=== PATIENT | female | born 1945 | race African-American/Black ===

== ENCOUNTER 2017-01-20 17:51 | Emergency (ER) | payer OTHER ==
[~2017-01-20] VITALS: Ht 175.3 cm; Wt 95.7 kg
[~2017-01-20 17:51] MED LIST: ACET325T9 PO; AMLO10TA4 PO; ARIP15TA3 PO; ASPI-482 PO; BENZ0.5T PO; BENZ2TAB5 PO; CALC-98 PO; CELE200C PO; CHLO25TA PO; CHOL100013 PO; CIPR7.5D LEFT EAR; CLON0.1T12 PO; DICL100G18 TP; DULO20CA PO; ESOM20CA PO; ESOM40CA PO; FERR-26 PO; FLECTOR1 EACH TP; FLUP5TAB PO; FURO20TA3 PO; GLIP5TAB10 PO; HYDR-2758 PO; HYDR-2868 PO; LORA0.5T96 PO; MELO7.5T29 PO; METF-620 PO; METO50TA2 PO; MULT-208 PO; MULT-245 PO; NITR0.4T22 SL; OLOP5DRO EACHEYE; OMEG10006 PO; POTA10TA PO; PRED1TAB3 PO; PRED20TA PO; PROVENTIL HFA6.7 GM IH; SERT50TA PO; SIMV20TA PO; SIMV20TA3 PO; TRAM50TA PO; VALS320T2 PO
[2017-01-20 18:30] LABS: BASO # 0.1 x10^3/uL (0.0-0.2); BASO % 1 % (0-3); EOS % 1 % (0-3); HEMATOCRIT 35.5 % (36.0-47.0); HEMOGLOBIN 11.7 g/dL (12.0-15.5); LYMPH # 1.7 x10^3/uL (1.0-4.8); LYMPH % 16 % (24-48); MEAN CORPUSCULAR HEMOGLOBIN 28 pg (25-35); MEAN CORPUSCULAR HGB CONC 33 g/dL (31-37); MEAN CORPUSCULAR VOLUME 86 fL (79-100); MONO % 6 % (0-9); NEUT % 77 % (31-73); PLATELET COUNT 252 x10^3/uL (140-400); RED BLOOD COUNT 4.12 x10^6/uL (3.50-5.40); RED CELL DISTRIBUTION WIDTH 14.3 % (11.5-14.5); WHITE BLOOD COUNT 10.8 x10^3/uL (4.0-11.0)
[2017-01-20 18:39] LABS: PROTHROMBIN TIME PATIENT 12.9 SEC (11.7-14.0)
[2017-01-20 18:54] LABS: CREATININE 0.9 mg/dL (0.6-1.0); GFR 74.7; POTASSIUM 3.8 mmol/L (3.5-5.1)
[2017-01-20 19:00] LABS: ALBUMIN 3.9 g/dL (3.4-5.0); ALBUMIN/GLOBULIN RATIO 1.1 (1.0-1.7); MAGNESIUM 1.7 mg/dL (1.8-2.4); TOTAL BILIRUBIN 0.3 mg/dL (0.2-1.0); TOTAL PROTEIN 7.6 g/dL (6.4-8.2)
--- NOTE | 2017-01-20 19:09 | PHYS DOC ---
Past Medical History Past Medical History: Arthritis, Asthma, Diabetes-Type II, Fibromyalgia, High Cholesterol, Hypertension, Schizophrenia Additional Past Medical Histor: schizoaffective disorder, polymyalgia rheumatica Past Surgical History: Appendectomy, Hysterectomy, Knee Replacement Additional Past Surgical Histo: rectal surgery for fissures, cataract removed, back surgery Alcohol Use: None Drug Use: None Adult General Chief Complaint Chief Complaint: CHEST PAIN HPI HPI Patient is a 71 year old female who presents with chest pain. The patient reports onset of chest pressure about one hour prior to arrival after walking up the steps to the food [employer]. She states she had nonradiating substernal chest pressure associated with shortness of breath. She denies nausea or diaphoresis. Denies fevers or chills, cough, lower extremity pain or swelling. She has history of CHF and weighs herself daily. States she has lost 4 pounds since yesterday. She reports previous history of similar chest pain, unsure whether she was given any diagnosis at that time. Today her pain improved after taking nitro x 1. She denies any cardiac stents but does report history of CAD as well as DM & HTN. PCP is Dr. Love. Clip Wrapper is Dr. Page. Review of Systems Review of Systems Constitutional: Denies fever or chills Eyes: Denies change in visual acuity HENT: Denies nasal congestion or sore throat Respiratory: Denies cough, reports shortness of breath Cardiovascular: Reports chest pain, denies edema GI: Denies abdominal pain, nausea, vomiting, bloody stools or diarrhea : Denies dysuria or hematuria Musculoskeletal: Denies back pain or joint pain Integument: Denies rash or skin lesions Neurologic: Denies headache, focal weakness or sensory changes Allergies Allergies Allergies Coded Allergies Type Severity Reaction Last Updated Verified divalproex sodium Allergy Intermediate neck and back pain 07/16/16 Yes fluticasone Allergy Intermediate COUGH 07/16/16 Yes latex Allergy Intermediate SURGICAL TAPE 07/16/16 Yes lisinopril Allergy Intermediate cough 07/16/16 Yes piroxicam Allergy Intermediate BLISTERS 07/16/16 Yes gabapentin Adverse Reaction Severe 12/12/16 Yes Physical Exam Physical Exam Constitutional: Obese, no acute distress, non-toxic appearance. HENT: Normocephalic, atraumatic, bilateral external ears normal, oropharynx moist, nose normal. Eyes: PERRLA, EOMI, conjunctiva normal, no discharge. Neck: supple, no stridor. Cardiovascular: RRR, no murmurs, no edema. Lungs & Thorax: Diminished, LCTAB, no wheezing, no respiratory distress. No reproducible tenderness with palpation over the anterior chest wall. Abdomen: soft, nontender, nondistended. Skin: Warm, dry, no erythema, no rash. Back: No tenderness. Extremities: No tenderness, no edema. No calf tenderness or swelling. Neurologic: Alert and oriented X 3, no focal deficits noted. Psychologic: Affect normal, judgement normal, mood normal. Current Patient Data Vital Signs Vital Signs Date Time Temp Pulse Resp B/P (MAP) Pulse Ox O2 Delivery O2 Flow Rate FiO2 01/20/17 21:02 75 20 163/87 (112) 96 Room Air 01/20/17 17:52 97.9 97.9 Lab Values Laboratory Tests Test 01/20/17 18:20 01/20/17 20:06 White Blood Count 10.8 x10^3/uL (4.0-11.0) Red Blood Count 4.12 x10^6/uL (3.50-5.40) Hemoglobin 11.7 g/dL (12.0-15.5) L Hematocrit 35.5 % (36.0-47.0) L Mean Corpuscular Volume 86 fL (79-100) Mean Corpuscular Hemoglobin 28 pg (25-35) Mean Corpuscular Hemoglobin Concent 33 g/dL (31-37) Red Cell Distribution Width 14.3 % (11.5-14.5) Platelet Count 252 x10^3/uL (140-400) Neutrophils (%) (Auto) 77 % (31-73) H Lymphocytes (%) (Auto) 16 % (24-48) L Monocytes (%) (Auto) 6 % (0-9) Eosinophils (%) (Auto) 1 % (0-3) Basophils (%) (Auto) 1 % (0-3) Neutrophils # (Auto) 8.3 x10^3uL (1.8-7.7) H Lymphocytes # (Auto) 1.7 x10^3/uL (1.0-4.8) Monocytes # (Auto) 0.6 x10^3/uL (0.0-1.1) Eosinophils # (Auto) 0.1 x10^3/uL (0.0-0.7) Basophils # (Auto) 0.1 x10^3/uL (0.0-0.2) Prothrombin Time 12.9 SEC (11.7-14.0) Prothrombin Time INR 1.0 (0.8-1.1) PTT 29 SEC (24-38) Sodium Level 140 mmol/L (136-145) Potassium Level 3.8 mmol/L (3.5-5.1) Chloride Level 101 mmol/L (98-107) Carbon Dioxide Level 30 mmol/L (21-32) Anion Gap 9 (6-14) Blood Urea Nitrogen 13 mg/dL (7-20) Creatinine 0.9 mg/dL (0.6-1.0) Estimated GFR (Cockcroft-Gault) 74.7 BUN/Creatinine Ratio 14 (6-20) Glucose Level 147 mg/dL (70-99) H Calcium Level 10.0 mg/dL (8.5-10.1) Magnesium Level 1.7 mg/dL (1.8-2.4) L Total Bilirubin 0.3 mg/dL (0.2-1.0) Aspartate Amino Transferase (AST) 17 U/L (15-37) Alanine Aminotransferase (ALT) 22 U/L (14-59) Alkaline Phosphatase 88 U/L (46-116) Troponin I Quantitative < 0.017 ng/mL (0.000-0.055) < 0.017 ng/mL (0.000-0.055) TE-Fsd-Q-Type Natriuretic Peptide 176 pg/mL (0-124) H Total Protein 7.6 g/dL (6.4-8.2) Albumin 3.9 g/dL (3.4-5.0) Albumin/Globulin Ratio 1.1 (1.0-1.7) Lipase 82 U/L (73-393) Laboratory Tests 01/20/17 18:20 Laboratory Tests 01/20/17 18:20 EKG EKG Interpreted by me: Normal sinus rhythm rate 78, no acute ST or T wave changes, normal intervals, no ectopy. [] Radiology/Procedures Radiology/Procedures CXR: interpreted by me: no cardiomegaly, no infiltrate, no pneumothorax.[] Course & Med Decision Making Course & Med Decision Making Pertinent Labs and Imaging studies reviewed. (See chart for details) The patient presents with chest pain. She had already taken full-strength aspirin at home so it was not administered here. She declined pain medication as her pain had completely resolved. Obtained labs, EKG, chest x-ray. No acute abnormalities were identified. I discussed results with the patient and recommended admission to the hospital. She was very reluctant to stay in preferred to be discharged home. I attempted to contact her PCP Dr. Love to discuss disposition. Unfortunately I did not receive a call back for several hours. Discussed at length with the patient and we decided to repeat EKG and troponin. No significant change identified and she continued to request discharge home, remained asymptomatic. She does have risk factors for ACS with known CAD, but she declines admission to the hospital. I recommended that she continue home medications, follow-up with PCP or her furniture mover in 2-3 days. Return to the emergency department for severe chest pain or shortness of breath , any otherwise worsening condition. Discharged home in stable condition. Dragon Disclaimer Dragon Disclaimer This electronic medical record was generated, in whole or in part, using a voice recognition dictation system. Departure Departure Impression: Primary Impression: Chest pain Disposition: 01 HOME, SELF-CARE Condition: STABLE Referrals: ELISABETH LOVE MD (PCP) Patient Instructions: Chest Pain (Nonspecific), [id number] Additional Instructions: You seen in the emergency department today for chest pain. Labs, EKG, chest x- ray did not show any serious cause of symptoms. We did offer admission to the hospital for further heart tests. You preferred to go home. Please follow-up with primary care physician or radiologist within 2-3 days. Return to the emergency department for severe shortness of breath or chest pain, any otherwise worsening condition. CHIDI MINER MD Jan 20, 2017 19:09
[2017-01-20 21:02] VITALS: BP 163/87
--- NOTE | 2017-01-21 06:49 | EKG ---
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
--- NOTE | 2017-01-21 06:50 | EKG ---
[facility] [address] [place] [address] Test Date: 2017-01-20 Test Time: 20:33:06 Pat Name: CRISTOBAL BLOOD Department: Room: Gender: F Planer Hand: : 1945 Requested By: CHIDI MINER Order Number: [id number] Reading MD: Brittanie Rojas Measurements Intervals [place] Rate: 63 P: 43 UT: 168 QRS: -18 QRSD: 94 T: 43 QT: 412 QTc: 425 Interpretive Statements SINUS RHYTHM LEFT ATRIAL ABNORMALITY LEFTWARD AXIS ABNORMAL ECG Electronically Signed On 01-22-2017 14:12:28 CDT by Brittanie Rojas
--- NOTE | 2017-01-21 08:02 | RAD ---
Portable AP upright view CXR: Clinical indications: Chest pain today. Nontraumatic midsternal chest pain. History of hypertension and asthma and CHF and coronary artery disease. Comparison: December 11, 2016.. Findings: No acute lung infiltrate or pleural effusion or pulmonary edema or lung mass or pneumothorax is seen. The heart size, pulmonary vasculature, mediastinum and both krish are unremarkable. Degenerative osteoarthritis of the glenohumeral joint and AC joint of both shoulders is seen. There is narrowing of the acromial humeral spaces of the right shoulder which is consistent with a chronic rotator cuff tear. Impression: No acute radiographic abnormality is seen.
== END 2017-01-20 21:02 | disposition home or self-care (01) ==
LOC: ER 17:51
DX: R07.89 Other chest pain (principal); R06.02 Shortness of breath; M19.90 Unspecified osteoarthritis, unspecified site; J45.909 Unspecified asthma, uncomplicated; E11.9 Type 2 diabetes mellitus without complications; M79.7 Fibromyalgia; E78.00 Pure hypercholesterolemia, unspecified; I25.10 Atherosclerotic heart disease of native coronary artery without angina pectoris; F20.9 Schizophrenia, unspecified; I11.0 Hypertensive heart disease with heart failure; I50.9 Heart failure, unspecified; M35.3 Polymyalgia rheumatica; Z90.710 Acquired absence of both cervix and uterus; Z96.659 Presence of unspecified artificial knee joint; Z90.49 Acquired absence of other specified parts of digestive tract; Z98.49 Cataract extraction status, unspecified eye; Z88.8 Allergy status to other drugs, medicaments and biological substances; Z91.040 Latex allergy status
CPT/HCPCS: 36415; 71010; 80053; 83690; 83735; 83880; 84484; 85027; 85610; 85730; 93005; 99285-25

== ENCOUNTER → 2017-01-26 | Outpatient (CLI) | payer OTHER ==
[2017-01-20 21:02] VITALS: BP 163/87
[2017-01-26 10:30] LABS: CALCIUM 9.8 mg/dL (8.5-10.1); CREATININE 0.8 mg/dL (0.6-1.0); GFR 85.6; POTASSIUM 3.3 mmol/L (3.5-5.1)
== END | disposition home or self-care (01) ==
LOC: SPEC 10:05
PROVIDERS: ATTEND Internal Medicine
DX: I11.0 Hypertensive heart disease with heart failure (principal); I50.30 Unspecified diastolic (congestive) heart failure; E87.6 Hypokalemia
CPT/HCPCS: 36415; 80048

== ENCOUNTER 2017-02-12 00:10 | Emergency (ER) | payer OTHER ==
[2017-02-12 00:15] VITALS: BP 132/70
--- NOTE | 2017-02-12 01:32 | PHYS DOC ---
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 Patient states she has neuropathy and cannot feel any pain. Review of Systems Review of Systems Constitutional: Denies fever or chills [] Eyes: Denies change in visual acuity, redness, or eye pain [] Musculoskeletal: Left great toe contusion Integument: Denies rash or skin lesions [] Neurologic: Denies headache, focal weakness or sensory changes [] Endocrine: Denies polyuria or polydipsia [] Current Medications Current Medications Current Medications Medications (Trade) Dose Ordered Sig/Rocío Start Time Stop Time Status Last Admin Dose Admin Diphtheria/ Tetanus/Acell Pertussis (Boostrix) 0.5 ml ONCE ONCE 02/12/17 02:00 02/12/17 02:01 Neomycin/ Polymyxin/ Bacitracin (Triple Antibiotic Ointment) 1 pkt 1X ONCE 02/12/17 02:00 02/12/17 02:01 Allergies Allergies Allergies Coded Allergies Type Severity Reaction Last Updated Verified divalproex sodium Allergy Intermediate neck and back pain 07/16/16 Yes fluticasone Allergy Intermediate COUGH 07/16/16 Yes latex Allergy Intermediate SURGICAL TAPE 07/16/16 Yes lisinopril Allergy Intermediate cough 07/16/16 Yes piroxicam Allergy Intermediate BLISTERS 07/16/16 Yes gabapentin Adverse Reaction Severe 12/12/16 Yes Physical Exam Physical Exam Constitutional: Well developed, well nourished, no acute distress, non-toxic appearance. [] HENT: Normocephalic, atraumatic, bilateral external ears normal, oropharynx moist, no oral exudates, nose normal. [] Skin: Warm, dry, no erythema, no rash. [] Back: No tenderness, no CVA tenderness. [] Extremities: Left great toe with a tiny laceration over the lateral aspect of the distal nail bed approx. 0.3cm. the nail is still attached to the nailbed. Full range of motion to the left great toe. +2 left pedal pulse. Cap refill less than 2 seconds to the left great toe. Patient has no sensation to the toe due to neuropathy Neurologic: Alert and oriented X 3, normal motor function, normal sensory function, no focal deficits noted. [] Psychologic: Affect normal, judgement normal, mood normal. [] Current Patient Data Vital Signs Vital Signs Date Time Temp Pulse Resp B/P (MAP) Pulse Ox O2 Delivery O2 Flow Rate FiO2 02/12/17 00:15 98.3 87 16 97 Room Air 98.3 EKG EKG [] Radiology/Procedures Radiology/Procedures [] Course & Med Decision Making Course & Med Decision Making Pertinent Labs and Imaging studies reviewed. (See chart for details) Patient has left great toe contusion. Left great toe x-rays interpreted by Dr. Cevallos three views wre negative for any acute findings. Patient's tetanus was updated. She was provided orthopedic shoe. Discharged with instructions to follow-up with orthopedic doctor next week. Dragon Disclaimer Dragon Disclaimer This electronic medical record was generated, in whole or in part, using a voice recognition dictation system. Departure Departure Impression: Primary Impression: Contusion of left great toe with damage to nail Additional Impression: Fracture of great toe, left, open Disposition: 01 HOME, SELF-CARE Condition: STABLE Referrals: ELISABETH LOVE MD (PCP) LUIS CANTU MD follow up in one week Patient Instructions: Contusion, [id number] Additional Instructions: You were seen for left great toe contusion, You have a fracture to the left great toe. Ice and elevate the extremity. Follow-up with orthopedic doctor provided in the next 3-5 days. Complete your oral antibiotics. Ice and elevate the extremity. Take Tylenol or Motrin for pain follow-up with your doctor in 1- 2 weeks. Apply Neosporin/triple antibiotics to the laceration site. Monitor the area for signs and symptoms of infection including but not limited to increased redness warmth or odor drainage from the area and return to the ED if they occur. Scripts Cephalexin (CEPHALEXIN) 500 Mg Tablet 1 TAB PO QID, #40 TAB Prov: SCOTTIE BRENNAN PLANER SETTER 02/12/17 Problem Qualifiers Primary Impression: Contusion of left great toe with damage to nail Encounter type: initial encounter Qualified Codes: S90.212A - Contusion of left great toe with damage to nail, initial encounter Additional Impression: Fracture of great toe, left, open Encounter type: initial encounter Phalanx: distal Fracture alignment: nondisplaced Qualified Codes: S92.425B - Nondisplaced fracture of distal phalanx of left great toe, initial encounter for open fracture SCOTTIE BRENNAN PLANER SETTER Feb 12, 2017 01:32
[2017-02-12] MEDS ORDERED: CEPH500T PO (01:46)
[2017-02-12] MEDS ORDERED: NEOMY/BACITR/POLYMYXIN OINT PACKET. TP ONE (02:00)
[2017-02-12] MEDS ORDERED: DIPHTH,PERTUSS(ACELL),TET TOX 0.5 ML DISP.SYRIN. VAX IM ONE (02:00)
--- NOTE | 2017-02-12 08:21 | RAD ---
Indication pain after hitting foot. AP oblique and lateral views of the left foot were obtained. There is some diffuse soft tissue swelling. No acute bony finding is apparent
== END 2017-02-12 01:56 | disposition home or self-care (01) ==
LOC: ER 00:10
DX: S92.415B Nondisplaced fracture of proximal phalanx of left great toe, initial encounter for open fracture (principal); M35.3 Polymyalgia rheumatica; E11.21 Type 2 diabetes mellitus with diabetic nephropathy; E78.00 Pure hypercholesterolemia, unspecified; F20.9 Schizophrenia, unspecified; I10 Essential (primary) hypertension; J45.909 Unspecified asthma, uncomplicated; M79.7 Fibromyalgia; I11.0 Hypertensive heart disease with heart failure; I50.9 Heart failure, unspecified; M19.90 Unspecified osteoarthritis, unspecified site; F25.9 Schizoaffective disorder, unspecified; Z90.710 Acquired absence of both cervix and uterus; Z96.659 Presence of unspecified artificial knee joint; Z90.49 Acquired absence of other specified parts of digestive tract; Z88.8 Allergy status to other drugs, medicaments and biological substances; Z91.040 Latex allergy status; X58.XXXA Exposure to other specified factors, initial encounter; Y93.89 Activity, other specified; Y92.89 Other specified places as the place of occurrence of the external cause; Y99.8 Other external cause status
CPT/HCPCS: 73630; 90471; 90715; 99284-25

== ENCOUNTER 2017-05-02 03:22 | Emergency (ER) | payer OTHER ==
[~2017-05-02] VITALS: Ht 175.3 cm; Wt 90.7 kg
[~2017-05-02 03:22] MED LIST changes: +CEPH500T PO
[2017-05-02 03:41] VITALS: BP 137/74
--- NOTE | 2017-05-02 03:43 | PHYS DOC ---
Past Medical History Past Medical History: Arthritis, Asthma, CHF, Diabetes-Type II, Fibromyalgia, High Cholesterol, Hypertension, Schizophrenia Additional Past Medical Histor: schizoaffective disorder, polymyalgia rheumatica Past Surgical History: Appendectomy, Hysterectomy, Knee Replacement Additional Past Surgical Histo: rectal surgery for fissures, cataract removed, back surgery Alcohol Use: None Drug Use: None Adult General Chief Complaint Chief Complaint: HAND PROBLEM HPI HPI Patient is a 71 year old female who presents with left hand pain. She states it started earlier this evening. Denies any trauma fall or injury. She states she took 2 Tylenol about 10 PM tonight. It woke her up with continued pain. There is no skin change. No redness or injury. Review of Systems Review of Systems Constitutional: Denies fever or chills Musculoskeletal: Denies back pain; POS joint pain left hand (arthritis diffusely ) Integument: Denies rash or skin lesions Current Medications Current Medications Current Medications Medications (Trade) Dose Ordered Sig/Rocío Start Time Stop Time Status Last Admin Dose Admin Acetaminophen/ Codeine Phosphate (Tylenol #3) 2 tab 1X ONCE 05/02/17 03:45 05/02/17 03:50 DC 05/02/17 03:49 2 TAB Allergies Allergies Allergies Coded Allergies Type Severity Reaction Last Updated Verified divalproex sodium Allergy Intermediate neck and back pain 07/16/16 Yes fluticasone Allergy Intermediate COUGH 07/16/16 Yes latex Allergy Intermediate SURGICAL TAPE 07/16/16 Yes lisinopril Allergy Intermediate cough 07/16/16 Yes piroxicam Allergy Intermediate BLISTERS 07/16/16 Yes gabapentin Adverse Reaction Severe 12/12/16 Yes Physical Exam Physical Exam Skin: Warm, dry, no erythema, no rash. Extremities: No tenderness, no cyanosis, no clubbing, ROM intact, no edema. Left hand and wrist: slight swelling noted at wrist joint; no focal area of swelling. Non tender to palpation of all metacarpal and carpal bones. Tender with ROM of wrist but NO limitation on ROM. NVI distally; normal capillary refill. NO compartment syndrome. Neurologic: Alert and oriented X 3, normal motor function, normal sensory function, no focal deficits noted. Current Patient Data Vital Signs Vital Signs Date Time Temp Pulse Resp B/P (MAP) Pulse Ox O2 Delivery O2 Flow Rate FiO2 05/02/17 03:41 98.4 74 16 95 Room Air 98.4 Course & Med Decision Making Course & Med Decision Making Tylenol #3 dosed here (has a ride). Patient may have gout but more than likely acute flare of her arthritis. No injury or swelling to indicate need for xray. Home to f/u w PCP. Terrence moyer. I have spoken with the patient and/or caregivers. I have explained the patient' s condition, diagnosis and treatment plan based on the information available to me at this time. I have answered the patient's and/or caregiver's questions and addressed any concerns. The patient and/or caregivers have as good an understanding of the patient's diagnosis, condition and treatment plan as can be expected at this point. The patient's condition is stable and appropriate for discharge from the emergency department. The patient will pursue further outpatient evaluation with the primary care physician or other designated or consulting physician as outlined in the discharge instructions. The patient and/or caregivers are agreeable to this plan of care and follow-up instructions have been explained in detail. The patient and/or caregivers have received these instructions in written format and have expressed an understanding of the discharge instructions. The patient and/or caregivers are aware that any significant change in condition or worsening of symptoms should prompt an immediate return to this or the closest emergency department or a call to 911. Dragon Disclaimer Dragon Disclaimer This electronic medical record was generated, in whole or in part, using a voice recognition dictation system. Departure Departure Impression: Primary Impression: Left hand pain Disposition: HOME, SELF-CARE Condition: STABLE Referrals: ELISABETH LOVE MD (PCP) Patient Instructions: Arthritis, Nonspecific Additional Instructions: IF YOUR PAIN CONTINUES; CALL YOUR DOCTOR TODAY LUCHO RODRIGUEZ MD May 02, 2017 03:43
[2017-05-02] MEDS ORDERED: ACETAMINOPHEN/CODEINE 300/30MG TABLET. PO ONE (03:45)
== END 2017-05-02 03:50 | disposition home or self-care (01) ==
LOC: ER 03:22
DX: M79.642 Pain in left hand (principal); M35.3 Polymyalgia rheumatica; M79.7 Fibromyalgia; I11.0 Hypertensive heart disease with heart failure; J45.909 Unspecified asthma, uncomplicated; I50.9 Heart failure, unspecified; E11.9 Type 2 diabetes mellitus without complications; F20.9 Schizophrenia, unspecified; E78.00 Pure hypercholesterolemia, unspecified; Z88.8 Allergy status to other drugs, medicaments and biological substances; Z91.040 Latex allergy status
CPT/HCPCS: 99282

== ENCOUNTER 2017-08-21 07:58 | Inpatient (IN) | payer MEDICARE, OTHER ==
[2017-08-21 08:05] LABS: POC GLUCOSE 186 mg/dL (70-99)
[2017-08-21 08:09] LABS: ADD MAN DIFF? NO
[2017-08-21 08:17] LABS: BASO # 0.1 x10^3/uL (0.0-0.2); BASO % 1 % (0-3); EOS # 0.2 x10^3/uL (0.0-0.7); EOS % 2 % (0-3); HEMATOCRIT 32.9 % (36.0-47.0); HEMOGLOBIN 10.9 g/dL (12.0-15.5); LYMPH # 2.6 x10^3/uL (1.0-4.8); LYMPH % 25 % (24-48); MEAN CORPUSCULAR HEMOGLOBIN 28 pg (25-35); MEAN CORPUSCULAR HGB CONC 33 g/dL (31-37); MEAN CORPUSCULAR VOLUME 85 fL (79-100); MONO # 0.9 x10^3/uL (0.0-1.1); MONO % 8 % (0-9); NEUT # 6.8 x10^3uL (1.8-7.7); NEUT % 65 % (31-73); PLATELET COUNT 320 x10^3/uL (140-400); RED BLOOD COUNT 3.87 x10^6/uL (3.50-5.40); RED CELL DISTRIBUTION WIDTH 14.1 % (11.5-14.5); WHITE BLOOD COUNT 10.5 x10^3/uL (4.0-11.0)
[2017-08-21 08:27] LABS: INR 0.9 (0.8-1.1)
[2017-08-21 08:35] LABS: ANION GAP 10 (6-14); BLOOD UREA NITROGEN 17 mg/dL (7-20); BUN/CREATININE RATIO 15 (6-20); CALCIUM 9.9 mg/dL (8.5-10.1); CARBON DIOXIDE 25 mmol/L (21-32); CHLORIDE 85 mmol/L (98-107); CREATININE 1.1 mg/dL (0.6-1.0); GFR 59.1; GLUCOSE 172 mg/dL (70-99); POTASSIUM 3.7 mmol/L (3.5-5.1)
[2017-08-21 08:38] LABS: SODIUM 120 mmol/L (136-145)
[2017-08-21 08:40] LABS: ALBUMIN 3.8 g/dL (3.4-5.0); ALBUMIN/GLOBULIN RATIO 0.9 (1.0-1.7); ALK PHOS 90 U/L (46-116); ALT (SGPT) 22 U/L (14-59); AST (SGOT) 18 U/L (15-37); LIPASE 81 U/L (73-393); MAGNESIUM 1.4 mg/dL (1.8-2.4); TOTAL BILIRUBIN 0.3 mg/dL (0.2-1.0); TOTAL PROTEIN 8.1 g/dL (6.4-8.2)
[2017-08-21 08:43] LABS: TROPONINI < 0.017 ng/mL (0.000-0.055)
[2017-08-21 08:46] LABS: THYROID STIM HORMONE (TSH) 1.553 uIU/mL (0.358-3.74)
[2017-08-21 08:48] LABS: NT-PRO BNP 16 pg/mL (0-124)
[2017-08-21 08:48] LABS: CKMB INDEX 0.8 % (0-4); CKMB MASS 4.6 ng/mL (0.0-3.6); CREATINE KINASE 574 U/L (26-192)
[2017-08-21 08:56] LABS: BILIRUBIN,URINE NEGATIVE (NEG); CLARITY,URINE CLEAR; COLOR,URINE YELLOW; GLUCOSE,URINE NEGATIVE (NEG); NITRITE,URINE NEGATIVE (NEG); PROTEIN,URINE NEGATIVE (NEG-TRACE); UROBILINOGEN,URINE 0.2 mg/dL (0.2 mg/dL)
[2017-08-21 09:04] LABS: BARBITURATES NEG (NEG); BENZODIAZEPINES NEG (NEG); CANNABINOIDS NEG (NEG); COCAINE NEG (NEG); METHADONE NEG (NEG); OPIATES NEG (NEG); PHENCYCLIDINE NEG (NEG)
[2017-08-21] MEDS: IV NORMAL SALINE 1000ML BAG 1,000 ML IV ×4 (09:04→13:32)
[2017-08-21 09:05] LABS: AMPHETAMINE/METHAMPHETAMINE NEG (NEG); ETHANOL, URINE NEG (NEG)
[2017-08-21 09:22] LABS: BACTERIA,URINE 0 /HPF (0-FEW); RBC,URINE 0 /HPF (0-2); SQUAMOUS EPITHELIAL CELL,UR FEW /LPF; WBC,URINE 0 /HPF (0-4)
[2017-08-21] MEDS ORDERED: NITROGLYCERIN SUBLINGUAL 0.4 MG BOTTLE OF 25. SL ×4 (10:00→14:45)
[2017-08-21] MEDS ORDERED: ONDANSETRON PF 4 MG/2 ML VIAL. IV ×2 (10:00)
[2017-08-21] MEDS: IPRATRPIUM/ALBUTEROL 0.5/2.5MG 3 ML NEBU. NEB ×6 (11:06→20:29)
[2017-08-21] MEDS ORDERED: NON FORMULARY ITEM (Albuterol Sulfate (Proventil Hfa Inhaler) 2 PUFF) IH ×2 (14:45)
[2017-08-21] MEDS: SERTRALINE 50 MG TABLET. PO ×2 (15:00)
[2017-08-21] MEDS: SPIRONOLACTONE 25 MG TABLET PO ×2 (15:00)
[2017-08-21] MEDS ORDERED: ASPIRIN ENTERIC COATED 81 MG TABLET.DR. PO ×2 (15:00)
[2017-08-21] MEDS ORDERED: amLODIPine BESYLATE 10 MG TABLET PO ×2 (15:00)
[2017-08-21] MEDS: FUROSEMIDE 20 MG TABLET PO ×2 (15:00)
[2017-08-21] MEDS: MELOXICAM 7.5 MG TABLET PO ×2 (15:00)
[2017-08-21] MEDS: LOSARTAN POTASSIUM 50 MG TABLET. PO ×2 (15:00)
[2017-08-21] MEDS ORDERED: OMEGA-3 FATTY ACIDS/FISH OIL 1,000 MG CAPSULE. PO ×2 (15:00)
[2017-08-21] MEDS ORDERED: ALBUTEROL SULFATE 2.5 MG/3 ML NEBU. NEB ×2 (15:00)
[2017-08-21] MEDS: MAGNESIUM OXIDE 400 MG TABLET PO ×4 (15:00→21:08)
[2017-08-21] MEDS: DULoxetine HCL 30 MG CAPSULE.DR PO ×2 (15:00)
[2017-08-21] MEDS ORDERED: ARIPiprazole 2 MG TABLET PO ×2 (15:00)
[2017-08-21] MEDS: BENZTROPINE MESYLATE 1 MG TABLET. PO ×4 (15:15→21:09)
[2017-08-21] MEDS: MULTIVITAMIN with MINERAL TABLET. PO ×2 (15:26)
[2017-08-21] MEDS: cloNIDine HCL 0.1 MG TABLET PO ×4 (15:26→21:11)
[2017-08-21] MEDS: hydrALAZINE 25 MG TABLET PO ×4 (15:26→21:10)
[2017-08-21] MEDS: CHLORTHALIDONE 25 MG TABLET. PO ×2 (15:26)
[2017-08-21] MEDS: FERROUS SULFATE 325 MG TABLET. PO ×2 (15:26)
[2017-08-21 16:49] LABS: POC GLUCOSE 216 mg/dL (70-99)
[2017-08-21] MEDS: CALCIUM CARB/VIT D3 500/200 TABLET. PO ×2 (17:11)
[2017-08-21] MEDS: DICLOFENAC SODIUM 1% TOPICAL GEL 100GM TUBE. TP ×4 (17:45→21:10)
[2017-08-21 21:00] LABS: POC GLUCOSE 102 mg/dL (70-99)
[2017-08-21] MEDS ORDERED: FLUPHENAZINE HCL 2 MG PO ×2 (21:00)
[2017-08-21] MEDS: amLODIPine BESYLATE 10 MG TABLET PO ×2 (21:08)
[2017-08-21] MEDS: ARIPiprazole 2 MG TABLET PO ×2 (21:09)
[2017-08-21] MEDS: SIMVASTATIN 20 MG TABLET PO ×2 (21:09)
[2017-08-21] MEDS: LORazepam 0.5 MG TABLET PO ×2 (21:09)
[2017-08-21] MEDS: ASPIRIN ENTERIC COATED 81 MG TABLET.DR. PO ×2 (21:10)
[2017-08-21] MEDS: OMEGA-3 FATTY ACIDS/FISH OIL 1,000 MG CAPSULE. PO ×2 (21:10)
[2017-08-22] MEDS: REGADENOSON 0.4 MG/5 ML DISP.SYRIN. IV ×6 (07:15→09:54)
[2017-08-22 08:02] LABS: POC GLUCOSE 176 mg/dL (70-99)
[2017-08-22] MEDS: IPRATRPIUM/ALBUTEROL 0.5/2.5MG 3 ML NEBU. NEB ×6 (08:41→20:15)
[2017-08-22] MEDS ORDERED: LABETALOL 20 MG/4 ML DISP.SYRIN. IVP ×2 (08:45)
[2017-08-22] MEDS: MORPHINE SULFATE 4 MG/ML DISP.SYRIN. IV ×2 (08:53)
[2017-08-22 09:55] LABS: CREATINE KINASE 414 U/L (26-192)
[2017-08-22 10:02] LABS: TROPONINI < 0.017 ng/mL (0.000-0.055)
[2017-08-22] MEDS: PANTOPRAZOLE 40 MG TABLET.DR. PO ×2 (10:44)
[2017-08-22] MEDS: glipiZIDE ER 2.5 MG TAB.ER.24 PO ×2 (10:45)
[2017-08-22] MEDS: CALCIUM CARB/VIT D3 500/200 TABLET. PO ×2 (10:46)
[2017-08-22] MEDS: hydrALAZINE 25 MG TABLET PO ×6 (10:47→20:34)
[2017-08-22] MEDS: cloNIDine HCL 0.1 MG TABLET PO ×6 (10:48→20:35)
[2017-08-22] MEDS: BENZTROPINE MESYLATE 1 MG TABLET. PO ×4 (10:49→20:33)
[2017-08-22] MEDS: DULoxetine HCL 30 MG CAPSULE.DR PO ×2 (10:50)
[2017-08-22] MEDS: FERROUS SULFATE 325 MG TABLET. PO ×2 (10:50)
[2017-08-22] MEDS: MAGNESIUM OXIDE 400 MG TABLET PO ×4 (10:51→20:33)
[2017-08-22] MEDS: MULTIVITAMIN with MINERAL TABLET. PO ×2 (10:51)
[2017-08-22] MEDS: FUROSEMIDE 20 MG TABLET PO ×2 (10:51)
[2017-08-22] MEDS: SERTRALINE 50 MG TABLET. PO ×2 (10:52)
[2017-08-22] MEDS: DICLOFENAC SODIUM 1% TOPICAL GEL 100GM TUBE. TP ×8 (10:53→20:38)
[2017-08-22 11:09] LABS: HEMATOCRIT 36.1 % (36.0-47.0); HEMOGLOBIN 11.9 g/dL (12.0-15.5); PLATELET COUNT 353 x10^3/uL (140-400); WHITE BLOOD COUNT 9.4 x10^3/uL (4.0-11.0)
[2017-08-22 11:19] LABS: ALBUMIN 4.2 g/dL (3.4-5.0); ALBUMIN/GLOBULIN RATIO 1.1 (1.0-1.7); ALK PHOS 103 U/L (46-116); ALT (SGPT) 22 U/L (14-59); ANION GAP 7 (6-14); AST (SGOT) 17 U/L (15-37); BLOOD UREA NITROGEN 13 mg/dL (7-20); BUN/CREATININE RATIO 13 (6-20); CALCIUM 10.2 mg/dL (8.5-10.1); CARBON DIOXIDE 30 mmol/L (21-32); CHLORIDE 91 mmol/L (98-107); GFR 65.9; GLUCOSE 172 mg/dL (70-99); SODIUM 128 mmol/L (136-145); TOTAL BILIRUBIN 0.4 mg/dL (0.2-1.0); TOTAL PROTEIN 8.2 g/dL (6.4-8.2)
[2017-08-22 16:49] LABS: POC GLUCOSE 126 mg/dL (70-99)
[2017-08-22] MEDS ORDERED: POTASSIUM CHLORIDE 20 MEQ TABLET.ER. PO ×2 (17:00)
[2017-08-22] MEDS: ARIPiprazole 5 MG TABLET PO ×2 (20:33)
[2017-08-22] MEDS: OMEGA-3 FATTY ACIDS/FISH OIL 1,000 MG CAPSULE. PO ×2 (20:34)
[2017-08-22] MEDS: SIMVASTATIN 20 MG TABLET PO ×2 (20:35)
[2017-08-22] MEDS: amLODIPine BESYLATE 10 MG TABLET PO ×2 (20:35)
[2017-08-22 21:25] LABS: POC GLUCOSE 159 mg/dL (70-99)
[2017-08-22] MEDS: ASPIRIN ENTERIC COATED 81 MG TABLET.DR. PO ×2 (22:30)
[2017-08-23 05:30] LABS: HEMATOCRIT 34.8 % (36.0-47.0); HEMOGLOBIN 11.5 g/dL (12.0-15.5); MEAN CORPUSCULAR HEMOGLOBIN 28 pg (25-35); MEAN CORPUSCULAR HGB CONC 33 g/dL (31-37); MEAN CORPUSCULAR VOLUME 86 fL (79-100); PLATELET COUNT 351 x10^3/uL (140-400); RED BLOOD COUNT 4.05 x10^6/uL (3.50-5.40); RED CELL DISTRIBUTION WIDTH 14.1 % (11.5-14.5); WHITE BLOOD COUNT 10.7 x10^3/uL (4.0-11.0)
[2017-08-23 05:54] LABS: ANION GAP 6 (6-14); BLOOD UREA NITROGEN 14 mg/dL (7-20); CALCIUM 10.3 mg/dL (8.5-10.1); CARBON DIOXIDE 31 mmol/L (21-32); CHLORIDE 91 mmol/L (98-107); GFR 65.9; GLUCOSE 153 mg/dL (70-99); POTASSIUM 3.8 mmol/L (3.5-5.1); SODIUM 128 mmol/L (136-145)
[2017-08-23 07:18] LABS: POC GLUCOSE 171 mg/dL (70-99)
[2017-08-23] MEDS: glipiZIDE ER 2.5 MG TAB.ER.24 PO ×2 (08:37)
[2017-08-23] MEDS: PANTOPRAZOLE 40 MG TABLET.DR. PO ×2 (08:37)
[2017-08-23] MEDS: CALCIUM CARB/VIT D3 500/200 TABLET. PO ×2 (08:38)
[2017-08-23] MEDS: cloNIDine HCL 0.1 MG TABLET PO ×6 (08:39→21:00)
[2017-08-23] MEDS: hydrALAZINE 25 MG TABLET PO ×6 (08:39→21:00)
[2017-08-23] MEDS: BENZTROPINE MESYLATE 1 MG TABLET. PO ×2 (08:40)
[2017-08-23] MEDS: DULoxetine HCL 30 MG CAPSULE.DR PO ×2 (08:40)
[2017-08-23] MEDS: FERROUS SULFATE 325 MG TABLET. PO ×2 (08:41)
[2017-08-23] MEDS: MULTIVITAMIN with MINERAL TABLET. PO ×2 (08:41)
[2017-08-23] MEDS: ACETAMINOPHEN 325 MG TABLET. PO ×4 (08:42→15:14)
[2017-08-23] MEDS: IPRATRPIUM/ALBUTEROL 0.5/2.5MG 3 ML NEBU. NEB ×8 (08:52→20:22)
[2017-08-23] MEDS: MAGNESIUM OXIDE 400 MG TABLET PO ×4 (08:55→21:00)
[2017-08-23] MEDS: DICLOFENAC SODIUM 1% TOPICAL GEL 100GM TUBE. TP ×8 (08:58→21:00)
[2017-08-23 11:07] LABS: INFLUENZA A PATIENT NEGATIVE (NEGATIVE); INFLUENZA B PATIENT NEGATIVE (NEGATIVE)
[2017-08-23 11:08] LABS: OBC FLU VALID
[2017-08-23 11:19] LABS: POC GLUCOSE 149 mg/dL (70-99)
[2017-08-23 16:38] LABS: POC GLUCOSE 171 mg/dL (70-99)
[2017-08-23 20:39] LABS: POC GLUCOSE 148 mg/dL (70-99)
[2017-08-23] MEDS: SIMVASTATIN 20 MG TABLET PO ×2 (21:00)
[2017-08-23] MEDS: OMEGA-3 FATTY ACIDS/FISH OIL 1,000 MG CAPSULE. PO ×2 (21:00)
[2017-08-23] MEDS: amLODIPine BESYLATE 10 MG TABLET PO ×2 (21:00)
[2017-08-23] MEDS: ASPIRIN ENTERIC COATED 81 MG TABLET.DR. PO ×2 (21:00)
[2017-08-23] MEDS: ARIPiprazole 5 MG TABLET PO ×2 (21:00)
[2017-08-23] MEDS: LORazepam 0.5 MG TABLET PO ×2 (22:01)
[2017-08-24 05:13] LABS: HEMATOCRIT 31.5 % (36.0-47.0); HEMOGLOBIN 10.3 g/dL (12.0-15.5); MEAN CORPUSCULAR HEMOGLOBIN 28 pg (25-35); MEAN CORPUSCULAR HGB CONC 33 g/dL (31-37); MEAN CORPUSCULAR VOLUME 85 fL (79-100); PLATELET COUNT 299 x10^3/uL (140-400); RED BLOOD COUNT 3.69 x10^6/uL (3.50-5.40); RED CELL DISTRIBUTION WIDTH 14.2 % (11.5-14.5); WHITE BLOOD COUNT 10.3 x10^3/uL (4.0-11.0)
[2017-08-24 05:25] LABS: ANION GAP 6 (6-14); BLOOD UREA NITROGEN 14 mg/dL (7-20); CALCIUM 9.8 mg/dL (8.5-10.1); CARBON DIOXIDE 30 mmol/L (21-32); CHLORIDE 94 mmol/L (98-107); GFR 65.9; GLUCOSE 122 mg/dL (70-99); POTASSIUM 3.4 mmol/L (3.5-5.1); SODIUM 130 mmol/L (136-145)
[2017-08-24 07:20] LABS: POC GLUCOSE 152 mg/dL (70-99)
[2017-08-24] MEDS: IPRATRPIUM/ALBUTEROL 0.5/2.5MG 3 ML NEBU. NEB ×8 (07:36→20:39)
[2017-08-24 08:50] LABS: SEDIMENTATION RATE 21 (0-25)
[2017-08-24] MEDS: glipiZIDE ER 2.5 MG TAB.ER.24 PO ×2 (08:51)
[2017-08-24] MEDS: PANTOPRAZOLE 40 MG TABLET.DR. PO ×2 (08:52)
[2017-08-24] MEDS: hydrALAZINE 25 MG TABLET PO ×6 (08:52→21:16)
[2017-08-24] MEDS: cloNIDine HCL 0.1 MG TABLET PO ×6 (08:52→21:15)
[2017-08-24] MEDS: DICLOFENAC SODIUM 1% TOPICAL GEL 100GM TUBE. TP ×8 (08:53→21:16)
[2017-08-24 11:04] LABS: POC GLUCOSE 161 mg/dL (70-99)
[2017-08-24] MEDS: DULoxetine HCL 30 MG CAPSULE.DR PO ×2 (12:17)
[2017-08-24] MEDS: MULTIVITAMIN with MINERAL TABLET. PO ×2 (12:17)
[2017-08-24] MEDS: FERROUS SULFATE 325 MG TABLET. PO ×2 (12:17)
[2017-08-24] MEDS: MAGNESIUM OXIDE 400 MG TABLET PO ×4 (12:17→21:14)
[2017-08-24] MEDS: CALCIUM CARB/VIT D3 500/200 TABLET. PO ×2 (12:17)
[2017-08-24] MEDS: OSELTAMIVIR 75 MG CAPSULE PO ×4 (13:39→21:15)
[2017-08-24 16:32] LABS: POC GLUCOSE 145 mg/dL (70-99)
[2017-08-24 20:44] LABS: POC GLUCOSE 134 mg/dL (70-99)
[2017-08-24] MEDS: ASPIRIN ENTERIC COATED 81 MG TABLET.DR. PO ×2 (21:13)
[2017-08-24] MEDS: LORazepam 0.5 MG TABLET PO ×2 (21:14)
[2017-08-24] MEDS: ARIPiprazole 5 MG TABLET PO ×2 (21:14)
[2017-08-24] MEDS: OMEGA-3 FATTY ACIDS/FISH OIL 1,000 MG CAPSULE. PO ×2 (21:15)
[2017-08-24] MEDS: amLODIPine BESYLATE 10 MG TABLET PO ×2 (21:15)
[2017-08-24] MEDS: SIMVASTATIN 20 MG TABLET PO ×2 (21:15)
[2017-08-24] MEDS: ACETAMINOPHEN 325 MG TABLET. PO ×2 (21:15)
[2017-08-25] MEDS: PANTOPRAZOLE 40 MG TABLET.DR. PO ×2 (06:30)
[2017-08-25 06:32] LABS: MEAN CORPUSCULAR HEMOGLOBIN 28 pg (25-35); MEAN CORPUSCULAR HGB CONC 33 g/dL (31-37); MEAN CORPUSCULAR VOLUME 85 fL (79-100); PLATELET COUNT 301 x10^3/uL (140-400); RED BLOOD COUNT 3.52 x10^6/uL (3.50-5.40); RED CELL DISTRIBUTION WIDTH 14.5 % (11.5-14.5); WHITE BLOOD COUNT 8.1 x10^3/uL (4.0-11.0)
[2017-08-25 07:22] LABS: POC GLUCOSE 138 mg/dL (70-99)
[2017-08-25] MEDS: CALCIUM CARB/VIT D3 500/200 TABLET. PO ×2 (08:46)
[2017-08-25] MEDS: glipiZIDE ER 2.5 MG TAB.ER.24 PO ×2 (08:46)
[2017-08-25] MEDS: hydrALAZINE 25 MG TABLET PO ×2 (08:48)
[2017-08-25] MEDS: cloNIDine HCL 0.1 MG TABLET PO ×2 (08:49)
[2017-08-25] MEDS: DULoxetine HCL 30 MG CAPSULE.DR PO ×2 (08:52)
[2017-08-25] MEDS: IPRATRPIUM/ALBUTEROL 0.5/2.5MG 3 ML NEBU. NEB ×2 (09:08)
[2017-08-25] MEDS: OSELTAMIVIR 75 MG CAPSULE PO ×2 (10:10)
[2017-08-25] MEDS: MAGNESIUM OXIDE 400 MG TABLET PO ×2 (10:11)
[2017-08-25] MEDS: MULTIVITAMIN with MINERAL TABLET. PO ×2 (10:12)
[2017-08-25] MEDS: FERROUS SULFATE 325 MG TABLET. PO ×2 (10:12)
[2017-08-25] MEDS: DICLOFENAC SODIUM 1% TOPICAL GEL 100GM TUBE. TP ×2 (10:14)
== END 2017-08-25 12:06 | disposition home health service (06) | DRG 558 ==
LOC: ER 07:58 → 5 NORTH 09:13
DX: M62.82 Rhabdomyolysis (principal); E87.1 Hypo-osmolality and hyponatremia; I11.0 Hypertensive heart disease with heart failure; I50.9 Heart failure, unspecified; E11.9 Type 2 diabetes mellitus without complications; M79.7 Fibromyalgia; F25.9 Schizoaffective disorder, unspecified; R07.89 Other chest pain; I25.10 Atherosclerotic heart disease of native coronary artery without angina pectoris; J06.9 Acute upper respiratory infection, unspecified; E78.5 Hyperlipidemia, unspecified; F32.9 Major depressive disorder, single episode, unspecified; F41.9 Anxiety disorder, unspecified; J45.909 Unspecified asthma, uncomplicated; K21.9 Gastro-esophageal reflux disease without esophagitis; M19.90 Unspecified osteoarthritis, unspecified site; M35.3 Polymyalgia rheumatica; Z96.653 Presence of artificial knee joint, bilateral; Z82.49 Family history of ischemic heart disease and other diseases of the circulatory system; Z86.73 Personal history of transient ischemic attack (TIA), and cerebral infarction without residual deficits; Z90.49 Acquired absence of other specified parts of digestive tract; Z90.710 Acquired absence of both cervix and uterus; Z98.49 Cataract extraction status, unspecified eye; Z88.8 Allergy status to other drugs, medicaments and biological substances; Z91.040 Latex allergy status
CPT/HCPCS: 36415; 71045; 71046; 78452; 80048; 80053; 80307; 81001; 82550; 82553; 82962; 83690; 83735; 83880; 84443; 84484; 85025; 85027; 85610; 85651; 87804; 87804-59; 93005; 93017; 94640; 94760; 96361; 96374; 96375; 96376; 99285; 99285-25; A9500; J2270; J2785; J7030; J7620

== ENCOUNTER 2018-01-18 23:20 | Emergency (ER) | payer MEDICARE, OTHER | END 2018-01-19 00:45 | disposition home or self-care (01) | LOC: ER 23:20 | DX: K13.79 Other lesions of oral mucosa (principal); R22.0 Localized swelling, mass and lump, head; M19.90 Unspecified osteoarthritis, unspecified site; I11.0 Hypertensive heart disease with heart failure; I50.9 Heart failure, unspecified; E11.9 Type 2 diabetes mellitus without complications; E78.00 Pure hypercholesterolemia, unspecified; F20.9 Schizophrenia, unspecified; J45.909 Unspecified asthma, uncomplicated; Z90.710 Acquired absence of both cervix and uterus; Z88.8 Allergy status to other drugs, medicaments and biological substances; Z91.040 Latex allergy status | CPT/HCPCS: 99284 ==

== ENCOUNTER 2018-01-29 22:43 | Emergency (ER) | payer MEDICARE, OTHER ==
[2018-01-29] MEDS: ONDANSETRON ODT 4 MG TAB.RAPDIS. PO (23:32)
[2018-01-29] MEDS: IBUPROFEN 600 MG TABLET. PO (23:32)
[2018-01-29] MEDS: fentaNYL PF VIAL 100 MCG/2 ML VIAL IM (23:35)
== END 2018-01-29 23:40 | disposition home or self-care (01) ==
LOC: ER 23:40
DX: M25.50 Pain in unspecified joint (principal); M06.9 Rheumatoid arthritis, unspecified; I11.0 Hypertensive heart disease with heart failure; I50.9 Heart failure, unspecified; E11.9 Type 2 diabetes mellitus without complications; J45.909 Unspecified asthma, uncomplicated; E78.00 Pure hypercholesterolemia, unspecified; F25.9 Schizoaffective disorder, unspecified; Z90.710 Acquired absence of both cervix and uterus; Z90.49 Acquired absence of other specified parts of digestive tract; Z98.890 Other specified postprocedural states; Z88.8 Allergy status to other drugs, medicaments and biological substances; Z91.040 Latex allergy status
CPT/HCPCS: 96372; 99283-25; 99284-25; J3010; Q0162

== ENCOUNTER → 2018-10-28 | Outpatient (CLI) | payer MEDICARE, OTHER ==
[2018-01-29 23:40] VITALS: BP 153/76
[~2018-10-28] MED LIST changes: +ALBU2.5V8 IH; +ARIP2TAB3 PO; -BENZ0.5T PO; +BENZ0.5T32 PO; -CHLO25TA PO; +CHLO25TA10 PO; +CLIN300C8 PO; +DULO60CA44 PO; -FERR-26 PO; +FERR325T14 PO; +FLUP1TAB PO; +GLIP5TAB22 PO; -HYDR-2758 PO; +HYDR-2761 PO; +MAGN400T3 PO; -METF-620 PO; +METF10007 PO; -METO50TA2 PO; +METO50TA6 PO; +ONDA4TAB10 SL; +OSEL75CA PO; +PIOG15TA42 PO; +POTA20TA82 PO; -PROVENTIL HFA6.7 GM IH; +SPIR25TA5 PO
[2018-10-28 12:22] LABS: CALCIUM 9.1 mg/dL (8.5-10.1); CREATININE 1.1 mg/dL (0.6-1.0); GFR 58.9
[2018-10-28 12:43] LABS: POTASSIUM 2.7 mmol/L (3.5-5.1)
== END | disposition home or self-care (01) ==
LOC: SPEC 11:59
DX: E87.1 Hypo-osmolality and hyponatremia (principal); E87.6 Hypokalemia
CPT/HCPCS: 36415; 80048

== ENCOUNTER 2019-05-13 07:36 | Inpatient (IN) | payer MEDICARE, OTHER ==
[~2019-05-13] VITALS: Ht 177.8 cm; Wt 88.2 kg
[~2019-05-13 07:36] MED LIST changes: -DULO60CA44 PO; +DULO60CA45 PO; -MAGN400T3 PO; +MAGN400T5 PO
[2019-05-13] MEDS ORDERED: fentaNYL PF VIAL 100 MCG/2 ML VIAL IV ONE (07:45)
--- NOTE | 2019-05-13 08:06 | PHYS DOC ---
Past Medical History Past Medical History: Arthritis, Asthma, CHF, Diabetes-Type II, Fibromyalgia, High Cholesterol, Hypertension, Schizophrenia, Other Additional Past Medical Histor: schizoaffective disorder, polymyalgia rheumatica, RA Past Surgical History: Appendectomy, Hysterectomy, Knee Replacement, Other Additional Past Surgical Histo: rectal surgery for fissures, cataract removed, back surgery Alcohol Use: None Drug Use: None Adult General Chief Complaint Chief Complaint: CHEST PAIN HPI HPI Patient is a 73 year old female presenting with back pain. She has had back pain for 2 weeks she does not recall any specific trauma she does follow regularly but she does not think she hurt her back she is coming from a [facility]pc she said that overnight the back pain was in her upper back it was quite severe it was beginning to radiate over to the left chest this morning he was kind of coming around in a bandlike area so she decided to get checked out. hurts more to touch it and twist around she says had a stress test negative a couple years back recent chest pain admit in this system. Review of Systems Review of Systems Constitutional: Denies fever or chills [] Eyes: Denies change in visual acuity, redness, or eye pain [] HENT: Denies nasal congestion or Neurologic: Denies headache, focal weakness or sensory changes [] Endocrine: Denies polyuria or polydipsia [] All other systems were reviewed and found to be within normal limits, except as documented in this note. Current Medications Current Medications Current Medications Medications (Trade) Dose Ordered Sig/Rocío Start Time Stop Time Status Last Admin Dose Admin Fentanyl Citrate (Fentanyl 2ml Vial) 50 mcg 1X ONCE 05/13/19 07:45 05/13/19 07:47 DC 05/13/19 08:43 50 MCG Info (CONTRAST GIVEN -- Rx MONITORING) 1 each PRN DAILY PRN 05/13/19 09:30 05/15/19 09:29 Iohexol (Omnipaque 350 Mg/ml) 90 ml 1X ONCE 05/13/19 09:30 05/13/19 09:31 DC 05/13/19 09:55 90 ML Magnesium Sulfate/ Dextrose 100 ml @ 100 mls/hr 1X ONCE 05/13/19 09:30 05/13/19 10:29 DC Potassium Chloride/Water 100 ml @ 100 mls/hr Q1H 05/13/19 09:00 05/13/19 12:59 10/20/19 09:15 100 MLS/HR Allergies Allergies Allergies Coded Allergies Type Severity Reaction Last Updated Verified divalproex sodium Allergy Intermediate neck and back pain 07/16/16 Yes fluticasone Allergy Intermediate COUGH 07/16/16 Yes latex Allergy Intermediate SURGICAL TAPE 07/16/16 Yes lisinopril Allergy Intermediate cough 07/16/16 Yes piroxicam Allergy Intermediate BLISTERS 07/16/16 Yes gabapentin Adverse Reaction Severe 12/12/16 Yes Physical Exam Physical Exam Constitutional: Well developed, well nourished, no acute distress, non-toxic appearance. [] HENT: Normocephalic, atraumatic, bilateral external ears normal, oropharynx moist, no oral exudates, nose normal. [] Eyes: PERRLA, EOMI, conjunctiva normal, no discharge. [] Neck: Normal range of motion, no tenderness, supple, no stridor. [] Cardiovascular:Heart rate regular rhythm, no murmur [] Lungs & Thorax: Bilateral breath sounds clear to auscultation [] Abdomen: Bowel sounds normal, soft, no tenderness, no masses, no pulsatile masses. [] Skin: Warm, dry, no erythema, no rash. [] Back:back ttp noted midline thoracic area Extremities: No tenderness, no cyanosis, no clubbing, ROM intact,one plus edema noted. Neurologic: Alert and oriented X 3, normal motor function, normal sensory function, no focal deficits noted. [] Psychologic: Affect normal, judgement normal, mood normal. [] Current Patient Data Vital Signs Vital Signs Date Time Temp Pulse Resp B/P (MAP) Pulse Ox O2 Delivery O2 Flow Rate FiO2 05/13/19 08:43 14 95 Room Air 05/13/19 08:30 74 159/79 (105) 05/13/19 07:46 98.5 98.5 Lab Values Laboratory Tests Test 05/13/19 08:06 White Blood Count 8.8 x10^3/uL (4.0-11.0) Red Blood Count 3.77 x10^6/uL (3.50-5.40) Hemoglobin 9.7 g/dL (12.0-15.5) L Hematocrit 29.7 % (36.0-47.0) L Mean Corpuscular Volume 79 fL (79-100) Mean Corpuscular Hemoglobin 26 pg (25-35) Mean Corpuscular Hemoglobin Concent 33 g/dL (31-37) Red Cell Distribution Width 17.5 % (11.5-14.5) H Platelet Count 352 x10^3/uL (140-400) Neutrophils (%) (Auto) 68 % (31-73) Lymphocytes (%) (Auto) 19 % (24-48) L Monocytes (%) (Auto) 10 % (0-9) H Eosinophils (%) (Auto) 2 % (0-3) Basophils (%) (Auto) 1 % (0-3) Neutrophils # (Auto) 6.0 x10^3/uL (1.8-7.7) Lymphocytes # (Auto) 1.6 x10^3/uL (1.0-4.8) Monocytes # (Auto) 0.9 x10^3/uL (0.0-1.1) Eosinophils # (Auto) 0.2 x10^3/uL (0.0-0.7) Basophils # (Auto) 0.1 x10^3/uL (0.0-0.2) Prothrombin Time 12.5 SEC (11.7-14.0) Prothrombin Time INR 1.0 (0.8-1.1) Sodium Level 129 mmol/L (136-145) L Potassium Level 2.5 mmol/L (3.5-5.1) *L Chloride Level 89 mmol/L (98-107) L Carbon Dioxide Level 34 mmol/L (21-32) H Anion Gap 6 (6-14) Blood Urea Nitrogen 10 mg/dL (7-20) Creatinine 0.8 mg/dL (0.6-1.0) Estimated GFR (Cockcroft-Gault) 85.1 BUN/Creatinine Ratio 13 (6-20) Glucose Level 122 mg/dL (70-99) H Calcium Level 9.3 mg/dL (8.5-10.1) Magnesium Level 1.5 mg/dL (1.8-2.4) L Total Bilirubin 0.2 mg/dL (0.2-1.0) Aspartate Amino Transferase (AST) 32 U/L (15-37) Alanine Aminotransferase (ALT) 26 U/L (14-59) Alkaline Phosphatase 103 U/L (46-116) Troponin I Quantitative < 0.017 ng/mL (0.000-0.055) OI-Bsu-I-Type Natriuretic Peptide 191 pg/mL (0-124) H Total Protein 8.0 g/dL (6.4-8.2) Albumin 3.6 g/dL (3.4-5.0) Albumin/Globulin Ratio 0.8 (1.0-1.7) L Laboratory Tests 05/13/19 08:06 Laboratory Tests 05/13/19 08:06 EKG EKG EKG shows normal sinus rhythm rate of 73, poor baseline but overall no STEMI st depression latearll Radiology/Procedures Radiology/Procedures [] Impressions: Impression: 1. Polycystic kidneys. 2. Normal aorta and great vessels. 3. Marked degenerative changes lumbar spine with multilevel central and neuroforaminal stenosis. 4. No acute findings. End impression PQRS Compliance Statement: One or more of the following individualized dose reduction techniques were utilized for this examination: 1. Automated exposure control 2. Adjustment of the mA and/or kV according to patient size 3. Use of iterative reconstruction technique Electronically signed by: Luis Rincon III, MD (05/13/2019 10:15 AM) [facility] DICTATED and SIGNED BY: LUIS RINCON III, MD DATE: 05/13/19 1015 Course & Med Decision Making Course & Med Decision Making Pertinent Labs and Imaging studies reviewed. (See chart for details) []Hyperlipidemia hypertension sheet CHF fibromyalgia presenting with back pain is been going on for 2 weeks ago worse last night is now radiating around to the chest there is reproducible component on examination has had a recent stress test planned for serial troponins treat the pain go from theresigns of PE or dissection clinically by my exam. st dep lateral could be hypok but given chest pain plan to admit for rule out and treatment of hypokalemia d/w riffel cta neg for disection heart scroe h 0 e 2 a 2 r 1 t 0 Dragon Disclaimer Dragon Disclaimer This electronic medical record was generated, in whole or in part, using a voice recognition dictation system. Departure Departure Impression: Primary Impression: Chest pain Disposition: 09 ADMITTED INPATIENT Admitting Physician: HIMS Condition: STABLE Referrals: UNKNOWN PCP NAME (PCP) CRYSTAL OHARA MD May 13, 2019 08:06
[2019-05-13 08:26] LABS: BASO # 0.1 x10^3/uL (0.0-0.2); BASO % 1 % (0-3); EOS # 0.2 x10^3/uL (0.0-0.7); EOS % 2 % (0-3); HEMATOCRIT 29.7 % (36.0-47.0); HEMOGLOBIN 9.7 g/dL (12.0-15.5); LYMPH # 1.6 x10^3/uL (1.0-4.8); LYMPH % 19 % (24-48); MEAN CORPUSCULAR HEMOGLOBIN 26 pg (25-35); MEAN CORPUSCULAR HGB CONC 33 g/dL (31-37); MEAN CORPUSCULAR VOLUME 79 fL (79-100); MONO # 0.9 x10^3/uL (0.0-1.1); MONO % 10 % (0-9); NEUT % 68 % (31-73); PLATELET COUNT 352 x10^3/uL (140-400); RED BLOOD COUNT 3.77 x10^6/uL (3.50-5.40); RED CELL DISTRIBUTION WIDTH 17.5 % (11.5-14.5); WHITE BLOOD COUNT 8.8 x10^3/uL (4.0-11.0)
--- NOTE | 2019-05-13 08:29 | RAD ---
EXAM: AP View of the chest DATE: 05/13/2019 7:45 AM INDICATION: Chest pain COMPARISON: 12/16/2017 FINDINGS: The heart is not enlarged. Mediastinal and hilar contours are normal. No focal parenchymal airspace opacity. No pleural effusion or pneumothorax. A.C. and glenohumeral joint degenerative changes are seen bilaterally. Left fourth-sixth rib fracture with exuberant callus formation is now seen. IMPRESSION: 1. No radiographic evidence for acute cardiopulmonary process. Electronically signed by: Hussein Frias MD (05/13/2019 8:26 AM) [facility]
[2019-05-13 08:31] LABS: PROTHROMBIN TIME PATIENT 12.5 SEC (11.7-14.0)
[2019-05-13 08:35] LABS: ALBUMIN 3.6 g/dL (3.4-5.0); ALBUMIN/GLOBULIN RATIO 0.8 (1.0-1.7); CALCIUM 9.3 mg/dL (8.5-10.1); CREATININE 0.8 mg/dL (0.6-1.0); GFR 85.1; TOTAL BILIRUBIN 0.2 mg/dL (0.2-1.0)
[2019-05-13 08:37] LABS: POTASSIUM 2.5 mmol/L (3.5-5.1)
[2019-05-13] MEDS: POTASSIUM CHLORIDE 10MEQ 100 ML IV SCH ×4 (09:15→18:20)
[2019-05-13] MEDS ORDERED: CONTRAST GIVEN. MC PRN (09:30)
[2019-05-13] MEDS ORDERED: MAGNESIUM SULFATE 1GM 100 ML IV ONE (09:30)
[2019-05-13] MEDS ORDERED: IOHEXOL 350 MG/ML 100 ML VIAL. IV ONE (09:30)
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
--- NOTE | 2019-05-13 10:17 | RAD ---
CTA chest abdomen and pelvis with and without contrast: History: Back pain and chest pain Axial helical images of the chest abdomen and pelvis were obtained before and after the administration of 90 cc IV Omni 350 contrast. Postcontrast timing is appropriate for arterial evaluation and multiplanar reconstruction was performed on a separate imaging workstation including 3-D maximum intensity projected imaging as well as 3-D arterial surface rendering. Oral contrast was not utilized. This study was performed to exclude possible aortic dissection. Comparison: none CTA OF THE CHEST WITH AND WITHOUT IV CONTRAST: The thoracic aorta is normal. The left common carotid artery arises from a common trunk with the brachiocephalic artery normal variant. The pulmonary arteries are well-opacified. There is no mediastinal lymphadenopathy or hematoma. There is no hilar lymphadenopathy. There is multiple old rib fractures on the left. Impression: No acute findings. End Impression CTA OF THE ABDOMEN WITH AND WITHOUT IV CONTRAST: Findings: The aorta and great vessels are normal. There is marked degenerative changes lumbar spine with multilevel moderate central stenosis and multilevel marked neuroforaminal stenosis bilaterally. Liver: Unremarkable Spleen: Unremarkable Pancreas: Unremarkable Adrenal Glands: Unremarkable Kidneys: Numerous complex cysts bilaterally many of which are hemorrhagic. Evaluation of stomach and bowel is limited without oral contrast. There is no mass or lymphadenopathy. There is no free air. There is no free fluid. CTA OF THE PELVIS WITH AND WITHOUT IV CONTRAST: There is no lymphadenopathy or free fluid. The bladder appears normal without extravasation of contrast. There is no pericolonic inflammation. The appendix is not well seen. The iliac arteries are normal. Impression: 1. Polycystic kidneys. 2. Normal aorta and great vessels. 3. Marked degenerative changes lumbar spine with multilevel central and neuroforaminal stenosis. 4. No acute findings. End impression PQRS Compliance Statement: One or more of the following individualized dose reduction techniques were utilized for this examination: 1. Automated exposure control 2. Adjustment of the mA and/or kV according to patient size 3. Use of iterative reconstruction technique Electronically signed by: Geovanny Rincon III, MD (05/13/2019 10:15 AM) [facility]
[2019-05-13 12:15] VITALS: BP 150/88
[2019-05-13] MEDS ORDERED: DICL100G28 TOP (13:58)
[2019-05-13] MEDS ORDERED: CARV12.53 PO (13:58)
[2019-05-13] MEDS ORDERED: ISOS20TA4 PO (13:58)
[2019-05-13] MEDS ORDERED: QUET25TA PO (13:58)
[2019-05-13] MEDS ORDERED: GABA600T7 PO (13:58)
[2019-05-13] MEDS ORDERED: OLOP2.5D6 OP (13:58)
[2019-05-13] MEDS ORDERED: CLON0.2T PO (13:58)
[2019-05-13] MEDS ORDERED: FLUP1TAB PO (13:58)
[2019-05-13] MEDS ORDERED: POTA20TA4 PO (13:58)
[2019-05-13] MEDS ORDERED: LORA-781 PO (13:58)
[2019-05-13] MEDS ORDERED: PRED5TAB PO (13:58)
[2019-05-13] MEDS ORDERED: AMLO10TA8 PO (13:58)
[2019-05-13] MEDS ORDERED: FLUT16SP NAS (13:58)
[2019-05-13] MEDS ORDERED: LOSA100T14 PO (13:58)
[2019-05-13] MEDS ORDERED: FURO40TA4 PO (13:58)
[2019-05-13] MEDS ORDERED: MONT10TA10 PO (13:58)
[2019-05-13] MEDS ORDERED: LEFL10TA13 PO (13:58)
[2019-05-13] MEDS ORDERED: DULO30CA44 PO (13:58)
[2019-05-13] MEDS ORDERED: HYDR25TA10 PO (13:58)
[2019-05-13] MEDS ORDERED: LORA0.5T96 PO (13:58)
[2019-05-13] MEDS ORDERED: FERR220S8 PO (13:58)
[2019-05-13] MEDS ORDERED: ONDANSETRON ODT 4 MG TAB.RAPDIS. PO PRN (14:00)
[2019-05-13] MEDS ORDERED: ALBUTEROL SULFATE 2.5 MG/3 ML NEBU. INH PRN (14:00)
[2019-05-13] MEDS ORDERED: LORazepam 0.5 MG TABLET PO PRN (14:00)
[2019-05-13] MEDS ORDERED: ACETAMINOPHEN 325 MG TABLET. PO PRN (14:00)
[2019-05-13] MEDS ORDERED: NITROGLYCERIN SUBLINGUAL 0.4 MG BOTTLE OF 25. SL PRN (14:00)
[2019-05-13] MEDS ORDERED: DEXTROSE 50% 25 GM / 50ML DISP.SYRIN. IV PRN (14:30)
[2019-05-13] MEDS ORDERED: MAGNESIUM SULFATE 4GM 100 ML IV ONE (14:30)
[2019-05-13 15:00] VITALS: BP 179/91
[2019-05-13] MEDS: GABAPENTIN 300 MG CAPSULE. PO SCH ×2 (16:04→21:21)
[2019-05-13] MEDS: ISOSORBIDE DINITRATE 10 MG TABLET. PO SCH (16:04)
[2019-05-13] MEDS: hydrALAZINE 25 MG TABLET PO SCH ×2 (16:04→21:21)
[2019-05-13] MEDS: CARVEDILOL 12.5 MG TABLET. PO SCH (16:05)
[2019-05-13] MEDS: ENOXAPARIN 40 MG/0.4 ML SYRINGE. SQ SCH (16:05)
[2019-05-13] MEDS: traMADol 50 MG TABLET PO PRN (16:07)
[2019-05-13] MEDS: INSULIN LISPRO 300 UNITS/3 ML VIAL. SQ SCH ×2 (16:30→21:00)
[2019-05-13 19:46] VITALS: BP 138/82
[2019-05-13] MEDS ORDERED: QUEtiapine 25 MG TABLET. PO SCH (21:00)
[2019-05-13] MEDS: KETOTIFEN FUMARATE 0.025% OPHTH SOLUTION BOTTLE. OU SCH (21:00)
[2019-05-13] MEDS ORDERED: MONTELUKAST SODIUM 10 MG TABLET. PO SCH (21:00)
[2019-05-13] MEDS ORDERED: SIMVASTATIN 20 MG TABLET PO SCH (21:00)
[2019-05-13] MEDS ORDERED: INSULIN GLARGINE SYRINGE. SQ SCH (21:00)
[2019-05-13] MEDS ORDERED: OMEGA-3 FATTY ACIDS/FISH OIL 1,000 MG CAPSULE. PO SCH (21:00)
[2019-05-13] MEDS ORDERED: ASPIRIN ENTERIC COATED 81 MG TABLET.DR. PO SCH (21:00)
[2019-05-13] MEDS ORDERED: ARIPiprazole 2 MG TABLET PO SCH (21:00)
[2019-05-13] MEDS: MAGNESIUM OXIDE 400 MG TABLET PO SCH (21:20)
[2019-05-13] MEDS: cloNIDine HCL 0.2 MG TABLET PO SCH (21:21)
[2019-05-13] MEDS: FLUPHENAZINE HCL 2.5 MG TABLET. PO SCH (21:22)
[2019-05-13] MEDS: DICLOFENAC SODIUM 1% TOPICAL GEL 100GM TUBE. TP SCH (21:24)
[2019-05-13 23:06] VITALS: BP 164/83
[2019-05-14 03:58] VITALS: BP 172/88
[2019-05-14 07:24] VITALS: BP 206/88
[2019-05-14] MEDS ORDERED: PANTOPRAZOLE 40 MG TABLET.DR. PO SCH (07:30)
[2019-05-14] MEDS: INSULIN LISPRO 300 UNITS/3 ML VIAL. SQ SCH ×3 (07:30→16:30)
[2019-05-14] MEDS: traMADol 50 MG TABLET PO PRN (07:51)
[2019-05-14] MEDS: CARVEDILOL 12.5 MG TABLET. PO SCH ×2 (07:51→17:44)
[2019-05-14] MEDS ORDERED: predniSONE 5 MG TABLET PO SCH (09:00)
[2019-05-14] MEDS ORDERED: FLUTICASONE 50MCG/NASAL SPRAY 16GM BOTTLE. NS SCH (09:00)
[2019-05-14] MEDS ORDERED: POTASSIUM CHLORIDE 20 MEQ TABLET.ER. PO SCH (09:00)
[2019-05-14] MEDS ORDERED: DULoxetine HCL 30 MG CAPSULE.DR PO SCH (09:00)
[2019-05-14] MEDS ORDERED: LEFLUNOMIDE 10 MG TABLET. PO SCH (09:00)
[2019-05-14] MEDS ORDERED: ARIPiprazole 2 MG TABLET PO SCH (09:00)
[2019-05-14] MEDS ORDERED: amLODIPine BESYLATE 10 MG TABLET PO SCH (09:00)
[2019-05-14] MEDS ORDERED: FERROUS SULFATE 325 MG TABLET. PO SCH (09:00)
[2019-05-14] MEDS ORDERED: LOSARTAN POTASSIUM 50 MG TABLET. PO SCH (09:00)
--- NOTE | 2019-05-14 09:10 | EKG ---
[facility] [address] [place] [address] Test Date: 2019-05-13 Test Time: 07:45:04 Pat Name: CRISTOBAL BLOOD Department: Room: Gender: F Director Of Financial Planning: : 1945 Requested By: CRYSTAL OHARA Order Number: [id number] Reading MD: Measurements Intervals Swisher Rate: 77 P: 47 CO: 186 QRS: 28 QRSD: 98 T: 92 QT: 390 QTc: 448 Interpretive Statements SINUS RHYTHM ST & T ABNORMALITY, CONSIDER HIGH LATERAL ISCHEMIA OR LEFT VENTRICULAR STRAIN NON SPECIFIC ST-T ABNORMALITY (ELEVATION) ABNORMAL ECG No previous ECG available for comparison
[2019-05-14] MEDS: GABAPENTIN 300 MG CAPSULE. PO SCH ×2 (09:26→15:00)
[2019-05-14] MEDS: MAGNESIUM OXIDE 400 MG TABLET PO SCH (09:27)
[2019-05-14] MEDS: ISOSORBIDE DINITRATE 10 MG TABLET. PO SCH ×3 (09:28→17:44)
[2019-05-14] MEDS: hydrALAZINE 25 MG TABLET PO SCH ×2 (09:28→14:00)
[2019-05-14] MEDS: KETOTIFEN FUMARATE 0.025% OPHTH SOLUTION BOTTLE. OU SCH (09:37)
[2019-05-14] MEDS: DICLOFENAC SODIUM 1% TOPICAL GEL 100GM TUBE. TP SCH (09:44)
[2019-05-14 09:48] VITALS: BP 155/78
[2019-05-14] MEDS: FLUPHENAZINE HCL 2.5 MG TABLET. PO SCH (10:11)
[2019-05-14 10:28] VITALS: BP 149/74
[2019-05-14] MEDS ORDERED: POTA20TA4 PO (11:51)
--- NOTE | 2019-05-14 11:53 | SNU/HH DC ---
DISCHARGE WITH HOME HEALTH DISCHARGE INFORMATION: Discharge Date: May 14, 2019 Final Diagnosis: Problems Medical Problems: (1) Chest pain Status: Acute Condition on Discharge: Stable CODE STATUS: Code Status: Full HOME HEALTH: Face to Face: I certify this patient is under my care and that I had a face to face encounter that meets the physician face to face encounter requirements with this patient on 05/14 Medical Complications: CHF (pain, fibromyalgia, weakness, bipolar or schizotypal), Other RN For Eval/Treatment: Yes Physical Therapy For: Evalulation/Treatment Occupational Therapy For: Evaluation/Treatment Pt Meets Homebound Status: Limited distance walking, Poor cognition, P sychological condition POST DISCHARGE ORDERS: Activity Instructions for Disc: No restrictions, Resume previous activity Weight Bearing Status after Di: Full weight bearing DIET AFTER DISCHARGE: ADA CHECKS AFTER DISCHARGE: Checks after discharge: Check blood press - daily, Check blood sugar, ac/hs FOLLOW-UP: Follow up with: primary care 1-2 weeks TREATMENT/EQUIPMENT ORDERS: Adaptive Equipment Issued: None CERTIFICATION STATEMENT: Certification Statement: Certification Statement: Based on the above finding, I certify that this patient is confined to the home and needs intermittent retirement care, physical therapy and/or speech therapy, or continues to need occupational therapy.~ This patient is under my care, and I have initiated the establishment of the plan of care.~ This patient will be followed by myself or a community physician who will periodically review the plan of care. Home Meds Active Scripts Ondansetron (ZOFRAN ODT) 4 Mg Tab.rapdis, 1 TAB SL Q8HRS, #15 TAB Prov:SCOTTIE BRENNAN PRICING STRATEGIST 01/29/18 Clindamycin Hcl (CLINDAMYCIN HCL) 300 Mg Capsule, 1 CAP PO TID, #30 CAP Prov:JOSEE ECKERT PRICING STRATEGIST 01/19/18 Oseltamivir Phosphate (TAMIFLU) 75 Mg Capsule, 75 MG PO BID for 5 Days, #10 CAP 0 Refills Prov:ELISABETH LOVE MD 08/25/17 Reported Medications Fluphenazine Hcl (FLUPHENAZINE HCL) 1 Mg Tablet, 4 MG PO DAILY for Mood for 30 Days, #120 05/13/19 Potassium Chloride (KLOR-CON M20) 20 Meq Tab.er.prt, 20 MEQ PO DAILY for Hypokalemia for 30 Days, #30 05/13/19 Duloxetine Hcl (DULOXETINE HCL) 30 Mg Capsule.dr, 60 MG PO DAILY for Mood for 30 Days, #60 05/13/19 Olopatadine HCl (Olopatadine HCl) 2.5 Ml Drops, 2.5 ML OP DAILY for Ocular for 30 Days, #1 05/13/19 Fluticasone Propionate (FLUTICASONE PROPIONATE NASAL SPRAY) 16 Gm Valliant.susp, 16 G DANNY DAILY for Allergies for 30 Days, #1 05/13/19 Gabapentin (GABAPENTIN) 600 Mg Tablet, 600 MG PO TID for Neuropathy for 30 Days, #90 05/13/19 Hydrochlorothiazide (Hydrochlorothiazide) 25 Mg Tablet, 25 MG PO DAILY for HTN for 30 Days, #30 05/13/19 Loratadine (ALLERGY RELIEF) 10 Mg Tablet, 10 MG PO DAILY for Allergies for 30 D ays, #30 05/13/19 Lorazepam (ATIVAN) 0.5 Mg Tablet, 0.5 MG PO PRN DAILY PRN for ANXIETY / AGITATION for 30 Days, #30 05/13/19 Quetiapine Fumarate (QUETIAPINE FUMARATE) 25 Mg Tablet, 25 MG PO QHS for Mood Stabilization for 30 Days, #30 05/13/19 Montelukast Sodium (Montelukast Sodium) 10 Mg Tablet, 10 MG PO QHS for Asthma for 30 Days, #30 05/13/19 Losartan Potassium (LOSARTAN POTASSIUM) 100 Mg Tablet, 100 MG PO DAILY for HTN for 30 Days, #30 05/13/19 Isosorbide Dinitrate (ISOSORBIDE DINITRATE) 20 Mg Tablet, 20 MG PO BID for CHF for 30 Days, #60 05/13/19 Furosemide (FUROSEMIDE) 40 Mg Tablet, 40 MG PO DAILY for CHF for 30 Days, #30 05/13/19 Carvedilol (Carvedilol) 12.5 Mg Tablet, 12.5 MG PO BID for CHF for 30 Days, #60 05/13/19 Prednisone (PREDNISONE) 5 Mg Tablet, 5 MG PO DAILY for RA for 30 Days, #30 05/13/19 Diclofenac Sodium (Diclofenac Sodium) 100 Gm Gel..gram., 100 G TOP BID for Osteoarthritis/Rheumatoid arth for 30 Days, #60 05/13/19 Ferrous Sulfate (Ferrous Sulfate) 220 Mg/5 Ml Elixir, 5 ML PO DAILY for HELIO for 30 Days, #30 05/13/19 Clonidine Hcl (CLONIDINE HCL) 0.2 Mg Tablet, 0.2 MG PO BID for HTN for 90 Days, #180 05/13/19 Amlodipine Besylate (AMLODIPINE BESYLATE) 10 Mg Tablet, 10 MG PO DAILY for HTN for 90 Days, #90 05/13/19 Leflunomide (LEFLUNOMIDE) 20 Mg Tablet, 20 MG PO DAILY for Rheumatoid arthritis for 30 Days, #30 05/13/19 Tramadol Hcl (TRAMADOL HCL) 50 Mg Tablet, 50 MG PO Q4HRS PRN for PAIN, TAB 12/17/17 Aripiprazole (ABILIFY) 2 Mg Tablet, 2 MG PO DAILY, TAB 12/17/17 Pioglitazone Hcl (ACTOS) 15 Mg Tablet, 1 TAB PO DAILY, #30 TAB 5 Refills 12/17/17 Magnesium Oxide (MAGNESIUM OXIDE) 400 Mg Tablet, 1 TAB PO BID, #60 TAB 5 Refills 05/27/17 Duloxetine Hcl (DULOXETINE HCL) 60 Mg Capsule.dr, 60 MG PO DAILY, CAP 05/27/17 Glipizide (GLIPIZIDE ER) 5 Mg Tab.er.24, 5 MG PO DAILY, TAB.SR 05/27/17 Fluphenazine Hcl (FLUPHENAZINE HCL) 1 Mg Tablet, 2 MG PO BID, TAB 05/27/17 Aripiprazole (ABILIFY) 2 Mg Tablet, 5 MG PO HS, TAB 05/27/17 Ferrous Sulfate (FERROUS SULFATE) 325 Mg Tablet, 1 TAB PO DAILY, #30 TAB 3 Refills 12/12/16 Nitroglycerin (NITROGLYCERIN SubLingual) 0.4 Mg Tab.subl, 0.4 MG SL PRN Q5MIN PRN for CHEST PAIN, BOTTLE 12/12/16 Simvastatin (SIMVASTATIN) 20 Mg Tablet, 1 TAB PO QHS, #30 TAB 5 Refills 12/10/15 Albuterol Sulfate (PROVENTIL HFA INHALER) 6.7 Gm Hfa.aer.ad, 2 PUFF IH PRN Q4HRS PRN for SHORTNESS OF BREATH, #1 INHALER 06/13/15 Diclofenac Sodium (VOLTAREN) 100 Gm Gel..gram., 1 GM TP QID, #100 GM 2 Refills 06/13/15 Esomeprazole Magnesium (NEXIUM CAPSULE) 40 Mg Capsule.dr, 1 CAP PO DAILY, #30 CAP 5 Refills 06/13/15 Calcium Carbonate/Vitamin D3 (CALCIUM + VITAMIN D TABLET) 1 Each Tablet, 1 EACH PO DAILY 06/13/15 Acetaminophen (TYLENOL) 325 Mg Tablet, 2 TAB PO PRN Q4HRS, #30 TAB 06/13/15 [place]-3 Fatty Acids/Vitamin E (PV FISH OIL 1,000 MG SOFTGEL) 1,000 Mg Capsule, 1000 MG PO HS 08/09/14 Lorazepam (ATIVAN) 0.5 Mg Tablet, 0.5 MG PO PRN QHS PRN for ANXIETY / AGITATION, TAB 08/09/14 Clonidine Hcl (CATAPRES) 0.1 Mg Tablet, 0.2 MG PO TID, TAB 08/09/14 Valsartan (DIOVAN) 320 Mg Tablet, 320 MG PO DAILY, TAB 08/09/14 Amlodipine Besylate (NORVASC) 10 Mg Tablet, 10 TAB PO HS, #30 TAB 5 Refills 08/09/14 Hydralazine Hcl (HYDRALAZINE HCL) 25 Mg Tablet, 3 TAB PO TID, #90 TAB 5 Refills 08/09/14 Metformin Hcl (METFORMIN HCL) 1,000 Mg Tablet, 1 TAB PO BID, #60 TAB 5 Refills 08/09/14 Aspirin (ASPIR 81) 81 Mg Tablet., 1 TAB PO HS, #30 TAB 5 Refills 08/09/14 GUILLE DIANE MD May 14, 2019 11:53
[2019-05-14] MEDS ORDERED: POTASSIUM CHLORIDE 20 MEQ TABLET.ER. PO ONE ×2 (12:00→14:00)
[2019-05-14] MEDS ORDERED: MAGNESIUM SULFATE 2GM 50 ML IV ONE (12:00)
[2019-05-14] MEDS: cloNIDine HCL 0.2 MG TABLET PO SCH (12:13)
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
[2019-05-14 13:11] LABS: CALCIUM 9.3 mg/dL (8.5-10.1); CREATININE 0.8 mg/dL (0.6-1.0); GFR 85.1
[2019-05-14 13:22] LABS: POTASSIUM 2.8 mmol/L (3.5-5.1)
--- NOTE | 2019-05-14 14:12 | NUR ---
SS following up with discharge planning. Pt requesting assistance with wheelchair transport to home at discharge. SS contacted [facility] and arranged transportation to home between 1600 and 1630. Pt's RN notified.
[2019-05-14] MEDS: ENOXAPARIN 40 MG/0.4 ML SYRINGE. SQ SCH (14:30)
[2019-05-14 14:47] VITALS: BP 94/58
[2019-05-14 17:44] VITALS: BP 187/101
--- NOTE | 2019-05-14 17:50 | NUR ---
Discharge Note: C[place]STOB[place] BLOOD Y [address] [place] Discharge instructions and discharge home medications reviewed with Patient and a copy given. All questions have been answered and understanding verbalized. The following instructions and handouts were given: discharge instructions, CP info, hypokalemia info. Discontinued lines and drains: Peripheral IV intact. Patient discharged to Home w/services with [facility] via Wheelchair at 1750. BP was elevated at 187/101, BP medications administered before patient discharged, & Dr. Dyer notified.
== END 2019-05-14 17:50 | disposition home health service (06) | DRG 313 ==
LOC: ER 07:36 → ED HOLD 09:30 → 2 NORTH 11:25
PROVIDERS: ADMIT Internal Medicine; ATTEND Internal Medicine
DX: R07.89 Other chest pain (principal); I11.0 Hypertensive heart disease with heart failure; E87.1 Hypo-osmolality and hyponatremia; I50.32 Chronic diastolic (congestive) heart failure; Q61.3 Polycystic kidney, unspecified; D63.8 Anemia in other chronic diseases classified elsewhere; E11.9 Type 2 diabetes mellitus without complications; E78.00 Pure hypercholesterolemia, unspecified; E78.5 Hyperlipidemia, unspecified; E83.42 Hypomagnesemia; E86.1 Hypovolemia; E87.6 Hypokalemia; F25.9 Schizoaffective disorder, unspecified; J45.909 Unspecified asthma, uncomplicated; K21.9 Gastro-esophageal reflux disease without esophagitis; M35.3 Polymyalgia rheumatica; M48.061 Spinal stenosis, lumbar region without neurogenic claudication; M79.7 Fibromyalgia; Z96.659 Presence of unspecified artificial knee joint; Z79.52 Long term (current) use of systemic steroids; Z82.49 Family history of ischemic heart disease and other diseases of the circulatory system; Z86.73 Personal history of transient ischemic attack (TIA), and cerebral infarction without residual deficits; Z90.49 Acquired absence of other specified parts of digestive tract; Z90.710 Acquired absence of both cervix and uterus; F32.9 Major depressive disorder, single episode, unspecified; F41.9 Anxiety disorder, unspecified; M19.90 Unspecified osteoarthritis, unspecified site; Z88.8 Allergy status to other drugs, medicaments and biological substances; Z91.040 Latex allergy status
CPT/HCPCS: 36415; 71045; 71275; 74174; 80048; 80053; 82962; 83735; 83880; 84484; 85025; 85610; 93005; 96374; J1650; J1815; J3010; J3475; J3480; J7512; Q9967; 99285-25; G0378

== ENCOUNTER 2019-07-29 00:25 | Inpatient (IN) | payer MEDICARE, OTHER ==
[~2019-07-29] VITALS: Ht 157.5 cm; Wt 86.2 kg
[~2019-07-29 00:25] MED LIST changes: -ALBU2.5V8 IH; +AMLO10TA8 PO; +CARV12.53 PO; +CLON0.2T PO; +DICL100G28 TOP; +DULO30CA44 PO; +FERR220S8 PO; -FLUP1TAB PO; +FLUP1TAB3 PO; -FLUP5TAB PO; +FLUP5TAB3 PO; +FLUT16SP NAS; +FURO40TA4 PO; +GABA600T7 PO; +HYDR25TA10 PO; +ISOS20TA4 PO; +LEFL10TA13 PO; +LORA-781 PO; +LOSA100T14 PO; +MONT10TA10 PO; +OLOP2.5D6 OP; +POTA20TA4 PO; -POTA20TA82 PO; +PRED5TAB PO; +PROVENTIL HFA6.7 GM IH; +QUET25TA PO; +SIMV20TA18 PO; -SIMV20TA3 PO
[2019-07-29] MEDS ORDERED: HYDROcodone/APAP 10/325 1 TAB TABLET PO ONE (01:30)
[2019-07-29 01:48] LABS: BASO % 1 % (0-3); EOS # 0.2 x10^3/uL (0.0-0.7); EOS % 3 % (0-3); HEMATOCRIT 31.5 % (36.0-47.0); HEMOGLOBIN 10.4 g/dL (12.0-15.5); LYMPH # 1.1 x10^3/uL (1.0-4.8); LYMPH % 17 % (24-48); MEAN CORPUSCULAR HEMOGLOBIN 27 pg (25-35); MEAN CORPUSCULAR HGB CONC 33 g/dL (31-37); MEAN CORPUSCULAR VOLUME 82 fL (79-100); MONO # 0.7 x10^3/uL (0.0-1.1); MONO % 10 % (0-9); NEUT # 4.5 x10^3/uL (1.8-7.7); NEUT % 69 % (31-73); PLATELET COUNT 300 x10^3/uL (140-400); RED BLOOD COUNT 3.83 x10^6/uL (3.50-5.40); WHITE BLOOD COUNT 6.6 x10^3/uL (4.0-11.0)
[2019-07-29] MEDS ORDERED: diphenhydrAMINE 50 MG/ML VIAL ONE (01:51)
[2019-07-29] MEDS ORDERED: MORPHINE SULFATE 4 MG/ML VIAL. IV ONE (02:00)
[2019-07-29 02:04] LABS: ALBUMIN 3.3 g/dL (3.4-5.0); ALBUMIN/GLOBULIN RATIO 0.8 (1.0-1.7); C-REACTIVE PROTEIN 17.1 mg/L (0-3.3); CALCIUM 9.8 mg/dL (8.5-10.1); CREATININE 0.8 mg/dL (0.6-1.0); GFR 85.1; MAGNESIUM 1.7 mg/dL (1.8-2.4); TOTAL BILIRUBIN 0.4 mg/dL (0.2-1.0); TOTAL PROTEIN 7.6 g/dL (6.4-8.2)
[2019-07-29 02:06] LABS: POTASSIUM 2.4 mmol/L (3.5-5.1)
[2019-07-29] MEDS ORDERED: diphenhydrAMINE 50 MG/ML VIAL IVP ONE (02:15)
[2019-07-29] MEDS ORDERED: POTASSIUM CHLORIDE 20 MEQ TABLET.ER. PO ONE (02:30)
[2019-07-29] MEDS ORDERED: POTASSIUM CHLORIDE 20MEQ 100 ML IV ONE (02:30)
--- NOTE | 2019-07-29 02:37 | PHYS DOC ---
Past Medical History Past Medical History: Arthritis, Asthma, CHF, Diabetes-Type II, Fibromyalgia, High Cholesterol, Hypertension, Schizophrenia, Other Additional Past Medical Histor: schizoaffective disorder, polymyalgia rheumatica, RA Past Surgical History: Appendectomy, Hysterectomy, Knee Replacement, Other Additional Past Surgical Histo: rectal surgery for fissures, cataract removed, back surgery Alcohol Use: None Drug Use: None Adult General Chief Complaint Chief Complaint: joints pain. HPI HPI Patient is a 73 year old female who was brought here from home by EMS due to pain in her shoulders area bilaterally. Patient has history of rheumatoid arthritis, patient said it is flaring up again. She has pain in her shoulders more the left side the right side. Patient denies any injury. she also complaints of hip pain or joint pain in her knees. Patient said her legs are swollen as well. The pain is getting worse over the last few day. Patient was sitting on the toilet tonight, could not get up herself due to pain and weakness so she called 911. Patient lives by herself, she feels like she cannot take care of herself anymore. Patient denied any chest pain, no abdominal pain, no fever. All other ROS is negative unless otherwise noted in HPI Review of Systems Review of Systems See above Current Medications Current Medications Current Medications Medications (Trade) Dose Ordered Sig/Rocío Start Time Stop Time Status Last Admin Dose Admin Acetaminophen/ Hydrocodone Bitart (Lortab 10/325) 1 tab 1X ONCE 07/29/19 01:30 07/29/19 01:31 DC 07/29/19 01:21 1 TAB Diphenhydramine HCl (Benadryl) 50 mg STK-MED ONCE 07/29/19 01:51 07/29/19 01:52 DC Morphine Sulfate (Morphine Sulfate) 4 mg PRN Q6HRS PRN 07/29/19 02:45 07/30/19 02:44 Ondansetron HCl (Zofran) 4 mg PRN Q8HRS PRN 07/29/19 02:45 07/30/19 02:44 Potassium Chloride 40 meq/ Dextrose 1,020 ml @ 100 mls/hr 1X ONCE 07/29/19 03:00 07/29/19 13:11 Potassium Chloride/Water 100 ml @ 50 mls/hr 1X ONCE 07/29/19 02:30 07/29/19 04:29 DC 07/29/19 03:49 50 MLS/HR Potassium Chloride (Klor-Con) 40 meq 1X ONCE 07/29/19 02:30 07/29/19 02:31 DC 07/29/19 03:48 40 MEQ Allergies Allergies Allergies Coded Allergies Type Severity Reaction Last Updated Verified divalproex sodium Allergy Intermediate neck and back pain 07/16/16 Yes fluticasone Allergy Intermediate COUGH 07/16/16 Yes latex Allergy Intermediate SURGICAL TAPE 07/16/16 Yes lisinopril Allergy Intermediate cough 07/16/16 Yes piroxicam Allergy Intermediate BLISTERS 07/16/16 Yes gabapentin Adverse Reaction Severe 12/12/16 Yes Physical Exam Physical Exam Constitutional: Well developed, well nourished, no acute distress, non-toxic appearance. [] HENT: Normocephalic, atraumatic, bilateral external ears normal, oropharynx moist, no oral exudates, nose normal. [] Eyes: PERRLA, EOMI, conjunctiva normal, no discharge. [] Neck: Normal range of motion, no tenderness, supple, no stridor. [] Cardiovascular:Heart rate regular rhythm, no murmur [] Lungs & Thorax: Bilateral breath sounds clear to auscultation [] Abdomen: Bowel sounds normal, soft, no tenderness, no masses, no pulsatile masses. [] Skin: Warm, dry, no erythema, no rash. [] Back: No tenderness, no CVA tenderness. [] Extremities: bilateral shoulders appeared swollen with fluid in joint spaces, no contusion, there is full range of motion but very tender. There is pitting edema in lower extremities. Neurologic: Alert and oriented X 3, normal motor function, normal sensory function, no focal deficits noted. [] Psychologic: Affect normal, judgement normal, mood normal. [] Current Patient Data Vital Signs Vital Signs Date Time Temp Pulse Resp B/P (MAP) Pulse Ox O2 Delivery O2 Flow Rate FiO2 07/29/19 01:53 93 Room Air 07/29/19 00:28 98.2 84 16 177/106 (129) 98.2 Lab Values Laboratory Tests Test 07/29/19 01:40 07/29/19 03:14 White Blood Count 6.6 x10^3/uL (4.0-11.0) Red Blood Count 3.83 x10^6/uL (3.50-5.40) Hemoglobin 10.4 g/dL (12.0-15.5) L Hematocrit 31.5 % (36.0-47.0) L Mean Corpuscular Volume 82 fL (79-100) Mean Corpuscular Hemoglobin 27 pg (25-35) Mean Corpuscular Hemoglobin Concent 33 g/dL (31-37) Red Cell Distribution Width 17.0 % (11.5-14.5) H Platelet Count 300 x10^3/uL (140-400) Neutrophils (%) (Auto) 69 % (31-73) Lymphocytes (%) (Auto) 17 % (24-48) L Monocytes (%) (Auto) 10 % (0-9) H Eosinophils (%) (Auto) 3 % (0-3) Basophils (%) (Auto) 1 % (0-3) Neutrophils # (Auto) 4.5 x10^3/uL (1.8-7.7) Lymphocytes # (Auto) 1.1 x10^3/uL (1.0-4.8) Monocytes # (Auto) 0.7 x10^3/uL (0.0-1.1) Eosinophils # (Auto) 0.2 x10^3/uL (0.0-0.7) Basophils # (Auto) 0.0 x10^3/uL (0.0-0.2) Erythrocyte Sedimentation Rate 56 (0-25) H Sodium Level 136 mmol/L (136-145) Potassium Level 2.4 mmol/L (3.5-5.1) *L Chloride Level 95 mmol/L (98-107) L Carbon Dioxide Level 35 mmol/L (21-32) H Anion Gap 6 (6-14) Blood Urea Nitrogen 11 mg/dL (7-20) Creatinine 0.8 mg/dL (0.6-1.0) Estimated GFR (Cockcroft-Gault) 85.1 BUN/Creatinine Ratio 14 (6-20) Glucose Level 199 mg/dL (70-99) H Uric Acid 4.3 mg/dL (2.6-6.0) Calcium Level 9.8 mg/dL (8.5-10.1) Magnesium Level 1.7 mg/dL (1.8-2.4) L Total Bilirubin 0.4 mg/dL (0.2-1.0) Aspartate Amino Transferase (AST) 30 U/L (15-37) Alanine Aminotransferase (ALT) 25 U/L (14-59) Alkaline Phosphatase 102 U/L (46-116) Troponin I Quantitative < 0.017 ng/mL (0.000-0.055) C-Reactive Protein, Quantitative 17.1 mg/L (0-3.3) H JA-Naj-B-Type Natriuretic Peptide 279 pg/mL (0-124) H Total Protein 7.6 g/dL (6.4-8.2) Albumin 3.3 g/dL (3.4-5.0) L Albumin/Globulin Ratio 0.8 (1.0-1.7) L Urine Collection Type Unknown Urine Color Yellow Urine Clarity Clear Urine pH 7.5 Urine Specific [place] 1.010 Urine Protein 100 mg/dL (NEG-TRACE) Urine Glucose (UA) Negative mg/dL (NEG) Urine Ketones (Stick) Negative mg/dL (NEG) Urine Blood Negative (NEG) Urine Nitrite Negative (NEG) Urine Bilirubin Negative (NEG) Urine Urobilinogen Dipstick 0.2 mg/dL (0.2 mg/dL) Urine Leukocyte Esterase Negative (NEG) Urine RBC 0 /HPF (0-2) Urine WBC 0 /HPF (0-4) Urine Squamous Epithelial Cells Occ /LPF Urine Bacteria 0 /HPF (0-FEW) Laboratory Tests 07/29/19 01:40 Laboratory Tests 07/29/19 01:40 EKG EKG [] Radiology/Procedures Radiology/Procedures [] Course & Med Decision Making Course & Med Decision Making Pertinent Labs and Imaging studies reviewed. (See chart for details) Patient was found to have low potassium level. She has pain in all of her joints consistent with RA flare. Will admit her for pain control and to replace her potassium. Dragon Disclaimer Dragon Disclaimer This electronic medical record was generated, in whole or in part, using a voice recognition dictation system. Departure Departure Impression: Primary Impression: Hypokalemia Additional Impression: Rheumatoid arthritis flare Disposition: ADMITTED INPATIENT Admitting Physician: MARISEL (DR. ESPINAL) Condition: STABLE Referrals: UNKNOWN PCP NAME (PCP) Problem Qualifiers CHAD HUI DO Jul 29, 2019 02:37
[2019-07-29] MEDS ORDERED: MORPHINE SULFATE 4 MG/ML VIAL. IV PRN (02:45)
[2019-07-29] MEDS ORDERED: ONDANSETRON PF 4 MG/2 ML VIAL. IV PRN (02:45)
[2019-07-29] MEDS ORDERED: POTASSIUM CHLORIDE 40 MEQ in IV DEXTROSE 5% 1,000 ML IV ONE (03:00)
[2019-07-29 03:29] LABS: BILIRUBIN,URINE NEGATIVE (NEG); CLARITY,URINE CLEAR; COLOR,URINE YELLOW; NITRITE,URINE NEGATIVE (NEG); PH,URINE 7.5; PROTEIN,URINE 100 mg/dL (NEG-TRACE); UROBILINOGEN,URINE 0.2 mg/dL (0.2 mg/dL)
[2019-07-29 03:53] LABS: BACTERIA,URINE 0 /HPF (0-FEW); RBC,URINE 0 /HPF (0-2); SQUAMOUS EPITHELIAL CELL,UR OCC /LPF; WBC,URINE 0 /HPF (0-4)
[2019-07-29 06:24] LABS: CALCIUM 9.7 mg/dL (8.5-10.1); CREATININE 0.7 mg/dL (0.6-1.0); GFR 99.2; POTASSIUM 3.3 mmol/L (3.5-5.1)
[2019-07-29 10:25] VITALS: BP 185/111
[2019-07-29] MEDS ORDERED: POTA20TA4 PO (11:16)
[2019-07-29] MEDS ORDERED: MORPHINE SULFATE 2 MG/ML VIAL. IV PRN (11:30)
[2019-07-29] MEDS: HYDROcodone/APAP 10/325 1 TAB TABLET PO PRN (11:36)
[2019-07-29] MEDS ORDERED: hydroCHLOROthiazide 25 MG TABLET PO SCH (12:00)
--- NOTE | 2019-07-29 12:45 | PDOC1 ---
History and Physical Date of Admission: Date of Admission DATE: 07/29/19 TIME: 12:37 Chief Complaint: Problems: (1) Asthma (2) Contusion (3) Acid reflux (4) Wrist pain (5) Ganglion cyst (6) Degenerative arthritis (7) Chest pain, non-cardiac (8) Myositis (9) Medication refill (10) Unstable angina (11) Impacted cerumen of left ear (12) Otitis externa (13) Fracture of great toe, left, open (14) Contusion of left great toe with damage to nail (15) Acute hyponatremia (16) Headache (17) Arthritic-like pain (18) Chest pain (19) Hypokalemia Chief Complain: Joint pain History of Present Illness: HPI: This is a pleasant 73-year-old female who has rheumatoid arthritis Basically she presented to the ER because her shoulders and hands are hurting bilaterally The pain is intractable rated at 10 out 10 She states she has periodic flares despite being on multiple medications for rheumatoid arthritis The pain slightly worse on the left on the right Moving makes it worse sitting still makes it better She also complains of leg swelling She increased her home meds with that isn't helping Today she was sitting on the toilet and couldn't even get up she called 911 She apparently was by herself Describes the pain as agonizing I discussed the case with ER physician were going to admit her for acute flare of rheumatoid arthritis and she also has hypokalemia Past Medical/Surgical History: PMH/PSH: Past Medical History: Arthritis, Asthma, CHF, Diabetes-Type II, Fibromyalgia, High Cholesterol, Hypertension, Schizophrenia, Other Additional Past Medical Histor: schizoaffective disorder, polymyalgia rheum atica, RA Past Surgical History: Appendectomy, Hysterectomy, Knee Replacement, Other Additional Past Surgical Histo: rectal surgery for fissures, cataract removed, back surgery Allergies: Allergies: Coded Allergies: divalproex sodium (Verified Allergy, Intermediate, neck and back pain, 07/16/16) fluticasone (Verified Allergy, Intermediate, COUGH, 07/16/16) latex (Verified Allergy, Intermediate, SURGICAL TAPE, 07/16/16) lisinopril (Verified Allergy, Intermediate, cough, 07/16/16) piroxicam (Verified Allergy, Intermediate, BLISTERS, 07/16/16) gabapentin (Verified Adverse Reaction, Severe, 12/12/16) Hallucinations, worsening of schizophrenia Family History: Family History: Rheumatoid arthritis and diabetes Social History: Social Hisoty: She does not drink smoke or take drugs She is retired and lives alone Likes to watch TV Current Medications: Current Medications Current Medications Acetaminophen/ Hydrocodone Bitart (Lortab 10/325) 1 tab 1X ONCE PO Last administered on 07/29/19at 01:21; Start 07/29/19 at 01:30; Stop 07/29/19 at 01:31; Status DC Morphine Sulfate (Morphine Sulfate) 4 mg 1X ONCE IV Last administered on 07/29/19at 01:53; Start 07/29/19 at 02:00; Stop 07/29/19 at 02:01; Status DC Diphenhydramine HCl (Benadryl) 25 mg 1X ONCE IVP Last administered on 07/29/19at 01:53; Start 07/29/19 at 02:15; Stop 07/29/19 at 02:16; Status DC Diphenhydramine HCl (Benadryl) 50 mg STK-MED ONCE .ROUTE ; Start 07/29/19 at 01:51; Stop 07/29/19 at 01:52; Status DC Potassium Chloride (Klor-Con) 40 meq 1X ONCE PO Last administered on 07/29/19at 03:48; Start 07/29/19 at 02:30; Stop 07/29/19 at 02:31; Status DC Potassium Chloride/Water 100 ml @ 50 mls/hr 1X ONCE IV Last administered on 07/29/19at 03:49; Start 07/29/19 at 02:30; Stop 07/29/19 at 04:29; Status DC Ondansetron HCl (Zofran) 4 mg PRN Q8HRS PRN IV NAUSEA/VOMITING 1ST CHOICE Last administered on 07/29/19at 06:21; Start 07/29/19 at 02:45; Stop 07/30/19 at 02:44 Morphine Sulfate (Morphine Sulfate) 4 mg PRN Q6HRS PRN IV SEVERE PAIN 7-10 Last administered on 07/29/19at 06:22; Start 07/29/19 at 02:45; Stop 07/29/19 at 11:20; Status DC Potassium Chloride 40 meq/ Dextrose 1,020 ml @ 100 mls/hr 1X ONCE IV Last administered on 07/29/19at 05:56; Start 07/29/19 at 03:00; Stop 07/29/19 at 13:11 Morphine Sulfate (Morphine Sulfate) 2 mg PRN Q2HR PRN IV PAIN; Start 07/29/19 at 11:30 Acetaminophen/ Hydrocodone Bitart (Lortab 10/325) 1 tab PRN Q6HRS PRN PO PAIN Last administered on 07/29/19at 11:36; Start 07/29/19 at 11:30 Amlodipine Besylate (Norvasc) 100 mg HS PO ; Start 07/29/19 at 21:00 Carvedilol (Coreg) 12.5 mg BID PO ; Start 07/29/19 at 21:00 Clonidine HCl (Catapres) 0.2 mg BID PO ; Start 07/29/19 at 11:45 Hydrochlorothiazide (Hydrodiuril) 25 mg DAILY PO ; Start 07/29/19 at 12:00; Stop 07/29/19 at 12:15; Status DC Prednisone (Prednisone) 5 mg DAILY PO ; Start 07/29/19 at 12:00 Simvastatin (Zocor) 20 mg QHS PO ; Start 07/29/19 at 21:00 Duloxetine HCl (Cymbalta) 60 mg DAILY PO ; Start 07/29/19 at 12:00 Pantoprazole Sodium (Protonix) 40 mg DAILYAC PO ; Start 07/30/19 at 07:30 Isosorbide Dinitrate (Isordil) 20 mg BID66 PO ; Start 07/29/19 at 14:00 Losartan Potassium (Cozaar) 100 mg DAILY PO ; Start 07/29/19 at 12:00 Metformin HCl (Glucophage) 1,000 mg BIDWMEALS PO ; Start 07/29/19 at 17:00 Active Scripts Active Zofran Odt (Ondansetron) 4 Mg Tab.rapdis 1 Tab SL Q8HRS Reported Potassium Chloride (Potassium Chloride) 20 Meq Tablet.er 20 Meq PO TID Fluphenazine Hcl 1 Mg Tablet 4 Mg PO DAILY 30 Days Olopatadine HCl 2.5 Ml Drops 2.5 Ml OP DAILY 30 Days Fluticasone Propionate Nasal Minerva (Fluticasone Propionate) 16 Gm Minerva.susp 16 G DANNY DAILY 30 Days Gabapentin 600 Mg Tablet 600 Mg PO TID 30 Days Hydrochlorothiazide 25 Mg Tablet 25 Mg PO DAILY 30 Days Allergy Relief (Loratadine) 10 Mg Tablet 10 Mg PO DAILY 30 Days Ativan (Lorazepam) 0.5 Mg Tablet 0.5 Mg PO PRN DAILY PRN 30 Days Quetiapine Fumarate 25 Mg Tablet 25 Mg PO QHS 30 Days Montelukast Sodium 10 Mg Tablet 10 Mg PO QHS 30 Days Losartan Potassium 100 Mg Tablet 100 Mg PO DAILY 30 Days Isosorbide Dinitrate 20 Mg Tablet 20 Mg PO BID 30 Days Furosemide 40 Mg Tablet 40 Mg PO DAILY 30 Days Carvedilol 12.5 Mg Tablet 12.5 Mg PO BID 30 Days Prednisone 5 Mg Tablet 5 Mg PO DAILY 30 Days Diclofenac Sodium 100 Gm Gel..gram. 100 G TOP BID 30 Days Leflunomide 20 Mg Tablet 20 Mg PO DAILY 30 Days Tramadol Hcl 50 Mg Tablet 50 Mg PO Q4HRS PRN Abilify (Aripiprazole) 2 Mg Tablet 2 Mg PO DAILY Actos (Pioglitazone Hcl) 15 Mg Tablet 1 Tab PO DAILY Magnesium Oxide 400 Mg Tablet 1 Tab PO BID Duloxetine Hcl 60 Mg Capsule.dr 60 Mg PO DAILY Glipizide Er (Glipizide) 5 Mg Tab.er.24 5 Mg PO DAILY Abilify (Aripiprazole) 2 Mg Tablet 5 Mg PO HS Ferrous Sulfate 325 Mg Tablet 1 Tab PO DAILY NITROGLYCERIN SubLingual (Nitroglycerin) 0.4 Mg Tab.subl 0.4 Mg SL PRN Q5MIN PRN Simvastatin 20 Mg Tablet 1 Tab PO QHS Proventil Hfa Inhaler (Albuterol Sulfate) 6.7 Gm Hfa.aer.ad 2 Puff IH PRN Q4HRS PRN Voltaren (Diclofenac Sodium) 100 Gm Gel..gram. 1 Gm TP QID Nexium Capsule (Esomeprazole Magnesium) 40 Mg Capsule.dr 1 Cap PO DAILY Calcium + Vitamin D Tablet (Calcium Carbonate/Vitamin D3) 1 Each Tablet 1 Each PO DAILY Tylenol (Acetaminophen) 325 Mg Tablet 2 Tab PO PRN Q4HRS Pv Fish Oil 1,000 Mg Softgel ([place]-3 Fatty Acids/Vitamin E) 1,000 Mg Capsule 1,000 Mg PO HS Ativan (Lorazepam) 0.5 Mg Tablet 0.5 Mg PO PRN QHS PRN Catapres (Clonidine Hcl) 0.1 Mg Tablet 0.2 Mg PO BID Norvasc (Amlodipine Besylate) 10 Mg Tablet 10 Tab PO HS Hydralazine Hcl 25 Mg Tablet 3 Tab PO TID Metformin Hcl 1,000 Mg Tablet 1 Tab PO BID Aspir 81 (Aspirin) 81 Mg Tablet. 1 Tab PO HS ROS: Review of Systems Review of System REVIEW OF SYSTEMS: GENERAL: Complains of weakness SKIN: No bruising, hair changes or rashes. EYES: No blurred, double or loss of vision. NOSE AND THROAT: No history of nosebleeds, hoarseness or sore throat. HEART: No history of palpitations, chest pain or shortness of breath on exertion. LUNGS: Denies cough, hemoptysis, wheezing or shortness of breath. GASTROINTESTINAL: Denies changes in appetite, nausea, vomiting, diarrhea or constipation. GENITOURINARY: No history of frequency, urgency, hesitancy or nocturia. NEUROLOGIC: Complains of weakness PSYCHIATRIC: Complains of depression ENDOCRINE: No history of heat or cold intolerance, polyuria or polydipsia. EXTREMITIES: Complains of intractable pain in her hands and knees and ankles with associated swelling Physical Exam: Vital Signs: Vital Signs Date Time Temp Pulse Resp B/P (MAP) Pulse Ox O2 Delivery O2 Flow Rate FiO2 07/29/19 11:36 93 07/29/19 10:25 98.6 86 18 185/111 (135) Room Air 98.6 Physcial Exam: GEN: In moderate distress complaining of pain HEENT: Normal cephalic, atraumatic, external auditory canals are patent she does have some alopecia EYES: Extraocular muscles are intact, pupil are equally round and reactive to light and accommodation MUSCULOSKELETAL: Well developed , well nourished, good range of motion ENDOCRINE: Ny thyromegaly was palpated LYMPHATICS: No cervical chain or axillary nodes were noted HEMATOPOIETIC: No bruising NECK: Supple, no JVD, no thyromegaly was noted LUNGS: Clear to auscultation in all lung turner without rhonchi or wheezing HEART: RRR, S!, S2 present. Peripheral pulses intact, no obvious murmurs noted ABDOMEN: Soft, nontender. Positive bowel sounds, no organomegaly, normal bowel sounds EXTREMITIES: Hands are somewhat swollen at the metacarpophalangeal joints knees are little swollen as well NEUROLOGIC: She has a unusual affect but overall alert and oriented PSYCHIATRIC: Seems depressed SKIN: The skin is thin but intact VASCULAR: She has slow capillary refill Labs: Labs: Laboratory Tests Test 07/29/19 01:40 07/29/19 03:14 07/29/19 05:55 07/29/19 11:50 White Blood Count 6.6 x10^3/uL (4.0-11.0) Red Blood Count 3.83 x10^6/uL (3.50-5.40) Hemoglobin 10.4 g/dL (12.0-15.5) Hematocrit 31.5 % (36.0-47.0) Mean Corpuscular Volume 82 fL (79-100) Mean Corpuscular Hemoglobin 27 pg (25-35) Mean Corpuscular Hemoglobin Concent 33 g/dL (31-37) Red Cell Distribution Width 17.0 % (11.5-14.5) Platelet Count 300 x10^3/uL (140-400) Neutrophils (%) (Auto) 69 % (31-73) Lymphocytes (%) (Auto) 17 % (24-48) Monocytes (%) (Auto) 10 % (0-9) Eosinophils (%) (Auto) 3 % (0-3) Basophils (%) (Auto) 1 % (0-3) Neutrophils # (Auto) 4.5 x10^3/uL (1.8-7.7) Lymphocytes # (Auto) 1.1 x10^3/uL (1.0-4.8) Monocytes # (Auto) 0.7 x10^3/uL (0.0-1.1) Eosinophils # (Auto) 0.2 x10^3/uL (0.0-0.7) Basophils # (Auto) 0.0 x10^3/uL (0.0-0.2) Erythrocyte Sedimentation Rate 56 (0-25) Sodium Level 136 mmol/L (136-145) 138 mmol/L (136-145) Potassium Level 2.4 mmol/L (3.5-5.1) 3.3 mmol/L (3.5-5.1) Chloride Level 95 mmol/L (98-107) 95 mmol/L (98-107) Carbon Dioxide Level 35 mmol/L (21-32) 36 mmol/L (21-32) Anion Gap 6 (6-14) 7 (6-14) Blood Urea Nitrogen 11 mg/dL (7-20) 9 mg/dL (7-20) Creatinine 0.8 mg/dL (0.6-1.0) 0.7 mg/dL (0.6-1.0) Estimated GFR (Cockcroft-Gault) 85.1 99.2 BUN/Creatinine Ratio 14 (6-20) Glucose Level 199 mg/dL (70-99) 143 mg/dL (70-99) Uric Acid 4.3 mg/dL (2.6-6.0) Calcium Level 9.8 mg/dL (8.5-10.1) 9.7 mg/dL (8.5-10.1) Magnesium Level 1.7 mg/dL (1.8-2.4) Total Bilirubin 0.4 mg/dL (0.2-1.0) Aspartate Amino Transf (AST/SGOT) 30 U/L (15-37) Alanine Aminotransferase (ALT/SGPT) 25 U/L (14-59) Alkaline Phosphatase 102 U/L (46-116) Troponin I Quantitative < 0.017 ng/mL (0.000-0.055) C-Reactive Protein, Quantitative 17.1 mg/L (0-3.3) PU-Yqa-[id number]-Type Natriuretic Peptide 279 pg/mL (0-124) Total Protein 7.6 g/dL (6.4-8.2) Albumin 3.3 g/dL (3.4-5.0) Albumin/Globulin Ratio 0.8 (1.0-1.7) Urine Collection Type Unknown Urine Color Yellow Urine Clarity Clear Urine pH 7.5 Urine Specific [place]le 1.010 Urine Protein 100 mg/dL (NEG-TRACE) Urine Glucose (UA) Negative mg/dL (NEG) Urine Ketones (Stick) Negative mg/dL (NEG) Urine Blood Negative (NEG) Urine Nitrite Negative (NEG) Urine Bilirubin Negative (NEG) Urine Urobilinogen Dipstick 0.2 mg/dL (0.2 mg/dL) Urine Leukocyte Esterase Negative (NEG) Urine RBC 0 /HPF (0-2) Urine WBC 0 /HPF (0-4) Urine Squamous Epithelial Cells Occ /LPF Urine Bacteria 0 /HPF (0-FEW) Glucose (Fingerstick) 214 mg/dL (70-99) Laboratory Tests Test 07/29/19 01:40 07/29/19 03:14 07/29/19 05:55 07/29/19 11:50 White Blood Count 6.6 x10^3/uL (4.0-11.0) Red Blood Count 3.83 x10^6/uL (3.50-5.40) Hemoglobin 10.4 g/dL (12.0-15.5) Hematocrit 31.5 % (36.0-47.0) Mean Corpuscular Volume 82 fL (79-100) Mean Corpuscular Hemoglobin 27 pg (25-35) Mean Corpuscular Hemoglobin Concent 33 g/dL (31-37) Red Cell Distribution Width 17.0 % (11.5-14.5) Platelet Count 300 x10^3/uL (140-400) Neutrophils (%) (Auto) 69 % (31-73) Lymphocytes (%) (Auto) 17 % (24-48) Monocytes (%) (Auto) 10 % (0-9) Eosinophils (%) (Auto) 3 % (0-3) Basophils (%) (Auto) 1 % (0-3) Neutrophils # (Auto) 4.5 x10^3/uL (1.8-7.7) Lymphocytes # (Auto) 1.1 x10^3/uL (1.0-4.8) Monocytes # (Auto) 0.7 x10^3/uL (0.0-1.1) Eosinophils # (Auto) 0.2 x10^3/uL (0.0-0.7) Basophils # (Auto) 0.0 x10^3/uL (0.0-0.2) Erythrocyte Sedimentation Rate 56 (0-25) Sodium Level 136 mmol/L (136-145) 138 mmol/L (136-145) Potassium Level 2.4 mmol/L (3.5-5.1) 3.3 mmol/L (3.5-5.1) Chloride Level 95 mmol/L (98-107) 95 mmol/L (98-107) Carbon Dioxide Level 35 mmol/L (21-32) 36 mmol/L (21-32) Anion Gap 6 (6-14) 7 (6-14) Blood Urea Nitrogen 11 mg/dL (7-20) 9 mg/dL (7-20) Creatinine 0.8 mg/dL (0.6-1.0) 0.7 mg/dL (0.6-1.0) Estimated GFR (Cockcroft-Gault) 85.1 99.2 BUN/Creatinine Ratio 14 (6-20) Glucose Level 199 mg/dL (70-99) 143 mg/dL (70-99) Uric Acid 4.3 mg/dL (2.6-6.0) Calcium Level 9.8 mg/dL (8.5-10.1) 9.7 mg/dL (8.5-10.1) Magnesium Level 1.7 mg/dL (1.8-2.4) Total Bilirubin 0.4 mg/dL (0.2-1.0) Aspartate Amino Transf (AST/SGOT) 30 U/L (15-37) Alanine Aminotransferase (ALT/SGPT) 25 U/L (14-59) Alkaline Phosphatase 102 U/L (46-116) Troponin I Quantitative < 0.017 ng/mL (0.000-0.055) C-Reactive Protein, Quantitative 17.1 mg/L (0-3.3) MF-Txf-B-Type Natriuretic Peptide 279 pg/mL (0-124) Total Protein 7.6 g/dL (6.4-8.2) Albumin 3.3 g/dL (3.4-5.0) Albumin/Globulin Ratio 0.8 (1.0-1.7) Urine Collection Type Unknown Urine Color Yellow Urine Clarity Clear Urine pH 7.5 Urine Specific [place] 1.010 Urine Protein 100 mg/dL (NEG-TRACE) Urine Glucose (UA) Negative mg/dL (NEG) Urine Ketones (Stick) Negative mg/dL (NEG) Urine Blood Negative (NEG) Urine Nitrite Negative (NEG) Urine Bilirubin Negative (NEG) Urine Urobilinogen Dipstick 0.2 mg/dL (0.2 mg/dL) Urine Leukocyte Esterase Negative (NEG) Urine RBC 0 /HPF (0-2) Urine WBC 0 /HPF (0-4) Urine Squamous Epithelial Cells Occ /LPF Urine Bacteria 0 /HPF (0-FEW) Glucose (Fingerstick) 214 mg/dL (70-99) Images: Images Imaging studies are pending the patient is still in the emergency room Assessment/Plan Assessment/Plan Acute flare of rheumatoid arthritis with and still finding of hypokalemia and intractable pain in a middle-aged female who has the above-noted comorbidities Plan I suspect IV steroids would help get her rheumatoid arthritis under control so we have started some prednisone and continued her home immunosuppressants as well We'll consult rheumatology as well Replace her potassium When necessary narcotics I resumed her home meds( reviewed them with her nurse. she is on 40 meds, we h eld a few of them) DVT prophylaxis Full code PT OT Frequent labs Check inflammatory markers such as C-reactive protein and consider a sedimentation rate if rheumatology agrees When necessary KEESHA Miranda III DO Jul 29, 2019 12:45
[2019-07-29] MEDS: cloNIDine HCL 0.2 MG TABLET PO SCH ×2 (13:34→22:04)
[2019-07-29] MEDS: predniSONE 5 MG TABLET PO SCH (13:34)
[2019-07-29] MEDS: LOSARTAN POTASSIUM 50 MG TABLET. PO SCH (13:34)
[2019-07-29] MEDS: ISOSORBIDE DINITRATE 10 MG TABLET. PO SCH ×2 (13:35→17:14)
[2019-07-29] MEDS: DULoxetine HCL 30 MG CAPSULE.DR PO SCH (13:35)
--- NOTE | 2019-07-29 14:51 | NUR ---
Dr. Arango's nurse notified this RN that physician not able to do routine consult as he is out of country until 08/07/2019. Dr. Galeana notified and order for consult cancelled.
[2019-07-29 15:00] VITALS: BP 132/73
[2019-07-29] MEDS: metFORMIN 500 MG TABLET PO SCH (17:00)
--- NOTE | 2019-07-29 17:15 | NUR ---
Isosorbide and metformin held this evening. Unable to verify patient's medications with primary care physician until tomorrow, blood glucose stable and blood pressure stable at this time.
[2019-07-29 19:00] VITALS: BP 145/77
[2019-07-29] MEDS ORDERED: amLODIPine BESYLATE 10 MG TABLET PO SCH (21:00)
[2019-07-29] MEDS: SIMVASTATIN 20 MG TABLET PO SCH (22:04)
[2019-07-29] MEDS: CARVEDILOL 12.5 MG TABLET. PO SCH (22:05)
[2019-07-29 23:00] VITALS: BP 180/94
[2019-07-30] MEDS: amLODIPine BESYLATE 10 MG TABLET PO SCH ×2 (00:12→21:06)
[2019-07-30 03:00] VITALS: BP 171/75
[2019-07-30] MEDS: HYDROcodone/APAP 10/325 1 TAB TABLET PO PRN (03:01)
[2019-07-30] MEDS: ISOSORBIDE DINITRATE 10 MG TABLET. PO SCH ×2 (06:08→08:59)
--- NOTE | 2019-07-30 06:50 | EKG ---
[facility] [address] [place] [address] Test Date: 2019-07-29 Test Time: 00:38:06 Pat Name: CRISTOBAL BLOOD Department: Room: 422 Gender: F Health Underwriter: : 1945 Requested By: AMINATA ESPINAL Order Number: [id number] Reading MD: Measurements Intervals [place] Rate: 85 P: -150 MT: 158 QRS: -24 QRSD: 88 T: 55 QT: 376 QTc: 448 Interpretive Statements SUPRAVENTRICULAR RHYTHM LEFTWARD AXIS LVH WITH REPOLARIZATION ABNORMALITY ABNORMAL ECG RI6.01 No previous ECG available for comparison
[2019-07-30 07:00] VITALS: BP 139/84
[2019-07-30] MEDS ORDERED: PANTOPRAZOLE 40 MG TABLET.DR. PO SCH (07:30)
[2019-07-30] MEDS: CARVEDILOL 12.5 MG TABLET. PO SCH ×2 (08:59→16:58)
[2019-07-30] MEDS: metFORMIN 500 MG TABLET PO SCH ×2 (08:59→16:58)
[2019-07-30] MEDS: LOSARTAN POTASSIUM 50 MG TABLET. PO SCH (08:59)
[2019-07-30] MEDS: traMADol 50 MG TABLET PO PRN (09:00)
[2019-07-30] MEDS: predniSONE 5 MG TABLET PO SCH (09:00)
[2019-07-30] MEDS: DULoxetine HCL 30 MG CAPSULE.DR PO SCH (09:00)
[2019-07-30] MEDS: cloNIDine HCL 0.2 MG TABLET PO SCH ×2 (09:00→21:07)
[2019-07-30] MEDS ORDERED: IV DEXTROSE 5% 250 ML BAG. IV PRN (09:30)
[2019-07-30] MEDS ORDERED: DEXTROSE 50% 25 GM / 50ML DISP.SYRIN. IV PRN (09:30)
[2019-07-30] MEDS ORDERED: POTASSIUM BICARB 20 MEQ EFFERVESCENT TABLET. PO ONE (09:30)
[2019-07-30] MEDS ORDERED: methylPREDNISolone SOD SUCC PF 40 MG/ML VIAL. IV ONE (09:30)
[2019-07-30] MEDS ORDERED: AMLO10TA8 PO (09:34)
[2019-07-30] MEDS ORDERED: ESOM40CA47 PO (09:34)
[2019-07-30] MEDS ORDERED: LEFL10TA13 PO (09:34)
[2019-07-30] MEDS ORDERED: DULO30CA44 PO (09:34)
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
[2019-07-30] MEDS ORDERED: MAGNESIUM SULFATE 2GM 50 ML IV ONE (09:45)
[2019-07-30] MEDS: DICLOFENAC SODIUM 1% TOPICAL GEL 100GM TUBE. TP SCH ×4 (10:00→21:00)
[2019-07-30] MEDS: LEFLUNOMIDE 10 MG TABLET. PO SCH (10:20)
[2019-07-30] MEDS: POTASSIUM CHLORIDE 20 MEQ TABLET.ER. PO SCH ×3 (10:22→16:57)
[2019-07-30 11:09] VITALS: BP 109/62
[2019-07-30] MEDS: PANTOPRAZOLE 40 MG TABLET.DR. PO SCH (11:59)
[2019-07-30] MEDS: INSULIN LISPRO 300 UNITS/3 ML VIAL. SQ SCH ×3 (12:03→21:00)
[2019-07-30 14:55] VITALS: BP 115/57
[2019-07-30 19:00] VITALS: BP 166/88
[2019-07-30] MEDS: SIMVASTATIN 20 MG TABLET PO SCH (21:05)
[2019-07-30 23:00] VITALS: BP 178/82
[2019-07-31] VITALS (7 sets, daily range): BP systolic 151–180; BP diastolic 75–104
[2019-07-31] MEDS: traMADol 50 MG TABLET PO PRN ×3 (05:16→20:20)
[2019-07-31] MEDS: ISOSORBIDE DINITRATE 10 MG TABLET. PO SCH ×2 (05:51→17:30)
[2019-07-31 06:41] LABS: CALCIUM 9.4 mg/dL (8.5-10.1); CREATININE 0.7 mg/dL (0.6-1.0); GFR 99.2; MAGNESIUM 1.9 mg/dL (1.8-2.4); POTASSIUM 3.4 mmol/L (3.5-5.1)
[2019-07-31] MEDS: INSULIN LISPRO 300 UNITS/3 ML VIAL. SQ SCH ×4 (07:30→21:00)
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
[2019-07-31] MEDS: metFORMIN 500 MG TABLET PO SCH ×2 (09:04→17:30)
[2019-07-31] MEDS: PANTOPRAZOLE 40 MG TABLET.DR. PO SCH (09:04)
[2019-07-31] MEDS: LEFLUNOMIDE 10 MG TABLET. PO SCH (09:04)
[2019-07-31] MEDS: DULoxetine HCL 30 MG CAPSULE.DR PO SCH (09:05)
[2019-07-31] MEDS: POTASSIUM CHLORIDE 20 MEQ TABLET.ER. PO SCH ×3 (09:05→17:30)
[2019-07-31] MEDS: cloNIDine HCL 0.2 MG TABLET PO SCH ×2 (09:05→21:16)
[2019-07-31] MEDS: CARVEDILOL 12.5 MG TABLET. PO SCH ×2 (09:05→17:30)
[2019-07-31] MEDS: LOSARTAN POTASSIUM 50 MG TABLET. PO SCH (09:05)
[2019-07-31] MEDS: methylPREDNISolone SOD SUCC PF 40 MG/ML VIAL. IV SCH ×3 (09:06→22:00)
[2019-07-31] MEDS: DICLOFENAC SODIUM 1% TOPICAL GEL 100GM TUBE. TP SCH ×4 (09:06→21:15)
[2019-07-31] MEDS ORDERED: POTASSIUM CHLORIDE 20 MEQ TABLET.ER. PO ONE (13:00)
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
--- NOTE | 2019-07-31 16:11 | NUR ---
Text page sent to Dr. Nice re: BP 151/104.
[2019-07-31] MEDS ORDERED: LABETALOL 20 MG/4 ML DISP.SYRIN. IVP PRN (16:30)
--- NOTE | 2019-07-31 16:33 | NUR ---
Dr. Nice returned call, notified of inc BP, telephone orders received.
[2019-07-31] MEDS: amLODIPine BESYLATE 10 MG TABLET PO SCH (21:15)
[2019-07-31] MEDS: SIMVASTATIN 20 MG TABLET PO SCH (21:15)
[2019-08-01 03:45] VITALS: BP 152/78
[2019-08-01] MEDS: methylPREDNISolone SOD SUCC PF 40 MG/ML VIAL. IV SCH (06:00)
[2019-08-01] MEDS: traMADol 50 MG TABLET PO PRN ×3 (06:13→21:47)
[2019-08-01] MEDS: ISOSORBIDE DINITRATE 10 MG TABLET. PO SCH ×2 (06:14→17:20)
[2019-08-01 07:00] VITALS: BP 171/106
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
[2019-08-01] MEDS: DULoxetine HCL 30 MG CAPSULE.DR PO SCH (08:27)
[2019-08-01] MEDS: metFORMIN 500 MG TABLET PO SCH ×2 (08:27→17:20)
[2019-08-01] MEDS: POTASSIUM CHLORIDE 20 MEQ TABLET.ER. PO SCH ×3 (08:27→17:19)
[2019-08-01] MEDS: LOSARTAN POTASSIUM 50 MG TABLET. PO SCH (08:28)
[2019-08-01] MEDS: PANTOPRAZOLE 40 MG TABLET.DR. PO SCH (08:28)
[2019-08-01] MEDS: LEFLUNOMIDE 10 MG TABLET. PO SCH (08:28)
[2019-08-01] MEDS: HYDROcodone/APAP 10/325 1 TAB TABLET PO PRN (08:29)
[2019-08-01] MEDS: cloNIDine HCL 0.2 MG TABLET PO SCH ×2 (08:29→21:48)
[2019-08-01] MEDS: predniSONE 20 MG TABLET PO SCH (08:29)
[2019-08-01] MEDS: CARVEDILOL 12.5 MG TABLET. PO SCH ×2 (08:29→17:19)
[2019-08-01] MEDS: DICLOFENAC SODIUM 1% TOPICAL GEL 100GM TUBE. TP SCH ×4 (08:30→21:49)
[2019-08-01] MEDS: INSULIN LISPRO 300 UNITS/3 ML VIAL. SQ SCH ×4 (08:38→21:00)
[2019-08-01 11:00] VITALS: BP 156/92
[2019-08-01] MEDS ORDERED: BUSP5TAB PO (13:26)
[2019-08-01] MEDS ORDERED: PRED5TAB PO (13:26)
[2019-08-01] MEDS ORDERED: TRAM50TA PO (13:28)
--- NOTE | 2019-08-01 13:29 | SNU/HH DC ---
DISCHARGE ORDERS DISCHARGE INFORMATION: DISCHARGE DATE: Aug 01, 2019 FINAL DIAGNOSIS Problems Medical Problems: (1) Hypokalemia Status: Acute (2) Rheumatoid arthritis flare Status: Acute CONDITION ON DISCHARGE: Stable CODE STATUS: Code Status: Full [facility]: SNF STAY <30 DAYS: Yes POST DISCHARGE ORDERS: ACTIVITY ORDERS: Activity as tolerated WEIGHT BEARING STATUS: As tolerated DIET AFTER DISCHARGE: ADA CHECKS AFTER DISCHARGE: CHECKS AFTER DISCHARGE: Check blood press - daily, Check blood sugar, ac/hs, C heck your Temp as needed, Weigh Yourself Daily TREATMENT/EQUIPMENT ORDERS: ADAPTIVE EQUIPMENT NEEDED: None Physical Therapy For: Evalulation/Treatment Occupational Therapy For: Evaluation/Treatment DISCHARGE MEDICATIONS: Home Meds Active Scripts Tramadol Hcl (TRAMADOL HCL) 50 Mg Tablet, 50 MG PO PRN Q4-6HRS PRN for PAIN for 6 Days, #24 TAB Prov:KATHERIN THOMPSON MD 08/01/19 Buspirone Hcl (BUSPIRONE HCL) 5 Mg Tablet, 1 TAB PO PRN TID PRN for ANXIETY for 30 Days, #60 TAB 2 Refills Prov:KATHERIN THOMPSON MD 08/01/19 Prednisone (PREDNISONE) 5 Mg Tablet, 5 MG PO DAILY for RA for 30 Days, #62 TAB Prov:KATHERIN THOMPSON MD 08/01/19 Ondansetron (ZOFRAN ODT) 4 Mg Tab.rapdis, 1 TAB SL Q8HRS, #15 TAB Prov:SCOTTIE BRENNAN APRN 01/29/18 Reported Medications Esomeprazole Magnesium (Esomeprazole Magnesium) 40 Mg Capsule.dr, 40 MG PO DAILY for GERD for 90 Days, #90 07/30/19 Duloxetine Hcl (DULOXETINE HCL) 30 Mg Capsule.dr, 30 MG PO DAILY for Fibromyalgia for 90 Days, #90 07/30/19 Leflunomide (LEFLUNOMIDE) 20 Mg Tablet, 20 MG PO DAILY for RA for 30 Days, #30 07/30/19 Potassium Chloride (POTASSIUM CHLORIDE ) 20 Meq Tablet.er, 20 MEQ PO TID for SUPPLEMENT, TAB.SR 07/29/19 Fluphenazine Hcl (FLUPHENAZINE HCL) 1 Mg Tablet, 4 MG PO DAILY for Mood for 30 Days, #120 05/13/19 Olopatadine HCl (Olopatadine HCl) 2.5 Ml Drops, 2.5 ML OP DAILY for Ocular for 30 Days, #1 05/13/19 Fluticasone Propionate (FLUTICASONE PROPIONATE NASAL SPRAY) 16 Gm [place].susp, 16 G DANNY DAILY for Allergies for 30 Days, #1 05/13/19 Loratadine (ALLERGY RELIEF) 10 Mg Tablet, 10 MG PO DAILY for Allergies for 30 Days, #30 05/13/19 Quetiapine Fumarate (QUETIAPINE FUMARATE) 25 Mg Tablet, 25 MG PO QHS for Mood Stabilization for 30 Days, #30 05/13/19 Montelukast Sodium (Montelukast Sodium) 10 Mg Tablet, 10 MG PO QHS for Asthma for 30 Days, #30 05/13/19 Losartan Potassium (LOSARTAN POTASSIUM) 100 Mg Tablet, 100 MG PO DAILY for HTN for 30 Days, #30 05/13/19 Isosorbide Dinitrate (ISOSORBIDE DINITRATE) 20 Mg Tablet, 20 MG PO BID for CHF for 30 Days, #60 05/13/19 Carvedilol (Carvedilol) 12.5 Mg Tablet, 12.5 MG PO BID for CHF for 30 Days, #60 05/13/19 Magnesium Oxide (MAGNESIUM OXIDE) 400 Mg Tablet, 1 TAB PO BID, #60 TAB 5 Refills 05/27/17 Duloxetine Hcl (DULOXETINE HCL) 60 Mg Capsule.dr, 60 MG PO DAILY, CAP 05/27/17 Simvastatin (SIMVASTATIN) 20 Mg Tablet, 1 TAB PO QHS, #30 TAB 5 Refills 12/10/15 Albuterol Sulfate (PROVENTIL HFA INHALER) 6.7 Gm Hfa.aer.ad, 2 PUFF IH PRN Q4HRS PRN for SHORTNESS OF BREATH, #1 INHALER 06/13/15 Diclofenac Sodium (VOLTAREN) 100 Gm Gel..gram., 1 GM TP QID, #100 GM 2 Refills 06/13/15 Calcium Carbonate/Vitamin D3 (CALCIUM + VITAMIN D TABLET) 1 Each Tablet, 1 EACH PO DAILY 06/13/15 Acetaminophen (TYLENOL) 325 Mg Tablet, 2 TAB PO PRN Q4HRS, #30 TAB 06/13/15 [place]-3 Fatty Acids/Vitamin E (PV FISH OIL 1,000 MG SOFTGEL) 1,000 Mg Capsule, 1000 MG PO HS 08/09/14 Clonidine Hcl (CATAPRES) 0.1 Mg Tablet, 0.2 MG PO BID for HTN, TAB 08/09/14 Amlodipine Besylate (NORVASC) 10 Mg Tablet, 10 TAB PO HS, #30 TAB 5 Refills 08/09/14 Metformin Hcl (METFORMIN HCL) 1,000 Mg Tablet, 1 TAB PO BID, #60 TAB 5 Refills 08/09/14 Aspirin (ASPIR 81) 81 Mg Tablet.dr, 1 TAB PO HS, #30 TAB 5 Refills 08/09/14 Discontinued Reported Medications Amlodipine Besylate (AMLODIPINE BESYLATE) 10 Mg Tablet, 10 MG PO DAILY for HTN for 90 Days, #90 07/30/19 Gabapentin (GABAPENTIN) 600 Mg Tablet, 600 MG PO TID for Neuropathy for 30 Days, #90 05/13/19 Hydrochlorothiazide (Hydrochlorothiazide) 25 Mg Tablet, 25 MG PO DAILY for HTN for 30 Days, #30 05/13/19 Lorazepam (ATIVAN) 0.5 Mg Tablet, 0.5 MG PO PRN DAILY PRN for ANXIETY / AGITATION for 30 Days, #30 05/13/19 Furosemide (FUROSEMIDE) 40 Mg Tablet, 40 MG PO DAILY for CHF for 30 Days, #30 05/13/19 Diclofenac Sodium (Diclofenac Sodium) 100 Gm Gel..gram., 100 G TOP BID for Osteoarthritis/Rheumatoid arth for 30 Days, #60 05/13/19 Leflunomide (LEFLUNOMIDE) 20 Mg Tablet, 20 MG PO DAILY for Rheumatoid arthritis for 30 Days, #30 05/13/19 Aripiprazole (ABILIFY) 2 Mg Tablet, 2 MG PO DAILY, TAB 12/17/17 Pioglitazone Hcl (ACTOS) 15 Mg Tablet, 1 TAB PO DAILY, #30 TAB 5 Refills 12/17/17 Glipizide (GLIPIZIDE ER) 5 Mg Tab.er.24, 5 MG PO DAILY, TAB.SR 05/27/17 Aripiprazole (ABILIFY) 2 Mg Tablet, 5 MG PO HS, TAB 05/27/17 Ferrous Sulfate (FERROUS SULFATE) 325 Mg Tablet, 1 TAB PO DAILY, #30 TAB 3 Refills 12/12/16 Nitroglycerin (NITROGLYCERIN SubLingual) 0.4 Mg Tab.subl, 0.4 MG SL PRN Q5MIN PRN for CHEST PAIN, BOTTLE 12/12/16 Esomeprazole Magnesium (NEXIUM CAPSULE) 40 Mg Capsule.dr, 1 CAP PO DAILY, #30 CAP 5 Refills 06/13/15 Lorazepam (ATIVAN) 0.5 Mg Tablet, 0.5 MG PO PRN QHS PRN for ANXIETY / AGITATION, TAB 08/09/14 Hydralazine Hcl (HYDRALAZINE HCL) 25 Mg Tablet, 3 TAB PO TID, #90 TAB 5 Refills 08/09/14 KATHERIN THOMPSON MD Aug 01, 2019 13:29
[2019-08-01 15:00] VITALS: BP 159/105
--- NOTE | 2019-08-01 16:00 | NUR ---
Dr. Nice notified of pt c/o itching and a sore mouth. Stated he would place orders.
--- NOTE | 2019-08-01 16:24 | NUR ---
SW following. Pt accepted at [facility] pending insurance auth. RN notified.
--- NOTE | 2019-08-01 17:46 | NUR ---
Dr. Nice paged again re: pt c/o itching and a sore mouth.
[2019-08-01 19:00] VITALS: BP 185/80
[2019-08-01] MEDS: diphenhydrAMINE HCL 25 MG CAPSULE PO PRN (21:46)
[2019-08-01] MEDS: NYSTATIN 100,000 UNITS/ML 5 ML ORAL.SUSP. SWSW SCH (21:46)
[2019-08-01] MEDS: SIMVASTATIN 20 MG TABLET PO SCH (21:47)
[2019-08-01] MEDS: amLODIPine BESYLATE 10 MG TABLET PO SCH (21:48)
[2019-08-01 23:00] VITALS: BP 157/94
[2019-08-02 03:00] VITALS: BP 160/70
[2019-08-02] MEDS: PANTOPRAZOLE 40 MG TABLET.DR. PO SCH (05:59)
[2019-08-02] MEDS: diphenhydrAMINE HCL 25 MG CAPSULE PO PRN (05:59)
[2019-08-02] MEDS: ISOSORBIDE DINITRATE 10 MG TABLET. PO SCH (06:00)
[2019-08-02] MEDS: traMADol 50 MG TABLET PO PRN (06:02)
[2019-08-02 07:00] VITALS: BP 165/104
[2019-08-02] MEDS: INSULIN LISPRO 300 UNITS/3 ML VIAL. SQ SCH ×2 (07:30→11:30)
[2019-08-02] MEDS: NYSTATIN 100,000 UNITS/ML 5 ML ORAL.SUSP. SWSW SCH (08:12)
[2019-08-02] MEDS: LOSARTAN POTASSIUM 50 MG TABLET. PO SCH (08:13)
[2019-08-02] MEDS: metFORMIN 500 MG TABLET PO SCH (08:13)
[2019-08-02] MEDS: DULoxetine HCL 30 MG CAPSULE.DR PO SCH (08:13)
[2019-08-02] MEDS: LEFLUNOMIDE 10 MG TABLET. PO SCH (08:13)
[2019-08-02] MEDS: POTASSIUM CHLORIDE 20 MEQ TABLET.ER. PO SCH ×2 (08:14→12:01)
[2019-08-02] MEDS: CARVEDILOL 12.5 MG TABLET. PO SCH (08:14)
[2019-08-02] MEDS: predniSONE 20 MG TABLET PO SCH (08:14)
[2019-08-02] MEDS: cloNIDine HCL 0.2 MG TABLET PO SCH (08:14)
[2019-08-02] MEDS: DICLOFENAC SODIUM 1% TOPICAL GEL 100GM TUBE. TP SCH ×2 (08:17→12:02)
[2019-08-02 11:00] VITALS: BP 157/93
[2019-08-02] MEDS: HYDROcodone/APAP 10/325 1 TAB TABLET PO PRN (12:25)
--- NOTE | 2019-08-02 13:59 | NUR ---
[facility] following. Discussed with RN, insurance gave auth for pt to go to [facility]. [facility] faxed discharge paperwork and scripts. Awaiting transportation time. MIGUEL notified. Addendum: 08/02/19 at 1547 by MINE NINO Pt discharged at 1500 to [facility]. MIGUEL notified.
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
--- NOTE | 2019-08-02 15:49 | NUR ---
Discharge Note: CRISTOBAL BLOOD Y [address] [place] [address] Discharge instructions and discharge home medications reviewed with Other facility and a copy given. All questions have been answered and understanding verbalized. The following instructions and handouts were given: Diet, activity, medication list and follow up instructions provided to HCR. Report called to patient's nurse, Jennifer. Discontinued lines and drains: Peripheral IV intact, contacted this patient's nurse, Jennifer who stated she would remove. Patient discharged to Longterm Facility with Self via Wheelchair.
[2019-08-03] MEDS ORDERED: predniSONE 10 MG TABLET PO SCH (09:00)
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
[2019-08-05] MEDS ORDERED: predniSONE 20 MG TABLET PO SCH (09:00)
[2019-08-07] MEDS ORDERED: predniSONE 10 MG TABLET PO SCH (09:00)
[2019-08-09] MEDS ORDERED: predniSONE 5 MG TABLET PO SCH (09:00)
== END 2019-08-02 15:30 | DRG 546 ==
LOC: ER 00:25 → ED HOLD 03:20 → 4 NORTH 09:20
PROVIDERS: ADMIT Family Medicine; ATTEND Family Medicine
DX: M06.9 Rheumatoid arthritis, unspecified (principal); E87.1 Hypo-osmolality and hyponatremia; I50.32 Chronic diastolic (congestive) heart failure; M19.90 Unspecified osteoarthritis, unspecified site; J45.909 Unspecified asthma, uncomplicated; I11.0 Hypertensive heart disease with heart failure; E11.9 Type 2 diabetes mellitus without complications; M79.7 Fibromyalgia; E78.00 Pure hypercholesterolemia, unspecified; F25.9 Schizoaffective disorder, unspecified; M35.3 Polymyalgia rheumatica; Z96.659 Presence of unspecified artificial knee joint; Z60.2 Problems related to living alone; E87.6 Hypokalemia; E83.42 Hypomagnesemia; F41.9 Anxiety disorder, unspecified; D63.8 Anemia in other chronic diseases classified elsewhere; Z79.52 Long term (current) use of systemic steroids; Z91.040 Latex allergy status; Z90.710 Acquired absence of both cervix and uterus; Z90.49 Acquired absence of other specified parts of digestive tract; Z98.49 Cataract extraction status, unspecified eye; Z88.8 Allergy status to other drugs, medicaments and biological substances; Z83.3 Family history of diabetes mellitus; Z82.61 Family history of arthritis
CPT/HCPCS: 36415; 80048; 80053; 81001; 82962; 83735; 83880; 84484; 84550; 85025; 85651; 86140; 93005; 96365; 96366; 96375; 96376; J1200; J1815; J2270; J2405; J2920; J3475; J3480; J7512; Q0163; 97116; 97530; 97535; 99285-25; G0378

== ENCOUNTER 2019-10-06 22:57 | Inpatient (IN) | payer MEDICARE, OTHER ==
[~2019-10-06] VITALS: Ht 177.8 cm; Wt 73.4 kg
[~2019-10-06 22:57] MED LIST changes: +BUSP5TAB PO; +ESOM40CA47 PO; -MONT10TA10 PO; +MONT10TA11 PO
--- NOTE | 2019-10-06 23:16 | PHYS DOC ---
Past Medical History Past Medical History: Arthritis, Asthma, CHF, Diabetes-Type II, Fibromyalgia, High Cholesterol, Hypertension, Schizophrenia, Other Additional Past Medical Histor: schizoaffective disorder, polymyalgia rheumatica, RA Past Surgical History: Appendectomy, Hysterectomy, Knee Replacement, Other Additional Past Surgical Histo: rectal surgery for fissures, cataract removed, back surgery Smoking Status: Never Smoker Alcohol Use: None Drug Use: None Adult General HPI HPI 74-year-old female with underlying history of hypertension, hyperlipidemia, anxiety, schizophrenia, diabetes, congestive heart failure presents emergency Department with complaints of a fall via EMS from a standing position. Patient states she was getting out of bed subsequently slipped and fell states she hit her head unknown loss of consciousness. She complains of right hip pain. Patient states this is her second fall the last 24 hours, she states she does not feel safe at her [facility] [place] [facility]. She lives alone. She states she has a walker to use. She denies any chest pain, shortness breath, nausea, vomiting. Patient has a history as described above as well as history of CVA. His have some right sided lower extremity weakness. Nothing makes her symptoms worse, nothing major symptoms better. Review of Systems Review of Systems Constitutional: Denies fever or chills [] Respiratory: Denies cough or shortness of breath [] Cardiovascular: No additional information not addressed in HPI [] GI: Denies abdominal pain, nausea, vomiting, bloody stools or diarrhea [] : Denies dysuria or hematuria [] Musculoskeletal: right hip pain Integument: Denies rash or skin lesions [] Neurologic: Denies headache, focal weakness or sensory changes [] All other systems were reviewed and found to be within normal limits, except as documented in this note. Current Medications Current Medications Current Medications Medications (Trade) Dose Ordered Sig/Rocío Start Time Stop Time Status Last Admin Dose Admin Acetaminophen (Tylenol) 650 mg PRN Q4HRS PRN 10/07/19 00:30 10/08/19 00:29 Ondansetron HCl (Zofran) 4 mg PRN Q8HRS PRN 10/07/19 00:30 10/08/19 00:29 Allergies Allergies Allergies Coded Allergies Type Severity Reaction Last Updated Verified divalproex sodium Allergy Intermediate neck and back pain 07/16/16 Yes fluticasone Allergy Intermediate COUGH 07/16/16 Yes latex Allergy Intermediate SURGICAL TAPE 07/16/16 Yes lisinopril Allergy Intermediate cough 07/16/16 Yes piroxicam Allergy Intermediate BLISTERS 07/16/16 Yes gabapentin Adverse Reaction Severe 12/12/16 Yes Physical Exam Physical Exam Constitutional: Well developed, well nourished, no acute distress, non-toxic appearance. [] HENT: Normocephalic, atraumatic, bilateral external ears normal, oropharynx moist, no oral exudates, nose normal. [] Eyes: PERRLA, EOMI, conjunctiva normal, no discharge. [] Neck: Normal range of motion, no tenderness, supple, no stridor. [] Cardiovascular:Heart rate regular rhythm, no murmur [] Lungs & Thorax: Bilateral breath sounds clear to auscultation [] Abdomen: Bowel sounds normal, soft, no tenderness, no masses, no pulsatile masses. [] Skin: Warm, dry, no erythema, no rash. [] Back: No tenderness, no CVA tenderness. [] Extremities: TTP right hip, no edema. [] Neurologic: Alert and oriented X 3, no focal deficits noted. [] Psychologic: Affect normal, judgement normal, mood normal. [] Current Patient Data Vital Signs Vital Signs Date Time Temp Pulse Resp B/P (MAP) Pulse Ox O2 Delivery O2 Flow Rate FiO2 10/06/19 22:59 98.5 85 18 149/72 (97) 98 Room Air 98.5 Lab Values Laboratory Tests Test 10/06/19 23:23 10/07/19 00:01 White Blood Count 8.1 x10^3/uL (4.0-11.0) Red Blood Count 3.55 x10^6/uL (3.50-5.40) Hemoglobin 9.8 g/dL (12.0-15.5) L Hematocrit 29.6 % (36.0-47.0) L Mean Corpuscular Volume 84 fL (79-100) Mean Corpuscular Hemoglobin 28 pg (25-35) Mean Corpuscular Hemoglobin Concent 33 g/dL (31-37) Red Cell Distribution Width 17.6 % (11.5-14.5) H Platelet Count 256 x10^3/uL (140-400) Neutrophils (%) (Auto) 73 % (31-73) Lymphocytes (%) (Auto) 12 % (24-48) L Monocytes (%) (Auto) 11 % (0-9) H Eosinophils (%) (Auto) 3 % (0-3) Basophils (%) (Auto) 1 % (0-3) Neutrophils # (Auto) 5.9 x10^3/uL (1.8-7.7) Lymphocytes # (Auto) 1.0 x10^3/uL (1.0-4.8) Monocytes # (Auto) 0.9 x10^3/uL (0.0-1.1) Eosinophils # (Auto) 0.2 x10^3/uL (0.0-0.7) Basophils # (Auto) 0.1 x10^3/uL (0.0-0.2) Sodium Level 133 mmol/L (136-145) L Potassium Level 3.5 mmol/L (3.5-5.1) Chloride Level 98 mmol/L (98-107) Carbon Dioxide Level 30 mmol/L (21-32) Anion Gap 5 (6-14) L Blood Urea Nitrogen 23 mg/dL (7-20) H Creatinine 0.9 mg/dL (0.6-1.0) Estimated GFR (Cockcroft-Gault) 74.1 BUN/Creatinine Ratio 26 (6-20) H Glucose Level 160 mg/dL (70-99) H Calcium Level 9.1 mg/dL (8.5-10.1) Total Bilirubin 0.4 mg/dL (0.2-1.0) Aspartate Amino Transferase (AST) 25 U/L (15-37) Alanine Aminotransferase (ALT) 23 U/L (14-59) Alkaline Phosphatase 84 U/L (46-116) Total Protein 6.7 g/dL (6.4-8.2) Albumin 3.0 g/dL (3.4-5.0) L Albumin/Globulin Ratio 0.8 (1.0-1.7) L Urine Collection Type U cath Urine Color Yellow Urine Clarity Clear Urine pH 6.5 (<5.0-8.0) Urine Specific [place] 1.020 (1.000-1.030) Urine Protein >=300 mg/dL (NEG-TRACE) Urine Glucose (UA) 100 mg/dL (NEG) Urine Ketones (Stick) Negative mg/dL (NEG) Urine Blood Negative (NEG) Urine Nitrite Negative (NEG) Urine Bilirubin Negative (NEG) Urine Urobilinogen Dipstick 0.2 mg/dL (0.2 mg/dL) Urine Leukocyte Esterase Negative (NEG) Urine RBC 1-2 /HPF (0-2) Urine WBC 1-4 /HPF (0-4) Urine Squamous Epithelial Cells Few /LPF Urine Bacteria Few /HPF (0-FEW) Urine Hyaline Casts Occasional /HPF Urine Mucus Slight /LPF Laboratory Tests 10/06/19 23:23 Laboratory Tests 10/06/19 23:23 EKG EKG [] Radiology/Procedures Radiology/Procedures [][facility] [address] [place] [address] IMAGING REPORT Signed PATIENT: CRISTOBAL BLOOD: [id number] : 1945 LOCATION: ER AGE: 74 SEX: F EXAM STATUS: REG ER ORD. PHYSICIAN: GREY CALVO MD REASON: fall, right hip pain PROCEDURE: HIP RIGHT 2 VIEW Right hip 2 views portable at 2341: Reason for examination: Fell with right hip pain. No fracture or dislocation is seen. The bone density is normal. No abnormal periosteal reaction is seen. Joint spaces are maintained. Mild degenerative changes present. IMPRESSION: No acute bony abnormality at the right hip. Mild degenerative change. Electronically signed by: Adolph Zuluaga MD (10/07/2019 12:05 AM) [id number] DICTATED and SIGNED BY: ADOLPH ZULUAGA MD DATE: 10/07/19 0005 Course & Med Decision Making Course & Med Decision Making Pertinent Labs and Imaging studies reviewed. (See chart for details) []74-year-old female with underlying history of hypertension, hyperlipidemia, anxiety, schizophrenia, diabetes, congestive heart failure presents emergency Department with complaints of a fall via EMS from a standing position. Patient states she was getting out of bed subsequently slipped and fell states she hit her head unknown loss of consciousness. She complains of right hip pain. Patient states this is her second fall the last 24 hours, she states she does not feel safe at her [facility] ER department. She lives alone. She states she has a walker to use. She denies any chest pain, shortness breath, nausea, vomiting. Patient has a history as described above as well as history of CVA. His have some right sided lower extremity weakness. Nothing makes her symptoms worse, nothing major symptoms better. Labs/Imaging reviewed CT negative for acute process UAD negative Given patient living alone, falls x 2 over the last 24 hours, will admit with PT/OT for observation Patient aware of plans for admit, she states she does not feel save where she is at currently. Admit to hospitalist Moisés Disclaimer Moisés Disclaimer This electronic medical record was generated, in whole or in part, using a voice recognition dictation system. Departure Departure Impression: Primary Impression: Multiple falls Additional Impressions: Hip pain HTN (hypertension) Schizophrenia Disposition: ADMITTED INPATIENT Admitting Physician: MARISEL Condition: STABLE Referrals: UNKNOWN PCP NAME (PCP) Problem Qualifiers Additional Impressions: Hip pain Laterality: right Qualified Codes: M25.551 - Pain in right hip HTN (hypertension) Hypertension type: essential hypertension Qualified Codes: I10 - Essential (primary) hypertension Schizophrenia Schizophrenia type: unspecified Qualified Codes: F20.9 - Schizophrenia, unspecified GREY CLAVO MD Oct 06, 2019 23:16
[2019-10-06 23:33] LABS: BASO # 0.1 x10^3/uL (0.0-0.2); BASO % 1 % (0-3); EOS # 0.2 x10^3/uL (0.0-0.7); EOS % 3 % (0-3); HEMATOCRIT 29.6 % (36.0-47.0); HEMOGLOBIN 9.8 g/dL (12.0-15.5); LYMPH % 12 % (24-48); MEAN CORPUSCULAR HEMOGLOBIN 28 pg (25-35); MEAN CORPUSCULAR HGB CONC 33 g/dL (31-37); MEAN CORPUSCULAR VOLUME 84 fL (79-100); MONO # 0.9 x10^3/uL (0.0-1.1); MONO % 11 % (0-9); NEUT # 5.9 x10^3/uL (1.8-7.7); NEUT % 73 % (31-73); PLATELET COUNT 256 x10^3/uL (140-400); RED BLOOD COUNT 3.55 x10^6/uL (3.50-5.40); RED CELL DISTRIBUTION WIDTH 17.6 % (11.5-14.5); WHITE BLOOD COUNT 8.1 x10^3/uL (4.0-11.0)
[2019-10-06 23:39] LABS: CALCIUM 9.1 mg/dL (8.5-10.1); CREATININE 0.9 mg/dL (0.6-1.0); GFR 74.1; POTASSIUM 3.5 mmol/L (3.5-5.1)
[2019-10-06 23:46] LABS: ALBUMIN/GLOBULIN RATIO 0.8 (1.0-1.7); TOTAL BILIRUBIN 0.4 mg/dL (0.2-1.0); TOTAL PROTEIN 6.7 g/dL (6.4-8.2)
[2019-10-07] VITALS (7 sets, daily range): BP systolic 147–189; BP diastolic 84–102
--- NOTE | 2019-10-07 00:08 | RAD ---
Right hip 2 views portable at 2341: Reason for examination: Fell with right hip pain. No fracture or dislocation is seen. The bone density is normal. No abnormal periosteal reaction is seen. Joint spaces are maintained. Mild degenerative changes present. IMPRESSION: No acute bony abnormality at the right hip. Mild degenerative change. Electronically signed by: Letitia Dean MD (10/07/2019 12:05 AM) [id number]
[2019-10-07 00:27] LABS: BILIRUBIN,URINE NEGATIVE (NEG); CLARITY,URINE CLEAR; COLOR,URINE YELLOW; NITRITE,URINE NEGATIVE (NEG); PH,URINE 6.5 (<5.0-8.0); PROTEIN,URINE >=300 mg/dL (NEG-TRACE); UROBILINOGEN,URINE 0.2 mg/dL (0.2 mg/dL)
[2019-10-07] MEDS ORDERED: ONDANSETRON PF 4 MG/2 ML VIAL. IV PRN (00:30)
[2019-10-07 00:47] LABS: BACTERIA,URINE FEW /HPF (0-FEW); HYALINE CASTS, URINE OCCASIONAL /HPF; SQUAMOUS EPITHELIAL CELL,UR FEW /LPF
[2019-10-07] MEDS: ACETAMINOPHEN 325 MG TABLET. PO PRN ×3 (02:42→17:17)
[2019-10-07] MEDS ORDERED: PRED20TA PO (07:27)
[2019-10-07] MEDS: CARVEDILOL 12.5 MG TABLET. PO SCH ×2 (09:27→17:18)
[2019-10-07] MEDS: amLODIPine BESYLATE 10 MG TABLET PO SCH (09:27)
[2019-10-07] MEDS ORDERED: DEXTROSE 50% 25 GM / 50ML DISP.SYRIN. IV PRN (10:00)
[2019-10-07] MEDS ORDERED: busPIRone 5 MG TABLET. PO PRN (10:00)
--- NOTE | 2019-10-07 10:08 | PDOC1 ---
History and Physical Date of Admission Date of Admission 10/07/2019 Source Source: Chart review, Patient History of Present Illness History of Present Illness Patient is a 74-year-old female with past medical history of congestive heart failure diabetes schizoaffective disorder polymyalgia rheumatica and RA who presented to the emergency department after suffering a mechanical fall at home. The patient denies lightheadedness no palpitations no shortness of breath no chest discomfort was reported. She was Going to the bathroom when apparently she slipped and fell, she had minor trauma to the head which was evaluated in the emergency department with normal imaging studies. The patient did not lose consciousness as per the patient she has fallen in excess of 3 times in the last 24 hours. She lives in an apartment at [facility] by herself and as a consequence of a previous stroke the patient needs to use a walker to ambulate. Seems like she has not been steady due to right-sided lower extremity weakness. She denies recent infections, no sick contacts reported no fever or chills have been reported no cough or sputum production story does not seem to point to a vasovagal event mainly a simple slip and fall. We were asked to admit the patient for possible placement Past Medical History Cardiovascular: CHF, HTN, Hyperlipidemia Pulmonary: Asthma CENTRAL NERVOUS SYSTEM: CVA GI: GERD Heme/Onc: No pertinent hx Hepatobiliary: No pertinent hx Psych: Anxiety, Depression, Schizophrenia Rheumatologic: Fibromyalgia, Other Infectious disease: No pertinent hx Renal/: No pertinent hx Endocrine: Diabetes Past Surgical History Past Surgical History: Appendectomy, Total knee replacement, Hysterectomy, Other Family History Family History: Cancer, Coronary Artery Disease, Hypertension Social History ALCOHOL: none Drugs: None Current Problem List Problem List Problems Medical Problems: (1) Hip pain Status: Acute Current Medications Current Medications Current Medications Medications (Trade) Dose Ordered Sig/Rocío Start Time Stop Time Status Last Admin Dose Admin Acetaminophen (Tylenol) 650 mg PRN Q4HRS PRN 10/07/19 00:30 10/08/19 00:29 10/07/19 07:17 650 MG Amlodipine Besylate (Norvasc) 10 mg DAILY 10/07/19 10:00 10/07/19 09:27 10 MG Carvedilol (Coreg) 12.5 mg BIDWMEALS 10/07/19 10:00 10/07/19 09:27 12.5 MG Ondansetron HCl (Zofran) 4 mg PRN Q8HRS PRN 10/07/19 00:30 10/08/19 00:29 Quetiapine Fumarate (SEROquel) 25 mg HS 10/07/19 21:00 Allergies Allergies Allergies Coded Allergies Type Severity Reaction Last Updated Verified divalproex sodium Allergy Intermediate neck and back pain 07/16/16 Yes fluticasone Allergy Intermediate COUGH 07/16/16 Yes latex Allergy Intermediate SURGICAL TAPE 07/16/16 Yes lisinopril Allergy Intermediate cough 07/16/16 Yes piroxicam Allergy Intermediate BLISTERS 07/16/16 Yes gabapentin Adverse Reaction Severe 12/12/16 Yes ROS Review of System CONSTITUTIONAL: No fever or chills EYES: No recent changes SKIN: No rash or itching CARDIOVASCULAR: No chest pain, syncope, palpitations, or edema RESPIRATORY: No SOB or cough GASTROINTESTINAL: No nausea, vomiting or abdominal pain NEUROLOGICAL: No headaches or weakness ENDOCRINE: No cold or heat intolerance GENITOURINARY: No urgency or frequency of urination MUSCULOSKELETAL: positive for joint swelling bilaterally LYMPHATICS: No enlarged lymph nodes PSYCHIATRIC: No anxiety or depression Physical Exam Physical Exam GEN.: No apparent distress. Alert and oriented. HEENT: Head is normocephalic, atraumatic NECK: Supple. LUNGS: Clear to auscultation. HEART: RRR, S1, S2 present. Peripheral pulses intact ABDOMEN: Soft, nontender. Positive bowel sounds. EXTREMITIES: Without any cyanosis. NEUROLOGIC: Normal speech, normal tone PSYCHIATRIC: Normal affect, normal mood. SKIN: No ulcerations Vitals Vitals Vital Signs Date Time Temp Pulse Resp B/P (MAP) Pulse Ox O2 Delivery O2 Flow Rate FiO2 10/07/19 09:27 84 189/101 10/07/19 07:00 97.6 20 95 Room Air 97.6 Labs Labs Laboratory Tests Test 10/06/19 23:23 10/07/19 00:01 10/07/19 08:11 White Blood Count 8.1 x10^3/uL (4.0-11.0) Red Blood Count 3.55 x10^6/uL (3.50-5.40) Hemoglobin 9.8 g/dL (12.0-15.5) Hematocrit 29.6 % (36.0-47.0) Mean Corpuscular Volume 84 fL (79-100) Mean Corpuscular Hemoglobin 28 pg (25-35) Mean Corpuscular Hemoglobin Concent 33 g/dL (31-37) Red Cell Distribution Width 17.6 % (11.5-14.5) Platelet Count 256 x10^3/uL (140-400) Neutrophils (%) (Auto) 73 % (31-73) Lymphocytes (%) (Auto) 12 % (24-48) Monocytes (%) (Auto) 11 % (0-9) Eosinophils (%) (Auto) 3 % (0-3) Basophils (%) (Auto) 1 % (0-3) Neutrophils # (Auto) 5.9 x10^3/uL (1.8-7.7) Lymphocytes # (Auto) 1.0 x10^3/uL (1.0-4.8) Monocytes # (Auto) 0.9 x10^3/uL (0.0-1.1) Eosinophils # (Auto) 0.2 x10^3/uL (0.0-0.7) Basophils # (Auto) 0.1 x10^3/uL (0.0-0.2) Sodium Level 133 mmol/L (136-145) Potassium Level 3.5 mmol/L (3.5-5.1) Chloride Level 98 mmol/L (98-107) Carbon Dioxide Level 30 mmol/L (21-32) Anion Gap 5 (6-14) Blood Urea Nitrogen 23 mg/dL (7-20) Creatinine 0.9 mg/dL (0.6-1.0) Estimated GFR (Cockcroft-Gault) 74.1 BUN/Creatinine Ratio 26 (6-20) Glucose Level 160 mg/dL (70-99) Calcium Level 9.1 mg/dL (8.5-10.1) Total Bilirubin 0.4 mg/dL (0.2-1.0) Aspartate Amino Transf (AST/SGOT) 25 U/L (15-37) Alanine Aminotransferase (ALT/SGPT) 23 U/L (14-59) Alkaline Phosphatase 84 U/L (46-116) Total Protein 6.7 g/dL (6.4-8.2) Albumin 3.0 g/dL (3.4-5.0) Albumin/Globulin Ratio 0.8 (1.0-1.7) Urine Collection Type U cath Urine Color Yellow Urine Clarity Clear Urine pH 6.5 (<5.0-8.0) Urine Specific [place] 1.020 (1.000-1.030) Urine Protein >=300 mg/dL (NEG-TRACE) Urine Glucose (UA) 100 mg/dL (NEG) Urine Ketones (Stick) Negative mg/dL (NEG) Urine Blood Negative (NEG) Urine Nitrite Negative (NEG) Urine Bilirubin Negative (NEG) Urine Urobilinogen Dipstick 0.2 mg/dL (0.2 mg/dL) Urine Leukocyte Esterase Negative (NEG) Urine RBC 1-2 /HPF (0-2) Urine WBC 1-4 /HPF (0-4) Urine Squamous Epithelial Cells Few /LPF Urine Bacteria Few /HPF (0-FEW) Urine Hyaline Casts Occasional /HPF Urine Mucus Slight /LPF Glucose (Fingerstick) 154 mg/dL (70-99) Laboratory Tests Test 10/06/19 23:23 10/07/19 00:01 10/07/19 08:11 White Blood Count 8.1 x10^3/uL (4.0-11.0) Red Blood Count 3.55 x10^6/uL (3.50-5.40) Hemoglobin 9.8 g/dL (12.0-15.5) Hematocrit 29.6 % (36.0-47.0) Mean Corpuscular Volume 84 fL (79-100) Mean Corpuscular Hemoglobin 28 pg (25-35) Mean Corpuscular Hemoglobin Concent 33 g/dL (31-37) Red Cell Distribution Width 17.6 % (11.5-14.5) Platelet Count 256 x10^3/uL (140-400) Neutrophils (%) (Auto) 73 % (31-73) Lymphocytes (%) (Auto) 12 % (24-48) Monocytes (%) (Auto) 11 % (0-9) Eosinophils (%) (Auto) 3 % (0-3) Basophils (%) (Auto) 1 % (0-3) Neutrophils # (Auto) 5.9 x10^3/uL (1.8-7.7) Lymphocytes # (Auto) 1.0 x10^3/uL (1.0-4.8) Monocytes # (Auto) 0.9 x10^3/uL (0.0-1.1) Eosinophils # (Auto) 0.2 x10^3/uL (0.0-0.7) Basophils # (Auto) 0.1 x10^3/uL (0.0-0.2) Sodium Level 133 mmol/L (136-145) Potassium Level 3.5 mmol/L (3.5-5.1) Chloride Level 98 mmol/L (98-107) Carbon Dioxide Level 30 mmol/L (21-32) Anion Gap 5 (6-14) Blood Urea Nitrogen 23 mg/dL (7-20) Creatinine 0.9 mg/dL (0.6-1.0) Estimated GFR (Cockcroft-Gault) 74.1 BUN/Creatinine Ratio 26 (6-20) Glucose Level 160 mg/dL (70-99) Calcium Level 9.1 mg/dL (8.5-10.1) Total Bilirubin 0.4 mg/dL (0.2-1.0) Aspartate Amino Transf (AST/SGOT) 25 U/L (15-37) Alanine Aminotransferase (ALT/SGPT) 23 U/L (14-59) Alkaline Phosphatase 84 U/L (46-116) Total Protein 6.7 g/dL (6.4-8.2) Albumin 3.0 g/dL (3.4-5.0) Albumin/Globulin Ratio 0.8 (1.0-1.7) Urine Collection Type U cath Urine Color Yellow Urine Clarity Clear Urine pH 6.5 (<5.0-8.0) Urine Specific [place] 1.020 (1.000-1.030) Urine Protein >=300 mg/dL (NEG-TRACE) Urine Glucose (UA) 100 mg/dL (NEG) Urine Ketones (Stick) Negative mg/dL (NEG) Urine Blood Negative (NEG) Urine Nitrite Negative (NEG) Urine Bilirubin Negative (NEG) Urine Urobilinogen Dipstick 0.2 mg/dL (0.2 mg/dL) Urine Leukocyte Esterase Negative (NEG) Urine RBC 1-2 /HPF (0-2) Urine WBC 1-4 /HPF (0-4) Urine Squamous Epithelial Cells Few /LPF Urine Bacteria Few /HPF (0-FEW) Urine Hyaline Casts Occasional /HPF Urine Mucus Slight /LPF Glucose (Fingerstick) 154 mg/dL (70-99) VTE Prophylaxis Ordered VTE Prophylaxis Devices: No VTE Pharmacological Prophylaxi: Yes Assessment/Plan Assessment/Plan Multiple falls Hip pain essential hypertension Schizophrenia Rheumathoid arthritis History of CHF currently seems compensated Diabetes mellitus type 2 insulin requiring Dyslipidemia Plan: resume home meds PT eval CM for discharge planning. may need placement. DVT prophylaxis: Heparin JESUS HUBBARD MD Oct 07, 2019 10:08
[2019-10-07] MEDS ORDERED: ALBUTEROL SULFATE 2.5 MG/3 ML NEBU. NEB PRN (10:30)
[2019-10-07] MEDS: KETOROLAC 30 MG/ML VIAL. IVP PRN ×2 (11:57→21:04)
[2019-10-07] MEDS: predniSONE 10 MG TABLET PO SCH (11:58)
[2019-10-07] MEDS: POTASSIUM CHLORIDE 20 MEQ TABLET.ER. PO SCH ×2 (11:58→17:18)
[2019-10-07] MEDS: PANTOPRAZOLE 40 MG TABLET.DR. PO SCH (11:58)
[2019-10-07] MEDS: CALCIUM CARB/VIT D3 500/200 TABLET. PO SCH (11:58)
[2019-10-07] MEDS: LOSARTAN POTASSIUM 50 MG TABLET. PO SCH (11:58)
[2019-10-07] MEDS: DULoxetine HCL 30 MG CAPSULE.DR PO SCH (11:59)
[2019-10-07] MEDS: CETIRIZINE HCL 10 MG TABLET. PO SCH (11:59)
[2019-10-07] MEDS: cloNIDine HCL 0.1 MG TABLET PO SCH ×2 (11:59→20:59)
[2019-10-07] MEDS: MAGNESIUM OXIDE 400 MG TABLET PO SCH ×2 (11:59→20:58)
[2019-10-07] MEDS: FLUPHENAZINE HCL 2.5 MG TABLET. PO SCH (12:00)
[2019-10-07] MEDS: INSULIN LISPRO 300 UNITS/3 ML VIAL. SQ SCH ×2 (12:00→17:00)
[2019-10-07] MEDS: LEFLUNOMIDE 10 MG TABLET. PO SCH (12:00)
[2019-10-07] MEDS: FLUTICASONE 50MCG/NASAL SPRAY 16GM BOTTLE. NS SCH (12:01)
[2019-10-07] MEDS: DICLOFENAC SODIUM 1% TOPICAL GEL 100GM TUBE. TP SCH ×3 (12:01→20:57)
[2019-10-07] MEDS: ISOSORBIDE DINITRATE 10 MG TABLET. PO SCH (17:21)
[2019-10-07] MEDS: QUEtiapine 25 MG TABLET. PO SCH (20:58)
[2019-10-07] MEDS: ASPIRIN ENTERIC COATED 81 MG TABLET.DR. PO SCH (20:58)
[2019-10-07] MEDS: SIMVASTATIN 20 MG TABLET PO SCH (20:58)
[2019-10-07] MEDS: MONTELUKAST SODIUM 10 MG TABLET. PO SCH (20:58)
[2019-10-07] MEDS: OMEGA-3 FATTY ACIDS/FISH OIL 1,000 MG CAPSULE. PO SCH (20:58)
[2019-10-07] MEDS ORDERED: CARVEDILOL 12.5 MG TABLET. PO SCH (21:00)
[2019-10-07] MEDS ORDERED: QUEtiapine 25 MG TABLET. PO SCH (21:00)
[2019-10-07] MEDS ORDERED: amLODIPine BESYLATE 10 MG TABLET PO SCH (21:00)
[2019-10-07] MEDS: KETOTIFEN FUMARATE 0.025% OPHTH SOLUTION BOTTLE. OU SCH (21:01)
[2019-10-08 03:00] VITALS: BP 143/79
[2019-10-08] MEDS: KETOROLAC 30 MG/ML VIAL. IVP PRN ×2 (06:00→17:13)
[2019-10-08 07:00] VITALS: BP 149/80
[2019-10-08] MEDS: INSULIN LISPRO 300 UNITS/3 ML VIAL. SQ SCH ×3 (08:00→17:24)
[2019-10-08 08:24] LABS: BASO % 0 % (0-3); EOS # 0.2 x10^3/uL (0.0-0.7); EOS % 3 % (0-3); HEMATOCRIT 26.4 % (36.0-47.0); LYMPH # 1.2 x10^3/uL (1.0-4.8); LYMPH % 16 % (24-48); MEAN CORPUSCULAR HEMOGLOBIN 28 pg (25-35); MEAN CORPUSCULAR HGB CONC 34 g/dL (31-37); MEAN CORPUSCULAR VOLUME 84 fL (79-100); MONO # 0.8 x10^3/uL (0.0-1.1); MONO % 11 % (0-9); NEUT # 5.2 x10^3/uL (1.8-7.7); NEUT % 70 % (31-73); PLATELET COUNT 214 x10^3/uL (140-400); RED BLOOD COUNT 3.16 x10^6/uL (3.50-5.40); RED CELL DISTRIBUTION WIDTH 16.9 % (11.5-14.5); WHITE BLOOD COUNT 7.4 x10^3/uL (4.0-11.0)
[2019-10-08 08:53] LABS: ALBUMIN 2.7 g/dL (3.4-5.0); ALBUMIN/GLOBULIN RATIO 0.8 (1.0-1.7); CALCIUM 9.1 mg/dL (8.5-10.1); CREATININE 0.8 mg/dL (0.6-1.0); GFR 84.8; POTASSIUM 3.8 mmol/L (3.5-5.1); TOTAL BILIRUBIN 0.6 mg/dL (0.2-1.0); TOTAL PROTEIN 5.9 g/dL (6.4-8.2)
[2019-10-08] MEDS ORDERED: NON FORMULARY ITEM (Duloxetine Hcl 60 MG) PO SCH (09:00)
[2019-10-08] MEDS: FLUPHENAZINE HCL 2.5 MG TABLET. PO SCH (09:00)
[2019-10-08] MEDS: CETIRIZINE HCL 10 MG TABLET. PO SCH (09:18)
[2019-10-08] MEDS: PANTOPRAZOLE 40 MG TABLET.DR. PO SCH (09:18)
[2019-10-08] MEDS: DULoxetine HCL 30 MG CAPSULE.DR PO SCH (09:18)
[2019-10-08] MEDS: CALCIUM CARB/VIT D3 500/200 TABLET. PO SCH (09:18)
[2019-10-08] MEDS: MAGNESIUM OXIDE 400 MG TABLET PO SCH ×2 (09:18→21:40)
[2019-10-08] MEDS: CARVEDILOL 12.5 MG TABLET. PO SCH ×2 (09:19→17:14)
[2019-10-08] MEDS: amLODIPine BESYLATE 10 MG TABLET PO SCH (09:19)
[2019-10-08] MEDS: POTASSIUM CHLORIDE 20 MEQ TABLET.ER. PO SCH ×3 (09:20→17:16)
[2019-10-08] MEDS: FLUTICASONE 50MCG/NASAL SPRAY 16GM BOTTLE. NS SCH (09:21)
[2019-10-08] MEDS: KETOTIFEN FUMARATE 0.025% OPHTH SOLUTION BOTTLE. OU SCH ×2 (09:21→21:44)
[2019-10-08] MEDS: ISOSORBIDE DINITRATE 10 MG TABLET. PO SCH ×2 (09:26→15:44)
[2019-10-08] MEDS: cloNIDine HCL 0.1 MG TABLET PO SCH ×2 (09:26→21:40)
[2019-10-08] MEDS: LOSARTAN POTASSIUM 50 MG TABLET. PO SCH (09:27)
[2019-10-08] MEDS: predniSONE 10 MG TABLET PO SCH (09:28)
[2019-10-08] MEDS: DICLOFENAC SODIUM 1% TOPICAL GEL 100GM TUBE. TP SCH ×4 (09:30→21:41)
[2019-10-08 11:00] VITALS: BP 136/75
[2019-10-08] MEDS: LEFLUNOMIDE 10 MG TABLET. PO SCH (11:10)
--- NOTE | 2019-10-08 12:01 | PDOC ---
PROGRESS NOTES Chief Complaint Chief Complaint A/P: Multiple falls - unable to live safely at home Left wrist swelling - will obtain XR Unable to ambulate - requires full assist per PT, to SNF Shoulder and hand pain - with negative stress in the past 2 years. Acute RA flare, will check CRP and ESR and change to IV steroids Acute back pain - could be 2/2 OA, RA, or recent trauma and falls. Imaging negative for acute fracture, but old left sided rib fractures noted. Will cont tramadol, lidoderm patch Anemia - likely of chronic disease with RA, PMR Osterarthritis - on voltaren topically Asthma - on singulair and albuterol prn Chronic diastolic CHF - does not seem in acute exacerbation Diabetes-Type II - will place on sliding scale Fibromyalgia - on cymbalta and tramadol High Cholesterol - cont statin Hypertension - cont meds Schizophrenia - on fluphenazine and quetiapine, will continue RA - on arava, will continue PMR - on prednisone chronically History of Present Illness History of Present Illness Ms Ji is a 73yo F w/ PMHx osterarthritis, Asthma, CHF, Diabetes-Type II, Fibromyalgia, High Cholesterol, Hypertension, Schizophrenia, RA, PMR who is presenting a fall at home. She noted right leg weakness and left wrist pain. She has fallen in excess of 3 times in the last 24 hours. She lives in an apartment at [facility] by herself and as a consequence of a previous stroke the patient needs to use a walker to ambulate. She notes bilateral intractable shoulder and hand pain. EKG shows normal sinus rhythm rate of 73, poor baseline but overall no STEMI st depressions in lateral leads. Hb 9. Still needs significant assistance ambulating. She has swelling in her left wrist. Pain all over. Not tolerating PO steroids for her RA flare currently. No CP or SOB. PT recommends SNF and she and her sister, Lawanda are amenable to this plan for further rehab. Vitals Vitals Vital Signs Date Time Temp Pulse Resp B/P (MAP) Pulse Ox O2 Delivery O2 Flow Rate FiO2 10/08/19 11:00 98.3 77 16 136/75 (95) 97 Room Air 98.3 Physical Exam General: Alert, Cooperative Heart: Regular rate, Normal S1, Normal S2 Lungs: Clear Extremities: Other (Tender in bilateral shoulders, elbows, wrists, hands, knees) Skin: No rashes, No breakdown Labs LABS Laboratory Tests Test 10/07/19 16:47 10/07/19 21:10 10/08/19 07:55 10/08/19 08:10 Glucose (Fingerstick) 150 mg/dL (70-99) 164 mg/dL (70-99) 145 mg/dL (70-99) White Blood Count 7.4 x10^3/uL (4.0-11.0) Red Blood Count 3.16 x10^6/uL (3.50-5.40) Hemoglobin 9.0 g/dL (12.0-15.5) Hematocrit 26.4 % (36.0-47.0) Mean Corpuscular Volume 84 fL (79-100) Mean Corpuscular Hemoglobin 28 pg (25-35) Mean Corpuscular Hemoglobin Concent 34 g/dL (31-37) Red Cell Distribution Width 16.9 % (11.5-14.5) Platelet Count 214 x10^3/uL (140-400) Neutrophils (%) (Auto) 70 % (31-73) Lymphocytes (%) (Auto) 16 % (24-48) Monocytes (%) (Auto) 11 % (0-9) Eosinophils (%) (Auto) 3 % (0-3) Basophils (%) (Auto) 0 % (0-3) Neutrophils # (Auto) 5.2 x10^3/uL (1.8-7.7) Lymphocytes # (Auto) 1.2 x10^3/uL (1.0-4.8) Monocytes # (Auto) 0.8 x10^3/uL (0.0-1.1) Eosinophils # (Auto) 0.2 x10^3/uL (0.0-0.7) Basophils # (Auto) 0.0 x10^3/uL (0.0-0.2) Sodium Level 133 mmol/L (136-145) Potassium Level 3.8 mmol/L (3.5-5.1) Chloride Level 98 mmol/L (98-107) Carbon Dioxide Level 28 mmol/L (21-32) Anion Gap 7 (6-14) Blood Urea Nitrogen 13 mg/dL (7-20) Creatinine 0.8 mg/dL (0.6-1.0) Estimated GFR (Cockcroft-Gault) 84.8 BUN/Creatinine Ratio 16 (6-20) Glucose Level 142 mg/dL (70-99) Calcium Level 9.1 mg/dL (8.5-10.1) Total Bilirubin 0.6 mg/dL (0.2-1.0) Aspartate Amino Transf (AST/SGOT) 16 U/L (15-37) Alanine Aminotransferase (ALT/SGPT) 18 U/L (14-59) Alkaline Phosphatase 77 U/L (46-116) Total Protein 5.9 g/dL (6.4-8.2) Albumin 2.7 g/dL (3.4-5.0) Albumin/Globulin Ratio 0.8 (1.0-1.7) Test 10/08/19 11:49 Glucose (Fingerstick) 151 mg/dL (70-99) Assessment and Plan Assessmemt and Plan Problems Medical Problems: (1) Hip pain Status: Acute Comment Review of Relevant I have reviewed the following items escobar (where applicable) has been applied. Labs Laboratory Tests Test 10/06/19 23:23 10/07/19 00:01 10/07/19 08:11 10/07/19 11:47 White Blood Count 8.1 x10^3/uL (4.0-11.0) Red Blood Count 3.55 x10^6/uL (3.50-5.40) Hemoglobin 9.8 g/dL (12.0-15.5) Hematocrit 29.6 % (36.0-47.0) Mean Corpuscular Volume 84 fL (79-100) Mean Corpuscular Hemoglobin 28 pg (25-35) Mean Corpuscular Hemoglobin Concent 33 g/dL (31-37) Red Cell Distribution Width 17.6 % (11.5-14.5) Platelet Count 256 x10^3/uL (140-400) Neutrophils (%) (Auto) 73 % (31-73) Lymphocytes (%) (Auto) 12 % (24-48) Monocytes (%) (Auto) 11 % (0-9) Eosinophils (%) (Auto) 3 % (0-3) Basophils (%) (Auto) 1 % (0-3) Neutrophils # (Auto) 5.9 x10^3/uL (1.8-7.7) Lymphocytes # (Auto) 1.0 x10^3/uL (1.0-4.8) Monocytes # (Auto) 0.9 x10^3/uL (0.0-1.1) Eosinophils # (Auto) 0.2 x10^3/uL (0.0-0.7) Basophils # (Auto) 0.1 x10^3/uL (0.0-0.2) Sodium Level 133 mmol/L (136-145) Potassium Level 3.5 mmol/L (3.5-5.1) Chloride Level 98 mmol/L (98-107) Carbon Dioxide Level 30 mmol/L (21-32) Anion Gap 5 (6-14) Blood Urea Nitrogen 23 mg/dL (7-20) Creatinine 0.9 mg/dL (0.6-1.0) Estimated GFR (Cockcroft-Gault) 74.1 BUN/Creatinine Ratio 26 (6-20) Glucose Level 160 mg/dL (70-99) Calcium Level 9.1 mg/dL (8.5-10.1) Total Bilirubin 0.4 mg/dL (0.2-1.0) Aspartate Amino Transf (AST/SGOT) 25 U/L (15-37) Alanine Aminotransferase (ALT/SGPT) 23 U/L (14-59) Alkaline Phosphatase 84 U/L (46-116) Total Protein 6.7 g/dL (6.4-8.2) Albumin 3.0 g/dL (3.4-5.0) Albumin/Globulin Ratio 0.8 (1.0-1.7) Urine Collection Type U cath Urine Color Yellow Urine Clarity Clear Urine pH 6.5 (<5.0-8.0) Urine Specific [place] 1.020 (1.000-1.030) Urine Protein >=300 mg/dL (NEG-TRACE) Urine Glucose (UA) 100 mg/dL (NEG) Urine Ketones (Stick) Negative mg/dL (NEG) Urine Blood Negative (NEG) Urine Nitrite Negative (NEG) Urine Bilirubin Negative (NEG) Urine Urobilinogen Dipstick 0.2 mg/dL (0.2 mg/dL) Urine Leukocyte Esterase Negative (NEG) Urine RBC 1-2 /HPF (0-2) Urine WBC 1-4 /HPF (0-4) Urine Squamous Epithelial Cells Few /LPF Urine Bacteria Few /HPF (0-FEW) Urine Hyaline Casts Occasional /HPF Urine Mucus Slight /LPF Glucose (Fingerstick) 154 mg/dL (70-99) 137 mg/dL (70-99) Test 10/07/19 16:47 10/07/19 21:10 10/08/19 07:55 10/08/19 08:10 Glucose (Fingerstick) 150 mg/dL (70-99) 164 mg/dL (70-99) 145 mg/dL (70-99) White Blood Count 7.4 x10^3/uL (4.0-11.0) Red Blood Count 3.16 x10^6/uL (3.50-5.40) Hemoglobin 9.0 g/dL (12.0-15.5) Hematocrit 26.4 % (36.0-47.0) Mean Corpuscular Volume 84 fL (79-100) Mean Corpuscular Hemoglobin 28 pg (25-35) Mean Corpuscular Hemoglobin Concent 34 g/dL (31-37) Red Cell Distribution Width 16.9 % (11.5-14.5) Platelet Count 214 x10^3/uL (140-400) Neutrophils (%) (Auto) 70 % (31-73) Lymphocytes (%) (Auto) 16 % (24-48) Monocytes (%) (Auto) 11 % (0-9) Eosinophils (%) (Auto) 3 % (0-3) Basophils (%) (Auto) 0 % (0-3) Neutrophils # (Auto) 5.2 x10^3/uL (1.8-7.7) Lymphocytes # (Auto) 1.2 x10^3/uL (1.0-4.8) Monocytes # (Auto) 0.8 x10^3/uL (0.0-1.1) Eosinophils # (Auto) 0.2 x10^3/uL (0.0-0.7) Basophils # (Auto) 0.0 x10^3/uL (0.0-0.2) Sodium Level 133 mmol/L (136-145) Potassium Level 3.8 mmol/L (3.5-5.1) Chloride Level 98 mmol/L (98-107) Carbon Dioxide Level 28 mmol/L (21-32) Anion Gap 7 (6-14) Blood Urea Nitrogen 13 mg/dL (7-20) Creatinine 0.8 mg/dL (0.6-1.0) Estimated GFR (Cockcroft-Gault) 84.8 BUN/Creatinine Ratio 16 (6-20) Glucose Level 142 mg/dL (70-99) Calcium Level 9.1 mg/dL (8.5-10.1) Total Bilirubin 0.6 mg/dL (0.2-1.0) Aspartate Amino Transf (AST/SGOT) 16 U/L (15-37) Alanine Aminotransferase (ALT/SGPT) 18 U/L (14-59) Alkaline Phosphatase 77 U/L (46-116) Total Protein 5.9 g/dL (6.4-8.2) Albumin 2.7 g/dL (3.4-5.0) Albumin/Globulin Ratio 0.8 (1.0-1.7) Test 10/08/19 11:49 Glucose (Fingerstick) 151 mg/dL (70-99) Laboratory Tests Test 10/07/19 16:47 10/07/19 21:10 10/08/19 07:55 10/08/19 08:10 Glucose (Fingerstick) 150 mg/dL (70-99) 164 mg/dL (70-99) 145 mg/dL (70-99) White Blood Count 7.4 x10^3/uL (4.0-11.0) Red Blood Count 3.16 x10^6/uL (3.50-5.40) Hemoglobin 9.0 g/dL (12.0-15.5) Hematocrit 26.4 % (36.0-47.0) Mean Corpuscular Volume 84 fL (79-100) Mean Corpuscular Hemoglobin 28 pg (25-35) Mean Corpuscular Hemoglobin Concent 34 g/dL (31-37) Red Cell Distribution Width 16.9 % (11.5-14.5) Platelet Count 214 x10^3/uL (140-400) Neutrophils (%) (Auto) 70 % (31-73) Lymphocytes (%) (Auto) 16 % (24-48) Monocytes (%) (Auto) 11 % (0-9) Eosinophils (%) (Auto) 3 % (0-3) Basophils (%) (Auto) 0 % (0-3) Neutrophils # (Auto) 5.2 x10^3/uL (1.8-7.7) Lymphocytes # (Auto) 1.2 x10^3/uL (1.0-4.8) Monocytes # (Auto) 0.8 x10^3/uL (0.0-1.1) Eosinophils # (Auto) 0.2 x10^3/uL (0.0-0.7) Basophils # (Auto) 0.0 x10^3/uL (0.0-0.2) Sodium Level 133 mmol/L (136-145) Potassium Level 3.8 mmol/L (3.5-5.1) Chloride Level 98 mmol/L (98-107) Carbon Dioxide Level 28 mmol/L (21-32) Anion Gap 7 (6-14) Blood Urea Nitrogen 13 mg/dL (7-20) Creatinine 0.8 mg/dL (0.6-1.0) Estimated GFR (Cockcroft-Gault) 84.8 BUN/Creatinine Ratio 16 (6-20) Glucose Level 142 mg/dL (70-99) Calcium Level 9.1 mg/dL (8.5-10.1) Total Bilirubin 0.6 mg/dL (0.2-1.0) Aspartate Amino Transf (AST/SGOT) 16 U/L (15-37) Alanine Aminotransferase (ALT/SGPT) 18 U/L (14-59) Alkaline Phosphatase 77 U/L (46-116) Total Protein 5.9 g/dL (6.4-8.2) Albumin 2.7 g/dL (3.4-5.0) Albumin/Globulin Ratio 0.8 (1.0-1.7) Test 10/08/19 11:49 Glucose (Fingerstick) 151 mg/dL (70-99) Medications Current Medications Ondansetron HCl (Zofran) 4 mg PRN Q8HRS PRN IV NAUSEA/VOMITING 1ST CHOICE; Start 10/07/19 at 00:30; Stop 10/08/19 at 00:29; Status DC Acetaminophen (Tylenol) 650 mg PRN Q4HRS PRN PO FEVER Last administered on 10/07/19at 17:17; Start 10/07/19 at 00:30; Stop 10/08/19 at 00:29; Status DC Carvedilol (Coreg) 12.5 mg BIDWMEALS PO Last administered on 10/08/19 09:19; Start 10/07/19 at 10:00 Amlodipine Besylate (Norvasc) 10 mg DAILY PO Last administered on 10/08/19 09:19; Start 10/07/19 at 10:00 Quetiapine Fumarate (SEROquel) 25 mg HS PO Last administered on 10/07/19 20:58; Start 10/07/19 at 21:00 Amlodipine Besylate (Norvasc) 100 mg HS PO ; Start 10/07/19 at 21:00; Status UNV Aspirin (Ecotrin) 81 mg HS PO Last administered on 10/07/19 20:58; Start 10/07/19 at 21:00 Buspirone HCl (Buspar) 5 mg PRN TID PRN PO ANXIETY; Start 10/07/19 at 10:00 Carvedilol (Coreg) 12.5 mg BID PO ; Start 10/07/19 at 21:00; Stop 10/07/19 at 10:02; Status DC Clonidine HCl (Catapres) 0.2 mg BID PO Last administered on 10/08/19 09:26; Start 10/07/19 at 11:00 Diclofenac Sodium (Voltaren) 1 dalia QID TP Last administered on 10/08/19 09:30; Start 10/07/19 at 13:00 Duloxetine HCl (Cymbalta) 30 mg DAILY PO Last administered on 10/08/19 09:18; Start 10/07/19 at 11:00 Fluticasone Propionate (Flonase) 2 spray DAILY NS Last administered on 10/08/19 09:21; Start 10/07/19 at 11:00 Leflunomide (Arava) 20 mg DAILY PO Last administered on 10/08/19 11:10; Start 10/07/19 at 11:00 Montelukast Sodium (Singulair) 10 mg QHS PO Last administered on 10/07/19 20:58; Start 10/07/19 at 21:00 Fish Oil (Fish Oil) 1,000 mg HS PO Last administered on 10/07/19 20:58; Start 10/07/19 at 21:00 Potassium Chloride (Klor-Con) 20 meq TIDWMEALS PO Last administered on 10/08/19 09:20; Start 10/07/19 at 12:00 Prednisone (Prednisone) 10 mg DAILY PO Last administered on 10/08/19 09:28; Start 10/07/19 at 11:00 Quetiapine Fumarate (SEROquel) 25 mg QHS PO ; Start 10/07/19 at 21:00; Stop 10/07/19 at 10:17; Status DC Simvastatin (Zocor) 20 mg QHS PO Last administered on 10/07/19 20:58; Start 10/07/19 at 21:00 Albuterol Sulfate (Ventolin Neb Soln) 2.5 mg PRN Q4HRS PRN NEB SHORTNESS OF BREATH; Start 10/07/19 at 10:30 Calcium/Vitamin D (Oscal D 500mg/ 200uts) 1 tab DAILY PO Last administered on 10/08/19 09:18; Start 10/07/19 at 11:00 Non-Formulary Medication (Duloxetine Hcl ) 60 mg DAILY PO ; Start 10/08/19 at 09:00; Status UNV Pantoprazole Sodium (Protonix) 40 mg DAILYAC PO Last administered on 10/08/19 09:18; Start 10/07/19 at 11:00 Fluphenazine HCl (Prolixin) 3.75 mg DAILY PO Last administered on 10/07/19 12:00; Start 10/07/19 at 11:00 Isosorbide Dinitrate (Isordil) 20 mg [id number] PO Last administered on 10/08/19 09:26; Start 10/07/19 at 16:00 Cetirizine HCl (ZyrTEC) 10 mg DAILY PO Last administered on 10/08/19 09:18; Start 10/07/19 at 11:00 Losartan Potassium (Cozaar) 100 mg DAILY PO Last administered on 10/08/19 09:27; Start 10/07/19 at 11:00 Magnesium Oxide (Magnesium Oxide) 400 mg BID PO Last administered on 10/08/19 09:18; Start 10/07/19 at 11:00 Ketotifen Fumarate (Zaditor) 1 drop BID OU Last administered on 10/08/19 09:21; Start 10/07/19 at 21:00 Insulin Human Lispro (HumaLOG) 0-5 UNITS TIDWMEALS SQ ; Start 10/07/19 at 12:00 Dextrose (Dextrose 50%-Water Syringe) 12.5 gm PRN Q15MIN PRN IV SEE COMMENTS; Start 10/07/19 at 10:00 Ketorolac Tromethamine (Toradol 30mg Vial) 30 mg PRN Q8HRS PRN IVP PAIN Last administered on 10/08/19at 06:00; Start 10/07/19 at 11:45; Stop 10/12/19 at 11:44 Active Scripts Active Buspirone Hcl 5 Mg Tablet 1 Tab PO PRN TID PRN 30 Days Zofran Odt (Ondansetron) 4 Mg Tab.rapdis 1 Tab SL Q8HRS Reported Prednisone 20 Mg Tablet 10 Mg PO DAILY Esomeprazole Magnesium 40 Mg Capsule.dr 40 Mg PO DAILY 90 Days Duloxetine Hcl 30 Mg Capsule.dr 30 Mg PO DAILY 90 Days Leflunomide 20 Mg Tablet 20 Mg PO DAILY 30 Days Potassium Chloride (Potassium Chloride) 20 Meq Tablet.er 20 Meq PO TID Fluphenazine Hcl 1 Mg Tablet 4 Mg PO DAILY 30 Days Olopatadine HCl 2.5 Ml Drops 2.5 Ml OP DAILY 30 Days Fluticasone Propionate Nasal Zachary (Fluticasone Propionate) 16 Gm Zachary.susp 16 G DANNY DAILY 30 Days Allergy Relief (Loratadine) 10 Mg Tablet 10 Mg PO DAILY 30 Days Quetiapine Fumarate 25 Mg Tablet 25 Mg PO QHS 30 Days Montelukast Sodium 10 Mg Tablet 10 Mg PO QHS 30 Days Losartan Potassium 100 Mg Tablet 100 Mg PO DAILY 30 Days Isosorbide Dinitrate 20 Mg Tablet 20 Mg PO BID 30 Days Carvedilol 12.5 Mg Tablet 12.5 Mg PO BID 30 Days Magnesium Oxide 400 Mg Tablet 1 Tab PO BID Duloxetine Hcl 60 Mg Capsule.dr 60 Mg PO DAILY Simvastatin 20 Mg Tablet 1 Tab PO QHS Proventil Hfa Inhaler (Albuterol Sulfate) 6.7 Gm Hfa.aer.ad 2 Puff IH PRN Q4HRS PRN Voltaren (Diclofenac Sodium) 100 Gm Gel..gram. 1 Gm TP QID Calcium + Vitamin D Tablet (Calcium Carbonate/Vitamin D3) 1 Each Tablet 1 Each PO DAILY Tylenol (Acetaminophen) 325 Mg Tablet 2 Tab PO PRN Q4HRS Pv Fish Oil 1,000 Mg Softgel ([place]-3 Fatty Acids/Vitamin E) 1,000 Mg Capsule 1,000 Mg PO HS Catapres (Clonidine Hcl) 0.1 Mg Tablet 0.2 Mg PO BID Norvasc (Amlodipine Besylate) 10 Mg Tablet 10 Tab PO HS Metformin Hcl 1,000 Mg Tablet 1 Tab PO BID Aspir 81 (Aspirin) 81 Mg Tablet.dr 1 Tab PO HS Vitals/I & O Vital Sign - Last 24 Hours 10/07/19 10/07/19 10/07/19 10/07/19 11:58 11:59 15:00 17:18 Temp 97.9 97.9 Pulse 84 84 Resp 18 B/P (MAP) 177/99 177/99 181/102 (128) 181/106 Pulse Ox 97 O2 Delivery Room Air 10/07/19 10/07/19 10/07/19 10/07/19 17:21 19:00 20:20 20:59 Temp 98.5 98.5 Pulse 84 86 84 Resp 18 B/P (MAP) 181/106 152/99 (116) 181/106 Pulse Ox 95 O2 Delivery Room Air Room Air 10/07/19 10/07/19 10/08/19 10/08/19 22:09 23:00 03:00 07:00 Temp 98.9 98.7 98.1 98.9 98.7 98.1 Pulse 80 85 74 Resp 16 18 18 B/P (MAP) 147/84 (105) 143/79 (100) 149/80 (103) Pulse Ox 92 97 95 O2 Delivery Room Air Room Air Room Air Room Air 10/08/19 10/08/19 10/08/19 10/08/19 09:19 09:19 09:26 09:26 Pulse 74 74 74 74 B/P (MAP) 149/80 149/80 149/80 149/80 10/08/19 10/08/19 09:27 11:00 Temp 98.3 98.3 Pulse 74 77 Resp 16 B/P (MAP) 149/80 136/75 (95) Pulse Ox 97 O2 Delivery Room Air Intake and Output 10/07/19 10/07/19 10/08/19 15:00 23:00 07:00 Intake Total 120 ml 120 ml Balance 120 ml 120 ml KATHERIN THOMPSON MD Oct 08, 2019 12:01
[2019-10-08 15:00] VITALS: BP 121/70
[2019-10-08] MEDS: methylPREDNISolone SOD SUCC PF 40 MG/ML VIAL. IV SCH ×2 (15:42→21:41)
--- NOTE | 2019-10-08 16:42 | RAD ---
2 views left wrist dated 10/08/2019. No comparison available. Clinical indication: Swelling. History of rheumatoid arthritis. FINDINGS: PA and lateral views obtained. Multifocal erosive changes throughout the carpal bones and metacarpal bases with blunting of the ulnar styloid. There is joint space loss with diffuse soft tissue swelling. There are secondary degenerative changes of the first carpometacarpal joint and scaphotrapezial joint. No apparent fracture. Mild widening of the scapholunate distance. IMPRESSION: 1. Multi focal erosive changes with joint space loss consistent with history of rheumatoid arthritis. 2. Diffuse soft tissue swelling. Underlying joint effusion not excluded. 3. Secondary degenerative changes. Electronically signed by: Darrion Rudd MD (10/08/2019 4:39 PM) [id number]
--- NOTE | 2019-10-08 16:46 | CONS ---
DATE OF CONSULTATION: 10/08/2019 ATTENDING PHYSICIAN: Fer Carrera MD REASON FOR CONSULTATION: The patient was seen at the request of Dr. Carrera for rehab evaluation. HISTORY OF PRESENT ILLNESS: This is a 74-year-old right-handed female with history of congestive heart failure, diabetes mellitus, schizoaffective disorder, polymyalgia rheumatica, rheumatoid arthritis, admitted through the Emergency Room after sustaining a mechanical fall at home. The patient denies any lightheadedness, no palpitations or shortness of breath or chest discomfort. She was going to the bathroom, apparently slipped and fell, had minor trauma to her head. The patient was evaluated in the Emergency Room, had x-rays of her left hip, which failed to reveal any acute abnormalities. She had a CT scan of the brain done, still waiting for the report. The patient apparently had fallen 3 times in the last 24 hours prior to the admission, that is, on 10/07/2019. The patient had previous cerebrovascular accident in 2012 and had weakness of right foot dorsiflexor muscles. She had been using a roller walker. She is supposed to use right ankle foot brace, but does not like to use it. The patient also with known hypertension, hyperlipidemia, asthmatic bronchitis, gastroesophageal reflux disease, anxiety, depression, status post appendectomy, total knee arthroplasty, hysterectomy, family history of carcinoma, coronary artery disease, hypertension. ALLERGIES: THE PATIENT IS KNOWN ALLERGIC TO DIVALPROEX SODIUM, FLUTICASONE, GABAPENTIN, LATEX, LISINOPRIL AND PIROXICAM. SOCIAL HISTORY: The patient lives in a high-rise apartment. Had no stairs for her to manage and she had administrative personal assistant at home at least 5 days a week. The patient admits generalized aches. The patient denies any trouble with her bowel or bladder control or swallowing. PHYSICAL EXAMINATION: Today revealed an elderly female. She is alert, oriented to time, place, person and circumstance and follows commands appropriately, moves all 4 extremities voluntarily where she had generalized muscle weakness and joint stiffness, especially both shoulders, wrists and hands, and her knees. The patient had overall 4/5 grade muscle strength with relatively increased weakness in shoulder girdle muscles, hand intrinsic muscles and right foot dorsi flexor. She had muscle atrophy involving hand intrinsic muscles, more so up thenar eminence muscles and also right anterior tibial compartment muscles. The patient had equal perception of touch and pinprick sensation bilaterally. Negative Tinel's sign over median nerve at the wrist and over ulnar nerve at the wrist and elbow and negative Phalen's sign at both wrists. The patient had absent knee and ankle jerks. She is independent with bed mobility and transfers and once up she can walk using a roller walker without any loss of balance and without any foot drop. She had limitation of range of motion at both shoulder joints with mild shoulder joint effusion and also some effusion of left thumb carpometacarpal joint and left wrist. Her skin is intact at this time. ASSESSMENT: An elderly female with rheumatoid arthritis with deformities of both hands, bilateral rotator cuff lesions with associated adhesive capsulitis of both shoulders, degenerative joint disease of both knees, status post total knee arthroplasty, old cerebrovascular accident with residual right foot drop. The patient with known hypertension, congestive heart failure, hyperlipidemia, asthmatic bronchitis, gastroesophageal reflux disease, fibromyalgia, schizophrenia, anxiety, depression. RECOMMENDATIONS: Agree with the plan for physical therapy and occupational therapy. I think she is safe to return home when medically stable. I do not see any need for her to go to a half-way. Dr. Carrera and Dr. Nice appreciate asking me to participate in the care of this interesting patient. I will be glad to see her for followup with you on as needed basis. JENNY ORTIZ MD DR: KIMBERLI/lloyd JOB#: [id number] / [id number]
[2019-10-08 19:00] VITALS: BP 154/99
[2019-10-08] MEDS: OMEGA-3 FATTY ACIDS/FISH OIL 1,000 MG CAPSULE. PO SCH (21:39)
[2019-10-08] MEDS: ASPIRIN ENTERIC COATED 81 MG TABLET.DR. PO SCH (21:40)
[2019-10-08] MEDS: MONTELUKAST SODIUM 10 MG TABLET. PO SCH (21:40)
[2019-10-08] MEDS: QUEtiapine 25 MG TABLET. PO SCH (21:40)
[2019-10-08] MEDS: SIMVASTATIN 20 MG TABLET PO SCH (21:41)
[2019-10-08 23:00] VITALS: BP 147/89
[2019-10-09 03:00] VITALS: BP 147/90
[2019-10-09] MEDS: methylPREDNISolone SOD SUCC PF 40 MG/ML VIAL. IV SCH (06:58)
[2019-10-09 07:00] VITALS: BP 188/105
[2019-10-09] MEDS: CALCIUM CARB/VIT D3 500/200 TABLET. PO SCH (07:58)
[2019-10-09] MEDS: CETIRIZINE HCL 10 MG TABLET. PO SCH (08:00)
[2019-10-09] MEDS: DULoxetine HCL 30 MG CAPSULE.DR PO SCH (08:02)
[2019-10-09] MEDS: MAGNESIUM OXIDE 400 MG TABLET PO SCH (08:02)
[2019-10-09] MEDS: LEFLUNOMIDE 10 MG TABLET. PO SCH (08:03)
[2019-10-09] MEDS: LOSARTAN POTASSIUM 50 MG TABLET. PO SCH (08:03)
[2019-10-09] MEDS: POTASSIUM CHLORIDE 20 MEQ TABLET.ER. PO SCH ×2 (08:04→12:10)
[2019-10-09] MEDS: PANTOPRAZOLE 40 MG TABLET.DR. PO SCH (08:04)
[2019-10-09] MEDS: amLODIPine BESYLATE 10 MG TABLET PO SCH (08:05)
[2019-10-09] MEDS: FLUTICASONE 50MCG/NASAL SPRAY 16GM BOTTLE. NS SCH (08:06)
[2019-10-09] MEDS: CARVEDILOL 12.5 MG TABLET. PO SCH (08:06)
[2019-10-09] MEDS: KETOTIFEN FUMARATE 0.025% OPHTH SOLUTION BOTTLE. OU SCH (08:07)
[2019-10-09] MEDS: cloNIDine HCL 0.1 MG TABLET PO SCH (08:08)
[2019-10-09] MEDS: DICLOFENAC SODIUM 1% TOPICAL GEL 100GM TUBE. TP SCH ×2 (08:09→12:10)
[2019-10-09] MEDS: ISOSORBIDE DINITRATE 10 MG TABLET. PO SCH (08:16)
[2019-10-09] MEDS: INSULIN LISPRO 300 UNITS/3 ML VIAL. SQ SCH ×2 (08:37→12:25)
--- NOTE | 2019-10-09 08:38 | PDOC ---
PROGRESS NOTES Chief Complaint Chief Complaint A/P: Multiple falls - unable to live safely at home Left wrist swelling - will obtain XR Unable to ambulate - requires full assist per PT, to SNF Shoulder and hand pain - with negative stress in the past 2 years. Acute RA flare, will check CRP and ESR and change to IV steroids Acute back pain - could be 2/2 OA, RA, or recent trauma and falls. Imaging negative for acute fracture, but old left sided rib fractures noted. Will cont tramadol, lidoderm patch Anemia - likely of chronic disease with RA, PMR Osterarthritis - on voltaren topically Asthma - on singulair and albuterol prn Chronic diastolic CHF - does not seem in acute exacerbation Diabetes-Type II - will place on sliding scale Fibromyalgia - on cymbalta and tramadol High Cholesterol - cont statin Hypertension - cont meds Schizophrenia - on fluphenazine and quetiapine, will continue RA - on arava, will continue PMR - on prednisone chronically History of Present Illness History of Present Illness Ms Ji is a 73yo F w/ PMHx osterarthritis, Asthma, CHF, Diabetes-Type II, Fibromyalgia, High Cholesterol, Hypertension, Schizophrenia, RA, PMR who is presenting a fall at home. She noted right leg weakness and left wrist pain. She has fallen in excess of 3 times in the last 24 hours. She lives in an apartment at [facility] by herself and as a consequence of a previous stroke the patient needs to use a walker to ambulate. She notes bilateral intractable shoulder and hand pain. EKG shows normal sinus rhythm rate of 73, poor baseline but overall no STEMI st depressions in lateral leads. Hb 9. 3/16: Still needs significant assistance ambulating. She has swelling in her left wrist. Pain all over. Not tolerating PO steroids for her RA flare currently. No CP or SOB. PT recommends home health and she and her sister, Lawanda are amenable to this plan for further rehab. Wrist x-ray negative for fracture, consistent with RA flare. Instructed on prednisone taper. Seen by PMR, she feels better today after steroid burst. No CP or SOB Vitals Vitals Vital Signs Date Time Temp Pulse Resp B/P (MAP) Pulse Ox O2 Delivery O2 Flow Rate FiO2 10/09/19 08:16 83 188/105 10/09/19 07:00 97.8 18 95 Room Air 97.8 Physical Exam General: Alert, Cooperative Heart: Regular rate, Normal S1, Normal S2 Lungs: Clear Extremities: Other (Tender in bilateral shoulders, elbows, wrists, hands, knees) Skin: No rashes, No breakdown Labs LABS Laboratory Tests Test 10/08/19 11:49 10/08/19 16:32 10/08/19 20:11 10/09/19 07:48 Glucose (Fingerstick) 151 mg/dL (70-99) 154 mg/dL (70-99) 248 mg/dL (70-99) 171 mg/dL (70-99) Assessment and Plan Assessmemt and Plan Problems Medical Problems: (1) Hip pain Status: Acute Comment Review of Relevant I have reviewed the following items escobar (where applicable) has been applied. Labs Laboratory Tests Test 10/07/19 11:47 10/07/19 16:47 10/07/19 21:10 10/08/19 07:55 Glucose (Fingerstick) 137 mg/dL (70-99) 150 mg/dL (70-99) 164 mg/dL (70-99) White Blood Count 7.4 x10^3/uL (4.0-11.0) Red Blood Count 3.16 x10^6/uL (3.50-5.40) Hemoglobin 9.0 g/dL (12.0-15.5) Hematocrit 26.4 % (36.0-47.0) Mean Corpuscular Volume 84 fL (79-100) Mean Corpuscular Hemoglobin 28 pg (25-35) Mean Corpuscular Hemoglobin Concent 34 g/dL (31-37) Red Cell Distribution Width 16.9 % (11.5-14.5) Platelet Count 214 x10^3/uL (140-400) Neutrophils (%) (Auto) 70 % (31-73) Lymphocytes (%) (Auto) 16 % (24-48) Monocytes (%) (Auto) 11 % (0-9) Eosinophils (%) (Auto) 3 % (0-3) Basophils (%) (Auto) 0 % (0-3) Neutrophils # (Auto) 5.2 x10^3/uL (1.8-7.7) Lymphocytes # (Auto) 1.2 x10^3/uL (1.0-4.8) Monocytes # (Auto) 0.8 x10^3/uL (0.0-1.1) Eosinophils # (Auto) 0.2 x10^3/uL (0.0-0.7) Basophils # (Auto) 0.0 x10^3/uL (0.0-0.2) Erythrocyte Sedimentation Rate 58 (0-25) Sodium Level 133 mmol/L (136-145) Potassium Level 3.8 mmol/L (3.5-5.1) Chloride Level 98 mmol/L (98-107) Carbon Dioxide Level 28 mmol/L (21-32) Anion Gap 7 (6-14) Blood Urea Nitrogen 13 mg/dL (7-20) Creatinine 0.8 mg/dL (0.6-1.0) Estimated GFR (Cockcroft-Gault) 84.8 BUN/Creatinine Ratio 16 (6-20) Glucose Level 142 mg/dL (70-99) Calcium Level 9.1 mg/dL (8.5-10.1) Total Bilirubin 0.6 mg/dL (0.2-1.0) Aspartate Amino Transf (AST/SGOT) 16 U/L (15-37) Alanine Aminotransferase (ALT/SGPT) 18 U/L (14-59) Alkaline Phosphatase 77 U/L (46-116) C-Reactive Protein, Quantitative 103.4 mg/L (0-3.3) Total Protein 5.9 g/dL (6.4-8.2) Albumin 2.7 g/dL (3.4-5.0) Albumin/Globulin Ratio 0.8 (1.0-1.7) Test 10/08/19 08:10 10/08/19 11:49 10/08/19 16:32 10/08/19 20:11 Glucose (Fingerstick) 145 mg/dL (70-99) 151 mg/dL (70-99) 154 mg/dL (70-99) 248 mg/dL (70-99) Test 10/09/19 07:48 Glucose (Fingerstick) 171 mg/dL (70-99) Laboratory Tests Test 10/08/19 11:49 10/08/19 16:32 10/08/19 20:11 10/09/19 07:48 Glucose (Fingerstick) 151 mg/dL (70-99) 154 mg/dL (70-99) 248 mg/dL (70-99) 171 mg/dL (70-99) Medications Current Medications Ondansetron HCl (Zofran) 4 mg PRN Q8HRS PRN IV NAUSEA/VOMITING 1ST CHOICE; Start 10/07/19 at 00:30; Stop 10/08/19 at 00:29; Status DC Acetaminophen (Tylenol) 650 mg PRN Q4HRS PRN PO FEVER Last administered on 10/07/19at 17:17; Start 10/07/19 at 00:30; Stop 10/08/19 at 00:29; Status DC Carvedilol (Coreg) 12.5 mg BIDWMEALS PO Last administered on 10/09/19at 08:06; Start 10/07/19 at 10:00 Amlodipine Besylate (Norvasc) 10 mg DAILY PO Last administered on 10/09/19at 08:05; Start 10/07/19 at 10:00 Quetiapine Fumarate (SEROquel) 25 mg HS PO Last administered on 10/08/19at 21:40; Start 10/07/19 at 21:00 Amlodipine Besylate (Norvasc) 100 mg HS PO ; Start 10/07/19 at 21:00; Status UNV Aspirin (Ecotrin) 81 mg HS PO Last administered on 10/08/19at 21:40; Start at 21:00 Buspirone HCl (Buspar) 5 mg PRN TID PRN PO ANXIETY; Start 10/07/19 at 10:00 Carvedilol (Coreg) 12.5 mg BID PO ; Start 10/07/19 at 21:00; Stop 10/07/19 at 10:02; Status DC Clonidine HCl (Catapres) 0.2 mg BID PO Last administered on 10/09/19at 08:08; Start 10/07/19 at 11:00 Diclofenac Sodium (Voltaren) 1 dalia QID TP Last administered on 10/09/19at 08:09; Start 10/07/19 at 13:00 Duloxetine HCl (Cymbalta) 30 mg DAILY PO Last administered on 10/09/19at 08:02; Start 10/07/19 at 11:00 Fluticasone Propionate (Flonase) 2 spray DAILY NS Last administered on 10/09/19 08:06; Start 10/07/19 at 11:00 Leflunomide (Arava) 20 mg DAILY PO Last administered on 10/09/19 08:03; Start 10/07/19 at 11:00 Montelukast Sodium (Singulair) 10 mg QHS PO Last administered on 10/08/19 21:40; Start 10/07/19 at 21:00 Fish Oil (Fish Oil) 1,000 mg HS PO Last administered on 10/08/19 21:39; Start 10/07/19 at 21:00 Potassium Chloride (Klor-Con) 20 meq TIDWMEALS PO Last administered on 10/09/19 08:04; Start 10/07/19 at 12:00 Prednisone (Prednisone) 10 mg DAILY PO Last administered on 10/08/19 09:28; Start 10/07/19 at 11:00; Stop 10/08/19 at 11:56; Status DC Quetiapine Fumarate (SEROquel) 25 mg QHS PO ; Start 10/07/19 at 21:00; Stop 10/07/19 at 10:17; Status DC Simvastatin (Zocor) 20 mg QHS PO Last administered on 10/08/19 21:41; Start 10/07/19 at 21:00 Albuterol Sulfate (Ventolin Neb Soln) 2.5 mg PRN Q4HRS PRN NEB SHORTNESS OF BREATH; Start 10/07/19 at 10:30 Calcium/Vitamin D (Oscal D 500mg/ 200uts) 1 tab DAILY PO Last administered on 10/09/19at 07:58; Start 10/07/19 at 11:00 Non-Formulary Medication (Duloxetine Hcl ) 60 mg DAILY PO ; Start 10/08/19 at 09:00; Status UNV Pantoprazole Sodium (Protonix) 40 mg DAILYAC PO Last administered on 10/09/19 08:04; Start 10/07/19 at 11:00 Fluphenazine HCl (Prolixin) 3.75 mg DAILY PO Last administered on 10/08/19at 09:00; Start 10/07/19 at 11:00; Stop 10/08/19 at 14:56; Status DC Isosorbide Dinitrate (Isordil) 20 mg [id number] PO Last administered on 10/09/19at 08:16; Start 10/07/19 at 16:00 Cetirizine HCl (ZyrTEC) 10 mg DAILY PO Last administered on 10/09/19at 08:00; Start 10/07/19 at 11:00 Losartan Potassium (Cozaar) 100 mg DAILY PO Last administered on 10/09/19at 08:03; Start 10/07/19 at 11:00 Magnesium Oxide (Magnesium Oxide) 400 mg BID PO Last administered on 10/09/19at 08:02; Start 10/07/19 at 11:00 Ketotifen Fumarate (Zaditor) 1 drop BID OU Last administered on 10/09/19at 08:07; Start 10/07/19 at 21:00 Insulin Human Lispro (HumaLOG) 0-5 UNITS TIDWMEALS SQ Last administered on 10/08/19at 17:24; Start 10/07/19 at 12:00 Dextrose (Dextrose 50%-Water Syringe) 12.5 gm PRN Q15MIN PRN IV SEE COMMENTS; Start 10/07/19 at 10:00 Ketorolac Tromethamine (Toradol 30mg Vial) 30 mg PRN Q8HRS PRN IVP PAIN Last administered on 10/08/19at 17:13; Start 10/07/19 at 11:45; Stop 10/12/19 at 11:44 Prednisone (Prednisone) 10 mg DAILY PO ; Start 10/09/19 at 11:00 Methylprednisolone Sodium Succinate (SOLU-Medrol 40MG VIAL) 40 mg Q8HRS IV Last administered on 10/09/19at 06:58; Start 10/08/19 at 14:00; Stop 10/09/19 at 06:01; Status DC Fluphenazine HCl (Prolixin) 3.75 mg DAILY PO ; Start 10/09/19 at 09:00 Active Scripts Active Buspirone Hcl 5 Mg Tablet 1 Tab PO PRN TID PRN 30 Days Zofran Odt (Ondansetron) 4 Mg Tab.rapdis 1 Tab SL Q8HRS Reported Prednisone 20 Mg Tablet 10 Mg PO DAILY Esomeprazole Magnesium 40 Mg Capsule.dr 40 Mg PO DAILY 90 Days Duloxetine Hcl 30 Mg Capsule.dr 30 Mg PO DAILY 90 Days Leflunomide 20 Mg Tablet 20 Mg PO DAILY 30 Days Potassium Chloride (Potassium Chloride) 20 Meq Tablet.er 20 Meq PO TID Fluphenazine Hcl 1 Mg Tablet 4 Mg PO DAILY 30 Days Olopatadine HCl 2.5 Ml Drops 2.5 Ml OP DAILY 30 Days Fluticasone Propionate Nasal [place] (Fluticasone Propionate) 16 Gm [place].susp 16 G DANNY DAILY 30 Days Allergy Relief (Loratadine) 10 Mg Tablet 10 Mg PO DAILY 30 Days Quetiapine Fumarate 25 Mg Tablet 25 Mg PO QHS 30 Days Montelukast Sodium 10 Mg Tablet 10 Mg PO QHS 30 Days Losartan Potassium 100 Mg Tablet 100 Mg PO DAILY 30 Days Isosorbide Dinitrate 20 Mg Tablet 20 Mg PO BID 30 Days Carvedilol 12.5 Mg Tablet 12.5 Mg PO BID 30 Days Magnesium Oxide 400 Mg Tablet 1 Tab PO BID Duloxetine Hcl 60 Mg Capsule.dr 60 Mg PO DAILY Simvastatin 20 Mg Tablet 1 Tab PO QHS Proventil Hfa Inhaler (Albuterol Sulfate) 6.7 Gm Hfa.aer.ad 2 Puff IH PRN Q4HRS PRN Voltaren (Diclofenac Sodium) 100 Gm Gel..gram. 1 Gm TP QID Calcium + Vitamin D Tablet (Calcium Carbonate/Vitamin D3) 1 Each Tablet 1 Each PO DAILY Tylenol (Acetaminophen) 325 Mg Tablet 2 Tab PO PRN Q4HRS Pv Fish Oil 1,000 Mg Softgel ([place]-3 Fatty Acids/Vitamin E) 1,000 Mg Capsule 1,000 Mg PO HS Catapres (Clonidine Hcl) 0.1 Mg Tablet 0.2 Mg PO BID Norvasc (Amlodipine Besylate) 10 Mg Tablet 10 Tab PO HS Metformin Hcl 1,000 Mg Tablet 1 Tab PO BID Aspir 81 (Aspirin) 81 Mg Tablet. 1 Tab PO HS Vitals/I & O Vital Sign - Last 24 Hours 10/08/19 10/08/19 10/08/19 10/08/19 09:19 09:19 09:26 09:26 Pulse 74 74 74 74 B/P (MAP) 149/80 149/80 149/80 149/80 10/08/19 10/08/19 10/08/19 10/08/19 09:27 11:00 15:00 15:44 Temp 98.3 98.3 98.3 98.3 Pulse 74 77 83 83 Resp 16 18 B/P (MAP) 149/80 136/75 (95) 121/70 (87) 121/70 Pulse Ox 97 93 O2 Delivery Room Air Room Air 10/08/19 10/08/19 10/08/19 10/08/19 17:14 19:00 20:00 21:40 Temp 98.3 98.3 Pulse 80 80 80 Resp 18 B/P (MAP) 149/90 154/99 (117) 154/99 Pulse Ox 94 O2 Delivery Room Air Room Air 10/08/19 10/09/19 10/09/19 10/09/19 23:00 03:00 07:00 08:03 Temp 98.0 98.6 97.8 98.0 98.6 97.8 Pulse 79 77 83 83 Resp 18 18 18 B/P (MAP) 147/89 (108) 147/90 (109) 188/105 (132) 188/105 Pulse Ox 95 93 95 O2 Delivery Room Air Room Air Room Air 10/09/19 10/09/19 10/09/19 10/09/19 08:05 08:06 08:08 08:16 Pulse 83 83 83 83 B/P (MAP) 188/105 188/105 188/105 188/105 Intake and Output 10/08/19 10/08/19 10/09/19 15:00 23:00 07:00 Intake Total 240 ml 120 ml 2500 ml Balance 240 ml 120 ml 2500 ml KATHERIN THOMPSON MD Oct 09, 2019 08:38
[2019-10-09] MEDS ORDERED: FLUPHENAZINE HCL 2.5 MG TABLET. PO SCH (09:00)
--- NOTE | 2019-10-09 09:44 | PDOC ---
PROGRESS NOTES Subjective Subjective She admits continued stiffness and pain in her hands and shoulders. Objective Objective Vital Signs Date Time Temp Pulse Resp B/P (MAP) Pulse Ox O2 Delivery O2 Flow Rate FiO2 10/09/19 08:16 83 188/105 10/09/19 07:00 97.8 18 95 Room Air 97.8 Intake and Output 10/09/19 07:00 Intake Total 2860 ml Balance 2860 ml Intake Oral 2860 ml # Voids 8 # Bowel Movements 1 Physical Exam Physical Exam She is alert,sitting in bedside chair and she continues with stiffness and pain on ROM of her shoulders and wrists from rheumatoid arthritis sequalae. She continues to get up and walk with roller walker but requires help with self care. Assessment Assessment Problems Medical Problems: (1) Hip pain Status: Acute Plan Plan of Care As she had personal financial counselor on a regular basis,home with home health follow up when medically stable,unless she wishes to go to an assisted living facility. Comment Review of Relevant I have reviewed the following items escobar (where applicable) has been applied. Labs Laboratory Tests Test 10/07/19 11:47 10/07/19 16:47 10/07/19 21:10 10/08/19 07:55 Glucose (Fingerstick) 137 mg/dL (70-99) 150 mg/dL (70-99) 164 mg/dL (70-99) White Blood Count 7.4 x10^3/uL (4.0-11.0) Red Blood Count 3.16 x10^6/uL (3.50-5.40) Hemoglobin 9.0 g/dL (12.0-15.5) Hematocrit 26.4 % (36.0-47.0) Mean Corpuscular Volume 84 fL (79-100) Mean Corpuscular Hemoglobin 28 pg (25-35) Mean Corpuscular Hemoglobin Concent 34 g/dL (31-37) Red Cell Distribution Width 16.9 % (11.5-14.5) Platelet Count 214 x10^3/uL (140-400) Neutrophils (%) (Auto) 70 % (31-73) Lymphocytes (%) (Auto) 16 % (24-48) Monocytes (%) (Auto) 11 % (0-9) Eosinophils (%) (Auto) 3 % (0-3) Basophils (%) (Auto) 0 % (0-3) Neutrophils # (Auto) 5.2 x10^3/uL (1.8-7.7) Lymphocytes # (Auto) 1.2 x10^3/uL (1.0-4.8) Monocytes # (Auto) 0.8 x10^3/uL (0.0-1.1) Eosinophils # (Auto) 0.2 x10^3/uL (0.0-0.7) Basophils # (Auto) 0.0 x10^3/uL (0.0-0.2) Erythrocyte Sedimentation Rate 58 (0-25) Sodium Level 133 mmol/L (136-145) Potassium Level 3.8 mmol/L (3.5-5.1) Chloride Level 98 mmol/L (98-107) Carbon Dioxide Level 28 mmol/L (21-32) Anion Gap 7 (6-14) Blood Urea Nitrogen 13 mg/dL (7-20) Creatinine 0.8 mg/dL (0.6-1.0) Estimated GFR (Cockcroft-Gault) 84.8 BUN/Creatinine Ratio 16 (6-20) Glucose Level 142 mg/dL (70-99) Calcium Level 9.1 mg/dL (8.5-10.1) Total Bilirubin 0.6 mg/dL (0.2-1.0) Aspartate Amino Transf (AST/SGOT) 16 U/L (15-37) Alanine Aminotransferase (ALT/SGPT) 18 U/L (14-59) Alkaline Phosphatase 77 U/L (46-116) C-Reactive Protein, Quantitative 103.4 mg/L (0-3.3) Total Protein 5.9 g/dL (6.4-8.2) Albumin 2.7 g/dL (3.4-5.0) Albumin/Globulin Ratio 0.8 (1.0-1.7) Test 10/08/19 08:10 10/08/19 11:49 10/08/19 16:32 10/08/19 20:11 Glucose (Fingerstick) 145 mg/dL (70-99) 151 mg/dL (70-99) 154 mg/dL (70-99) 248 mg/dL (70-99) Test 10/09/19 07:48 Glucose (Fingerstick) 171 mg/dL (70-99) Laboratory Tests Test 10/08/19 11:49 10/08/19 16:32 10/08/19 20:11 10/09/19 07:48 Glucose (Fingerstick) 151 mg/dL (70-99) 154 mg/dL (70-99) 248 mg/dL (70-99) 171 mg/dL (70-99) Medications Current Medications Ondansetron HCl (Zofran) 4 mg PRN Q8HRS PRN IV NAUSEA/VOMITING 1ST CHOICE; Start 10/07/19 at 00:30; Stop 10/08/19 at 00:29; Status DC Acetaminophen (Tylenol) 650 mg PRN Q4HRS PRN PO FEVER Last administered on 09/22 17:17; Start 10/07/19 at 00:30; Stop 10/08/19 at 00:29; Status DC Carvedilol (Coreg) 12.5 mg BIDWMEALS PO Last administered on 10/09/19at 08:06; Start 10/07/19 at 10:00 Amlodipine Besylate (Norvasc) 10 mg DAILY PO Last administered on 10/09/19at 08 :05; Start 10/07/19 at 10:00 Quetiapine Fumarate (SEROquel) 25 mg HS PO Last administered on 10/08/19at 21:40; Start 10/07/19 at 21:00 Amlodipine Besylate (Norvasc) 100 mg HS PO ; Start 10/07/19 at 21:00; Status UNV Aspirin (Ecotrin) 81 mg HS PO Last administered on 10/08/19at 21:40; Start 10/07/19 at 21:00 Buspirone HCl (Buspar) 5 mg PRN TID PRN PO ANXIETY; Start 10/07/19 at 10:00 Carvedilol (Coreg) 12.5 mg BID PO ; Start 10/07/19 at 21:00; Stop 10/07/19 at 10:02; Status DC Clonidine HCl (Catapres) 0.2 mg BID PO Last administered on 10/09/19at 08:08; Start 10/07/19 at 11:00 Diclofenac Sodium (Voltaren) 1 dalia QID TP Last administered on 10/09/19at 08:09; Start 10/07/19 at 13:00 Duloxetine HCl (Cymbalta) 30 mg DAILY PO Last administered on 10/09/19 08:02; Start 10/07/19 at 11:00 Fluticasone Propionate (Flonase) 2 spray DAILY NS Last administered on 10/09/19 08:06; Start 10/07/19 at 11:00 Leflunomide (Arava) 20 mg DAILY PO Last administered on 10/09/19 08:03; Start 10/07/19 at 11:00 Montelukast Sodium (Singulair) 10 mg QHS PO Last administered on 10/08/19 21:40; Start 10/07/19 at 21:00 Fish Oil (Fish Oil) 1,000 mg HS PO Last administered on 10/08/19 21:39; Start 10/07/19 at 21:00 Potassium Chloride (Klor-Con) 20 meq TIDWMEALS PO Last administered on 10/09/19 08:04; Start 10/07/19 at 12:00 Prednisone (Prednisone) 10 mg DAILY PO Last administered on 10/08/19 09:28; Start 10/07/19 at 11:00; Stop 10/08/19 at 11:56; Status DC Quetiapine Fumarate (SEROquel) 25 mg QHS PO ; Start 10/07/19 at 21:00; Stop 10/07/19 at 10:17; Status DC Simvastatin (Zocor) 20 mg QHS PO Last administered on 10/08/19at 21:41; Start 10/07/19 at 21:00 Albuterol Sulfate (Ventolin Neb Soln) 2.5 mg PRN Q4HRS PRN NEB SHORTNESS OF BREATH; Start 10/07/19 at 10:30 Calcium/Vitamin D (Oscal D 500mg/ 200uts) 1 tab DAILY PO Last administered on 10/09/19at 07:58; Start 10/07/19 at 11:00 Non-Formulary Medication (Duloxetine Hcl ) 60 mg DAILY PO ; Start 10/08/19 at 09:00; Status UNV Pantoprazole Sodium (Protonix) 40 mg DAILYAC PO Last administered on 10/09/19at 08:04; Start 10/07/19 at 11:00 Fluphenazine HCl (Prolixin) 3.75 mg DAILY PO Last administered on 10/08/19at 09:00; Start 10/07/19 at 11:00; Stop 10/08/19 at 14:56; Status DC Isosorbide Dinitrate (Isordil) 20 mg BID94 PO Last administered on 10/09/19at 08:16; Start 10/07/19 at 16:00 Cetirizine HCl (ZyrTEC) 10 mg DAILY PO Last administered on 10/09/19at 08:00; Start 10/07/19 at 11:00 Losartan Potassium (Cozaar) 100 mg DAILY PO Last administered on 10/09/19at 08:03; Start 10/07/19 at 11:00 Magnesium Oxide (Magnesium Oxide) 400 mg BID PO Last administered on 10/09/19at 08:02; Start 10/07/19 at 11:00 Ketotifen Fumarate (Zaditor) 1 drop BID OU Last administered on 10/09/19at 08:07; Start 10/07/19 at 21:00 Insulin Human Lispro (HumaLOG) 0-5 UNITS TIDWMEALS SQ Last administered on 10/09/19at 08:37; Start 10/07/19 at 12:00 Dextrose (Dextrose 50%-Water Syringe) 12.5 gm PRN Q15MIN PRN IV SEE COMMENTS; Start 10/07/19 at 10:00 Ketorolac Tromethamine (Toradol 30mg Vial) 30 mg PRN Q8HRS PRN IVP PAIN Last administered on 10/08/19at 17:13; Start 10/07/19 at 11:45; Stop 10/12/19 at 11:44 Prednisone (Prednisone) 10 mg DAILY PO ; Start 10/09/19 at 11:00 Methylprednisolone Sodium Succinate (SOLU-Medrol 40MG VIAL) 40 mg Q8HRS IV Last administered on 10/09/19at 06:58; Start 10/08/19 at 14:00; Stop 10/09/19 at 06:01; Status DC Fluphenazine HCl (Prolixin) 3.75 mg DAILY PO Last administered on 10/09/19at 08:39; Start 10/09/19 at 09:00 Active Scripts Active Buspirone Hcl 5 Mg Tablet 1 Tab PO PRN TID PRN 30 Days Zofran Odt (Ondansetron) 4 Mg Tab.rapdis 1 Tab SL Q8HRS Reported Prednisone 20 Mg Tablet 10 Mg PO DAILY Esomeprazole Magnesium 40 Mg Capsule.dr 40 Mg PO DAILY 90 Days Duloxetine Hcl 30 Mg Capsule.dr 30 Mg PO DAILY 90 Days Leflunomide 20 Mg Tablet 20 Mg PO DAILY 30 Days Potassium Chloride (Potassium Chloride) 20 Meq Tablet.er 20 Meq PO TID Fluphenazine Hcl 1 Mg Tablet 4 Mg PO DAILY 30 Days Olopatadine HCl 2.5 Ml Drops 2.5 Ml OP DAILY 30 Days Fluticasone Propionate Nasal [employer] (Fluticasone Propionate) [address] [employer].susp 16 G DANNY DAILY 30 Days Allergy Relief (Loratadine) 10 Mg Tablet 10 Mg PO DAILY 30 Days Quetiapine Fumarate 25 Mg Tablet 25 Mg PO QHS 30 Days Montelukast Sodium 10 Mg Tablet 10 Mg PO QHS 30 Days Losartan Potassium 100 Mg Tablet 100 Mg PO DAILY 30 Days Isosorbide Dinitrate 20 Mg Tablet 20 Mg PO BID 30 Days Carvedilol 12.5 Mg Tablet 12.5 Mg PO BID 30 Days Magnesium Oxide 400 Mg Tablet 1 Tab PO BID Duloxetine Hcl 60 Mg Capsule.dr 60 Mg PO DAILY Simvastatin 20 Mg Tablet 1 Tab PO QHS Proventil Hfa Inhaler (Albuterol Sulfate) 6.7 Gm Hfa.aer.ad 2 Puff IH PRN Q4HRS PRN Voltaren (Diclofenac Sodium) 100 Gm Gel..gram. 1 Gm TP QID Calcium + Vitamin D Tablet (Calcium Carbonate/Vitamin D3) 1 Each Tablet 1 Each PO DAILY Tylenol (Acetaminophen) 325 Mg Tablet 2 Tab PO PRN Q4HRS Pv Fish Oil 1,000 Mg Softgel ([place]-3 Fatty Acids/Vitamin E) 1,000 Mg Capsule 1,000 Mg PO HS Catapres (Clonidine Hcl) 0.1 Mg Tablet 0.2 Mg PO BID Norvasc (Amlodipine Besylate) 10 Mg Tablet 10 Tab PO HS Metformin Hcl 1,000 Mg Tablet 1 Tab PO BID Aspir 81 (Aspirin) 81 Mg Tablet. 1 Tab PO HS Vitals/I & O Vital Sign - Last 24 Hours 10/08/19 10/08/19 10/08/19 10/08/19 11:00 15:00 15:44 17:14 Temp 98.3 98.3 98.3 98.3 Pulse 77 83 83 80 Resp 16 18 B/P (MAP) 136/75 (95) 121/70 (87) 121/70 149/90 Pulse Ox 97 93 O2 Delivery Room Air Room Air 10/08/19 10/08/19 10/08/19 10/08/19 19:00 20:00 21:40 23:00 Temp 98.3 98.0 98.3 98.0 Pulse 80 80 79 Resp 18 18 B/P (MAP) 154/99 (117) 154/99 147/89 (108) Pulse Ox 94 95 O2 Delivery Room Air Room Air Room Air 10/09/19 10/09/19 10/09/19 10/09/19 03:00 07:00 08:03 08:05 Temp 98.6 97.8 98.6 97.8 Pulse 77 83 83 83 Resp 18 18 B/P (MAP) 147/90 (109) 188/105 (132) 188/105 188/105 Pulse Ox 93 95 O2 Delivery Room Air Room Air 10/09/19 10/09/19 10/09/19 08:06 08:08 08:16 Pulse 83 83 83 B/P (MAP) 188/105 188/105 188/105 Intake and Output 10/08/19 10/08/19 10/09/19 15:00 23:00 07:00 Intake Total 240 ml 120 ml 2500 ml Balance 240 ml 120 ml 2500 ml JENNY ORTIZ MD Oct 09, 2019 09:44
[2019-10-09 11:00] VITALS: BP 168/89
[2019-10-09] MEDS ORDERED: predniSONE 10 MG TABLET PO SCH (11:00)
--- NOTE | 2019-10-09 11:29 | NUR ---
SW following. Discussed with RN. exercise plannerLoli faxed home health referral to [facility]. TRUNG will continue to follow.
--- NOTE | 2019-10-09 13:30 | RAD ---
History: Fall hit head Comparison: December 16, 2017 Axial images were obtained without contrast. There is moderate diffuse atrophy. There is no mass effect, extraaxial fluid collections or hydrocephalus. There is no gross bleed. Moderate diffuse periventricular and subcortical white matter hypoattenuation is seen. There is no focal loss of avelar-white matter distinction to suggest acute ischemia, i.e. stroke. Impression: No acute findings. PQRS Compliance Statement: One or more of the following individualized dose reduction techniques were utilized for this examination: 1. Automated exposure control 2. Adjustment of the mA and/or kV according to patient size 3. Use of iterative reconstruction technique MTDD
--- NOTE | 2019-10-09 13:51 | SNU/HH DC ---
DISCHARGE WITH HOME HEALTH DISCHARGE INFORMATION: Discharge Date: Oct 09, 2019 Final Diagnosis: Problems Medical Problems: (1) Hip pain Status: Acute Condition on Discharge: Stable CODE STATUS: Code Status: Full HOME HEALTH: Face to Face: I certify this patient is under my care and that I, or a nurse practitioner or physician's infertility medical assistant working with me, had a face to face encounter that meets the physician face to face encounter requirements with this patient on 10/09/2019. Medical Complications: Falls, Other (Rheumatoid arthritis) RN For Eval/Treatment: Yes Physical Therapy For: Evalulation/Treatment Occupational Therapy For: Evaluation/Treatment Pt Meets Homebound Status: Extreme weakness w/ amb., Frequent falls w/ injury, Limited distance walking, Psychological condition POST DISCHARGE ORDERS: Activity Instructions for Disc: Activity as tolerated Weight Bearing Status after Di: As tolerated DIET AFTER DISCHARGE: ADA CHECKS AFTER DISCHARGE: Checks after discharge: Check blood press - daily, Check blood sugar, ac/hs, Check your Temp as needed, Weigh Yourself Daily TREATMENT/EQUIPMENT ORDERS: Adaptive Equipment Issued: None CERTIFICATION STATEMENT: Certification Statement: Certification Statement: Based on the above finding, I certify that this patient is confined to the home and needs intermittent [facility] care, physical therapy and/or speech therapy, or continues to need occupational therapy.~ This patient is under my care, and I have initiated the establishment of the plan of care.~ This patient will be followed by myself or a community physician who will periodically review the plan of care. Home Meds Active Scripts Buspirone Hcl (BUSPIRONE HCL) 5 Mg Tablet, 1 TAB PO PRN TID PRN for ANXIETY for 30 Days, #60 TAB 2 Refills Prov:KATHERIN THOMPSON MD 08/01/19 Ondansetron (ZOFRAN ODT) 4 Mg Tab.rapdis, 1 TAB SL Q8HRS, #15 TAB Prov:SCOTTIE BRENNAN APRN 01/29/18 Reported Medications Prednisone (PREDNISONE) 20 Mg Tablet, 10 MG PO DAILY for RA, #5 TAB 10/07/19 Esomeprazole Magnesium (Esomeprazole Magnesium) 40 Mg Capsule., 40 MG PO DAILY for GERD for 90 Days, #90 07/30/19 Duloxetine Hcl (DULOXETINE HCL) 30 Mg Capsule., 30 MG PO DAILY for Fibromyalgia for 90 Days, #90 07/30/19 Leflunomide (LEFLUNOMIDE) 20 Mg Tablet, 20 MG PO DAILY for RA for 30 Days, #30 07/30/19 Potassium Chloride (POTASSIUM CHLORIDE ) 20 Meq Tablet.er, 20 MEQ PO TID for SUPPLEMENT, TAB.SR 07/29/19 Fluphenazine Hcl (FLUPHENAZINE HCL) 1 Mg Tablet, 4 MG PO DAILY for Mood for 30 Days, #120 05/13/19 Olopatadine HCl (Olopatadine HCl) 2.5 Ml Drops, 2.5 ML OP DAILY for Ocular for 30 Days, #1 05/13/19 Fluticasone Propionate (FLUTICASONE PROPIONATE NASAL SPRAY) 16 Gm [place].susp, 16 G DANNY DAILY for Allergies for 30 Days, #1 05/13/19 Loratadine (ALLERGY RELIEF) 10 Mg Tablet, 10 MG PO DAILY for Allergies for 30 Days, #30 05/13/19 Quetiapine Fumarate (QUETIAPINE FUMARATE) 25 Mg Tablet, 25 MG PO QHS for Mood Stabilization for 30 Days, #30 05/13/19 Montelukast Sodium (Montelukast Sodium) 10 Mg Tablet, 10 MG PO QHS for Asthma for 30 Days, #30 05/13/19 Losartan Potassium (LOSARTAN POTASSIUM) 100 Mg Tablet, 100 MG PO DAILY for HTN for 30 Days, #30 05/13/19 Isosorbide Dinitrate (ISOSORBIDE DINITRATE) 20 Mg Tablet, 20 MG PO BID for CHF for 30 Days, #60 05/13/19 Carvedilol (Carvedilol) 12.5 Mg Tablet, 12.5 MG PO BID for CHF for 30 Days, #60 05/13/19 Magnesium Oxide (MAGNESIUM OXIDE) 400 Mg Tablet, 1 TAB PO BID, #60 TAB 5 Refills 05/27/17 Duloxetine Hcl (DULOXETINE HCL) 60 Mg Capsule.dr, 60 MG PO DAILY, CAP 05/27/17 Simvastatin (SIMVASTATIN) 20 Mg Tablet, 1 TAB PO QHS, #30 TAB 5 Refills 12/10/15 Albuterol Sulfate (PROVENTIL HFA INHALER) 6.7 Gm Hfa.aer.ad, 2 PUFF IH PRN Q4HRS PRN for SHORTNESS OF BREATH, #1 INHALER 06/13/15 Diclofenac Sodium (VOLTAREN) 100 Gm Gel..gram., 1 GM TP QID, #100 GM 2 Refills 06/13/15 Calcium Carbonate/Vitamin D3 (CALCIUM + VITAMIN D TABLET) 1 Each Tablet, 1 EACH PO DAILY 06/13/15 Acetaminophen (TYLENOL) 325 Mg Tablet, 2 TAB PO PRN Q4HRS, #30 TAB 06/13/15 [place]-3 Fatty Acids/Vitamin E (PV FISH OIL 1,000 MG SOFTGEL) 1,000 Mg Capsule, 1000 MG PO HS 08/09/14 Clonidine Hcl (CATAPRES) 0.1 Mg Tablet, 0.2 MG PO BID for HTN, TAB 08/09/14 Amlodipine Besylate (NORVASC) 10 Mg Tablet, 10 TAB PO HS, #30 TAB 5 Refills 08/09/14 Metformin Hcl (METFORMIN HCL) 1,000 Mg Tablet, 1 TAB PO BID, #60 TAB 5 Refills 08/09/14 Aspirin (ASPIR 81) 81 Mg Tablet., 1 TAB PO HS, #30 TAB 5 Refills 08/09/14 KATHERIN THOMPSON MD Oct 09, 2019 13:51
--- NOTE | 2019-10-09 13:58 | PDOC3 ---
Discharge Summary Visit Information Date of Admission: Oct 07, 2019 Date of Discharge: Oct 09, 2019 Admitting Diagnosis: Multiple falls Final Diagnosis Problems Medical Problems: (1) Hip pain Status: Acute Brief Hospital Course Allergies Allergies Coded Allergies Type Severity Reaction Last Updated Verified divalproex sodium Allergy Intermediate neck and back pain 07/16/16 Yes fluticasone Allergy Intermediate COUGH 07/16/16 Yes latex Allergy Intermediate SURGICAL TAPE 07/16/16 Yes lisinopril Allergy Intermediate cough 07/16/16 Yes piroxicam Allergy Intermediate BLISTERS 07/16/16 Yes gabapentin Adverse Reaction Severe 12/12/16 Yes Vital Signs Vital Signs Date Time Temp Pulse Resp B/P (MAP) Pulse Ox O2 Delivery O2 Flow Rate FiO2 10/09/19 11:00 97.8 80 18 168/89 (115) 96 Room Air 97.8 Lab Results Laboratory Tests Test 10/07/19 16:47 10/07/19 21:10 10/08/19 07:55 10/08/19 08:10 Glucose (Fingerstick) 150 mg/dL (70-99) 164 mg/dL (70-99) 145 mg/dL (70-99) White Blood Count 7.4 x10^3/uL (4.0-11.0) Red Blood Count 3.16 x10^6/uL (3.50-5.40) Hemoglobin 9.0 g/dL (12.0-15.5) Hematocrit 26.4 % (36.0-47.0) Mean Corpuscular Volume 84 fL (79-100) Mean Corpuscular Hemoglobin 28 pg (25-35) Mean Corpuscular Hemoglobin Concent 34 g/dL (31-37) Red Cell Distribution Width 16.9 % (11.5-14.5) Platelet Count 214 x10^3/uL (140-400) Neutrophils (%) (Auto) 70 % (31-73) Lymphocytes (%) (Auto) 16 % (24-48) Monocytes (%) (Auto) 11 % (0-9) Eosinophils (%) (Auto) 3 % (0-3) Basophils (%) (Auto) 0 % (0-3) Neutrophils # (Auto) 5.2 x10^3/uL (1.8-7.7) Lymphocytes # (Auto) 1.2 x10^3/uL (1.0-4.8) Monocytes # (Auto) 0.8 x10^3/uL (0.0-1.1) Eosinophils # (Auto) 0.2 x10^3/uL (0.0-0.7) Basophils # (Auto) 0.0 x10^3/uL (0.0-0.2) Erythrocyte Sedimentation Rate 58 (0-25) Sodium Level 133 mmol/L (136-145) Potassium Level 3.8 mmol/L (3.5-5.1) Chloride Level 98 mmol/L (98-107) Carbon Dioxide Level 28 mmol/L (21-32) Anion Gap 7 (6-14) Blood Urea Nitrogen 13 mg/dL (7-20) Creatinine 0.8 mg/dL (0.6-1.0) Estimated GFR (Cockcroft-Gault) 84.8 BUN/Creatinine Ratio 16 (6-20) Glucose Level 142 mg/dL (70-99) Calcium Level 9.1 mg/dL (8.5-10.1) Total Bilirubin 0.6 mg/dL (0.2-1.0) Aspartate Amino Transf (AST/SGOT) 16 U/L (15-37) Alanine Aminotransferase (ALT/SGPT) 18 U/L (14-59) Alkaline Phosphatase 77 U/L (46-116) C-Reactive Protein, Quantitative 103.4 mg/L (0-3.3) Total Protein 5.9 g/dL (6.4-8.2) Albumin 2.7 g/dL (3.4-5.0) Albumin/Globulin Ratio 0.8 (1.0-1.7) Test 10/08/19 11:49 10/08/19 16:32 10/08/19 20:11 10/09/19 07:48 Glucose (Fingerstick) 151 mg/dL (70-99) 154 mg/dL (70-99) 248 mg/dL (70-99) 171 mg/dL (70-99) Test 10/09/19 11:09 Glucose (Fingerstick) 219 mg/dL (70-99) Laboratory Tests Test 10/08/19 16:32 10/08/19 20:11 10/09/19 07:48 10/09/19 11:09 Glucose (Fingerstick) 154 mg/dL (70-99) 248 mg/dL (70-99) 171 mg/dL (70-99) 219 mg/dL (70-99) Brief Hospital Course Ms Ji is a 73yo F w/ PMHx osterarthritis, Asthma, CHF, Diabetes-Type II, Fibromyalgia, High Cholesterol, Hypertension, Schizophrenia, RA, PMR who is presenting a fall at home. She noted right leg weakness and left wrist pain. She has fallen in excess of 3 times in the last 24 hours. She lives in an apartment at [facility] by herself and as a consequence of a previous stroke the pat ient needs to use a walker to ambulate. She notes bilateral intractable shoulder and hand pain. EKG shows normal sinus rhythm rate of 73, poor baseline but overall no STEMI st depressions in lateral leads. Hb 9. 3/16: Still needs significant assistance ambulating. She has swelling in her left wrist. Pain all over. Not tolerating PO steroids for her RA flare currently. No CP or SOB. PT recommends home health and she and her sister, Lawanda are amenable to this plan for further rehab. Wrist x-ray negative for fracture, consistent with RA flare. Instructed on prednisone taper. Seen by PMR, she feels better today after steroid burst. No CP or SOB Problem list: Multiple falls - Needs home health Left wrist swelling - RA x-ray Difficulty ambulating - to home health Shoulder and hand pain - with negative stress in the past 2 years. Acute RA flare, elevated CRP and ESR and improved with burst of IV steroids and now on taper Acute back pain - could be 2/2 OA, RA, or recent trauma and falls. Imaging negative for acute fracture, but old left sided rib fractures noted. Will cont tramadol, lidoderm patch Anemia - likely of chronic disease with RA, PMR Osterarthritis - on voltaren topically Asthma - on singulair and albuterol prn Chronic diastolic CHF - does not seem in acute exacerbation Diabetes-Type II - will place on sliding scale Fibromyalgia - on cymbalta and tramadol High Cholesterol - cont statin Hypertension - cont meds Schizophrenia - on fluphenazine and quetiapine, will continue RA - on arava, will continue PMR - on prednisone chronically Greater than 30 minutes spent on d/c home with home health Discharge Information Condition at Discharge: Improved Follow Up: Weeks (1) Disposition/Orders: D/C to Home w/ HH Scheduled Acetaminophen (Tylenol) 325 Mg Tablet, 2 TAB PO PRN Q4HRS, #30 (Reported) Entered as Reported by: HENNA INFANTE on 06/13/15 0458 Last Action: HELD on 10/07/19 0956 by JESUS HUBBARD MD Amlodipine Besylate (Norvasc) 10 Mg Tablet, 10 TAB PO HS, #30 Ref 5 (Reported) Entered as Reported by: Jessica Coleman on 08/09/14 0201 Last Action: Continued on 10/07/19956 by JESUS HUBBARD MD Aspirin (Aspir 81) 81 Mg Tablet.dr, 1 TAB PO HS, #30 Ref 5 (Reported) Entered as Reported by: Jessica Coleman on 08/09/14 0157 Last Action: Continued on 10/07/19956 by JESUS HUBBARD MD Calcium Carbonate/Vitamin D3 (Calcium + Vitamin D Tablet) 1 Each Tablet, 1 EACH PO DAILY, (Reported) Entered as Reported by: HENNA INFANTE on 06/13/15 0504 Last Action: Converted on 10/07/19956 by JESUS HUBBARD MD Carvedilol (Carvedilol) 12.5 Mg Tablet, 12.5 MG PO BID for CHF for 30 Days, #60 (Reported) Entered as Reported by: KATHERIN THOMPSON MD on 05/13/19 1358 Last Action: Continued on 10/07/19956 by JESUS HUBBARD MD Clonidine Hcl (Catapres) 0.1 Mg Tablet, 0.2 MG PO BID for HTN, (Reported) Entered as Reported by: Jessica Coleman on 08/09/14 0203 Last Action: Continued on 10/07/19956 by JESUS HUBBARD MD Diclofenac Sodium (Voltaren) 100 Gm Gel..gram., 1 GM TP QID, #100 Ref 2 (Reported) Entered as Reported by: HENNA INFANTE on 06/13/15 0514 Last Action: Continued on 10/07/19956 by JESUS HUBBARD MD Duloxetine Hcl (Duloxetine Hcl) 60 Mg Capsule.dr, 60 MG PO DAILY, (Reported) Entered as Reported by: TATI WASHINGTON on 11/10/08 1658 Last Action: Converted on 10/07/19956 by JESUS HUBBARD MD Duloxetine Hcl (Duloxetine Hcl) 30 Mg Capsule.dr, 30 MG PO DAILY for Fibromyalgia for 90 Days, #90 (Reported) Entered as Reported by: KATHERIN THOMPSON MD on 07/30/19933 Last Action: Continued on 10/07/19956 by JESUS HUBBARD MD Esomeprazole Magnesium (Esomeprazole Magnesium) 40 Mg Capsule.dr, 40 MG PO DAILY for GERD for 90 Days, #90 (Reported) Entered as Reported by: KATHERIN THOMPSON MD on 07/30/19933 Last Action: Converted on 10/07/19956 by JESUS HUBBARD MD Fluphenazine Hcl (Fluphenazine Hcl) 1 Mg Tablet, 4 MG PO DAILY for Mood for 30 Days, #120 (Reported) Entered as Reported by: KATHERIN THOMPSON MD on 05/13/191357 Last Action: Converted on 10/07/19956 by JESUS HUBBARD MD Fluticasone Propionate (Fluticasone Propionate Nasal [place]) 16 Gm [place].susp, 16 G DANNY DAILY for Allergies for 30 Days, #1 (Reported) Entered as Reported by: KATHERIN THOMPSON MD on 05/13/191357 Last Action: Continued on 10/07/19956 by JESUS HUBBARD MD Isosorbide Dinitrate (Isosorbide Dinitrate) 20 Mg Tablet, 20 MG PO BID for CHF for 30 Days, #60 (Reported) Entered as Reported by: KATHERIN THOMPSON MD on 05/13/191357 Last Action: Converted on 10/07/19956 by JESUS HUBBARD MD Leflunomide (Leflunomide) 20 Mg Tablet, 20 MG PO DAILY for RA for 30 Days, #30 (Reported) Entered as Reported by: KATHERIN THOMPSON MD on 07/30/19933 Last Action: Continued on 10/07/19956 by JESUS HUBBARD MD Loratadine (Allergy Relief) 10 Mg Tablet, 10 MG PO DAILY for Allergies for 30 Days, #30 (Reported) Entered as Reported by: KATHERIN THOMPSON MD on 05/13/191357 Last Action: Converted on 10/07/19956 by JESUS HUBBARD MD Losartan Potassium (Losartan Potassium) 100 Mg Tablet, 100 MG PO DAILY for HTN for 30 Days, #30 (Reported) Entered as Reported by: KATHERIN THOMPSON MD on 05/13/191357 Last Action: Converted on 10/07/19956 by JESUS HUBBARD MD Magnesium Oxide (Magnesium Oxide) 400 Mg Tablet, 1 TAB PO BID, #60 Ref 5 (Reported) Entered as Reported by: TATI WASHINGTON on 05/27/17 1659 Last Action: Converted on 10/07/19956 by JESUS HUBBARD MD Metformin Hcl (Metformin Hcl) 1,000 Mg Tablet, 1 TAB PO BID, #60 Ref 5 (Reported) Entered as Reported by: Jessica Coleman on 08/09/14 0158 Last Action: HELD on 10/07/19955 by JESUS HUBBARD MD Montelukast Sodium (Montelukast Sodium) 10 Mg Tablet, 10 MG PO QHS for Asthma for 30 Days, #30 (Reported) Entered as Reported by: KATHERIN THOMPSON MD on 05/13/191357 Last Action: Continued on 10/07/19956 by JESUS HUBBARD MD Olopatadine HCl (Olopatadine HCl) 2.5 Ml Drops, 2.5 ML OP DAILY for Ocular for 30 Days, #1 (Reported) Entered as Reported by: KATHERIN THOMPSON MD on 05/13/191357 Last Action: Converted on 10/07/19956 by JESUS HUBBARD MD Sarah-3 Fatty Acids/Vitamin E (Pv Fish Oil 1,000 Mg Softgel) 1,000 Mg Capsule, 1,000 MG PO HS, (Reported) Entered as Reported by: Jessica Coleman on 08/09/14 0207 Last Action: Continued on 10/07/19956 by JESUS HUBBARD MD Ondansetron (Zofran Odt) 4 Mg Tab.rapdis, 1 TAB SL Q8HRS, #15 Prescribed by: Aleshia Abraham APRN on 01/29/18 4198 Last Action: Reviewed on 10/07/19 0725 by FE MILES Potassium Chloride (Potassium Chloride ) 20 Meq Tablet.er, 20 MEQ PO TID for SUPPLEMENT, (Reported) Entered as Reported by: OMAR SMITH on 07/29/19 1116 Last Action: Continued on 10/07/19956 by JESUS HUBBARD MD Prednisone (Prednisone) 20 Mg Tablet, 10 MG PO DAILY for RA, #5 (Reported) Entered as Reported by: FE RYDER on 10/07/19 0727 Last Action: Continued on 10/07/19956 by JESUS HUBBARD MD Quetiapine Fumarate (Quetiapine Fumarate) 25 Mg Tablet, 25 MG PO QHS for Mood Stabilization for 30 Days, #30 (Reported) Entered as Reported by: KATHERIN THOMPSON MD on 05/13/19 1358 Last Action: Continued on 10/07/19956 by JESUS HUBBARD MD Simvastatin (Simvastatin) 20 Mg Tablet, 1 TAB PO QHS, #30 Ref 5 (Reported) Entered as Reported by: HENNA ORR on 12/10/152017 Last Action: Continued on 10/07/19956 by JESUS HUBBARD MD Scheduled PRN Albuterol Sulfate (Proventil Hfa Inhaler) 6.7 Gm Hfa.aer.ad, 2 PUFF IH PRN Q4HRS PRN for SHORTNESS OF BREATH, #1 (Reported) Entered as Reported by: HENNA INFANTE on 06/13/15 0525 Last Action: Converted on 10/07/19956 by JESUS HUBBARD MD Buspirone Hcl (Buspirone Hcl) 5 Mg Tablet, 1 TAB PO PRN TID PRN for ANXIETY for 30 Days, #60 Ref 2 Prescribed by: KATHERIN THOMPSON MD on 08/01/19 1326 Last Action: Continued on 10/07/19956 by MD JAY OAKES CHRISTOPHER S MD Oct 09, 2019 13:58
[2019-10-09 15:00] VITALS: BP 152/91
== END 2019-10-09 15:45 | disposition home health service (06) | DRG 546 ==
LOC: ER 22:57 → OBSVTOIN 10-07 00:10 → 5 SOUTH 10-07 00:10
PROVIDERS: ADMIT Internal Medicine; ATTEND Internal Medicine
DX: M06.9 Rheumatoid arthritis, unspecified (principal); I50.32 Chronic diastolic (congestive) heart failure; M17.0 Bilateral primary osteoarthritis of knee; W01.0XXA Fall on same level from slipping, tripping and stumbling without subsequent striking against object, initial encounter; D63.8 Anemia in other chronic diseases classified elsewhere; E11.9 Type 2 diabetes mellitus without complications; E78.00 Pure hypercholesterolemia, unspecified; E78.5 Hyperlipidemia, unspecified; F25.9 Schizoaffective disorder, unspecified; F32.9 Major depressive disorder, single episode, unspecified; M75.01 Adhesive capsulitis of right shoulder; F41.9 Anxiety disorder, unspecified; I11.0 Hypertensive heart disease with heart failure; M75.02 Adhesive capsulitis of left shoulder; I69.398 Other sequelae of cerebral infarction; J45.909 Unspecified asthma, uncomplicated; K21.9 Gastro-esophageal reflux disease without esophagitis; M35.3 Polymyalgia rheumatica; M79.7 Fibromyalgia; R29.6 Repeated falls; Z79.4 Long term (current) use of insulin; Z79.52 Long term (current) use of systemic steroids; Z82.49 Family history of ischemic heart disease and other diseases of the circulatory system; Z90.49 Acquired absence of other specified parts of digestive tract; Z90.710 Acquired absence of both cervix and uterus; Z96.659 Presence of unspecified artificial knee joint; H26.9 Unspecified cataract; M21.371 Foot drop, right foot; Y93.89 Activity, other specified; Y92.89 Other specified places as the place of occurrence of the external cause; Y99.8 Other external cause status
CPT/HCPCS: 36415; 70450; 73100; 73502; 80053; 81001; 82962; 85025; 85651; 86140; J1815; J1885; J2920; J7512; 97535; G0378

== ENCOUNTER 2019-10-11 06:02 | Emergency (ER) | payer MEDICARE, OTHER ==
[~2019-10-11] VITALS: Ht 177.8 cm; Wt 86.4 kg
--- NOTE | 2019-10-11 06:48 | PHYS DOC ---
Past Medical History Past Medical History: Arthritis, Asthma, CHF, Diabetes-Type II, Fibromyalgia, High Cholesterol, Hypertension, Schizophrenia, Other Additional Past Medical Histor: schizoaffective disorder, polymyalgia rheumatica, RA Past Surgical History: Appendectomy, Hysterectomy, Knee Replacement, Other Additional Past Surgical Histo: rectal surgery for fissures, cataract removed, back surgery Smoking Status: Never Smoker Alcohol Use: None Drug Use: None Adult General Chief Complaint Chief Complaint: CHEST PAIN HPI HPI Patient is a 74 year old f with cc of biba chest pain was on the toilet trying to have a bowel movement had chest pain really she said it was more like she just felt like "everything stopped working" she said she just felt like she was going to she just her arms and legs hurt her back hurt everything was just hurting really bad including her chest. unsure how long it lasted did not radiate has resolved now medics gave aspirin currently total body pain c/w known RA she tells me. hx limited by patient underlying schizophrenia. just d/c yesterday after admit for frequent falls denies fall now last stress test 2018, negative. Review of Systems Review of Systems Constitutional: Denies fever or chills [] Eyes: Denies change in visual acuity, redness, or eye pain [] HENT: Denies nasal congestion or sore throat [] Integument: Denies rash or skin lesions [] Neurologic: Denies headache, focal weakness or sensory changes [] Endocrine: Denies polyuria or polydipsia [] All other systems were reviewed and found to be within normal limits, except as documented in this note. Current Medications Current Medications Current Medications Medications (Trade) Dose Ordered Sig/Rocío Start Time Stop Time Status Last Admin Dose Admin Tramadol HCl (Ultram) 50 mg 1X ONCE 10/11/19 07:00 10/11/19 07:01 DC 10/11/19 07:06 50 MG Allergies Allergies Allergies Coded Allergies Type Severity Reaction Last Updated Verified divalproex sodium Allergy Intermediate neck and back pain 07/16/16 Yes fluticasone Allergy Intermediate COUGH 07/16/16 Yes latex Allergy Intermediate SURGICAL TAPE 07/16/16 Yes lisinopril Allergy Intermediate cough 07/16/16 Yes piroxicam Allergy Intermediate BLISTERS 07/16/16 Yes gabapentin Adverse Reaction Severe 12/12/16 Yes Physical Exam Physical Exam Constitutional: Well developed, well nourished, no acute distress, non-toxic appearance. [] HENT: Normocephalic, atraumatic, bilateral external ears normal, oropharynx moist, no oral exudates, nose normal. [] Eyes: PERRLA, EOMI, conjunctiva normal, no discharge. [] Neck: Normal range of motion, no tenderness, supple, no stridor. [] Cardiovascular:Heart rate regular rhythm, no murmur [] Lungs & Thorax: Bilateral breath sounds clear to auscultation [] Abdomen: Bowel sounds normal, soft, no tenderness, no masses, no pulsatile masses. [] Skin: Warm, dry, no erythema, no rash. [] Extremities: diffuse ttp noted. Neurologic: Alert and oriented X 3, normal motor function, normal sensory function, no focal deficits noted. [] Psychologic: odd affect Current Patient Data Vital Signs Vital Signs Date Time Temp Pulse Resp B/P (MAP) Pulse Ox O2 Delivery O2 Flow Rate FiO2 10/11/19 07:06 18 10/11/19 06:30 82 110/65 (80) 95 10/11/19 06:05 98.5 Room Air 98.5 Lab Values Laboratory Tests Test 10/11/19 06:25 10/11/19 08:29 White Blood Count 7.7 x10^3/uL (4.0-11.0) Red Blood Count 3.64 x10^6/uL (3.50-5.40) Hemoglobin 9.9 g/dL (12.0-15.5) L Hematocrit 30.9 % (36.0-47.0) L Mean Corpuscular Volume 85 fL (79-100) Mean Corpuscular Hemoglobin 27 pg (25-35) Mean Corpuscular Hemoglobin Concent 32 g/dL (31-37) Red Cell Distribution Width 17.1 % (11.5-14.5) H Platelet Count 286 x10^3/uL (140-400) Neutrophils (%) (Auto) 76 % (31-73) H Lymphocytes (%) (Auto) 13 % (24-48) L Monocytes (%) (Auto) 8 % (0-9) Eosinophils (%) (Auto) 3 % (0-3) Basophils (%) (Auto) 1 % (0-3) Neutrophils # (Auto) 5.9 x10^3/uL (1.8-7.7) Lymphocytes # (Auto) 1.0 x10^3/uL (1.0-4.8) Monocytes # (Auto) 0.6 x10^3/uL (0.0-1.1) Eosinophils # (Auto) 0.2 x10^3/uL (0.0-0.7) Basophils # (Auto) 0.1 x10^3/uL (0.0-0.2) Sodium Level 137 mmol/L (136-145) Potassium Level 3.4 mmol/L (3.5-5.1) L Chloride Level 99 mmol/L (98-107) Carbon Dioxide Level 28 mmol/L (21-32) Anion Gap 10 (6-14) Blood Urea Nitrogen 17 mg/dL (7-20) Creatinine 0.9 mg/dL (0.6-1.0) Estimated GFR (Cockcroft-Gault) 74.1 BUN/Creatinine Ratio 19 (6-20) Glucose Level 174 mg/dL (70-99) H Calcium Level 9.5 mg/dL (8.5-10.1) Total Bilirubin 0.3 mg/dL (0.2-1.0) Aspartate Amino Transferase (AST) 11 U/L (15-37) L Alanine Aminotransferase (ALT) 16 U/L (14-59) Alkaline Phosphatase 76 U/L (46-116) Troponin I Quantitative < 0.017 ng/mL (0.000-0.055) < 0.017 ng/mL (0.000-0.055) Total Protein 6.4 g/dL (6.4-8.2) Albumin 2.6 g/dL (3.4-5.0) L Albumin/Globulin Ratio 0.7 (1.0-1.7) L Laboratory Tests 10/11/19 06:25 Laboratory Tests 10/11/19 06:25 EKG EKG []nsr rate 84 no ischemic changes no stemi. Radiology/Procedures Radiology/Procedures [] Impressions: FINDINGS: A frontal view of the chest is obtained. There is no infiltrate, pleural effusion or pneumothorax. The heart is normal in size. There are multiple healed rib fractures. IMPRESSION: No acute pulmonary finding. Electronically signed by: Adelia Meadows MD (10/11/2019 7:55 AM) [id number] DICTATED and SIGNED BY: ADELIA MEADOWS MD DATE: 10/11/19 0755 Course & Med Decision Making Course & Med Decision Making Pertinent Labs and Imaging studies reviewed. (See chart for details) []pt with frequent and recurrent presentations for variou issues, chest pain, total body pain, frequent falls. currently with transient chest pain and actually total body pain in the setting of rheumatoid arthritis frequent visits and chronic pain while trying to have a bowel movement. negative stress test 2017. In the emergency room the patient was completely asymptomatic she was walking around the emergency room asking to go home. We did check 2 troponins they were both negative she had a EKG with no signs of ischemic changes she has had a recent stress test in the last couple of years she is very eager to go home the story is really not strongly consistent with unstable angina and in light of her negative troponins I think it is reasonable especially in light of a recent stress test in the last couple of years return precautions discussed for any recurrent chest pain at all and she voiced understanding. Dragon Disclaimer Dragon Disclaimer This electronic medical record was generated, in whole or in part, using a voice recognition dictation system. Departure Departure Impression: Primary Impression: Chest pain Disposition: HOME, SELF-CARE Condition: STABLE Referrals: UNKNOWN PCP NAME (PCP) CRYSTAL OHARA MD Oct 11, 2019 06:48
[2019-10-11] MEDS ORDERED: traMADol 50 MG TABLET PO ONE (07:00)
[2019-10-11 07:13] LABS: BASO # 0.1 x10^3/uL (0.0-0.2); BASO % 1 % (0-3); EOS # 0.2 x10^3/uL (0.0-0.7); EOS % 3 % (0-3); HEMATOCRIT 30.9 % (36.0-47.0); HEMOGLOBIN 9.9 g/dL (12.0-15.5); LYMPH % 13 % (24-48); MEAN CORPUSCULAR HEMOGLOBIN 27 pg (25-35); MEAN CORPUSCULAR HGB CONC 32 g/dL (31-37); MEAN CORPUSCULAR VOLUME 85 fL (79-100); MONO # 0.6 x10^3/uL (0.0-1.1); MONO % 8 % (0-9); NEUT # 5.9 x10^3/uL (1.8-7.7); NEUT % 76 % (31-73); PLATELET COUNT 286 x10^3/uL (140-400); RED BLOOD COUNT 3.64 x10^6/uL (3.50-5.40); RED CELL DISTRIBUTION WIDTH 17.1 % (11.5-14.5); WHITE BLOOD COUNT 7.7 x10^3/uL (4.0-11.0)
[2019-10-11 07:18] LABS: CALCIUM 9.5 mg/dL (8.5-10.1); CREATININE 0.9 mg/dL (0.6-1.0); GFR 74.1; POTASSIUM 3.4 mmol/L (3.5-5.1)
[2019-10-11 07:24] LABS: ALBUMIN 2.6 g/dL (3.4-5.0); ALBUMIN/GLOBULIN RATIO 0.7 (1.0-1.7); TOTAL BILIRUBIN 0.3 mg/dL (0.2-1.0); TOTAL PROTEIN 6.4 g/dL (6.4-8.2)
[2019-10-11 07:30] VITALS: BP 123/72
--- NOTE | 2019-10-11 07:58 | RAD ---
EXAM: Chest, single view. HISTORY: Chest pain. COMPARISON: 05/13/2019 FINDINGS: A frontal view of the chest is obtained. There is no infiltrate, pleural effusion or pneumothorax. The heart is normal in size. There are multiple healed rib fractures. IMPRESSION: No acute pulmonary finding. Electronically signed by: Adelia Meadows MD (10/11/2019 7:55 AM) [id number]
--- NOTE | 2019-10-11 08:30 | EKG ---
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
== END 2019-10-11 09:17 | disposition home or self-care (01) ==
LOC: ER 06:02
DX: R07.89 Other chest pain (principal); M19.90 Unspecified osteoarthritis, unspecified site; J45.909 Unspecified asthma, uncomplicated; I11.0 Hypertensive heart disease with heart failure; M79.7 Fibromyalgia; E11.9 Type 2 diabetes mellitus without complications; F20.9 Schizophrenia, unspecified; E78.00 Pure hypercholesterolemia, unspecified; Z90.49 Acquired absence of other specified parts of digestive tract; Z90.710 Acquired absence of both cervix and uterus; Z98.890 Other specified postprocedural states; Z91.040 Latex allergy status; Z88.6 Allergy status to analgesic agent; Z88.8 Allergy status to other drugs, medicaments and biological substances; Z88.1 Allergy status to other antibiotic agents
CPT/HCPCS: 36415; 71045; 80053; 84484; 85025; 93005; 99285

== ENCOUNTER 2019-10-13 08:25 | Emergency (ER) | payer MEDICARE, OTHER ==
[~2019-10-13] VITALS: Ht 177.8 cm; Wt 81.2 kg
--- NOTE | 2019-10-13 08:58 | PHYS DOC ---
Past Medical History Past Medical History: Arthritis, Asthma, CHF, Diabetes-Type II, Fibromyalgia, High Cholesterol, Hypertension, Schizophrenia, Other Additional Past Medical Histor: schizoaffective disorder, polymyalgia rheumatica, RA Past Surgical History: Appendectomy, Hysterectomy, Knee Replacement, Other Additional Past Surgical Histo: rectal surgery for fissures, cataract removed, back surgery Smoking Status: Never Smoker Alcohol Use: None Drug Use: None Adult General Chief Complaint Chief Complaint: MULTIPLE COMPLAINTS HPI HPI Patient is a 74 year old -[place] female with history of schizophrenia and reportedly lives at home by herself. She is brought in by EMS due to a complaint of concern for coronavirus. Patient states that she thought she felt warm this morning. She denies cough or shortness of breath or recent travel or exposures. When the patient arrived in the emergency department she was rather disheveled and very talkative. Review of Systems Review of Systems All other systems were reviewed and found to be within normal limits, except as documented in this note. Allergies Allergies Allergies Coded Allergies Type Severity Reaction Last Updated Verified divalproex sodium Allergy Intermediate neck and back pain 07/16/16 Yes fluticasone Allergy Intermediate COUGH 07/16/16 Yes latex Allergy Intermediate SURGICAL TAPE 07/16/16 Yes lisinopril Allergy Intermediate cough 07/16/16 Yes piroxicam Allergy Intermediate BLISTERS 07/16/16 Yes gabapentin Adverse Reaction Severe 12/12/16 Yes Physical Exam Physical Exam Constitutional: Well developed, disheveled, no acute distress, non-toxic appearance. [] HENT: Normocephalic, atraumatic, bilateral external ears normal, oropharynx moist, no oral exudates, nose normal. [] Eyes: PERRLA, EOMI, conjunctiva normal, no discharge. [] Neck: Normal range of motion, no tenderness, supple, no stridor. [] Cardiovascular:Heart rate regular rhythm, no murmur [] Lungs & Thorax: Bilateral breath sounds clear to auscultation [] Abdomen: Bowel sounds normal, soft, no tenderness, no masses, no pulsatile masses. [] Skin: Warm, dry, no erythema, no rash. [] Back: No tenderness, no CVA tenderness. [] Extremities: No tenderness, no cyanosis, no clubbing, ROM intact, no edema. [] Neurologic: Alert and oriented X 3, normal motor function, normal sensory function, no focal deficits noted. [] Psychologic: No SI/HI EKG EKG [] Radiology/Procedures Radiology/Procedures [] Course & Med Decision Making Course & Med Decision Making Pertinent Labs and Imaging studies reviewed. (See chart for details) 0857: This patient is seen for concern for possible coronavirus. She is afebrile in the ER and has no symptoms consistent with coronavirus. Her blood pressure is elevated but she has not taken her home medications so I will order these for her. Patient at this time is stable for discharge as I see no emergent medical condition. Dragon Disclaimer Dragon Disclaimer This electronic medical record was generated, in whole or in part, using a voice recognition dictation system. Departure Departure Impression: Primary Impression: Encounter for medical screening examination Additional Impression: Hypertension Disposition: 01 HOME, SELF-CARE Condition: STABLE Referrals: UNKNOWN PCP NAME (PCP) Additional Instructions: Please follow-up with your doctor for blood pressure check Problem Qualifiers TONY BURNS DO Oct 13, 2019 08:58
[2019-10-13] MEDS ORDERED: CARVEDILOL 12.5 MG TABLET. PO ONE (09:15)
[2019-10-13] MEDS ORDERED: amLODIPine BESYLATE 5 MG TABLET PO ONE (09:15)
[2019-10-13] MEDS ORDERED: cloNIDine HCL 0.1 MG TABLET PO ONE (09:15)
[2019-10-13] MEDS ORDERED: CARVEDILOL 12.5 MG TABLET. PO SCH (09:15)
[2019-10-13 09:20] VITALS: BP 206/109
== END 2019-10-13 10:02 | disposition home or self-care (01) ==
LOC: ER 08:25
DX: I11.0 Hypertensive heart disease with heart failure (principal); I50.9 Heart failure, unspecified; E11.8 Type 2 diabetes mellitus with unspecified complications; E78.00 Pure hypercholesterolemia, unspecified; J45.909 Unspecified asthma, uncomplicated; F20.9 Schizophrenia, unspecified; Z91.040 Latex allergy status; Z88.8 Allergy status to other drugs, medicaments and biological substances
CPT/HCPCS: 99284

== ENCOUNTER 2020-02-22 07:57 | Emergency (ER) | payer MEDICARE, OTHER ==
[~2020-02-22] VITALS: Ht 162.6 cm; Wt 72.0 kg
[~2020-02-22 07:57] MED LIST changes: +0.92DISP2 IV; +BISA5TAB4 PO; +CEFTRIAXONE SODIUM IVP; -DICL100G18 TP; +DICL100G54 TP; +LACT1CAP19 PO; +SENN-22 PO; +VANC1.5V3 IV
[2020-02-22] MEDS ORDERED: ACETAMINOPHEN 500 MG TABLET PO ONE (08:30)
--- NOTE | 2020-02-22 09:22 | RAD ---
EXAM: PORTABLE CHEST 1V, PELVIS INDICATION: Reason: fall, CHEST PAIN / Spl. Instructions: / History: . TECHNIQUE: Single view COMPARISON: 10/30/2019 FINDINGS: The heart size is upper normal. The great vessels appear unremarkable. There is no hilar or mediastinal mass. The lungs show no focal infiltrates.. There is no pleural effusion or pneumothorax. There is evidence of degenerative change in the left greater than right glenohumeral joints as well as old healed fractures in the posterior superior left ribs. No acute fractures are identified. IMPRESSION: No acute traumatic findings in the chest. Pelvis AP single view INDICATION: Fall. Right hip pain. COMPARISON: None. FINDINGS: The iliac crests are not fully included in the [id number]. Visualized pelvic ring is intact. No fracture or dislocation of the hips are seen. A catheter projecting over the perineum is present. IMPRESSION: No evidence of a pelvic fracture with the iliac crests not fully imaged. Electronically signed by: Tyrese Mitchell MD (02/22/2020 9:20 AM) [id number]
--- NOTE | 2020-02-22 09:22 | RAD ---
EXAM: PORTABLE CHEST 1V, PELVIS INDICATION: Reason: fall, CHEST PAIN / Spl. Instructions: / History: . TECHNIQUE: Single view COMPARISON: 10/30/2019 FINDINGS: The heart size is upper normal. The great vessels appear unremarkable. There is no hilar or mediastinal mass. The lungs show no focal infiltrates.. There is no pleural effusion or pneumothorax. There is evidence of degenerative change in the left greater than right glenohumeral joints as well as old healed fractures in the posterior superior left ribs. No acute fractures are identified. IMPRESSION: No acute traumatic findings in the chest. Pelvis AP single view INDICATION: Fall. Right hip pain. COMPARISON: None. FINDINGS: The iliac crests are not fully included in the [id number]. Visualized pelvic ring is intact. No fracture or dislocation of the hips are seen. A catheter projecting over the perineum is present. IMPRESSION: No evidence of a pelvic fracture with the iliac crests not fully imaged. Electronically signed by: Tyrese Mitchell MD (02/22/2020 9:20 AM) [id number]
--- NOTE | 2020-02-22 09:28 | RAD ---
CT HEAD AND CERVICAL SPINE WO Date: 02/22/2020 8:25 AM Clinical Indication: fall, hit posterior head Comparison: CT 11/21/2019. MRI C-spine 11/21/2019 Technique: 5 mm axial tomographic images were obtained of the head without contrast. These were viewed on brain and bone windows. Noncontrast CT of the cervical spine was performed. Sagittal and coronal reformats were performed and evaluated. One or more of the following dose reduction techniques were utilized: Automated exposure control (AEC), Adjustment of mA and/or kV according to patient size, Use of iterative reconstruction technique such as ASiR, CT scan done according to ALARA and image gently/image wisely HEAD FINDINGS: Mild generalized cerebral and cerebellar volume loss. Moderate nonspecific periventricular hypoattenuation, most commonly seen with chronic small vessel ischemic disease. No intra- or extra-axial mass or fluid collection. No acute hemorrhage. The ventricles are normal in size, shape, and morphology. The avelar-white matter junction is normal. The basilar cisterns are patent. The visualized paranasal sinuses are normal. The visualized portions of the orbits and globes are normal. The mastoid air cells are clear. No aggressive osseous lesion or fracture. CERVICAL SPINE FINDINGS: Reversal of the cervical lordosis. Trace anterolisthesis at C3-4 and C4-5. No acute fracture. Severe multilevel degenerative disc space height loss. Multilevel mild and moderate spinal canal stenosis secondary to disc protrusions and marginal osteophytes. Multilevel moderate to severe neuroforaminal narrowing secondary to uncovertebral arthrosis. Multilevel moderate to severe facet arthrosis. Thyroid nodules measuring less than 1.5 cm, not requiring further evaluation based on size criteria. No cervical lymphadenopathy. Bilateral carotid atherosclerosis. The visualized aerodigestive tract is normal. The visualized portions of the lungs are clear. IMPRESSION: 1. No acute intracranial process. 2. No acute cervical spine fracture. 3. Severe degenerative cervical spondylosis. Electronically signed by: Lopez Green MD (02/22/2020 9:25 AM) [id number]
--- NOTE | 2020-02-22 09:45 | PHYS DOC ---
Past Medical History Past Medical History: Arthritis, Asthma, CHF, Depression, Diabetes-Type II, Fibromyalgia, GERD, High Cholesterol, Hypertension, Schizophrenia, Other Additional Past Medical Histor: schizoaffective disorder, polymyalgia rheumatica, RA, DEMENTIA Past Surgical History: Appendectomy, Hysterectomy, Knee Replacement, Other Additional Past Surgical Histo: rectal surgery for fissures, cataract removed, back surgery Smoking Status: Unknown if ever smoked Alcohol Use: None Drug Use: None General Adult EDM: Chief Complaint: MECHANICAL FALL HPI: HPI: Patient is a 74 year old female who presents from the longterm for a fall. This was mechanical in nature and suffered and she was reaching away from her walker to grab a glass of water when she became unbalanced and fell hitting her right hip and subsequent right posterior head. She denies any loss of consciousness. She denies any known lacerations or other injuries. She admits being on aspirin 81 mg daily, no other blood thinner use. Only pain at present is to posterior head and right hip. EMS was called by longterm facility given extent of injury for medical evaluation Review of Systems: Review of Systems: Fourteen body systems of review of systems have been reviewed. See HPI for pertinent positives and negative responses, other oliva all other systems are negative, non-pertinent or non-contributory Denies loss of consciousness, headache, laceration, prodromal symptoms prior to fall, known COVID-19 exposure, changes in bladder or bowel incontinence Heart Score: HEART Score for Chest Pain: HEART Score for Chest Pain Response (Comments) Value History Slighlty/Non-Suspicious 0 ECG Normal 0 Total 0 Risk Factors: Risk Factors: DM, Current or recent (<one month) smoker, HTN, HLP, family history of CAD, obesity. Risk Scores: Score 0 - 3: 2.5% MACE over next 6 weeks - Discharge Home Score 4 - 6: 20.3% MACE over next 6 weeks - Admit for Clinical Observation Score 7 - 10: 72.7% MACE over next 6 weeks - Early Invasive Strategies Current Medications: Current Medications Medications (Trade) Dose Ordered Sig/Rocío Start Time Stop Time Status Last Admin Dose Admin Acetaminophen (Tylenol) 1,000 mg 1X ONCE 02/22/20 08:30 02/22/20 08:31 DC 02/22/20 08:46 1,000 MG Allergies: Allergies: Allergies Coded Allergies Type Severity Reaction Last Updated Verified Sulfa (Sulfonamide Antibiotics) Allergy Intermediate 02/22/20 Yes divalproex sodium Allergy Intermediate neck and back pain 02/22/20 Yes fluticasone Allergy Intermediate COUGH 02/22/20 Yes latex Allergy Intermediate SURGICAL TAPE 02/22/20 Yes lisinopril Allergy Intermediate cough 02/22/20 Yes piroxicam Allergy Intermediate BLISTERS 02/22/20 Yes gabapentin Adverse Reaction Severe 02/22/20 Yes Physical Exam: PE: Constitutional: Pt is oriented to person, place, and time. Pt appears well- developed and well-nourished. Reports being exclusively bedbound with minimal ambulation via walker HENT: Head: Normocephalic and atraumatic. Mouth/Throat: Oropharynx is clear and moist. No hematomas or lacerations or abrasions to face or scalp OP clear, no blood, no malocclusion, dentition intact Nares clear, no nasal septal hematoma TMs clear, no hemotympanum Midface stable, no palpable abnormalities, near complete resolution of left cheek ecchymosis from prior fall suffered less than 30 days ago Eyes: Conjunctivae and EOM are normal. Pupils are equal, round, and reactive to light. Neck: C-spine midline nontender, no step-offs Cardiovascular: Normal rate, regular rhythm and normal heart sounds. Pulmonary/Chest: Effort normal and breath sounds normal. No respiratory distress. He has no wheezes. CTA bilaterally Abdominal: Soft. Bowel sounds are normal. Pt exhibits no distension. There is no tenderness. Musculoskeletal: No bony tenderness to extremities, no deformities, full ROM extremities, decreased ROM of right hip secondary to pain Chest wall stable Pelvis stable No vertebral TTP and spine without stepoffs Palpable abnormality of right posterior leg, enlarged, firm mass without fluctuance. Mild ecchymosis. No warmth, no purulence, consistent with potential torn right hamstring. Unknown if this is a chronic problem per patient Neurological: Pt is alert and oriented to person, place, and time. Moving all extremities willfully, able to wiggle all fingers and toes Alert and oriented x 3 Sensation grossly intact Skin: Skin is warm and dry. No abrasions, no lacerations Psychiatric: Behavior is appropriate for situation Nursing note and vitals reviewed. Current Patient Data: Labs: Current Medications Medications (Trade) Dose Ordered Sig/Rocío Route PRN Reason Start Time Stop Time Status Last Admin Dose Admin Acetaminophen (Tylenol) 1,000 mg 1X ONCE PO 02/22/20 08:30 02/22/20 08:31 DC 02/22/20 08:46 Vital Signs: Vital Signs Date Time Temp Pulse Resp B/P (MAP) Pulse Ox O2 Delivery O2 Flow Rate FiO2 02/22/20 11:31 74 02/22/20 11:00 75 02/22/20 10:31 75 02/22/20 10:01 73 02/22/20 09:32 75 02/22/20 08:29 73 98 02/22/20 08:00 97.6 68 18 176/92 (120) 97 Room Air 97.6 EKG: EKG: EKG ordered and interpreted by myself at 0941 hrs. as normal sinus rhythm 72 bpm, unremarkable intervals besides QTC 451, mild left axis deviation, no ischemic changes, no STEMI Radiology/Procedures: Radiology/Procedures: EXAM: PORTABLE CHEST 1V, PELVIS INDICATION: Reason: fall, CHEST PAIN / Spl. Instructions: / History: . TECHNIQUE: Single view COMPARISON: 10/30/2019 FINDINGS: The heart size is upper normal. The great vessels appear unremarkable. There is no hilar or mediastinal mass. The lungs show no focal infiltrates.. There is no pleural effusion or pneumothorax. There is evidence of degenerative change in the left greater than right glenohumeral joints as well as old healed fractures in the posterior superior left ribs. No acute fractures are identified. IMPRESSION: No acute traumatic findings in the chest. Pelvis AP single view INDICATION: Fall. Right hip pain. COMPARISON: None. FINDINGS: The iliac crests are not fully included in the [id number]. Visualized pelvic ring is intact. No fracture or dislocation of the hips are seen. A catheter projecting over the perineum is present. IMPRESSION: No evidence of a pelvic fracture with the iliac crests not fully imaged. Electronically signed by: Tyrese Mitchell MD (02/22/2020 9:20 AM) [id number] PROCEDURE: CT HEAD AND CERVICAL SPINE WO CT HEAD AND CERVICAL SPINE WO Date: 02/22/2020 8:25 AM Clinical Indication: fall, hit posterior head Comparison: CT 11/21/2019. MRI C-spine 11/21/2019 Technique: 5 mm axial tomographic images were obtained of the head without contrast. These were viewed on brain and bone windows. Noncontrast CT of the cervical spine was performed. Sagittal and coronal reformats were performed and evaluated. One or more of the following dose reduction techniques were utilized: Automated exposure control (AEC), Adjustment of mA and/or kV according to patient size, Use of iterative reconstruction technique such as ASiR, CT scan done according to ALARA and image gently/image wisely HEAD FINDINGS: Mild generalized cerebral and cerebellar volume loss. Moderate nonspecific periventricular hypoattenuation, most commonly seen with chronic small vessel ischemic disease. No intra- or extra-axial mass or fluid collection. No acute hemorrhage. The ventricles are normal in size, shape, and morphology. The avelar-white matter junction is normal. The basilar cisterns are patent. The visualized paranasal sinuses are normal. The visualized portions of the orbits and globes are normal. The mastoid air cells are clear. No aggressive osseous lesion or fracture. CERVICAL SPINE FINDINGS: Reversal of the cervical lordosis. Trace anterolisthesis at C3-4 and C4-5. No acute fracture. Severe multilevel degenerative disc space height loss. Multilevel mild and moderate spinal canal stenosis secondary to disc protrusions and marginal osteophytes. Multilevel moderate to severe neuroforaminal narrowing secondary to uncovertebral arthrosis. Multilevel moderate to severe facet arthrosis. Thyroid nodules measuring less than 1.5 cm, not requiring further evaluation based on size criteria. No cervical lymphadenopathy. Bilateral carotid atherosclerosis. The visualized aerodigestive tract is normal. The visualized portions of the lungs are clear. IMPRESSION: 1. No acute intracranial process. 2. No acute cervical spine fracture. 3. Severe degenerative cervical spondylosis. Electronically signed by: Lopez Green MD (02/22/2020 9:25 AM) [id number] Course & Med Decision Making: Course & Med Decision Making Patient seen and examined by myself on immediate ED arrival Hemodynamically stable, mechanism of presenting injury concerning an elderly female taking 81 mg aspirin daily Comprehensive physical exam grossly non-concerning besides palpable right posterior leg abnormality, unsure if this is acute or chronic per patient Pertinent labs and imaging ordered and grossly non-concerning Discussed potential need for imaging and further work-up of right lower extremity; however, patient with full capacity denied this She reports having physician at longterm she can discuss this with Ultimately, patient medically clear from my standpoint after suffering mechanical fall. Strict return precautions discussed at length with good understanding by patient. All questions and concerns addressed prior to departure Patient discharged in stable condition back to longterm via EMS with instructions for close PCP follow-up regarding care after fall and to evaluate right posterior leg in outpatient setting Moisés Disclaimer: Moisés Disclaimer: This electronic medical record was generated, in whole or in part, using a voice recognition dictation system. Departure Departure Impression: Primary Impression: Multiple falls Additional Impression: Anxiety Disposition: 01 HOME, SELF-CARE Condition: STABLE Referrals: UNKNOWN PCP NAME (PCP) As discussed prior to ER departure, please follow-up with your longterm physician Patient Instructions: Fall Prevention and Home Safety, [id number] Additional Instructions: As discussed prior to your ER departure today, please follow-up with your longterm physician for continuity of care Please discuss multiple falls with the other longterm physician You did not want your right lower extremity imaged any further during this ER visit, so, I recommend you discuss this with your longterm physician to determine if further imaging is indicated in outpatient setting Justicifation of Admission Dx: Justifications for Admission: Justification of Admission Dx: N/A RENETTA NAJERA DO Feb 22, 2020 09:45
[2020-02-22 11:31] VITALS: BP 203/97
--- NOTE | 2020-02-25 13:53 | EKG ---
[facility] [address] [place] [address] Test Date: 2020-02-22 Test Time: 09:34:36 Pat Name: CRISTOBAL BLOOD Department: Room: Gender: F Inspector Cold Working: : 1945 Requested By: RENETTA NAJERA Order Number: [id number] Reading MD: Measurements Intervals [place] Rate: 72 P: 72 CO: 150 QRS: 7 QRSD: 88 T: 56 QT: 410 QTc: 451 Interpretive Statements SINUS RHYTHM LEFT ATRIAL ABNORMALITY ABNORMAL ECG RI6.01 No previous ECG available for comparison
== END 2020-02-22 11:48 | disposition home or self-care (01) ==
LOC: ER 07:57
DX: S00.83XA Contusion of other part of head, initial encounter (principal); S80.11XA Contusion of right lower leg, initial encounter; F41.9 Anxiety disorder, unspecified; M25.551 Pain in right hip; M47.812 Spondylosis without myelopathy or radiculopathy, cervical region; J45.909 Unspecified asthma, uncomplicated; K21.9 Gastro-esophageal reflux disease without esophagitis; E78.00 Pure hypercholesterolemia, unspecified; I11.0 Hypertensive heart disease with heart failure; I50.9 Heart failure, unspecified; E11.9 Type 2 diabetes mellitus without complications; F25.9 Schizoaffective disorder, unspecified; F03.90 Unspecified dementia, unspecified severity, without behavioral disturbance, psychotic disturbance, mood disturbance, and anxiety; Z88.2 Allergy status to sulfonamides; Z91.040 Latex allergy status; Z88.8 Allergy status to other drugs, medicaments and biological substances; W18.09XA Striking against other object with subsequent fall, initial encounter; Y93.89 Activity, other specified; Y92.89 Other specified places as the place of occurrence of the external cause; Y99.8 Other external cause status
CPT/HCPCS: 70450; 71045; 72125; 72170; 93005; 99285-25

== ENCOUNTER 2020-02-24 02:21 | Inpatient (IN) | payer MEDICARE, OTHER ==
[~2020-02-24] VITALS: Ht 177.8 cm; Wt 81.6 kg
[2020-02-24 02:49] LABS: BILIRUBIN,URINE NEGATIVE (NEG); CLARITY,URINE CLEAR; COLOR,URINE YELLOW; NITRITE,URINE NEGATIVE (NEG); PH,URINE 7.5 (<5.0-8.0); PROTEIN,URINE 100 mg/dL (NEG-TRACE); UROBILINOGEN,URINE 0.2 mg/dL (0.2 mg/dL)
[2020-02-24 02:56] LABS: SQUAMOUS EPITHELIAL CELL,UR FEW /LPF
[2020-02-24 02:57] LABS: AMORPHOUS SEDIMENT,UR PRESENT /HPF; BACTERIA,URINE 0 /HPF (0-FEW); RBC,URINE RARE /HPF (0-2); WBC,URINE RARE /HPF (0-4)
[2020-02-24] MEDS ORDERED: LABETALOL 20 MG/4 ML DISP.SYRIN. IVP ONE (03:30)
[2020-02-24 03:33] LABS: BASO % 1 % (0-3); EOS # 0.2 x10^3/uL (0.0-0.7); EOS % 2 % (0-3); HEMATOCRIT 23.5 % (36.0-47.0); HEMOGLOBIN 7.9 g/dL (12.0-15.5); LYMPH # 1.1 x10^3/uL (1.0-4.8); LYMPH % 13 % (24-48); MEAN CORPUSCULAR HEMOGLOBIN 28 pg (25-35); MEAN CORPUSCULAR HGB CONC 34 g/dL (31-37); MEAN CORPUSCULAR VOLUME 83 fL (79-100); MONO % 13 % (0-9); NEUT # 5.7 x10^3/uL (1.8-7.7); NEUT % 71 % (31-73); PLATELET COUNT 316 x10^3/uL (140-400); RED BLOOD COUNT 2.85 x10^6/uL (3.50-5.40); RED CELL DISTRIBUTION WIDTH 19.2 % (11.5-14.5)
[2020-02-24 03:42] LABS: CALCIUM 8.8 mg/dL (8.5-10.1); CREATININE 0.9 mg/dL (0.6-1.0); GFR 74.1; POTASSIUM 3.7 mmol/L (3.5-5.1)
[2020-02-24 03:46] LABS: PROTHROMBIN TIME PATIENT 13.3 SEC (11.7-14.0)
[2020-02-24 03:48] LABS: ALBUMIN 2.7 g/dL (3.4-5.0); ALBUMIN/GLOBULIN RATIO 0.7 (1.0-1.7); MAGNESIUM 1.7 mg/dL (1.8-2.4); TOTAL BILIRUBIN 0.4 mg/dL (0.2-1.0); TOTAL PROTEIN 6.8 g/dL (6.4-8.2)
[2020-02-24] MEDS ORDERED: fentaNYL PF VIAL 100 MCG/2 ML VIAL IV ONE (04:00)
--- NOTE | 2020-02-24 04:26 | RAD ---
INDICATION: Reason: forehead contusion, pain / Spl. Instructions: / History: COMPARISON: February 22, 2020 TECHNIQUE: Axial CT images obtained through the head and cervical spine. One or more of the following individualized dose reduction techniques were utilized for this examination: 1. Automated exposure control; 2. Adjustment of the mA and/or kV according to patient size; 3. Use of iterative reconstruction technique. FINDINGS: Head: Frontal scalp cephalohematoma. Diffuse prominence of ventricles and sulci which can be seen with age-related volume loss. Multifocal regions of low density of the white matter. Nonspecific in nature but can be seen with chronic small vessel ischemic disease. No definite acute intracranial hemorrhage. Cervical spine: Degenerative changes throughout the cervical spine with disc protrusions and osteophyte formation at the vertebral body endplates as well as facet and uncovertebral hypertrophy with multilevel central canal and neural foraminal stenosis. Grade 1 anterolisthesis of C3 on 4 and C4 on 5. Destructive changes at C7 and T1 centered at the endplate. No definite acute fracture line is not seen. Calcifications of the left lobe of the thyroid with bilateral heterogeneity of thyroid. IMPRESSION: * No acute intracranial hemorrhage. There is a scalp cephalohematoma. * Scattered foci of low-density in the white matter. Nonspecific but can be seen with chronic small vessel ischemic disease. * Redemonstration of degenerative changes throughout the cervical spine with multilevel central canal and neural foraminal stenosis. * Repeat demonstration of destructive changes at C7 and T1 which could be secondary to sequela of discitis osteomyelitis. * An definite acute fracture of the cervical spine is not seen. * Suspected thyroid nodules Electronically signed by: Fred Valera MD (02/24/2020 4:23 AM) [id number]
--- NOTE | 2020-02-24 05:01 | PHYS DOC ---
Past Medical History Past Medical History: Arthritis, Asthma, CHF, Dementia, Depression, Diabetes- Type II, Fibromyalgia, GERD, High Cholesterol, Hypertension, Schizophrenia, Other Additional Past Medical Histor: schizoaffective disorder, polymyalgia rheumatica, RA Past Medical History Limited secondary to dementia Past Surgical History: Appendectomy, Hysterectomy, Knee Replacement, Other Additional Past Surgical Histo: rectal surgery for fissures, cataract removed, back surgery Past Surgical History Limited secondary to dementia Smoking Status: Unknown if ever smoked Alcohol Use: None Drug Use: None Social History Limited secondary to dementia General Adult EDM: Chief Complaint: MECHANICAL FALL HPI: HPI: 74 year old female presents via EMS with history of fall from wheelchair at [facility] just prior to arrival. Hx of dementia. Patient noted to have large hematoma to forehead. Denies chest pain. Denies fever/chills. Denies cough. Denies dysuria. History of present illness limited secondary to dementia. Review of Systems: Review of Systems: Review of systems limited secondary to dementia Current Medications: Current Medications Medications (Trade) Dose Ordered Sig/Rocío Start Time Stop Time Status Last Admin Dose Admin Fentanyl Citrate (Fentanyl 2ml Vial) 25 mcg 1X ONCE 02/24/20 04:00 02/24/20 04:01 DC 02/24/20 03:49 25 MCG Hydralazine HCl (Apresoline Inj) 10 mg 1X ONCE 02/24/20 05:00 02/24/20 05:01 UNV Labetalol HCl (Normodyne Iv Push) 10 mg 1X ONCE 02/24/20 03:30 02/24/20 03:31 DC 02/24/20 03:54 10 MG Allergies: Allergies: Allergies Coded Allergies Type Severity Reaction Last Updated Verified Sulfa (Sulfonamide Antibiotics) Allergy Intermediate 02/22/20 Yes divalproex sodium Allergy Intermediate neck and back pain 02/22/20 Yes fluticasone Allergy Intermediate COUGH 02/22/20 Yes latex Allergy Intermediate SURGICAL TAPE 02/22/20 Yes lisinopril Allergy Intermediate cough 02/22/20 Yes piroxicam Allergy Intermediate BLISTERS 02/22/20 Yes gabapentin Adverse Reaction Severe 02/22/20 Yes Physical Exam: PE: Constitutional: Well developed, well nourished, no acute distress, non-toxic appearance HENT: Normocephalic, forehead contusion/hematoma noted Eyes: PERRL, EOMI, conjunctiva normal, no discharge, no nystagmus noted Neck: C-collar in place, supple Lungs & Thorax: No respiratory distress, equal chest rise and fall Abdomen: Soft, no tenderness, pelvis stable and nontender Skin: Warm, dry, no erythema, forehead hematoma noted as above Back: No midline tenderness, no CVA tenderness Extremities: No tenderness, ROM intact, no deformity Neurologic: Alert and oriented to name and place, confused to time, normal motor function, normal sensory function, no focal deficits noted Psychologic: Affect normal, judgment abnormal Current Patient Data: Labs: Laboratory Tests Test 02/24/20 02:45 02/24/20 03:25 Urine Collection Type Unknown Urine Color Yellow Urine Clarity Clear Urine pH 7.5 (<5.0-8.0) Urine Specific [place] 1.010 (1.000-1.030) Urine Protein 100 mg/dL (NEG-TRACE) Urine Glucose (UA) Negative mg/dL (NEG) Urine Ketones (Stick) Negative mg/dL (NEG) Urine Blood Negative (NEG) Urine Nitrite Negative (NEG) Urine Bilirubin Negative (NEG) Urine Urobilinogen Dipstick 0.2 mg/dL (0.2 mg/dL) Urine Leukocyte Esterase Negative (NEG) Urine RBC Rare /HPF (0-2) Urine WBC Rare /HPF (0-4) Urine Squamous Epithelial Cells Few /LPF Urine Amorphous Sediment Present /HPF Urine Bacteria 0 /HPF (0-FEW) White Blood Count 8.0 x10^3/uL (4.0-11.0) Red Blood Count 2.85 x10^6/uL (3.50-5.40) L Hemoglobin 7.9 g/dL (12.0-15.5) L Hematocrit 23.5 % (36.0-47.0) L Mean Corpuscular Volume 83 fL (79-100) Mean Corpuscular Hemoglobin 28 pg (25-35) Mean Corpuscular Hemoglobin Concent 34 g/dL (31-37) Red Cell Distribution Width 19.2 % (11.5-14.5) H Platelet Count 316 x10^3/uL (140-400) Neutrophils (%) (Auto) 71 % (31-73) Lymphocytes (%) (Auto) 13 % (24-48) L Monocytes (%) (Auto) 13 % (0-9) H Eosinophils (%) (Auto) 2 % (0-3) Basophils (%) (Auto) 1 % (0-3) Neutrophils # (Auto) 5.7 x10^3/uL (1.8-7.7) Lymphocytes # (Auto) 1.1 x10^3/uL (1.0-4.8) Monocytes # (Auto) 1.0 x10^3/uL (0.0-1.1) Eosinophils # (Auto) 0.2 x10^3/uL (0.0-0.7) Basophils # (Auto) 0.0 x10^3/uL (0.0-0.2) Prothrombin Time 13.3 SEC (11.7-14.0) Prothrombin Time INR 1.1 (0.8-1.1) Activated Partial Thromboplast Time 30 SEC (24-38) Sodium Level 130 mmol/L (136-145) L Potassium Level 3.7 mmol/L (3.5-5.1) Chloride Level 96 mmol/L (98-107) L Carbon Dioxide Level 30 mmol/L (21-32) Anion Gap 4 (6-14) L Blood Urea Nitrogen 14 mg/dL (7-20) Creatinine 0.9 mg/dL (0.6-1.0) Estimated GFR (Cockcroft-Gault) 74.1 BUN/Creatinine Ratio 16 (6-20) Glucose Level 163 mg/dL (70-99) H Calcium Level 8.8 mg/dL (8.5-10.1) Magnesium Level 1.7 mg/dL (1.8-2.4) L Total Bilirubin 0.4 mg/dL (0.2-1.0) Aspartate Amino Transferase (AST) 19 U/L (15-37) Alanine Aminotransferase (ALT) 24 U/L (14-59) Alkaline Phosphatase 118 U/L (46-116) H Creatine Kinase 312 U/L (26-192) H Creatine Kinase MB (Mass) 2.5 ng/mL (0.0-3.6) Creatine Kinase MB Relative Index 0.8 % (0-4) Troponin I Quantitative < 0.017 ng/mL (0.000-0.055) Total Protein 6.8 g/dL (6.4-8.2) Albumin 2.7 g/dL (3.4-5.0) L Albumin/Globulin Ratio 0.7 (1.0-1.7) L Laboratory Tests 02/24/20 03:25 Laboratory Tests 02/24/20 03:25 Vital Signs: Vital Signs Date Time Temp Pulse Resp B/P (MAP) Pulse Ox O2 Delivery O2 Flow Rate FiO2 02/24/20 03:54 80 203/108 02/24/20 03:49 19 Room Air EKG: EKG: @0546 NSR at 84bpm, NO ST elevation, QRS 88ms, QT/QTc 374/445ms Radiology/Procedures: Radiology/Procedures: PROCEDURE: CT HEAD AND CERVICAL SPINE WO INDICATION: Reason: forehead contusion, pain / Spl. Instructions: / History: COMPARISON: February 22, 2020 TECHNIQUE: Axial CT images obtained through the head and cervical spine. One or more of the following individualized dose reduction techniques were utilized for this examination: 1. Automated exposure control; 2. Adjustment of the mA and/or kV according to patient size; 3. Use of iterative reconstruction technique. FINDINGS: Head: Frontal scalp cephalohematoma. Diffuse prominence of ventricles and sulci which can be seen with age-related volume loss. Multifocal regions of low density of the white matter. Nonspecific in nature but can be seen with chronic small vessel ischemic disease. No definite acute intracranial hemorrhage. Cervical spine: Degenerative changes throughout the cervical spine with disc protrusions and osteophyte formation at the vertebral body endplates as well as facet and uncovertebral hypertrophy with multilevel central canal and neural foraminal stenosis. Grade 1 anterolisthesis of C3 on 4 and C4 on 5. Destructive changes at C7 and T1 centered at the endplate. No definite acute fracture line is not seen. Calcifications of the left lobe of the thyroid with bilateral heterogeneity of thyroid. IMPRESSION: * No acute intracranial hemorrhage. There is a scalp cephalohematoma. * Scattered foci of low-density in the white matter. Nonspecific but can be seen with chronic small vessel ischemic disease. * Redemonstration of degenerative changes throughout the cervical spine with multilevel central canal and neural foraminal stenosis. * Repeat demonstration of destructive changes at C7 and T1 which could be secondary to sequela of discitis osteomyelitis. * An definite acute fracture of the cervical spine is not seen. * Suspected thyroid nodules Electronically signed by: Fred Valera MD (02/24/2020 4:23 AM) [id number] Course & Med Decision Making: Course & Med Decision Making Pertinent Labs and Imaging studies reviewed. (See chart for details) Elderly patient with past medical history of dementia presents from long term via EMS with report of fall out of wheelchair. Patient noted to have forehead hematoma. No history of use of anticoagulant. Patient appears neurologically at her baseline. C-collar placed by EMS prior to arrival. CT head/cervical spine without acute fracture or internal hemorrhage. Notation of forehead hematoma noted. C-collar cleared. Labs obtained and posted to chart. Significant anemia noted in comparison to prior. EKG stable. Blood pressure noted to be 200s over 100s consistently. Labetalol provided without improvement. Hydralazine therefore provided. Patient requiring admission for further evaluation and treatment. Discussed with Dr. Dyer (hospitalist) who is in agreement with admission. Discussed findings and plan with patient, who acknowledges understanding and agreement. Dragon Disclaimer: Dragon Disclaimer: This electronic medical record was generated, in whole or in part, using a voice recognition dictation system. Departure Departure Impression: Primary Impression: Hypertensive urgency Additional Impressions: Frequent falls Anemia Qualified Codes: D64.9 - Anemia, unspecified Forehead contusion Qualified Codes: S00.83XA - Contusion of other part of head, initial encounter Dementia Qualified Codes: F03.90 - Unspecified dementia without behavioral disturbance Disposition: ADMITTED INPATIENT Admitting Physician: MARISEL (Gomez) Condition: STABLE Referrals: AMOR HELLER DO (PCP) Justicifation of Admission Dx: Justifications for Admission: Justification of Admission Dx: Yes Comments: Frequent falls, Anemia, Hypertensive urgency Critical Care Time Critical care time was 30 minutes which includes time at bedside, spent in discussion of patient's care with specialists and/or family members, with interpretation of laboratory and/or radiological studies and is exclusive of procedures. ASHLEY VICKERS DO Feb 24, 2020 05:01
[2020-02-24] MEDS ORDERED: ONDANSETRON PF 4 MG/2 ML VIAL. IV PRN (05:15)
[2020-02-24] MEDS ORDERED: fentaNYL PF VIAL 100 MCG/2 ML VIAL IV PRN (05:15)
[2020-02-24] MEDS ORDERED: hydrALAZINE 20 MG/ML VIAL. IVP ONE (05:30)
[2020-02-24] MEDS ORDERED: DEXTROSE 50% 25 GM / 50ML DISP.SYRIN. IV PRN (06:00)
[2020-02-24] MEDS ORDERED: cloNIDine HCL 0.1 MG TABLET PO ONE (07:00)
[2020-02-24] MEDS: hydrALAZINE 20 MG/ML VIAL. IVP PRN ×2 (07:07→22:53)
--- NOTE | 2020-02-24 07:18 | RAD ---
INDICATION: Reason: weakness / Spl. Instructions: / History: COMPARISON: February 22, 2020 FINDINGS: Single view of chest obtained. Severe degenerative changes the bilateral shoulders with surrounding soft tissue swelling on the right. Cardiac silhouette is upper limits of normal. Mild interstitial opacities bilaterally. Old left rib fractures. IMPRESSION: * Mild interstitial opacities bilaterally. Could be from mild edema or interstitial infiltrate. * Severe degenerative changes of the bilateral shoulders. There is soft tissue swelling surrounding the right shoulder joint with only partial visualization of the left shoulder. Electronically signed by: Fred Valera MD (02/24/2020 7:15 AM) [id number]
[2020-02-24 07:59] VITALS: BP 160/91
[2020-02-24] MEDS ORDERED: ATOR10TA60 PO (08:24)
[2020-02-24] MEDS ORDERED: SPIR25TA5 PO (08:30)
[2020-02-24] MEDS ORDERED: METO100T7 PO (08:30)
[2020-02-24] MEDS ORDERED: TRAM100T2 PO (08:30)
[2020-02-24] MEDS ORDERED: HALO2TAB PO (08:30)
[2020-02-24] MEDS ORDERED: TRAZ-123 PO (08:30)
[2020-02-24] MEDS ORDERED: LOSA-73 PO (08:30)
[2020-02-24] MEDS ORDERED: POTA10TA12 PO (08:30)
[2020-02-24] MEDS: INSULIN LISPRO 300 UNITS/3 ML VIAL. SQ SCH ×3 (08:50→17:00)
[2020-02-24] MEDS ORDERED: ACETAMINOPHEN 325 MG TABLET. PO PRN (11:30)
[2020-02-24] MEDS ORDERED: traZODone 100 MG TABLET. PO PRN (11:30)
[2020-02-24 11:59] VITALS: BP 160/81
[2020-02-24] MEDS: CETIRIZINE HCL 10 MG TABLET. PO SCH (13:00)
[2020-02-24] MEDS: POTASSIUM CHLORIDE 10 MEQ TABLET.ER. PO SCH (13:00)
[2020-02-24] MEDS: LOSARTAN POTASSIUM 50 MG TABLET. PO SCH ×2 (13:01→20:50)
[2020-02-24] MEDS: LEFLUNOMIDE 10 MG TABLET. PO SCH (13:01)
[2020-02-24] MEDS: METOPROLOL TART IMMED RELEASE 50 MG TABLET. PO SCH ×2 (13:01→20:50)
[2020-02-24] MEDS: SPIRONOLACTONE 25 MG TABLET PO SCH (13:01)
[2020-02-24] MEDS: HALOPERIDOL 2 MG TABLET. PO SCH ×2 (13:02→20:50)
--- NOTE | 2020-02-24 13:18 | SSS ---
ADMIT DATE: 02/24/2020 CHIEF COMPLAINT: Falls. HISTORY OF PRESENT ILLNESS: The patient is a pleasant 74-year-old female well known to my service. She suffers from schizophrenia and I believe she lives in a intermediate. Basically, she has been falling a lot. They have been able to kind of deal with her falls lately, but now she has a hematoma on her head, so we decided to go ahead and admit her. The patient is going to undergo some physical therapy and occupational therapy. It should be noted that she also has hypertensive urgency with pressures as high as 203/108. PAST MEDICAL HISTORY: Schizophrenia, arthritis, anemia, CHF, dementia, fibromyalgia, GERD, hyperlipidemia, hypertension, polymyalgia rheumatica, appendectomy, hysterectomy, knee replacement, rectal surgery for fissures, cataract surgery, and back surgery. ALLERGIES: SULFA, VALPROIC ACID, FLUTICASONE, GABAPENTIN, LATEX, LISINOPRIL, PIROXICAM. FAMILY HISTORY: Diabetes. SOCIAL HISTORY: She lives at a facility, I believe. She does not drink, smoke or take drugs. MEDICATIONS: Reviewed, please refer to the MRAD. REVIEW OF SYSTEMS: Unable to obtain. The patient is a little too poor of a historian, but she does admit to falling. PHYSICAL EXAMINATION: VITALS: Within normal limits and are stable. GENERAL: She is quite anxious, agitated. HEENT: She has a large hematoma on the forehead. Eyes: Extraocular muscles are intact, pupils are equally round and reactive to light and accommodation. MUSCULOSKELETAL: Well developed, well nourished, good range of motion. ENDOCRINE: No thyromegaly was palpated. LYMPHATICS: No cervical chain or axillary nodes were noted. HEMATOPOIETIC: No bruising. NECK: Supple, no JVD, no thyromegaly was noted. LUNGS: Clear to auscultation in all lung turner without rhonchi or wheezing. HEART: RRR, S1, S2 present. Peripheral pulses intact, no obvious murmurs were noted. ABDOMEN: Soft, nontender. Positive bowel sounds no organomegaly, normal bowel sounds. EXTREMITIES: Without any cyanosis, clubbing, or edema. Pedal pulses intact, Homans sign is negative. NEUROLOGIC: She is a little hyperactive, talking a lot, seems to know where she is, but intermittently confused, requesting more food. PSYCHIATRIC: She is anxious. SKIN: No ulcerations or rashes, good skin turgor, no jaundice. VASCULAR: Good capillary refill, neurovascular bundle appears to be intact. IMAGING: Chest x-ray shows mild interstitial opacities bilaterally, could be from infiltrate or edema. Severe degenerative changes of the shoulders. LABORATORY DATA: White count 8, hemoglobin 7.9, platelets 316. Electrolytes are pending. Troponin is 0. INR is 1.1. Urinalysis negative. ASSESSMENT AND PLAN: Falls with hematoma, hypertensive urgency, abnormal chest x-ray. The patient has been admitted. We are going to consult Pulmonary regarding the abnormal chest x-ray. I am ordering physical therapy and occupational therapy. Again her blood pressure is down, I have resumed her home meds. DVT prophylaxis. Full code. Fall precautions. Regarding her anemia, we will trend her hemoglobin. If she drops below 7, we will consider transfusing. Long-term prognosis is guarded. KEESHA CARDENAS DO DR: MELLO/lloyd JOB#: [id number] / [id number]
--- NOTE | 2020-02-24 13:55 | CONS ---
DATE OF CONSULTATION: 02/24/2020 I was asked to see this 74-year-old lady for abnormal chest x-ray. HISTORY OF PRESENT ILLNESS: The patient was brought to the Emergency Room via EMS secondary to the fall prior to arrival. She was noted to have a hematoma in her forehead. On arrival, her blood pressure was 200/98 and later 203/108. She denies shortness of breath. She has occasional cough without sputum production, which is chronic. She is mostly wheelchair bound, but has a walker, which she walks with it not very often. She denies any history of lung disease. She does not smoke. She tried to get out of a recliner that is where she fell. She did not feel dizzy before her fall, it was just accident. She does not know if she snores, but she has excessive daytime sleepiness. PAST MEDICAL HISTORY: Arthritis, CHF, dementia, depression, diabetes mellitus, fibromyalgia, hypertension, schizophrenia, appendectomy, hysterectomy, knee replacement. ALLERGIES: SULFA, DIVALPROEX, FLUTICASONE, GABAPENTIN, LASIX, LISINOPRIL, PIROXICAM. MEDICATIONS: Currently, she is on Lipitor, aspirin, Haldol, Lopressor, Zyrtec, Aldactone, KCl, Cozaar, leflunomide, tramadol. SOCIAL HISTORY: She does not smoke. She is a long-term resident. FAMILY HISTORY: Hypertension. REVIEW OF SYSTEMS: As mentioned as above, other systems otherwise negative. PHYSICAL EXAMINATION: GENERAL: This is an obese lady. VITAL SIGNS: Her O2 saturation on room air is 95%, respiratory rate 18, heart rate 98, blood pressure 160/81, temperature 98.2. HEENT: Normocephalic, atraumatic. Pupils equal, round, reactive to light. There is shallow oropharynx. Nose is clear. There is poor dentition. NECK: Short and thick. There is no lymphadenopathy or thyromegaly. CARDIOVASCULAR: Regular rate and rhythm. Distant heart sounds. CHEST: Inspection is normal. LUNGS: Clear to auscultation. ABDOMEN: Soft. Bowel sounds are good. There is no mass. EXTREMITIES: There is no edema. LYMPHATICS: There is no lymphadenopathy. NEUROLOGIC: Alert. LABORATORY DATA: I reviewed the following lab data: Chest x-ray showed increased interstitial marking. CT of head did not show intracerebral hemorrhage and scalp hematoma noted. Scattered foci of low density white matter nonspecific, degenerative changes throughout the cervical spine. IMPRESSION: 1. Abnormal chest x-ray, suspect it is secondary to congestive heart failure due to her hypertensive urgency when she was in the Emergency Room, doubt she has interstitial lung disease. 2. Cough which is chronic, could be secondary to postnasal drip. 3. Obesity, probable obstructive sleep apnea-hypopnea syndrome. 4. Diabetes mellitus. 5. Dementia. 6. Hypertension. 7. Arthritis. PLAN AND RECOMMENDATIONS: 1. Titrate FiO2 to keep O2 saturation 92%. 2. I will check BNP. 3. I will repeat her chest x-ray in the morning. 4. She would require better blood pressure control. 5. I suspect she has obstructive sleep apnea-hypopnea syndrome and poorly controlled hypertension could be secondary to undiagnosed, untreated obstructive sleep apnea-hypopnea syndrome. I do recommend a sleep study as an outpatient. 6. Continue antihypertensive medication. 7. The findings and recommendations were discussed with the patient and RN. Thank you very much for allowing me to participate in care of this very nice lady. ROBSON MARIN M.D. : SHAYAN/lloyd JOB#: [id number] / [id number]
[2020-02-24] MEDS: traMADol 50 MG TABLET PO PRN (15:56)
[2020-02-24 15:59] VITALS: BP 133/68
[2020-02-24 19:00] VITALS: BP 166/96
[2020-02-24] MEDS ORDERED: ASPIRIN ENTERIC COATED 81 MG TABLET.DR. PO SCH (21:00)
[2020-02-24] MEDS ORDERED: ATORVASTATIN CALCIUM 10 MG TABLET. PO SCH (21:00)
[2020-02-24 23:04] VITALS: BP 183/99
[2020-02-25 03:07] VITALS: BP 176/92
[2020-02-25 07:00] VITALS: BP 178/86
[2020-02-25] MEDS: INSULIN LISPRO 300 UNITS/3 ML VIAL. SQ SCH ×2 (08:00→12:00)
[2020-02-25] MEDS: CETIRIZINE HCL 10 MG TABLET. PO SCH (08:54)
[2020-02-25] MEDS: LEFLUNOMIDE 10 MG TABLET. PO SCH (08:54)
[2020-02-25] MEDS: HALOPERIDOL 2 MG TABLET. PO SCH (08:54)
[2020-02-25] MEDS: SPIRONOLACTONE 25 MG TABLET PO SCH (08:54)
[2020-02-25] MEDS: LOSARTAN POTASSIUM 50 MG TABLET. PO SCH (08:55)
[2020-02-25] MEDS: METOPROLOL TART IMMED RELEASE 50 MG TABLET. PO SCH (08:55)
[2020-02-25] MEDS: POTASSIUM CHLORIDE 10 MEQ TABLET.ER. PO SCH (08:55)
--- NOTE | 2020-02-25 10:03 | PDOC ---
[facility] PROGRESS NOTE Chief Complaint Chief Complaint Cephalohematoma Multiple falls Hypertensive urgency Schizoaffective disorder Anemia CHF HLD Arthritis Dementia History of Present Illness History of Present Illness 02/25/2020 Patient seen and examined Laying in bed in NAD Cephalohematoma appears improved from yesterday Patient complains of mild left ankle pain from fall Left lower extremity is NL on visual inspection without bruising, ROM WNL, sensation intact, good capillary refill, nontender to palpation Chart reviewed Imaging reviewed Discussed with RN Vitals/I&O Vitals/I&O: Vital Signs Date Time Temp Pulse Resp B/P (MAP) Pulse Ox O2 Delivery O2 Flow Rate FiO2 02/25/20 08:55 77 178/86 02/25/20 07:00 98.5 17 94 Room Air 98.5 I & O 02/24/20 02/24/20 02/25/20 15:00 23:00 07:00 Intake Total 360 ml 360 ml 1000 ml Balance 360 ml 360 ml 1000 ml Physical Exam General: Alert, Oriented X3, Cooperative, No acute distress Heart: Normal S1, Normal S2 Lungs: Clear Abdomen: Soft, No tenderness Extremities: No clubbing, No cyanosis, Other (Left ankle pain. Left lower extremity is NL on visual inspection without bruising, ROM WNL, sensation intact, good capillary refill, nontender to palpation.) Skin: No rashes, No significant lesion Labs Labs: Laboratory Tests Test 02/24/20 11:25 02/24/20 12:06 02/24/20 16:54 02/24/20 20:12 Troponin I Quantitative 0.017 ng/mL (0.000-0.055) [id number]-[id number]-Type Natriuretic Peptide 8691 pg/mL (0-124) Glucose (Fingerstick) 99 mg/dL (70-99) 102 mg/dL (70-99) 111 mg/dL (70-99) Test 02/25/20 08:03 Glucose (Fingerstick) 122 mg/dL (70-99) Review of Systems Review of Systems: Pertinent as per HPI, otherwise 10 point review of systems is negative Assessment and Plan Assessmemt and Plan Problems Medical Problems: (1) Anemia Status: Acute (2) Dementia Status: Acute (3) Forehead contusion Status: Acute (4) Frequent falls Status: Acute (5) Hypertensive urgency Status: Acute ASSESSMENT Cephalohematoma Multiple falls Hypertensive urgency Schizoaffective disorder Anemia CHF HLD Arthritis Dementia PLAN Continue current detention meds DVT ppx DNR Probable discharge, return to shelter Comment Review of Relevant I have reviewed the following items escobar (where applicable) has been applied. Medications: Current Medications Medications (Trade) Dose Ordered Sig/Rocío Route PRN Reason Start Time Stop Time Status Last Admin Dose Admin Acetaminophen (Tylenol) 650 mg PRN Q4HRS PRN PO MILD PAIN / TEMP > 100.3'F 02/24/20 11:30 02/24/20 22:39 Aspirin (Ecotrin) 81 mg HS PO 02/24/20 21:00 02/24/20 20:49 Atorvastatin Calcium (Lipitor) 10 mg QHS PO 02/24/20 21:00 02/24/20 20:50 Haloperidol (Haldol) 4 mg TID PO 02/24/20 14:00 02/25/20 08:54 Leflunomide (Arava) 20 mg DAILY PO 02/24/20 12:00 02/25/20 08:54 Losartan Potassium (Cozaar) 50 mg BID PO 02/24/20 12:00 02/25/20 08:55 Potassium Chloride (Klor-Con) 10 meq DAILY PO 02/24/20 12:00 02/25/20 08:55 Spironolactone (Aldactone) 25 mg DAILY PO 02/24/20 12:00 02/25/20 08:54 Trazodone HCl (Desyrel) 100 mg PRN Q12HR PRN PO Agitation 02/24/20 11:30 02/24/20 20:49 Cetirizine HCl (ZyrTEC) 10 mg DAILY PO 02/24/20 12:00 02/25/20 08:54 Metoprolol Tartrate (Lopressor) 100 mg BID PO 02/24/20 12:00 02/25/20 08:55 Tramadol HCl (Ultram) 100 mg PRN Q8HRS PRN PO MODERATE - SEVERE PAIN 02/24/20 11:45 02/24/20 15:56 Justicifation of Admission Dx: Justifications for Admission: Justification of Admission Dx: Yes KEESHA CARDENAS III DO Feb 25, 2020 10:03
--- NOTE | 2020-02-25 10:11 | SNU/HH DC ---
DISCHARGE ORDERS DISCHARGE INFORMATION: FINAL DIAGNOSIS Problems Medical Problems: (1) Anemia Status: Acute (2) Dementia Status: Acute (3) Forehead contusion Status: Acute (4) Frequent falls Status: Acute (5) Hypertensive urgency Status: Acute CONDITION ON DISCHARGE: Stable CODE STATUS: Code Status: DNR/DNI CARE HOME: SNF STAY <30 DAYS: No HOSPICE: HOSPICE: No HOSPICE EVAL & TREAT: No LTAC: ADMIT TO LTAC: No POST DISCHARGE ORDERS: ACTIVITY ORDERS: Activity as tolerated WEIGHT BEARING STATUS: No restrictions DIET AFTER DISCHARGE: ADA CHECKS AFTER DISCHARGE: CHECKS AFTER DISCHARGE: Check blood press - daily, Check blood sugar, ac/hs, Weigh Yourself Daily TREATMENT/EQUIPMENT ORDERS: ADAPTIVE EQUIPMENT NEEDED: None, Commode, Front wheeled walker DISCHARGE MEDICATIONS: Home Meds Reported Medications Tramadol Hcl (TRAMADOL HCL) 100 Mg Tbmp.24hr, 100 MG PO PRN Q8HRS PRN for PAIN, TAB 0 Refills 02/23/20 Trazodone Hcl (TRAZODONE HCL) 100 Mg Tablet, 1 TAB PO PRN Q12HR PRN for ANXIETY / AGITATION, #30 TAB 1 Refill 02/23/20 Spironolactone (SPIRONOLACTONE) 25 Mg Tablet, 1 TAB PO DAILY for HTN, CHF, #90 TAB 1 Refill 20 Potassium Chloride (KLOR-CON 10) 10 Meq Tablet.er, 1 TAB PO DAILY for SUPPLEMENT for 30 Days, #30 TAB 0 Refills 20 Metoprolol Tartrate (METOPROLOL TARTRATE) 100 Mg Tablet, 1 TAB PO BID for HTN, #60 TAB 5 Refills 20 Losartan Potassium (LOSARTAN POTASSIUM) 50 Mg Tablet, 50 MG PO BID for HYPERTENSION, TAB 8/2/20 Haloperidol (HALOPERIDOL) 2 Mg Tablet, 2 TAB PO TID for SCHIZOAFFECTIVE DISORDER, #60 TAB 8/2/20 Atorvastatin Calcium (ATORVASTATIN CALCIUM) 10 Mg Tablet, 1 TAB PO DAILY for HLD , #30 TAB 5 Refills 20 Leflunomide (LEFLUNOMIDE) 20 Mg Tablet, 20 MG PO DAILY for RA for 30 Days, #30 07/30/19 Loratadine (ALLERGY RELIEF) 10 Mg Tablet, 10 MG PO DAILY for Allergies for 30 Days, #30 05/13/19 Acetaminophen (TYLENOL) 325 Mg Tablet, 2 TAB PO PRN Q4HRS, #30 TAB 06/13/15 Aspirin (ASPIR 81) 81 Mg Tablet.dr, 1 TAB PO HS, #30 TAB 5 Refills 08/09/14 Discontinued Reported Medications Esomeprazole Magnesium (Esomeprazole Magnesium) 40 Mg Capsule.dr, 40 MG PO DAILY for GERD for 90 Days, #90 07/30/19 Potassium Chloride (POTASSIUM CHLORIDE ) 20 Meq Tablet.er, 20 MEQ PO TID for SUPPLEMENT, TAB.SR 07/29/19 Olopatadine HCl (Olopatadine HCl) 2.5 Ml Drops, 2.5 ML OP DAILY for Ocular for 30 Days, #1 05/13/19 Quetiapine Fumarate (QUETIAPINE FUMARATE) 25 Mg Tablet, 25 MG PO QHS for Mood Stabilization for 30 Days, #30 05/13/19 Montelukast Sodium (Montelukast Sodium) 10 Mg Tablet, 10 MG PO QHS for Asthma for 30 Days, #30 05/13/19 Losartan Potassium (LOSARTAN POTASSIUM) 100 Mg Tablet, 100 MG PO DAILY for HTN for 30 Days, #30 05/13/19 Isosorbide Dinitrate (ISOSORBIDE DINITRATE) 20 Mg Tablet, 20 MG PO BID for CHF for 30 Days, #60 05/13/19 Carvedilol (Carvedilol) 12.5 Mg Tablet, 12.5 MG PO BID for CHF for 30 Days, #60 05/13/19 Magnesium Oxide (MAGNESIUM OXIDE) 400 Mg Tablet, 1 TAB PO BID, #60 TAB 5 Refills 05/27/17 Duloxetine Hcl (DULOXETINE HCL) 60 Mg Capsule.dr, 60 MG PO DAILY, CAP 05/27/17 Simvastatin (SIMVASTATIN) 20 Mg Tablet, 1 TAB PO QHS, #30 TAB 5 Refills 12/10/15 Albuterol Sulfate (PROVENTIL HFA INHALER) 6.7 Gm Hfa.aer.ad, 2 PUFF IH PRN Q4HRS PRN for SHORTNESS OF BREATH, #1 INHALER 06/13/15 Diclofenac Sodium (VOLTAREN) 100 Gm Gel..gram., 1 GM TP QID, #100 GM 2 Refills 06/13/15 Calcium Carbonate/Vitamin D3 (CALCIUM + VITAMIN D TABLET) 1 Each Tablet, 1 EACH PO DAILY 06/13/15 [place]-3 Fatty Acids/Vitamin E (PV FISH OIL 1,000 MG SOFTGEL) 1,000 Mg Capsule, 1000 MG PO HS 08/09/14 Clonidine Hcl (CATAPRES) 0.1 Mg Tablet, 0.2 MG PO BID for HTN, TAB 08/09/14 Amlodipine Besylate (NORVASC) 10 Mg Tablet, 10 TAB PO HS, #30 TAB 5 Refills 08/09/14 Metformin Hcl (METFORMIN HCL) 1,000 Mg Tablet, 1 TAB PO BID, #60 TAB 5 Refills 08/09/14 KEESHA CARDENAS III DO Feb 25, 2020 10:11
--- NOTE | 2020-02-25 10:33 | PDOC ---
PULMONARY PROGRESS NOTES Subjective c/o cough for 2 days no soa Vitals Vital Signs Date Time Temp Pulse Resp B/P (MAP) Pulse Ox O2 Delivery O2 Flow Rate FiO2 02/25/20 08:55 77 178/86 02/25/20 07:00 98.5 17 94 Room Air 98.5 General: Alert, No acute distress Lungs: Clear Cardiovascular: S1 Abdomen: Soft Neuro Exam: Alert Extremities: No Edema Skin: Warm Labs Laboratory Tests Test 02/24/20 02:45 02/24/20 03:25 02/24/20 07:43 02/24/20 08:10 Urine Collection Type Unknown Urine Color Yellow Urine Clarity Clear Urine pH 7.5 (<5.0-8.0) Urine Specific [place] 1.010 (1.000-1.030) Urine Protein 100 mg/dL (NEG-TRACE) Urine Glucose (UA) Negative mg/dL (NEG) Urine Ketones (Stick) Negative mg/dL (NEG) Urine Blood Negative (NEG) Urine Nitrite Negative (NEG) Urine Bilirubin Negative (NEG) Urine Urobilinogen Dipstick 0.2 mg/dL (0.2 mg/dL) Urine Leukocyte Esterase Negative (NEG) Urine RBC Rare /HPF (0-2) Urine WBC Rare /HPF (0-4) Urine Squamous Epithelial Cells Few /LPF Urine Amorphous Sediment Present /HPF Urine Bacteria 0 /HPF (0-FEW) White Blood Count 8.0 x10^3/uL (4.0-11.0) Red Blood Count 2.85 x10^6/uL (3.50-5.40) Hemoglobin 7.9 g/dL (12.0-15.5) Hematocrit 23.5 % (36.0-47.0) Mean Corpuscular Volume 83 fL (79-100) Mean Corpuscular Hemoglobin 28 pg (25-35) Mean Corpuscular Hemoglobin Concent 34 g/dL (31-37) Red Cell Distribution Width 19.2 % (11.5-14.5) Platelet Count 316 x10^3/uL (140-400) Neutrophils (%) (Auto) 71 % (31-73) Lymphocytes (%) (Auto) 13 % (24-48) Monocytes (%) (Auto) 13 % (0-9) Eosinophils (%) (Auto) 2 % (0-3) Basophils (%) (Auto) 1 % (0-3) Neutrophils # (Auto) 5.7 x10^3/uL (1.8-7.7) Lymphocytes # (Auto) 1.1 x10^3/uL (1.0-4.8) Monocytes # (Auto) 1.0 x10^3/uL (0.0-1.1) Eosinophils # (Auto) 0.2 x10^3/uL (0.0-0.7) Basophils # (Auto) 0.0 x10^3/uL (0.0-0.2) Prothrombin Time 13.3 SEC (11.7-14.0) Prothromb Time International Ratio 1.1 (0.8-1.1) Activated Partial Thromboplast Time 30 SEC (24-38) Sodium Level 130 mmol/L (136-145) Potassium Level 3.7 mmol/L (3.5-5.1) Chloride Level 96 mmol/L (98-107) Carbon Dioxide Level 30 mmol/L (21-32) Anion Gap 4 (6-14) Blood Urea Nitrogen 14 mg/dL (7-20) Creatinine 0.9 mg/dL (0.6-1.0) Estimated GFR (Cockcroft-Gault) 74.1 BUN/Creatinine Ratio 16 (6-20) Glucose Level 163 mg/dL (70-99) Calcium Level 8.8 mg/dL (8.5-10.1) Magnesium Level 1.7 mg/dL (1.8-2.4) Total Bilirubin 0.4 mg/dL (0.2-1.0) Aspartate Amino Transf (AST/SGOT) 19 U/L (15-37) Alanine Aminotransferase (ALT/SGPT) 24 U/L (14-59) Alkaline Phosphatase 118 U/L (46-116) Creatine Kinase 312 U/L (26-192) Creatine Kinase MB (Mass) 2.5 ng/mL (0.0-3.6) Creatine Kinase MB Relative Index 0.8 % (0-4) Troponin I Quantitative < 0.017 ng/mL (0.000-0.055) 0.018 ng/mL (0.000-0.055) Total Protein 6.8 g/dL (6.4-8.2) Albumin 2.7 g/dL (3.4-5.0) Albumin/Globulin Ratio 0.7 (1.0-1.7) Glucose (Fingerstick) 156 mg/dL (70-99) Test 02/24/20 11:25 02/24/20 12:06 02/24/20 16:54 02/24/20 20:12 Troponin I Quantitative 0.017 ng/mL (0.000-0.055) QW-Bvl-E-Type Natriuretic Peptide 8691 pg/mL (0-124) Glucose (Fingerstick) 99 mg/dL (70-99) 102 mg/dL (70-99) 111 mg/dL (70-99) Test 02/25/20 08:03 Glucose (Fingerstick) 122 mg/dL (70-99) Laboratory Tests Test 02/24/20 11:25 02/24/20 12:06 02/24/20 16:54 02/24/20 20:12 Troponin I Quantitative 0.017 ng/mL (0.000-0.055) CN-Qpe-G-Type Natriuretic Peptide 8691 pg/mL (0-124) Glucose (Fingerstick) 99 mg/dL (70-99) 102 mg/dL (70-99) 111 mg/dL (70-99) Test 02/25/20 08:03 Glucose (Fingerstick) 122 mg/dL (70-99) Medications Active Scripts Medications Dose Route/Sig Max Daily Dose Days Date Category Tramadol Hcl 100 Mg Tbmp.24hr 100 Mg PO PRN Q8HRS PRN 02/24/20 Reported Trazodone Hcl 100 Mg Tablet 1 Tab PO PRN Q12HR PRN 02/24/20 Reported Spironolactone 25 Mg Tablet 1 Tab PO DAILY 02/24/20 Reported Klor-Con 10 (Potassium Chloride) 10 Meq Tablet.er 1 Tab PO DAILY 30 02/24/20 Reported Metoprolol Tartrate 100 Mg Tablet 1 Tab PO BID 02/24/20 Reported Losartan Potassium 50 Mg Tablet 50 Mg PO BID 02/24/20 Reported Haloperidol 2 Mg Tablet 2 Tab PO TID 02/24/20 Reported Atorvastatin Calcium 10 Mg Tablet 1 Tab PO DAILY 02/24/20 Reported Leflunomide 20 Mg Tablet 20 Mg PO DAILY 30 07/30/19 Reported Allergy Relief (Loratadine) 10 Mg Tablet 10 Mg PO DAILY 30 05/13/19 Reported Tylenol (Acetaminophen) 325 Mg Tablet 2 Tab PO PRN Q4HRS 06/13/15 Reported Aspir 81 (Aspirin) 81 Mg Tablet.dr 1 Tab PO HS 08/09/14 Reported Impression . 1. Abnormal chest x-ray, suspect it is secondary to congestive heart failure due to her hypertensive urgency when she was in the Emergency Room, doubt she has interstitial lung disease. 2. Cough which is chronic, could be secondary to postnasal drip.Increase in past 2 days 3. Obesity, probable obstructive sleep apnea-hypopnea syndrome. 4. Diabetes mellitus. 5. Dementia. 6. Hypertension. 7. Arthritis. Plan . 1. Titrate FiO2 to keep O2 saturation 92%. 2. BNP.high 3. repeat chest x-ray 02/23 ? mild interstitial infilt. will get ct chest 4. She would require better blood pressure control. 5. I suspect she has obstructive sleep apnea-hypopnea syndrome and poorly controlled hypertension could be secondary to undiagnosed, untreated obstructive sleep apnea-hypopnea syndrome. I do recommend a sleep study as an outpatient. 6. Continue antihypertensive medication. 7. The findings and recommendations were discussed with the patient and RN. EMERITA BOO MD Feb 25, 2020 10:33
[2020-02-25 11:00] VITALS: BP 187/104
[2020-02-25] MEDS: traMADol 50 MG TABLET PO PRN (11:21)
--- NOTE | 2020-02-25 13:38 | NUR ---
Discharge Note: PT DISCHARGED TO [facility]. PT LEFT FACILITY VIA EMS TRANSPORT AT 1520. PT STABLE AND ALERT UPON DISCHARGE. PT PIV REMOVED FROM R AC WITHOUT COMPLICATIONS, BANDAGE APPLIED. TELE MONITOR REMOVED. PT GIVEN WASH UP AT CHAIR AND FRESH GOWN AND PANTS PRIOR TO DISCHARGE. ATTEMPTED TO CALL REPORT TO [facility], LEFT MESSAGE WITH MARNIE FOR THE NURSE TO CALL ME BACK UPON RETURNING FROM HER LUNCH TO TAKE REPORT. PT LEFT WITH ALL PERSONAL BELONGINGS. CRISTOBAL BLOOD Y5 [place] Discharge instructions and discharge home medications reviewed with Patient and a copy given. All questions have been answered and understanding verbalized.
--- NOTE | 2020-02-25 14:00 | NUR ---
SW following. Spoke with RN and reviewed chart. Pt to discharge back to [facility] today. SW phoned and faxed discharge orders to [facility], , (fax). Packet of clinicals ready to send with patient. pt on room air and oral medications. [facility] to transport at 1315. RN to call report. No further SW needs at this time.
--- NOTE | 2020-02-25 15:19 | RAD ---
CT chest without contrast dated 02/25/2020. Comparison made to 12/11/2016, 02/22/2020 and 11/21/2019. CLINICAL INDICATION: Shortness of breath. Possible CHF. TECHNIQUE: Contiguous axial imaging the chest performed without the administration of intravenous contrast. One or more of the following individualized dose reduction techniques were utilized for this examination: 1. Automated exposure control 2. Adjustment of the mA and/or kV according to patient size 3. Use of iterative reconstruction technique. findings: The heart size is mildly enlarged. No pericardial effusion. Scattered coronary calcifications. Borderline enlarged precarinal and right paratracheal lymph nodes. No apparent hilar or axillary lymphadenopathy. Thyroid gland unremarkable. There are small bilateral pleural effusions. There is some mild patchy groundglass opacity along the bronchovascular bundles of both lungs, upper lobe predominant. There are also some prominent linear markings at both lung bases. Mild diffuse bronchial wall thickening. No pneumothorax. Limited images of upper abdomen show multiple hyperdense and hypodense nodules scattered throughout both kidneys. There is a mild to moderate superior endplate compression deformity of L1 with lytic replacement of the L1 vertebral body that has progressed over serial exams, particularly relative to the 2017 exam. IMPRESSION: 1. Mild patchy groundglass opacity along the bronchovascular bundles of both lungs, nonspecific. This could be related to low-grade edema or early bronchopneumonia. Correlate clinically. 2. Small bilateral pleural effusions. 3. Borderline enlarged precarinal and right paratracheal lymph nodes, nonspecific. 4. Radiolucent replacement of the T1 vertebral body, similar to slightly increased from recent exams, indeterminate. This could be related to chronic discitis/osteomyelitis. Metastatic disease or myeloma not excluded. 5. Wedge compression fracture at L1, unchanged from 11/21/2019. Electronically signed by: Darrion Rudd MD (02/25/2020 3:16 PM) [facility]
--- NOTE | 2020-02-26 07:05 | EKG ---
[facility] [address] [place] [address] Test Date: 2020-02-24 Test Time: 05:46:34 Pat Name: CRISTOBAL BLOOD Department: Room: Gender: F Sack Sorter: : 1945 Requested By: ASHLEY VICKERS Order Number: [id number] Reading MD: Measurements Intervals [place] Rate: 84 P: 75 IL: 154 QRS: 18 QRSD: 88 T: 76 QT: 374 QTc: 445 Interpretive Statements SINUS RHYTHM NO SPECIFIC ECG ABNORMALITIES RI6.02 No previous ECG available for comparison
== END 2020-02-25 13:20 | DRG 305 ==
LOC: ER 02:21 → 5 NORTH 06:45
PROVIDERS: ADMIT Internal Medicine; ATTEND Internal Medicine
DX: I16.0 Hypertensive urgency (principal); D64.9 Anemia, unspecified; E11.9 Type 2 diabetes mellitus without complications; R91.8 Other nonspecific abnormal finding of lung field; S00.83XA Contusion of other part of head, initial encounter; S00.03XA Contusion of scalp, initial encounter; M79.7 Fibromyalgia; R29.6 Repeated falls; M19.90 Unspecified osteoarthritis, unspecified site; I50.9 Heart failure, unspecified; J45.909 Unspecified asthma, uncomplicated; W05.0XXA Fall from non-moving wheelchair, initial encounter; G47.33 Obstructive sleep apnea (adult) (pediatric); E66.9 Obesity, unspecified; Z96.659 Presence of unspecified artificial knee joint; F25.9 Schizoaffective disorder, unspecified; E78.5 Hyperlipidemia, unspecified; E78.00 Pure hypercholesterolemia, unspecified; F32.9 Major depressive disorder, single episode, unspecified; K21.9 Gastro-esophageal reflux disease without esophagitis; M06.9 Rheumatoid arthritis, unspecified; F03.90 Unspecified dementia, unspecified severity, without behavioral disturbance, psychotic disturbance, mood disturbance, and anxiety; I11.0 Hypertensive heart disease with heart failure; Z83.3 Family history of diabetes mellitus; Z82.49 Family history of ischemic heart disease and other diseases of the circulatory system; Y93.89 Activity, other specified; Y92.128 Other place in nursing home as the place of occurrence of the external cause; Y99.8 Other external cause status; Z90.49 Acquired absence of other specified parts of digestive tract; Z90.710 Acquired absence of both cervix and uterus; Z88.2 Allergy status to sulfonamides; Z88.8 Allergy status to other drugs, medicaments and biological substances; Z91.040 Latex allergy status; Z68.25 Body mass index [BMI] 25.0-25.9, adult
CPT/HCPCS: 36415; 70450; 71045; 71250; 72125; 80053; 81001; 82553; 82962; 83735; 83880; 84484; 85025; 85610; 85730; 93005; 96374; 96375; 99291; J0360; J1815; J2405; J3010; J3490; 97530-GP; G0378

== ENCOUNTER 2020-02-26 01:24 | Inpatient (IN) | payer MEDICARE, OTHER ==
[~2020-02-26] VITALS: Ht 167.6 cm; Wt 71.2 kg
[~2020-02-26 01:24] MED LIST changes: +ATOR10TA60 PO; +HALO2TAB PO; +LOSA-73 PO; +METO100T7 PO; +POTA10TA12 PO; +TRAM100T2 PO; +TRAZ-123 PO
--- NOTE | 2020-02-26 01:36 | PHYS DOC ---
Past Medical History Past Medical History: Arthritis, Asthma, CHF, Dementia, Depression, Diabetes- Type II, Fibromyalgia, GERD, High Cholesterol, Hypertension, Schizophrenia, Other Additional Past Medical Histor: schizoaffective disorder, polymyalgia rheumatica, RA Past Surgical History: Appendectomy, Hysterectomy, Knee Replacement, Other Additional Past Surgical Histo: rectal surgery for fissures, cataract removed, back surgery Smoking Status: Never Smoker Alcohol Use: None Drug Use: None General Adult EDM: Chief Complaint: SHORTNESS OF BREATH HPI: HPI: Patient is a 74 year old female who presents from longterm with shortness of breath. Patient does have a history of dementia as well as a psychiatric history and is noncooperative with her history and physical. History physical and review of systems all limited to altered mental status. Patient was just admitted and discharged on 02/24 for frequent falls and accelerated hypertension. Patient found to have shortness of breath at the longterm with dropping oxy gen levels. Patient arrived via EMS sats are in the mid 90s on 6 L nasal cannula. Patient refuses to answer questions. Review of Systems: Review of Systems: Review of systems is unobtainable due to altered mental status. Patient does complain of shortness of breath and having to urinate. Heart Score: Risk Factors: Risk Factors: DM, Current or recent (<one month) smoker, HTN, HLP, family history of CAD, obesity. Risk Scores: Score 0 - 3: 2.5% MACE over next 6 weeks - Discharge Home Score 4 - 6: 20.3% MACE over next 6 weeks - Admit for Clinical Observation Score 7 - 10: 72.7% MACE over next 6 weeks - Early Invasive Strategies Current Medications: Current Medications Medications (Trade) Dose Ordered Sig/Rocío Start Time Stop Time Status Last Admin Dose Admin Haloperidol Lactate (Haldol Inj) 5 mg 1X ONCE 02/26/20 01:30 02/26/20 01:31 UNV Lorazepam (Ativan Inj) 2 mg 1X ONCE 02/26/20 01:30 02/26/20 01:31 UNV Allergies: Allergies: Allergies Coded Allergies Type Severity Reaction Last Updated Verified Sulfa (Sulfonamide Antibiotics) Allergy Intermediate 02/22/20 Yes divalproex sodium Allergy Intermediate neck and back pain 02/22/20 Yes fluticasone Allergy Intermediate COUGH 02/22/20 Yes latex Allergy Intermediate SURGICAL TAPE 02/22/20 Yes lisinopril Allergy Intermediate cough 02/22/20 Yes piroxicam Allergy Intermediate BLISTERS 02/22/20 Yes gabapentin Adverse Reaction Severe 02/22/20 Yes Physical Exam: PE: Constitutional: Agitated and combative with mild respiratory distress HENT: Old facial bruising Eyes: Mild periorbital orbital ecchymosis Neck: Normal range of motion, no tenderness, supple, no stridor. [] Cardiovascular:Heart rate regular rhythm, Lungs & Thorax: Diminished breath sounds, mild respiratory distress Abdomen: No distention, no tenderness Skin: Warm, dry, no erythema, no rash. [] Back: No tenderness, no CVA tenderness. [] Extremities: No tenderness, no cyanosis, no clubbing, ROM intact, no edema. [] Neurologic: Alert and oriented X 0, moves all extremities Psychologic: Agitated Current Patient Data: Labs: Laboratory Tests Test 02/26/20 01:43 02/26/20 02:00 White Blood Count 11.3 x10^3/uL Red Blood Count 3.29 x10^6/uL Hemoglobin 9.0 g/dL Hematocrit 27.2 % Mean Corpuscular Volume 83 fL Mean Corpuscular Hemoglobin 28 pg Mean Corpuscular Hemoglobin Concent 33 g/dL Red Cell Distribution Width 19.5 % Platelet Count 351 x10^3/uL Neutrophils (%) (Auto) 74 % Lymphocytes (%) (Auto) 15 % Monocytes (%) (Auto) 9 % Eosinophils (%) (Auto) 2 % Basophils (%) (Auto) 1 % Neutrophils # (Auto) 8.3 x10^3/uL Lymphocytes # (Auto) 1.7 x10^3/uL Monocytes # (Auto) 1.0 x10^3/uL Eosinophils # (Auto) 0.2 x10^3/uL Basophils # (Auto) 0.1 x10^3/uL Prothrombin Time 13.4 SEC Prothromb Time International Ratio 1.1 Activated Partial Thromboplast Time 32 SEC Sodium Level 128 mmol/L Potassium Level 3.6 mmol/L Chloride Level 93 mmol/L Carbon Dioxide Level 28 mmol/L Anion Gap 7 Blood Urea Nitrogen 15 mg/dL Creatinine 0.8 mg/dL Estimated GFR (Cockcroft-Gault) 84.8 BUN/Creatinine Ratio 19 Glucose Level 191 mg/dL Lactic Acid Level 1.2 mmol/L Calcium Level 8.6 mg/dL Total Bilirubin 0.4 mg/dL Aspartate Amino Transf (AST/SGOT) 18 U/L Alanine Aminotransferase (ALT/SGPT) 18 U/L Alkaline Phosphatase 141 U/L Troponin I Quantitative < 0.017 ng/mL SO-Dbc-Z-Type Natriuretic Peptide 8589 pg/mL Total Protein 7.4 g/dL Albumin 2.8 g/dL Albumin/Globulin Ratio 0.6 Urine Collection Type U cath Urine Color Yellow Urine Clarity Clear Urine pH 7.0 Urine Specific [place] 1.010 Urine Protein 100 mg/dL Urine Glucose (UA) Negative mg/dL Urine Ketones (Stick) Negative mg/dL Urine Blood Trace Urine Nitrite Negative Urine Bilirubin Negative Urine Urobilinogen Dipstick 0.2 mg/dL Urine Leukocyte Esterase Negative Urine RBC Occ /HPF Urine WBC 1-4 /HPF Urine Squamous Epithelial Cells Few /LPF Urine Transitional Epithelial Cells Occ /LPF Urine Amorphous Sediment Present /HPF Urine Bacteria 0 /HPF Urine Mucus Slight /LPF Current Medications Medications (Trade) Dose Ordered Sig/Rocío Route PRN Reason Start Time Stop Time Status Last Admin Dose Admin Lorazepam (Ativan Inj) 2 mg 1X ONCE IM 02/26/20 02:00 02/26/20 02:01 DC 02/26/20 01:46 Haloperidol Lactate (Haldol Inj) 5 mg 1X ONCE IM 02/26/20 02:00 02/26/20 02:01 DC 02/26/20 01:46 Furosemide (Lasix) 40 mg 1X ONCE IVP 02/26/20 03:00 02/26/20 03:01 Cefepime HCl (Maxipime) 1 gm 1X ONCE IVP 02/26/20 03:00 02/26/20 03:01 Levofloxacin/ Dextrose 150 ml @ 100 mls/hr 1X ONCE IV 02/26/20 03:00 02/26/20 04:29 Nitroglycerin/ Dextrose 250 ml @ 0 mls/hr 1X ONCE IV 02/26/20 03:00 02/26/20 02:38 DC Aspirin (Aspirin Chewable) 324 mg 1X ONCE PO 02/26/20 03:00 02/26/20 03:01 Nitroglycerin (Nitro-Bid Oint) 1 inch 1X ONCE TP 02/26/20 02:45 02/26/20 02:46 UNV Vital Signs: Vital Signs Date Time Temp Pulse Resp B/P (MAP) Pulse Ox O2 Delivery O2 Flow Rate FiO2 02/26/20 01:27 99.6 94 24 237/137 (170) 88 Nasal Cannula 3.0 99.6 EKG: EKG: [] EKG interpreted by me normal sinus rhythm with a rate of 85 normal axis normal intervals and normal ST segments Radiology/Procedures: Radiology/Procedures: [][facility] [address] [place] [address] IMAGING REPORT Signed PATIENT: CRISTOBAL BLOOD YACCOUNT: [id number] : 1945 LOCATION: ER AGE: 74 SEX: F EXAM STATUS: REG ER ORD. PHYSICIAN: JOHANA WHEAT MD REASON: cp PROCEDURE: PORTABLE CHEST 1V INDICATION: Reason: cp / Spl. Instructions: / History: COMPARISON: February 25, 2020 FINDINGS: Single view of chest obtained. Enlarged cardiomediastinal silhouette. Interstitial and groundglass opacities throughout the bilateral lungs right greater than left which appears moderate in severity. Severe degenerative changes of the shoulders. IMPRESSION: * Interstitial and groundglass opacities bilaterally which can be seen with pulmonary edema although multifocal infiltrate can have a similar appearance. This appears increased from prior. Electronically signed by: Giovanna Macias MD (02/26/2020 2:23 AM) [id number] DICTATED and SIGNED BY: GIOVANNA MACIAS MD DATE: 02/26/20 0223 Course & Med Decision Making: Course & Med Decision Making Pertinent Labs and Imaging studies reviewed. (See chart for details) [] 74-year-old female presents with respiratory distress. Patient's chest x-ray significantly worse than the one from earlier in the week. Patient either has CHF with asymmetric edema or multifocal pneumonia and concerns for COVID-19. Patient also has been hospitalized and is in a longterm therefore she is at high risk for hospital-acquired pneumonia. Patient will be given broad-spectrum antibiotics. On reassessment after medicating for her anxiety the patient is satting 100% on 5 L nasal cannula and resting comfortably. Respiratory rate is much improved. Her blood pressure was initially 230s over 130S but improved to 170S systolic after treating her anxiety. I initially ordered a nitroglycerin drip but switch that over to Nitropaste. Patient will be given Lasix. Critical care time was [35] minutes exclusive of procedures. Critical care time was [35] minutes which includes time at bedside, spent in discussion of patient's care with specialist and/or family members, with interpretation of laboratory and/or radiological studies and is exclusive of procedures. Critical condition: Respiratory failure, CHF, accelerated hypertension Critical interventions: Oxygen therapy, broad-spectrum antibiotics, Lasix, nitroglycerin, admission to the stepdown unit Patient will be admitted to Dr. De La Garza. Moisés Disclaimer: Moisés Disclaimer: This electronic medical record was generated, in whole or in part, using a voice recognition dictation system. Departure Departure Impression: Primary Impression: Respiratory failure Additional Impressions: CHF (congestive heart failure) Multifocal pneumonia Disposition: ADMITTED INPATIENT Admitting Physician: MARISEL (TEDDY) Condition: GUARDED Referrals: AMOR HELLER DO (PCP) Justicifation of Admission Dx: Justifications for Admission: Justification of Admission Dx: Yes JOHANA WHEAT MD Feb 26, 2020 01:36
[2020-02-26 01:55] LABS: BASO # 0.1 x10^3/uL (0.0-0.2); BASO % 1 % (0-3); EOS # 0.2 x10^3/uL (0.0-0.7); EOS % 2 % (0-3); HEMATOCRIT 27.2 % (36.0-47.0); LYMPH # 1.7 x10^3/uL (1.0-4.8); LYMPH % 15 % (24-48); MEAN CORPUSCULAR HEMOGLOBIN 28 pg (25-35); MEAN CORPUSCULAR HGB CONC 33 g/dL (31-37); MEAN CORPUSCULAR VOLUME 83 fL (79-100); MONO % 9 % (0-9); NEUT # 8.3 x10^3/uL (1.8-7.7); NEUT % 74 % (31-73); PLATELET COUNT 351 x10^3/uL (140-400); RED BLOOD COUNT 3.29 x10^6/uL (3.50-5.40); RED CELL DISTRIBUTION WIDTH 19.5 % (11.5-14.5); WHITE BLOOD COUNT 11.3 x10^3/uL (4.0-11.0)
[2020-02-26] MEDS ORDERED: HALOPERIDOL LACTATE 5 MG/ML VIAL. IM ONE (02:00)
[2020-02-26 02:04] LABS: CALCIUM 8.6 mg/dL (8.5-10.1); CREATININE 0.8 mg/dL (0.6-1.0); GFR 84.8; POTASSIUM 3.6 mmol/L (3.5-5.1)
[2020-02-26 02:05] LABS: PROTHROMBIN TIME PATIENT 13.4 SEC (11.7-14.0)
[2020-02-26 02:09] LABS: BILIRUBIN,URINE NEGATIVE (NEG); CLARITY,URINE CLEAR; COLOR,URINE YELLOW; NITRITE,URINE NEGATIVE (NEG); PROTEIN,URINE 100 mg/dL (NEG-TRACE); UROBILINOGEN,URINE 0.2 mg/dL (0.2 mg/dL)
[2020-02-26 02:11] LABS: ALBUMIN 2.8 g/dL (3.4-5.0); ALBUMIN/GLOBULIN RATIO 0.6 (1.0-1.7); TOTAL BILIRUBIN 0.4 mg/dL (0.2-1.0); TOTAL PROTEIN 7.4 g/dL (6.4-8.2)
[2020-02-26 02:13] LABS: AMORPHOUS SEDIMENT,UR PRESENT /HPF; BACTERIA,URINE 0 /HPF (0-FEW); RBC,URINE OCC /HPF (0-2); SQUAMOUS EPITHELIAL CELL,UR FEW /LPF
--- NOTE | 2020-02-26 02:26 | RAD ---
INDICATION: Reason: cp / Spl. Instructions: / History: COMPARISON: February 25, 2020 FINDINGS: Single view of chest obtained. Enlarged cardiomediastinal silhouette. Interstitial and groundglass opacities throughout the bilateral lungs right greater than left which appears moderate in severity. Severe degenerative changes of the shoulders. IMPRESSION: * Interstitial and groundglass opacities bilaterally which can be seen with pulmonary edema although multifocal infiltrate can have a similar appearance. This appears increased from prior. Electronically signed by: Fred Valera MD (02/26/2020 2:23 AM) [id number]
[2020-02-26] MEDS ORDERED: ONDANSETRON PF 4 MG/2 ML VIAL. IV PRN (02:45)
[2020-02-26] MEDS ORDERED: CEFEPIME HCL IV Push 1 GM VIAL. IVP ONE (03:00)
[2020-02-26] MEDS ORDERED: NITROGLYCERIN PREMIX 250 ML IV ONE (03:00)
[2020-02-26] MEDS ORDERED: FUROSEMIDE 40 MG/4 ML VIAL. IVP ONE (03:00)
[2020-02-26] MEDS ORDERED: ASPIRIN CHEWABLE 81 MG TABLET. PO ONE (03:00)
[2020-02-26] MEDS ORDERED: NITROGLYCERIN OINT 1 GM PACKET. TP ONE (03:00)
[2020-02-26 04:40] VITALS: BP 160/82
[2020-02-26 07:15] VITALS: BP 161/78
--- NOTE | 2020-02-26 08:07 | EKG ---
[facility] [address] [place] [address] Test Date: 2020-02-26 Test Time: 01:50:57 Pat Name: CRISTOBAL BLOOD Department: Room: Gender: F Patient Financial Services Specialist: : 1945 Requested By: JOHANA WEHAT Order Number: [id number] Reading MD: Measurements Intervals [place] Rate: 85 P: 64 NH: 152 QRS: 20 QRSD: 90 T: 49 QT: 378 QTc: 450 Interpretive Statements SINUS RHYTHM NORMAL ECG RI6.01 No previous ECG available for comparison
--- NOTE | 2020-02-26 10:12 | NUR ---
SW following. Spoke with RN and reviewed chart. Pt discharged to [facility] yesterday, 02/26/2020 and readmitted with SOB. Pt now on 5l 02. Pt COVID pending. Coordinated care with Qi from [facility]. SW to follow.
[2020-02-26 11:20] VITALS: BP 162/79
[2020-02-26] MEDS ORDERED: ACETAMINOPHEN 325 MG TABLET. PO PRN (14:45)
[2020-02-26 15:15] VITALS: BP 188/93
[2020-02-26] MEDS: HALOPERIDOL 2 MG TABLET. PO SCH ×2 (15:17→21:47)
[2020-02-26] MEDS: traMADol 50 MG TABLET PO PRN (15:18)
[2020-02-26 19:00] VITALS: BP 199/112
[2020-02-26 19:23] LABS: BILIRUBIN,URINE NEGATIVE (NEG); CLARITY,URINE CLEAR; COLOR,URINE YELLOW; NITRITE,URINE NEGATIVE (NEG); PH,URINE 6.5 (<5.0-8.0); PROTEIN,URINE 100 mg/dL (NEG-TRACE); UROBILINOGEN,URINE 0.2 mg/dL (0.2 mg/dL)
[2020-02-26 19:29] LABS: BACTERIA,URINE FEW /HPF (0-FEW); RBC,URINE OCC /HPF (0-2)
[2020-02-26 19:30] LABS: AMORPHOUS SEDIMENT,UR PRESENT /HPF; SQUAMOUS EPITHELIAL CELL,UR OCC /LPF
[2020-02-26] MEDS: LABETALOL 20 MG/4 ML DISP.SYRIN. IVP PRN (21:43)
[2020-02-26] MEDS: METOPROLOL TART IMMED RELEASE 50 MG TABLET. PO SCH (21:46)
[2020-02-26] MEDS: traZODone 100 MG TABLET. PO PRN (21:46)
[2020-02-26] MEDS: hydrOXYzine 25 MG TABLET PO PRN (21:47)
[2020-02-26] MEDS: LOSARTAN POTASSIUM 50 MG TABLET. PO SCH (21:47)
[2020-02-26] MEDS: ASPIRIN ENTERIC COATED 81 MG TABLET.DR. PO SCH (21:47)
[2020-02-26 23:40] VITALS: BP 211/109
[2020-02-27] MEDS: LABETALOL 20 MG/4 ML DISP.SYRIN. IVP PRN (00:20)
[2020-02-27 03:04] VITALS: BP 178/86
[2020-02-27 07:00] VITALS: BP 181/97
[2020-02-27] MEDS: METOPROLOL TART IMMED RELEASE 50 MG TABLET. PO SCH ×2 (09:13→20:27)
[2020-02-27] MEDS: LOSARTAN POTASSIUM 50 MG TABLET. PO SCH ×2 (09:13→20:28)
[2020-02-27] MEDS: POTASSIUM CHLORIDE 10 MEQ TABLET.ER. PO SCH (09:14)
[2020-02-27] MEDS: SPIRONOLACTONE 25 MG TABLET PO SCH (09:14)
[2020-02-27] MEDS: CETIRIZINE HCL 10 MG TABLET. PO SCH (09:14)
[2020-02-27] MEDS: HALOPERIDOL 2 MG TABLET. PO SCH ×3 (09:14→20:28)
[2020-02-27 11:00] VITALS: BP 177/86
[2020-02-27] MEDS: ATORVASTATIN CALCIUM 10 MG TABLET. PO SCH (11:23)
[2020-02-27] MEDS: traMADol 50 MG TABLET PO PRN ×2 (11:33→20:27)
[2020-02-27] MEDS: LEFLUNOMIDE 10 MG TABLET. PO SCH (11:43)
--- NOTE | 2020-02-27 11:54 | PDOC1 ---
History and Physical Date of Admission Date of Admission DATE: 02/27/20 TIME: 11:28 Identification/Chief Complaint Chief Complaint Shortness of breath Source Source: Patient History of Present Illness History of Present Illness Ms Ji is a 73yo F w/ PMHx osterarthritis, Asthma, CHF, Diabetes-Type II, Fibromyalgia, High Cholesterol, Hypertension, Schizophrenia, RA, PMR who is presenting after a fall at SNF and worsening SOB. Patient does have a history of dementia as well as a psychiatric history and is noncooperative with her history and physical. History physical and review of systems all limited to altered mental status. Patient was just admitted and discharged on 02/24 for frequent falls and accelerated hypertension. Patient found to have shortness of breath at the half-way with dropping oxygen levels. Patient arrived via EMS sats are in the mid 90s on 6 L nasal cannula Labs significant for NA 128, K3.6, BUN 18, CR 0.8 glucose 191, BNP 8589, albumin 2.8 CXR with bilateral interstitial opacities. Admitted for further treatment of hypoxia. Past Medical History Cardiovascular: CAD, CHF, HTN, Hyperlipidemia Pulmonary: Asthma CENTRAL NERVOUS SYSTEM: CVA GI: Diverticulosis Heme/Onc: No pertinent hx Hepatobiliary: No pertinent hx Psych: Schizophrenia Musculoskeletal: low back pain, Osteoarthritis Rheumatologic: Fibromyalgia, Rheumatoid arthritis, Other Infectious disease: No pertinent hx Renal/: No pertinent hx Endocrine: Diabetes Past Surgical History Past Surgical History: Appendectomy, Cataract Removal, Total knee replacement, Hysterectomy, Other Family History Family History: Heart Disease, Other Social History Smoke: <1 pack per day ALCOHOL: none Drugs: None Current Problem List Problem List Problems Medical Problems: (1) Multifocal pneumonia Status: Acute (2) Respiratory failure Status: Acute Current Medications Current Medications Current Medications Lorazepam (Ativan Inj) 2 mg 1X ONCE IM Last administered on 02/26/20at 01:46; Start 02/26/20 at 02:00; Stop 02/26/20 at 02:01; Status DC Haloperidol Lactate (Haldol Inj) 5 mg 1X ONCE IM Last administered on 02/26/20at 01:46; Start 02/26/20 at 02:00; Stop 02/26/20 at 02:01; Status DC Furosemide (Lasix) 40 mg 1X ONCE IVP Last administered on 02/26/20at 02:44; Start 02/26/20 at 03:00; Stop 02/26/20 at 03:01; Status DC Cefepime HCl (Maxipime) 1 gm 1X ONCE IVP Last administered on 02/26/20at 02:43; Start 02/26/20 at 03:00; Stop 02/26/20 at 03:01; Status DC Levofloxacin/ Dextrose 150 ml @ 100 mls/hr 1X ONCE IV Last administered on 02/26/20at 02:44; Start 02/26/20 at 03:00; Stop 02/26/20 at 04:29; Status DC Nitroglycerin/ Dextrose 250 ml @ 0 mls/hr 1X ONCE IV ; Start 02/26/20 at 03:00; Stop 02/26/20 at 02:38; Status DC Aspirin (Aspirin Chewable) 324 mg 1X ONCE PO Last administered on 02/26/20at 05:30; Start 02/26/20 at 03:00; Stop 02/26/20 at 03:01; Status DC Nitroglycerin (Nitro-Bid Oint) 1 inch 1X ONCE TP Last administered on 02/26/20at 02:45; Start 02/26/20 at 03:00; Stop 02/26/20 at 03:01; Status DC Ondansetron HCl (Zofran) 4 mg PRN Q8HRS PRN IV NAUSEA/VOMITING 1ST CHOICE; Start 02/26/20 at 02:45; Stop 02/27/20 at 02:44; Status DC Acetaminophen (Tylenol) 650 mg PRN Q4HRS PRN PO TEMP > 100.3'F; Start 02/26/20 at 14:45 Aspirin (Ecotrin) 81 mg HS PO Last administered on 02/26/20at 21:47; Start 02/26/20 at 21:00 Atorvastatin Calcium (Lipitor) 10 mg DAILY PO ; Start 02/27/20 at 09:00 Haloperidol (Haldol) 4 mg TID PO Last administered on 02/27/20at 09:14; Start 02/26/20 at 15:00 Leflunomide (Arava) 20 mg DAILY PO ; Start 02/27/20 at 09:00 Losartan Potassium (Cozaar) 50 mg BID PO Last administered on 02/27/20at 09:13; Start 02/26/20 at 21:00 Potassium Chloride (Klor-Con) 10 meq DAILY PO Last administered on 02/27/20 09:14; Start 02/27/20 at 09:00 Spironolactone (Aldactone) 25 mg DAILY PO Last administered on 02/27/20 09:14; Start 02/27/20 at 09:00 Trazodone HCl (Desyrel) 100 mg PRN Q12HR PRN PO anxiety/agitation Last administered on 02/26/20 21:46; Start 02/26/20 at 14:45 Cetirizine HCl (ZyrTEC) 10 mg DAILY PO Last administered on 02/27/20 09:14; Start 02/27/20 at 09:00 Metoprolol Tartrate (Lopressor) 100 mg BID PO Last administered on 02/27/20 09:13; Start 02/26/20 at 21:00 Tramadol HCl (Ultram) 100 mg PRN Q6HRS PRN PO PAIN MILD Last administered on 02/26/20 15:18; Start 02/26/20 at 14:45 Hydroxyzine HCl (Atarax) 25 mg PRN Q8HRS PRN PO ITCHING Last administered on 02/26/20 21:47; Start 02/26/20 at 18:15 Labetalol HCl (Normodyne Iv Push) 10 mg PRN Q2HR PRN IVP SBP>180 DBP>110 Last administered on 02/26/20 21:43; Start 02/26/20 at 21:30 Active Scripts Active Reported Tramadol Hcl 100 Mg Tbmp.24hr 100 Mg PO PRN Q8HRS PRN Trazodone Hcl 100 Mg Tablet 1 Tab PO PRN Q12HR PRN Spironolactone 25 Mg Tablet 1 Tab PO DAILY Klor-Con 10 (Potassium Chloride) 10 Meq Tablet.er 1 Tab PO DAILY 30 Days Metoprolol Tartrate 100 Mg Tablet 1 Tab PO BID Losartan Potassium 50 Mg Tablet 50 Mg PO BID Haloperidol 2 Mg Tablet 2 Tab PO TID Atorvastatin Calcium 10 Mg Tablet 1 Tab PO DAILY Leflunomide 20 Mg Tablet 20 Mg PO DAILY 30 Days Allergy Relief (Loratadine) 10 Mg Tablet 10 Mg PO DAILY 30 Days Tylenol (Acetaminophen) 325 Mg Tablet 2 Tab PO PRN Q4HRS Aspir 81 (Aspirin) 81 Mg Tablet.dr 1 Tab PO HS Allergies Allergies: Coded Allergies: Sulfa (Sulfonamide Antibiotics) (Verified Allergy, Intermediate, 02/22/20) divalproex sodium (Verified Allergy, Intermediate, neck and back pain, 02/22/20) fluticasone (Verified Allergy, Intermediate, COUGH, 02/22/20) latex (Verified Allergy, Intermediate, SURGICAL TAPE, 02/22/20) lisinopril (Verified Allergy, Intermediate, cough, 02/22/20) piroxicam (Verified Allergy, Intermediate, BLISTERS, 02/22/20) gabapentin (Verified Adverse Reaction, Severe, 02/22/20) Hallucinations, worsening of schizophrenia ROS General: YES: Fatigue, Malaise; No: Chills, Night Sweats, Appetite, Other PSYCHOLOGICAL ROS: No: Anxiety, Behavioral Disorder, Concentration difficultie, Decreased libido, Depression, Disorientation, Hallucinations, Hostility, Irritablity, Memory difficulties, Mood Swings, Obsessive thoughts, Physical abus e, Sexual abuse, Sleep disturbances, Suicidal ideation, Other Eyes: No Blurry vision, No Decreased vision, No Double vision, No Dry eyes, No Excessive tearing, No Eye Pain, No Itchy Eyes, No Loss of vision, No Photophobia, No Scotomata, No Uses contacts, No Uses glasses, No Other HEENT: No: Heacaches, Visual Changes, Hearing change, Nasal congestion, Nasal discharge, Oral lesions, Sinus pain, Sore Throat, Epistaxis, Sneezing, Snoring, Tinnitus, Vertigo, Vocal changes, Other ALLERGY AND IMMUNOLOGY: No: Hives, Insect Bite Sensitivity, Itchy/Watery Eyes, Nasal Congestion, Post Nasal Drip, Seasonal Allergies, Other Hematological and Lymphatic: No: Bleeding Problems, Blood Clots, Blood Transfusions, Brusing, Night Sweats, Pallor, Swollen Lymph Nodes, Other ENDOCRINE: No: Breast Changes, Galactorrhea, Hair Pattern Changes, Hot Flashes, Malaise/lethargy, Mood Swings, Palpitations, Polydipsia/polyuria, Skin Changes, Temperature Intolerance, Unexpected Weight Changes, Other Breast: No New/Changing Breast Lumps, No Nipple changes, No Nipple discharge, No Other Respiratory: YES: Cough, Shortness of breath, SOB with excertion; No: Hemoptysis, Orthopnea, Pleuritic Pain, Sputum Changes, Stridor, Tachypnea, Wheezing, Other Cardiovascular: No Chest Pain, No Palpitations, No Orthopnea, No Paroxysmal Noc. Dyspnea, No Edema, No Lt Headedness, No Other Gastrointestinal: No Nausea, No Vomiting, No Abdominal Pain, No Diarrhea, No Constipation, No Melena, No Hematochezia, No Other Genitourinary: No Dysuria, No Frequency, No Incontinence, No Hematuria, No Retention, No Discharge, No Urgency, No Pain, No Flank Pain, No Other, No , No , No , No , No , No , No Musculoskeletal: No Gait Disturbance, No Joint Pain, No Joint Stiffness, No Kelly int Swelling, No Muscle Pain, No Muscular Weakness, No Pain In:, No Swelling In:, No Other Neurological: No Behavorial Changes, No Bowel/Bladder ControlChng, No Confusion, No Dizziness, No Gait Disturbance, No Headaches, No Impaired C oord/balance, No Memory Loss, No Numbness/Tingling, No Seizures, No Speech Problems, No Tremors, No Visual Changes, No Weakness, No Other Skin: No Dry Skin, No Eczema, No Hair Changes, No Lumps, No Mole Changes, No Mottling, No Nail Changes, No Pruritus, No Rash, No Skin Lesion Changes, No Other, No Acne Physical Exam General: Alert, Cooperative, mild distress HEENT: Atraumatic, PERRLA, EOMI, Mucous membr. moist/pink, Other (Raccoon eyes, scalp hematoma) Lungs: Other (Bibasilar crackles) Heart: S1S2, RRR, no thrills, no rubs, no gallops, no murmurs Abdomen: Normal bowel sounds, Soft, No tenderness, No hepatosplenomegaly, No masses Rectal Exam: not examined Extremities: No clubbing, No cyanosis, No edema, Normal pulses, Other (RA deformities multiple joints) Skin: No rashes, No breakdown, No significant lesion Neuro: Normal speech, Strength at 5/5 X4 ext, Normal tone, Sensation intact, Cranial nerves 3-12 NL, Reflexes 2+ Psych/Mental Status: Mental status NL, Mood NL Vitals Vitals Vital Signs Date Time Temp Pulse Resp B/P (MAP) Pulse Ox O2 Delivery O2 Flow Rate FiO2 02/27/20 11:00 99.8 75 18 177/86 (116) 95 Room Air 99.8 02/27/20 08:00 1.0 Labs Labs Laboratory Tests Test 02/26/20 01:43 02/26/20 02:00 02/26/20 16:50 White Blood Count 11.3 x10^3/uL (4.0-11.0) Red Blood Count 3.29 x10^6/uL (3.50-5.40) Hemoglobin 9.0 g/dL (12.0-15.5) Hematocrit 27.2 % (36.0-47.0) Mean Corpuscular Volume 83 fL (79-100) Mean Corpuscular Hemoglobin 28 pg (25-35) Mean Corpuscular Hemoglobin Concent 33 g/dL (31-37) Red Cell Distribution Width 19.5 % (11.5-14.5) Platelet Count 351 x10^3/uL (140-400) Neutrophils (%) (Auto) 74 % (31-73) Lymphocytes (%) (Auto) 15 % (24-48) Monocytes (%) (Auto) 9 % (0-9) Eosinophils (%) (Auto) 2 % (0-3) Basophils (%) (Auto) 1 % (0-3) Neutrophils # (Auto) 8.3 x10^3/uL (1.8-7.7) Lymphocytes # (Auto) 1.7 x10^3/uL (1.0-4.8) Monocytes # (Auto) 1.0 x10^3/uL (0.0-1.1) Eosinophils # (Auto) 0.2 x10^3/uL (0.0-0.7) Basophils # (Auto) 0.1 x10^3/uL (0.0-0.2) Prothrombin Time 13.4 SEC (11.7-14.0) Prothromb Time International Ratio 1.1 (0.8-1.1) Activated Partial Thromboplast Time 32 SEC (24-38) Sodium Level 128 mmol/L (136-145) Potassium Level 3.6 mmol/L (3.5-5.1) Chloride Level 93 mmol/L (98-107) Carbon Dioxide Level 28 mmol/L (21-32) Anion Gap 7 (6-14) Blood Urea Nitrogen 15 mg/dL (7-20) Creatinine 0.8 mg/dL (0.6-1.0) Estimated GFR (Cockcroft-Gault) 84.8 BUN/Creatinine Ratio 19 (6-20) Glucose Level 191 mg/dL (70-99) Lactic Acid Level 1.2 mmol/L (0.4-2.0) Calcium Level 8.6 mg/dL (8.5-10.1) Total Bilirubin 0.4 mg/dL (0.2-1.0) Aspartate Amino Transf (AST/SGOT) 18 U/L (15-37) Alanine Aminotransferase (ALT/SGPT) 18 U/L (14-59) Alkaline Phosphatase 141 U/L (46-116) Troponin I Quantitative < 0.017 ng/mL (0.000-0.055) OX-Eve-V-Type Natriuretic Peptide 8589 pg/mL (0-124) Total Protein 7.4 g/dL (6.4-8.2) Albumin 2.8 g/dL (3.4-5.0) Albumin/Globulin Ratio 0.6 (1.0-1.7) Urine Collection Type U cath U cath Urine Color Yellow Yellow Urine Clarity Clear Clear Urine pH 7.0 (<5.0-8.0) 6.5 (<5.0-8.0) Urine Specific [place] 1.010 (1.000-1.030) <=1.005 (1.000-1.030) Urine Protein 100 mg/dL (NEG-TRACE) 100 mg/dL (NEG-TRACE) Urine Glucose (UA) Negative mg/dL (NEG) Negative mg/dL (NEG) Urine Ketones (Stick) Negative mg/dL (NEG) Negative mg/dL (NEG) Urine Blood Trace (NEG) Negative (NEG) Urine Nitrite Negative (NEG) Negative (NEG) Urine Bilirubin Negative (NEG) Negative (NEG) Urine Urobilinogen Dipstick 0.2 mg/dL (0.2 mg/dL) 0.2 mg/dL (0.2 mg/dL) Urine Leukocyte Esterase Negative (NEG) Trace (NEG) Urine RBC Occ /HPF (0-2) Occ /HPF (0-2) Urine WBC 1-4 /HPF (0-4) 1-4 /HPF (0-4) Urine Squamous Epithelial Cells Few /LPF Occ /LPF Urine Transitional Epithelial Cells Occ /LPF Occ /LPF Urine Amorphous Sediment Present /HPF Present /HPF Urine Bacteria 0 /HPF (0-FEW) Few /HPF (0-FEW) Urine Mucus Slight /LPF Slight /LPF Coronavirus (PCR) Not detected (Not Detected) Laboratory Tests Test 02/26/20 16:50 Urine Collection Type U cath Urine Color Yellow Urine Clarity Clear Urine pH 6.5 (<5.0-8.0) Urine Specific [place] <=1.005 (1.000-1.030) Urine Protein 100 mg/dL (NEG-TRACE) Urine Glucose (UA) Negative mg/dL (NEG) Urine Ketones (Stick) Negative mg/dL (NEG) Urine Blood Negative (NEG) Urine Nitrite Negative (NEG) Urine Bilirubin Negative (NEG) Urine Urobilinogen Dipstick 0.2 mg/dL (0.2 mg/dL) Urine Leukocyte Esterase Trace (NEG) Urine RBC Occ /HPF (0-2) Urine WBC 1-4 /HPF (0-4) Urine Squamous Epithelial Cells Occ /LPF Urine Transitional Epithelial Cells Occ /LPF Urine Amorphous Sediment Present /HPF Urine Bacteria Few /HPF (0-FEW) Urine Mucus Slight /LPF Images Images CXR: Interstitial and groundglass opacities bilaterally which can be seen with pulmonary edema although multifocal infiltrate can have a similar appearance. This appears increased from prior. VTE Prophylaxis Ordered VTE Prophylaxis Devices: No VTE Pharmacological Prophylaxi: Yes Assessment/Plan Assessment/Plan A/P: Acute hypoxic respiratory failure - seem to be volume overload. COVID 19 negative Acute on Chronic diastolic CHF - does seem in acute exacerbation. seems to be chronic in nature with probably diastolic dysfunction given that her last ejection fraction was recorded at 55% on May 2017 Scalp hematoma - from multiple fallls Longstanding gait disorder Discitis/osteomyelitis at C7-T1 - resolving Dementia, schizophrenia Multiple falls - Needs home health Left wrist swelling - RA x-ray Difficulty ambulating - to home health Shoulder and hand pain - with negative stress in the past 2 years. Acute back pain - could be 2/2 OA, RA, or recent trauma and falls. Imaging negative for acute fracture, but old left sided rib fractures noted. Will cont tramadol, lidoderm patch Anemia - likely of chronic disease with RA, PMR Osterarthritis - on voltaren topically Asthma - on singulair and albuterol prn Diabetes-Type II - will place on sliding scale Fibromyalgia - on cymbalta and tramadol High Cholesterol - cont statin Hypertension - cont meds Schizophrenia - on fluphenazine and quetiapine, will continue. Consult psychiatry RA - on arava, will hold for likely infection PMR - on prednisone chronically FEN - Cardiac diet PPX - lovenox FULL CODE Dispo - inpatient for above Justicifation of Admission Dx: Justifications for Admission: Justification of Admission Dx: Yes KATHERIN THOMPSON MD Feb 27, 2020 11:53
[2020-02-27] MEDS ORDERED: FUROSEMIDE 40 MG/4 ML VIAL. IVP ONE ×2 (13:30→18:15)
--- NOTE | 2020-02-27 13:30 | PDOC2 ---
DIOR POLK WOOD TECHNOLOGIST 02/27/20 1330: CARDIAC CONSULT DATE OF CONSULT Date of Consult DATE: 02/27/20 TIME: 13:23 REASON FOR CONSULT Reason for Consult: Acute CHF REFERRING PHYSICIAN Referring Physician: Arlet SOURCE Source: Chart review, Patient HISTORY OF PRESENT ILLNESS HISTORY OF PRESENT ILLNESS This is a 74 yo female admitted fro [facility] for shortness of breath. Presently she is on RA and SOA is better. Per imaging she still has vascular congestion but no significant peripheral edema. Positive for PND and intermittent orthopnea. She has been having nonproducitve cough in the last week. Also reported chills and has not had any fever. She has been tested for covid and so far negative. She is at risk for falls citing that she has imbalance and weak. Denies any chest pain or palpitations and associated passing out. PAST MEDICAL HISTORY Cardiovascular: HTN, Hyperlipidemia Pulmonary: Asthma GI: GERD Psych: Schizophrenia (schizoaffective) Musculoskeletal: low back pain, Osteoarthritis, Other (PMR; L1 compression fracture) Rheumatologic: Fibromyalgia Infectious disease: No pertinent hx ENT: No pertinent hx Endocrine: Diabetes (2) PAST SURGICAL HISTORY Past Surgical History: Appendectomy, Total knee replacement (bilateral), Hysterectomy, Other (LHC; laminectomy) FAMILY HISTORY Family History: Diabetes SOCIAL HISTORY Smoke: No ALCOHOL: none Drugs: None Lives: Snf CURRENT MEDICATIONS CURRENT MEDICATIONS Current Medications Medications (Trade) Dose Ordered Sig/Rocío Route PRN Reason Start Time Stop Time Status Last Admin Dose Admin Aspirin (Ecotrin) 81 mg HS PO 02/26/20 21:00 02/26/20 21:47 Atorvastatin Calcium (Lipitor) 10 mg DAILY PO 02/27/20 09:00 02/27/20 11:23 Haloperidol (Haldol) 4 mg TID PO 02/26/20 15:00 02/27/20 09:14 Leflunomide (Arava) 20 mg DAILY PO 02/27/20 09:00 02/27/20 11:43 Losartan Potassium (Cozaar) 50 mg BID PO 02/26/20 21:00 02/27/20 09:13 Potassium Chloride (Klor-Con) 10 meq DAILY PO 02/27/20 09:00 02/27/20 09:14 Spironolactone (Aldactone) 25 mg DAILY PO 02/27/20 09:00 8/5/20 09:14 Trazodone HCl (Desyrel) 100 mg PRN Q12HR PRN PO anxiety/agitation 02/26/20 14:45 02/26/20 21:46 Cetirizine HCl (ZyrTEC) 10 mg DAILY PO 02/27/20 09:00 02/27/20 09:14 Metoprolol Tartrate (Lopressor) 100 mg BID PO 02/26/20 21:00 02/27/20 09:13 Tramadol HCl (Ultram) 100 mg PRN Q6HRS PRN PO PAIN MILD 02/26/20 14:45 02/27/20 11:33 Hydroxyzine HCl (Atarax) 25 mg PRN Q8HRS PRN PO ITCHING 02/26/20 18:15 02/26/20 21:47 Labetalol HCl (Normodyne Iv Push) 10 mg PRN Q2HR PRN IVP SBP>180 DBP>110 02/26/20 21:30 02/26/20 21:43 ALLERGIES ALLERGIES: Coded Allergies: Sulfa (Sulfonamide Antibiotics) (Verified Allergy, Intermediate, 02/22/20) divalproex sodium (Verified Allergy, Intermediate, neck and back pain, 02/22/20) fluticasone (Verified Allergy, Intermediate, COUGH, 02/22/20) latex (Verified Allergy, Intermediate, SURGICAL TAPE, 02/22/20) lisinopril (Verified Allergy, Intermediate, cough, 02/22/20) piroxicam (Verified Allergy, Intermediate, BLISTERS, 02/22/20) gabapentin (Verified Adverse Reaction, Severe, 02/22/20) Hallucinations, worsening of schizophrenia ROS Review of System 14 point ROS evaluated with pertinent positives noted per HPI PHYSICAL EXAM General: Alert, Oriented X3, Cooperative, No acute distress HEENT: Atraumatic, Mucous membr. moist/pink Lungs: Other (diminished basilar crackles) Heart: Regular rate (SR), Normal S1, Normal S2, No murmurs, Other (S4) Abdomen: Soft, No tenderness Extremities: No edema Skin: No breakdown Neuro: Normal speech, Sensation intact Psych/Mental Status: Mental status NL, Mood NL MUSCULOSKELETAL: Osteoarthritic changes both hands VITALS/I&O VITALS/I&O: Vital Signs Date Time Temp Pulse Resp B/P (MAP) Pulse Ox O2 Delivery O2 Flow Rate FiO2 02/27/20 11:33 95 Room Air 02/27/20 11:00 99.8 75 18 177/86 (116) 99.8 02/27/20 08:00 1.0 I & O 02/26/20 02/26/20 02/27/20 14:59 22:59 06:59 Intake Total 240 ml Output Total 900 ml 1850 ml Balance -900 ml -1610 ml LABS Lab: Laboratory Tests Test 02/26/20 16:50 Urine Collection Type U cath Urine Color Yellow Urine Clarity Clear Urine pH 6.5 (<5.0-8.0) Urine Specific [place] <=1.005 (1.000-1.030) Urine Protein 100 mg/dL (NEG-TRACE) Urine Glucose (UA) Negative mg/dL (NEG) Urine Ketones (Stick) Negative mg/dL (NEG) Urine Blood Negative (NEG) Urine Nitrite Negative (NEG) Urine Bilirubin Negative (NEG) Urine Urobilinogen Dipstick 0.2 mg/dL (0.2 mg/dL) Urine Leukocyte Esterase Trace (NEG) Urine RBC Occ /HPF (0-2) Urine WBC 1-4 /HPF (0-4) Urine Squamous Epithelial Cells Occ /LPF Urine Transitional Epithelial Cells Occ /LPF Urine Amorphous Sediment Present /HPF Urine Bacteria Few /HPF (0-FEW) Urine Mucus Slight /LPF ECHOCARDIOGRAM ECHOCARDIOGRAM Critical Value: No <Conclusion> The left ventricular systolic function is normal and the ejection fraction is within normal range. EF 55% There is normal LV segmental wall motion. DATE: 05/27/17 1259 STRESS TEST STRESS TEST Conclusion 1. No evidence of EKG changes with stress testing. 2. Normal perfusion at stress/rest. 3. Low risk study. 4. EF > 60%. DATE: 08/22/17 1402 ASSESSMENT/PLAN ASSESSMENT/PLAN 1. Acute on chronic diastolic CHF: appears compensated 2. HTN urgency 3. HLP 4. DM2 5. Hyponatremia 6. Hx of PMR 7. Hx of multiple mechanical falls Recommendations TSH, lipids, TTE Lasix x1. Strict I & O Restart home BP meds. Await BMP and will restart home losartan Consider for outpt ischemic workup for further risk stratification given her significant cardiac risk factors. ANDREW SANCHEZ MD 02/27/20 2019: CARDIAC CONSULT ASSESSMENT/PLAN ASSESSMENT/PLAN Patient seen and examined. Agree with CONTINUOUS IMPROVEMENT ANALYST's assessment and plan. Acute on chr diastolic HF better compensated 2D echo showed normal LVF Resume home anti hypertensives and titrate for better BP control Plan outpatient ischemic evaluation Thank you for your consultation DIOR POLK APRN Feb 27, 2020 13:30 ANDREW SANCHEZ MD Feb 27, 2020 20:19
--- NOTE | 2020-02-27 13:54 | NUR ---
SS following for discharge planning. SS reviewed pt chart and discussed with pt RN. Pt is LT resident from [place], ; fax [phone]. Pt is currently on room air and COVID19 negative. SS will continue to follow for discharge planning.
[2020-02-27] MEDS ORDERED: hydrALAZINE 20 MG/ML VIAL. IVP PRN (14:30)
[2020-02-27 15:00] VITALS: BP 147/65
[2020-02-27 15:17] LABS: CALCIUM 8.2 mg/dL (8.5-10.1); CREATININE 0.9 mg/dL (0.6-1.0); GFR 74.1; MAGNESIUM 1.8 mg/dL (1.8-2.4); POTASSIUM 3.6 mmol/L (3.5-5.1)
[2020-02-27 15:22] LABS: CHOLESTEROL/HDL RATIO 2.2
--- NOTE | 2020-02-27 16:41 | CARD ---
MR#: [id number] Date of Study: 02/27/2020 Ordering Physician: DIOR POLK, Referring Physician: DIOR POLK, Tech: Glenda Lagos [facility] [place] APPROVED REPORT EXAM: Two-dimensional and M-mode echocardiogram with Doppler and color Doppler. Other Information Quality : Good INDICATION Congestive Heart Failure 2D DIMENSIONS Left Atrium(2D)3.7 (1.6-4.0cm)IVSd1.1 (0.7-1.1cm) Aortic Root(2D)3.3 (2.0-3.7cm)LVDd4.9 (3.9-5.9cm) LVOT Diameter2.2 (1.8-2.4cm)PWd1.1 (0.7-1.1cm) LVDs3.3 (2.5-4.0cm)FS (%) 32.6 % SV68.1 mlLVEF(%)60.8 (>50%) Aortic Valve AoV Peak Bryant.154.5cm/sAoV VTI28.2cm AO Peak GR.9.5mmHgLVOT VTI 26.03cm AO Mean GR.5mmHgAVA (VTI)3.60cm2 Mitral Valve MV E Xlilvrju31.7cm/sMV DECEL [id number] MV A Jznseobg422.1cm/sE/A Ratio0.8 TDI Lateral E' P. V9.01cm/sMedial E' P. V5.86cm/s E/Lateral E'9.8E/Medial E'15.1 Tricuspid Valve TR P. Mgxuunzi346kf/sRAP [id number] TR Peak Gr.82avFhVRUG65xuKt Pulmonary Vein S1 Caiyyiyv22.2cm/sS2 Aelggjyo80.12cm/s D2 Dztoqiun84.1cm/s LEFT VENTRICLE The left ventricle is normal size. There is normal left ventricular wall thickness. The left ventricu lar systolic function is normal. The Ejection Fraction is 55-60%. There is normal LV segmental wall m otion. Transmitral Doppler flow pattern is Grade I-abnormal relaxation pattern. RIGHT VENTRICLE The right ventricle is normal size. The right ventricular systolic function is normal. ATRIA The left atrium size is normal. The right atrium size is normal. The interatrial septum is intact wit h no evidence for an atrial septal defect or patent foramen ovale as noted on 2-D or Doppler imaging. AORTIC VALVE The aortic valve is calcified but opens well. Doppler and Color Flow revealed no significant aortic r egurgitation. There is no significant aortic valvular stenosis. MITRAL VALVE The mitral valve is calcified but opens well. Mitral annular calcification is mild. There is no evide nce of mitral valve prolapse. There is no mitral valve stenosis. Doppler and Color-flow revealed trac e mitral regurgitation. TRICUSPID VALVE The tricuspid valve is normal in structure and function. Doppler and Color Flow revealed mild tricusp id regurgitation. There is mild pulmonary hypertension. The PA pressure was estimated at 34 mmHg. The re is no tricuspid valve stenosis. PULMONIC VALVE The pulmonary valve is normal in structure and function. Doppler and Color Flow revealed trace pulmon ic valvular regurgitation. There is no pulmonic valvular stenosis. GREAT VESSELS The aortic root is normal in size. The ascending aorta is normal in size. The IVC is normal in size a nd collapses >50% with inspiration. PERICARDIAL EFFUSION There is no evidence of significant pericardial effusion. Critical Notification Critical Value: No <Conclusion> The left ventricular systolic function is normal. The Ejection Fraction is 55-60%. There is normal LV segmental wall motion. Transmitral Doppler flow pattern is Grade I-abnormal relaxation pattern. Trace mitral regurgitation. Mild tricuspid regurgitation. The PA pressure was estimated at 34 mmHg. There is no evidence of significant pericardial effusion. Signed by : Oc Garcia, Electronically Approved : 02/27/2020 16:40:47
[2020-02-27 19:00] VITALS: BP 183/87
[2020-02-27] MEDS: traZODone 100 MG TABLET. PO PRN (20:28)
[2020-02-27] MEDS: ASPIRIN ENTERIC COATED 81 MG TABLET.DR. PO SCH (20:28)
[2020-02-27 23:00] VITALS: BP 75/87
[2020-02-28] MEDS: traMADol 50 MG TABLET PO PRN ×2 (01:51→09:00)
[2020-02-28 03:00] VITALS: BP 175/83
[2020-02-28] MEDS: hydrOXYzine 25 MG TABLET PO PRN ×2 (03:04→20:21)
[2020-02-28 06:07] LABS: CALCIUM 8.5 mg/dL (8.5-10.1); CREATININE 0.9 mg/dL (0.6-1.0); GFR 74.1; POTASSIUM 3.4 mmol/L (3.5-5.1)
[2020-02-28 06:31] LABS: BASO % 1 % (0-3); EOS # 0.2 x10^3/uL (0.0-0.7); EOS % 2 % (0-3); HEMOGLOBIN 7.1 g/dL (12.0-15.5); LYMPH # 1.5 x10^3/uL (1.0-4.8); LYMPH % 19 % (24-48); MEAN CORPUSCULAR HEMOGLOBIN 28 pg (25-35); MEAN CORPUSCULAR HGB CONC 34 g/dL (31-37); MEAN CORPUSCULAR VOLUME 82 fL (79-100); MONO # 1.1 x10^3/uL (0.0-1.1); MONO % 14 % (0-9); NEUT % 64 % (31-73); PLATELET COUNT 230 x10^3/uL (140-400); RED BLOOD COUNT 2.53 x10^6/uL (3.50-5.40); RED CELL DISTRIBUTION WIDTH 19.1 % (11.5-14.5); WHITE BLOOD COUNT 7.8 x10^3/uL (4.0-11.0)
[2020-02-28 06:58] LABS: HEMATOCRIT 20.9 % (36.0-47.0)
[2020-02-28 07:00] VITALS: BP 182/90
[2020-02-28] MEDS: HALOPERIDOL 2 MG TABLET. PO SCH ×3 (08:58→20:22)
[2020-02-28] MEDS: POTASSIUM CHLORIDE 10 MEQ TABLET.ER. PO SCH (08:58)
[2020-02-28] MEDS: CETIRIZINE HCL 10 MG TABLET. PO SCH (08:58)
[2020-02-28] MEDS: LOSARTAN POTASSIUM 50 MG TABLET. PO SCH ×2 (08:59→20:27)
[2020-02-28] MEDS: ATORVASTATIN CALCIUM 10 MG TABLET. PO SCH (09:00)
[2020-02-28] MEDS: METOPROLOL TART IMMED RELEASE 50 MG TABLET. PO SCH ×2 (09:00→20:28)
[2020-02-28] MEDS: SPIRONOLACTONE 25 MG TABLET PO SCH (09:00)
[2020-02-28] MEDS: LEFLUNOMIDE 10 MG TABLET. PO SCH (09:01)
[2020-02-28] MEDS ORDERED: POTASSIUM CHLORIDE 20 MEQ TABLET.ER. PO ONE (09:30)
[2020-02-28 11:00] VITALS: BP 159/81
--- NOTE | 2020-02-28 13:07 | NUR ---
SS following up with discharge planning. SS reviewed pt chart and discussed with pt RN. Pt is LTC resident from [place], ; fax [phone]. Pt currently on room air. Hemoglobin 7.1. Per RN, will recheck in the AM. SS phoned and faxed clinical updates to [place]. SS will continue to follow for discharge planning.
--- NOTE | 2020-02-28 14:31 | PDOC ---
DIOR POLK SUPERVISOR CONTACT LENS 02/28/20 1431: CARDIO Progress Notes Date and Time Date of Service 02/28/2020 Time of Evaluation 1125 Subjective Subjective: No Chest Pain, No shortness of breath, No Palpitations Vitals Vitals Vital Signs Date Time Temp Pulse Resp B/P (MAP) Pulse Ox O2 Delivery O2 Flow Rate FiO2 02/28/20 11:32 64 182/89 02/28/20 11:00 99.3 18 93 Room Air 99.3 02/28/20 02:51 1.0 Weight Weight [ ] Input and Output Intake and Output Intake and Output 02/28/20 07:00 Intake Total 460 ml Output Total 5300 ml Balance -4840 ml Intake Oral 460 ml Output Urine Total 5300 ml # Voids 1 Laboratory Labs Laboratory Tests Test 02/27/20 14:35 02/28/20 04:10 Sodium Level 130 mmol/L (136-145) 131 mmol/L (136-145) Potassium Level 3.6 mmol/L (3.5-5.1) 3.4 mmol/L (3.5-5.1) Chloride Level 96 mmol/L (98-107) 96 mmol/L (98-107) Carbon Dioxide Level 30 mmol/L (21-32) 31 mmol/L (21-32) Anion Gap 4 (6-14) 4 (6-14) Blood Urea Nitrogen 15 mg/dL (7-20) 17 mg/dL (7-20) Creatinine 0.9 mg/dL (0.6-1.0) 0.9 mg/dL (0.6-1.0) Estimated GFR (Cockcroft-Gault) 74.1 74.1 Glucose Level 143 mg/dL (70-99) 100 mg/dL (70-99) Calcium Level 8.2 mg/dL (8.5-10.1) 8.5 mg/dL (8.5-10.1) Magnesium Level 1.8 mg/dL (1.8-2.4) Triglycerides Level 47 mg/dL (0-150) Cholesterol Level 104 mg/dL (0-200) LDL Cholesterol, Calculated 48 mg/dL (0-100) VLDL Cholesterol, Calculated 9 mg/dL (0-40) Non-HDL Cholesterol Calculated 57 mg/dL (0-129) HDL Cholesterol 47 mg/dL (40-60) Cholesterol/HDL Ratio 2.2 Thyroid Stimulating Hormone (TSH) 0.727 uIU/mL (0.358-3.74) White Blood Count 7.8 x10^3/uL (4.0-11.0) Red Blood Count 2.53 x10^6/uL (3.50-5.40) Hemoglobin 7.1 g/dL (12.0-15.5) Hematocrit 20.9 % (36.0-47.0) Mean Corpuscular Volume 82 fL (79-100) Mean Corpuscular Hemoglobin 28 pg (25-35) Mean Corpuscular Hemoglobin Concent 34 g/dL (31-37) Red Cell Distribution Width 19.1 % (11.5-14.5) Platelet Count 230 x10^3/uL (140-400) Neutrophils (%) (Auto) 64 % (31-73) Lymphocytes (%) (Auto) 19 % (24-48) Monocytes (%) (Auto) 14 % (0-9) Eosinophils (%) (Auto) 2 % (0-3) Basophils (%) (Auto) 1 % (0-3) Neutrophils # (Auto) 5.0 x10^3/uL (1.8-7.7) Lymphocytes # (Auto) 1.5 x10^3/uL (1.0-4.8) Monocytes # (Auto) 1.1 x10^3/uL (0.0-1.1) Eosinophils # (Auto) 0.2 x10^3/uL (0.0-0.7) Basophils # (Auto) 0.0 x10^3/uL (0.0-0.2) Microbiology Micro Microbiology 02/26/20 Urine Culture - Final, Complete 02/26/20 Blood Culture - Preliminary, Resulted NO GROWTH AFTER 2 DAYS Physical Exam HEENT: Neck Supple W Full Motion, Other (frontal ecchymoses with contusion) Chest: Symmetric LUNGS: Clear to Auscultation Heart: RRR (SR) Abdomen: Soft N/T Extremities: No Calf Tenderness Neurology: alert, oriented, follow commands Assessment Assessment 1. Acute on chronic diastolic CHF: appears compensated. EF and WM nml. No arrhythmias 2. HTN urgency: labile 3. HLP 4. DM2 5. Hyponatremia: improved 6. Hx of PMR 7. Hx of multiple mechanical falls 8. Anemia: Hgb at 7.1 per PCP Recommendations Lasix. Start on norvasc. Continue home BP regimen Strict I & O Consider for outpt ischemic workup for further risk stratification given her significant cardiac risk factors. Justicifation of Admission Dx: Justifications for Admission: Justification of Admission Dx: Yes ANDREW SANCHEZ MD 02/28/20 1721: CARDIO Progress Notes Assessment Assessment Patient seen and examined. Agree with TECHNICAL SERVICES ANALYST's assessment and plan. Acute on chr diastolic HF better compensated 2D echo showed normal LVF Agree with starting Norvasc for better blood pressure control. Plan outpatient ischemic evaluation DIOR POLK APRN Feb 28, 2020 14:31 ANDREW SANCHEZ MD Feb 28, 2020 17:21
[2020-02-28] MEDS ORDERED: FUROSEMIDE 40 MG TABLET. PO ONE (14:45)
[2020-02-28] MEDS ORDERED: amLODIPine BESYLATE 5 MG TABLET PO ONE (14:45)
--- NOTE | 2020-02-28 14:58 | PDOC ---
[facility] PROGRESS NOTE Date of Service DOS: DATE: 02/28/20 TIME: 14:56 Chief Complaint Chief Complaint A/P: Acute hypoxic respiratory failure - seem to be volume overload. COVID 19 negative Acute on Chronic diastolic CHF - does seem in acute exacerbation. seems to be chronic in nature with probably diastolic dysfunction given that her last ejection fraction was recorded at 55% on May 2017 Acute Anemia - likely from hematomas, also with chronic disease with RA, PMR. Will trend, may need transfusion Scalp hematoma - from multiple fallls Longstanding gait disorder Discitis/osteomyelitis at C7-T1 - resolving Dementia, schizophrenia Multiple falls - Needs SNF Left wrist swelling - order x-ray Difficulty ambulating - to home health Shoulder and hand pain - with negative stress in the past 2 years. Acute back pain - could be 2/2 OA, RA, or recent trauma and falls. Imaging negative for acute fracture, but old left sided rib fractures noted. 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 Consult psychiatry RA - on arava, will hold for likely infection PMR - on prednisone chronically FEN - Cardiac diet PPX - lovenox FULL CODE Dispo - inpatient for above History of Present Illness History of Present Illness Ms Ji is a 73yo F w/ PMHx osterarthritis, Asthma, CHF, Diabetes-Type II, Fibromyalgia, High Cholesterol, Hypertension, Schizophrenia, RA, PMR who is presenting after a fall at SNF and worsening SOB. Patient does have a history of dementia as well as a psychiatric history and is noncooperative with her h istory and physical. History physical and review of systems all limited to altered mental status. Patient was just admitted and discharged on 02/24 for frequent falls and accelerated hypertension. Patient found to have shortness of breath at the longterm with dropping oxygen levels. Patient arrived via EMS sats are in the mid 90s on 6 L nasal cannula Labs significant for NA 128, K3.6, BUN 18, CR 0.8 glucose 191, BNP 8589, albumin 2.8 CXR with bilateral interstitial opacities. Admitted for further treatment of hypoxia. Hypoxia improved, breathing improved. Complaining of left thumb pain today. Hb dropped to 7. Vitals/I&O Vitals/I&O: Vital Signs Date Time Temp Pulse Resp B/P (MAP) Pulse Ox O2 Delivery O2 Flow Rate FiO2 02/28/20 14:54 84 196/100 02/28/20 11:00 99.3 18 93 Room Air 99.3 02/28/20 02:51 1.0 I & O 02/27/20 02/27/20 02/28/20 15:00 23:00 07:00 Intake Total 180 ml 280 ml Output Total 1100 ml 2850 ml 1350 ml Balance -920 ml -2850 ml -1070 ml Physical Exam General: Alert, Cooperative, mild distress Heart: Regular rate (SR), Normal S1, Normal S2, No murmurs, Other (S4) Lungs: Clear Abdomen: Normal bowel sounds, Soft, No tenderness, No hepatosplenomegaly, No masses Extremities: No clubbing, No cyanosis, No edema, Normal pulses, Other (RA deformities multiple joints) Skin: No rashes, No breakdown, No significant lesion Labs Labs: Laboratory Tests Test 02/28/20 04:10 White Blood Count 7.8 x10^3/uL (4.0-11.0) Red Blood Count 2.53 x10^6/uL (3.50-5.40) Hemoglobin 7.1 g/dL (12.0-15.5) Hematocrit 20.9 % (36.0-47.0) Mean Corpuscular Volume 82 fL (79-100) Mean Corpuscular Hemoglobin 28 pg (25-35) Mean Corpuscular Hemoglobin Concent 34 g/dL (31-37) Red Cell Distribution Width 19.1 % (11.5-14.5) Platelet Count 230 x10^3/uL (140-400) Neutrophils (%) (Auto) 64 % (31-73) Lymphocytes (%) (Auto) 19 % (24-48) Monocytes (%) (Auto) 14 % (0-9) Eosinophils (%) (Auto) 2 % (0-3) Basophils (%) (Auto) 1 % (0-3) Neutrophils # (Auto) 5.0 x10^3/uL (1.8-7.7) Lymphocytes # (Auto) 1.5 x10^3/uL (1.0-4.8) Monocytes # (Auto) 1.1 x10^3/uL (0.0-1.1) Eosinophils # (Auto) 0.2 x10^3/uL (0.0-0.7) Basophils # (Auto) 0.0 x10^3/uL (0.0-0.2) Sodium Level 131 mmol/L (136-145) Potassium Level 3.4 mmol/L (3.5-5.1) Chloride Level 96 mmol/L (98-107) Carbon Dioxide Level 31 mmol/L (21-32) Anion Gap 4 (6-14) Blood Urea Nitrogen 17 mg/dL (7-20) Creatinine 0.9 mg/dL (0.6-1.0) Estimated GFR (Cockcroft-Gault) 74.1 Glucose Level 100 mg/dL (70-99) Calcium Level 8.5 mg/dL (8.5-10.1) Assessment and Plan Assessmemt and Plan Problems Medical Problems: (1) Multifocal pneumonia Status: Acute (2) Respiratory failure Status: Acute Comment Review of Relevant I have reviewed the following items escobar (where applicable) has been applied. Medications: Current Medications Medications (Trade) Dose Ordered Sig/Rocoí Route PRN Reason Start Time Stop Time Status Last Admin Dose Admin Furosemide (Lasix) 40 mg 1X ONCE IVP 02/27/20 18:15 02/27/20 18:16 DC 02/27/20 18:24 Potassium Chloride (Klor-Con) 20 meq 1X ONCE PO 02/28/20 09:30 02/28/20 09:31 DC 02/28/20 11:31 Furosemide (Lasix) 40 mg 1X ONCE PO 02/28/20 14:45 02/28/20 14:46 DC 02/28/20 14:51 Amlodipine Besylate (Norvasc) 5 mg 1X ONCE PO 02/28/20 14:45 02/28/20 14:46 DC 02/28/20 14:54 Justicifation of Admission Dx: Justifications for Admission: Justification of Admission Dx: Yes KATHERIN THOMPSON MD Feb 28, 2020 14:58
[2020-02-28 15:00] VITALS: BP 196/100
--- NOTE | 2020-02-28 17:40 | RAD ---
Two-view study left hand Clinical indications: Left thumb injury. Pain. Redness and swelling. FINDINGS: No acute fracture or dislocation or lytic process is seen. However, the scaphoid bone is not well seen and therefore recommend dedicated scaphoid bone views. There is circumferential soft tissue swelling of the left wrist. The radiocarpal articulation is maintained. There are multiple cysts involving the radius and ulnar styloid process and carpal bones. This may be seen with rheumatoid arthritis if there is a history of such. There is degenerative joint space narrowing and subchondral sclerosis of the lunate capitate joint. There is severe primary degenerative osteoarthritis and spurring of the first carpal metacarpal joint. IMPRESSION: No acute fracture is seen. However, scaphoid bone is not seen optimally. Therefore, recommend dedicated scaphoid bone views. Diffuse circumferential soft tissue swelling of the left wrist. Small erosions of the distal ulna and radius and the carpal bones is seen. This could be secondary to rheumatoid arthritis if there is a history of such. Septic arthritis is certainly a possibility if there are clinical findings of such. Severe primary degenerative osteoarthritis of the first carpal metacarpal joint. In addition, there is moderate primary degenerative osteoarthritis of the first and second metacarpal phalangeal joints and there is mild to moderate moderate primary degenerative osteoarthritis of the interphalangeal joints especially the first interphalangeal joint. There is primary degenerative osteoarthritis of the lunate capitate joint space. Electronically signed by: Jeff Sarabia MD (02/28/2020 5:37 PM) [id number]
[2020-02-28 19:00] VITALS: BP 209/54
[2020-02-28] MEDS: ASPIRIN ENTERIC COATED 81 MG TABLET.DR. PO SCH (20:22)
[2020-02-28 23:00] VITALS: BP 166/83
--- NOTE | 2020-02-29 00:01 | PDOC1 ---
History & Psych Evaluation Date of Service: DOS: DATE: 02/29/20 TIME: 00:01 Source: Source: Caregiver, Chart review, Patient Identification: Identification 74-year-old -Romanian female with history of schizophrenia. Chief Complaint: Chief Complaint Schizophrenia, altered mental status History of Present Illness: HPI: She is a 73-year-old female with history of osteoarthritis, congestive heart failure, asthma, type 2 diabetes, fibromyalgia, dyslipidemia, hypertension, rheumatoid arthritis, resident of a intermediate facility admitted with fall and shortness of breath. She does have history of dementia. Initially, she was reportedly noncooperative with history and physical. She had altered mental status examination. She also have history of schizophrenia. When seen, she appears cooperative and interactive. However, speech was loud which appear to be at baseline. Stating, she was long time ago at her teenage years diagnosed with schizophrenia. Later she was diagnosed with bipolar mood disorder. She has longstanding history of complex mental health challenges. She tried number of medications previously. She had history of auditory and visual hallucinations. Had history of mood instability. States, she has history of depression and anxiety. However presently she categorically denied any overt depression or anxiety. She denied auditory or visual hallucinations. No evidence of nadia or hypomania. Past Psychiatric History: Previous history of bipolar mood disorder, schizophrenia, depression and anxiety. Endorsing history of psychiatric hospital admissions. Denies recent history of psychiatric hospital admission. Admits having previous history of suicidal attempt long time ago. Past Medical History: Coronary artery disease Congestive heart failure Hypertension Hyperlipidemia previous CVA History of schizophrenia Diabetes mellitus Family History: Family psychiatric family history is not known to the patient. Denies history of suicide in the Social History: Social History: She is a resident of the intermediate facility. She smokes. Denies illicit substance use. Denies alcohol abuse. Current Medications: Current Medications Current Medications Medications (Trade) Dose Ordered Sig/Rocío Start Time Stop Time Status Last Admin Dose Admin Acetaminophen (Tylenol) 650 mg PRN Q4HRS PRN 02/26/20 14:45 02/28/20 01:51 650 MG Amlodipine Besylate (Norvasc) 5 mg 1X ONCE 02/28/20 14:45 02/28/20 14:46 DC 02/28/20 14:54 5 MG Aspirin (Aspirin Chewable) 324 mg 1X ONCE 02/26/20 03:00 02/26/20 03:01 DC 02/26/20 05:30 324 MG Aspirin (Ecotrin) 81 mg HS 02/26/20 21:00 02/28/20 20:22 81 MG Atorvastatin Calcium (Lipitor) 10 mg DAILY 02/27/20 09:00 02/28/20 09:00 10 MG Cefepime HCl (Maxipime) 1 gm 1X ONCE 02/26/20 03:00 02/26/20 03:01 DC 02/26/20 02:43 1 GM Cetirizine HCl (ZyrTEC) 10 mg DAILY 02/27/20 09:00 02/28/20 08:58 10 MG Furosemide (Lasix) 40 mg 1X ONCE 02/28/20 14:45 02/28/20 14:46 DC 02/28/20 14:51 40 MG Haloperidol (Haldol) 4 mg TID 02/26/20 15:00 02/28/20 20:22 4 MG Haloperidol Lactate (Haldol Inj) 5 mg 1X ONCE 02/26/20 02:00 02/26/20 02:01 DC 02/26/20 01:46 5 MG Hydralazine HCl (Apresoline Inj) 10 mg PRN Q4HRS PRN 02/27/20 14:30 02/28/20 11:32 10 MG Hydroxyzine HCl (Atarax) 25 mg PRN Q8HRS PRN 02/26/20 18:15 02/28/20 20:21 25 MG Labetalol HCl (Normodyne Iv Push) 10 mg PRN Q2HR PRN 02/26/20 21:30 02/26/20 21:43 10 MG Leflunomide (Arava) 20 mg DAILY 02/27/20 09:00 02/28/20 09:01 20 MG Levofloxacin/ Dextrose 150 ml @ 100 mls/hr 1X ONCE 02/26/20 03:00 02/26/20 04:29 DC 02/26/20 02:44 100 MLS/HR Lorazepam (Ativan Inj) 2 mg 1X ONCE 02/26/20 02:00 02/26/20 02:01 DC 02/26/20 01:46 2 MG Losartan Potassium (Cozaar) 50 mg BID 02/26/20 21:00 02/28/20 20:27 50 MG Metoprolol Tartrate (Lopressor) 100 mg BID 02/26/20 21:00 02/28/20 20:28 100 MG Nitroglycerin (Nitro-Bid Oint) 1 inch 1X ONCE 02/26/20 03:00 02/26/20 03:01 DC 02/26/20 02:45 1 INCH Nitroglycerin/ Dextrose 250 ml @ 0 mls/hr 1X ONCE 02/26/20 03:00 02/26/20 02:38 DC Ondansetron HCl (Zofran) 4 mg PRN Q8HRS PRN 02/26/20 02:45 02/27/20 02:44 DC Potassium Chloride (Klor-Con) 20 meq 1X ONCE 02/28/20 09:30 02/28/20 09:31 DC 02/28/20 11:31 20 MEQ Spironolactone (Aldactone) 25 mg DAILY 02/27/20 09:00 02/28/20 09:00 25 MG Tramadol HCl (Ultram) 100 mg PRN Q6HRS PRN 02/26/20 14:45 02/28/20 09:00 100 MG Trazodone HCl (Desyrel) 100 mg PRN Q12HR PRN 02/26/20 14:45 02/27/20 20:28 100 MG Allergies: Allergies: Coded Allergies: Sulfa (Sulfonamide Antibiotics) (Verified Allergy, Intermediate, 02/22/20) divalproex sodium (Verified Allergy, Intermediate, neck and back pain, 02/22/20) fluticasone (Verified Allergy, Intermediate, COUGH, 02/22/20) latex (Verified Allergy, Intermediate, SURGICAL TAPE, 02/22/20) lisinopril (Verified Allergy, Intermediate, cough, 02/22/20) piroxicam (Verified Allergy, Intermediate, BLISTERS, 02/22/20) gabapentin (Verified Adverse Reaction, Severe, 02/22/20) Hallucinations, worsening of schizophrenia Mental Status Examination: Mental Status Examination Elderly female, appears her stated age Cooperative and interactive Fully alert and oriented Thought processes mostly goal-directed Denies auditory or visual hallucinations No abnormal perception noted Denies suicidal or homicidal thoughts Mood is better Affect is euthymic Insight is fair Judgment is fair Impulse control is fair Attention span and concentration fair Recent and remote memory fair ROS: 14 point review of system is otherwise negative except for stated in H&P. Physical Exam: Refer to Physician's note. DRILL RUNNER HELPER: No focal deficit MSK: No EPS, TDK, or abnormal involuntary movements Vitals: Vitals Vital Signs Date Time Temp Pulse Resp B/P (MAP) Pulse Ox O2 Delivery O2 Flow Rate FiO2 02/28/20 23:00 98.8 81 18 166/83 (110) 98 Room Air 98.8 Labs: Labs Laboratory Tests Test 02/27/20 14:35 02/28/20 04:10 Sodium Level 130 mmol/L (136-145) 131 mmol/L (136-145) Potassium Level 3.6 mmol/L (3.5-5.1) 3.4 mmol/L (3.5-5.1) Chloride Level 96 mmol/L (98-107) 96 mmol/L (98-107) Carbon Dioxide Level 30 mmol/L (21-32) 31 mmol/L (21-32) Anion Gap 4 (6-14) 4 (6-14) Blood Urea Nitrogen 15 mg/dL (7-20) 17 mg/dL (7-20) Creatinine 0.9 mg/dL (0.6-1.0) 0.9 mg/dL (0.6-1.0) Estimated GFR (Cockcroft-Gault) 74.1 74.1 Glucose Level 143 mg/dL (70-99) 100 mg/dL (70-99) Calcium Level 8.2 mg/dL (8.5-10.1) 8.5 mg/dL (8.5-10.1) Magnesium Level 1.8 mg/dL (1.8-2.4) Triglycerides Level 47 mg/dL (0-150) Cholesterol Level 104 mg/dL (0-200) LDL Cholesterol, Calculated 48 mg/dL (0-100) VLDL Cholesterol, Calculated 9 mg/dL (0-40) Non-HDL Cholesterol Calculated 57 mg/dL (0-129) HDL Cholesterol 47 mg/dL (40-60) Cholesterol/HDL Ratio 2.2 Thyroid Stimulating Hormone (TSH) 0.727 uIU/mL (0.358-3.74) White Blood Count 7.8 x10^3/uL (4.0-11.0) Red Blood Count 2.53 x10^6/uL (3.50-5.40) Hemoglobin 7.1 g/dL (12.0-15.5) Hematocrit 20.9 % (36.0-47.0) Mean Corpuscular Volume 82 fL (79-100) Mean Corpuscular Hemoglobin 28 pg (25-35) Mean Corpuscular Hemoglobin Concent 34 g/dL (31-37) Red Cell Distribution Width 19.1 % (11.5-14.5) Platelet Count 230 x10^3/uL (140-400) Neutrophils (%) (Auto) 64 % (31-73) Lymphocytes (%) (Auto) 19 % (24-48) Monocytes (%) (Auto) 14 % (0-9) Eosinophils (%) (Auto) 2 % (0-3) Basophils (%) (Auto) 1 % (0-3) Neutrophils # (Auto) 5.0 x10^3/uL (1.8-7.7) Lymphocytes # (Auto) 1.5 x10^3/uL (1.0-4.8) Monocytes # (Auto) 1.1 x10^3/uL (0.0-1.1) Eosinophils # (Auto) 0.2 x10^3/uL (0.0-0.7) Basophils # (Auto) 0.0 x10^3/uL (0.0-0.2) Laboratory Tests Test 02/28/20 04:10 White Blood Count 7.8 x10^3/uL (4.0-11.0) Red Blood Count 2.53 x10^6/uL (3.50-5.40) Hemoglobin 7.1 g/dL (12.0-15.5) Hematocrit 20.9 % (36.0-47.0) Mean Corpuscular Volume 82 fL (79-100) Mean Corpuscular Hemoglobin 28 pg (25-35) Mean Corpuscular Hemoglobin Concent 34 g/dL (31-37) Red Cell Distribution Width 19.1 % (11.5-14.5) Platelet Count 230 x10^3/uL (140-400) Neutrophils (%) (Auto) 64 % (31-73) Lymphocytes (%) (Auto) 19 % (24-48) Monocytes (%) (Auto) 14 % (0-9) Eosinophils (%) (Auto) 2 % (0-3) Basophils (%) (Auto) 1 % (0-3) Neutrophils # (Auto) 5.0 x10^3/uL (1.8-7.7) Lymphocytes # (Auto) 1.5 x10^3/uL (1.0-4.8) Monocytes # (Auto) 1.1 x10^3/uL (0.0-1.1) Eosinophils # (Auto) 0.2 x10^3/uL (0.0-0.7) Basophils # (Auto) 0.0 x10^3/uL (0.0-0.2) Sodium Level 131 mmol/L (136-145) Potassium Level 3.4 mmol/L (3.5-5.1) Chloride Level 96 mmol/L (98-107) Carbon Dioxide Level 31 mmol/L (21-32) Anion Gap 4 (6-14) Blood Urea Nitrogen 17 mg/dL (7-20) Creatinine 0.9 mg/dL (0.6-1.0) Estimated GFR (Cockcroft-Gault) 74.1 Glucose Level 100 mg/dL (70-99) Calcium Level 8.5 mg/dL (8.5-10.1) Diagnosis: Diagnosis: Acute delirium, likely multifactorial, hypoactive type Schizophrenia by history Unspecified mood disorder Unspecified psychotic disorder Assessment: She is an elderly female with known history of schizophrenia and mood instability admitted with altered mental status and history of fall. Apparen tly, she has history of unspecified psychosis and mood disorder which could be schizophrenia spectrum/bipolar spectrum. However at this point she is demonstrating minimal symptomatology other stable on Haldol doses. Recommended to continue medications as is. She is in agreement with plan and expressed understanding. Plan: Continue psychotropic medications as prescribed. As patient is a stable with respect to her mental health. Antipsychotics would also help in resolution of delirium. Avoid sundowning. Avoid sedatives and hypnotics. Risk, benefits, alternatives of the treatment are discussed. She is in ag reement with plan and voiced understanding. Adverse drug reaction of the medications prescribed were also discussed. Psychoeducation provided. Supportive psychotherapy provided. Brief insight oriented psychotherapy provided. KODY MATTHEW MD Feb 29, 2020 00:01
[2020-02-29 03:06] VITALS: BP 179/85
[2020-02-29 05:33] LABS: BASO % 0 % (0-3); EOS # 0.1 x10^3/uL (0.0-0.7); EOS % 1 % (0-3); HEMATOCRIT 23.1 % (36.0-47.0); HEMOGLOBIN 7.8 g/dL (12.0-15.5); LYMPH # 1.2 x10^3/uL (1.0-4.8); LYMPH % 13 % (24-48); MEAN CORPUSCULAR HEMOGLOBIN 28 pg (25-35); MEAN CORPUSCULAR HGB CONC 34 g/dL (31-37); MEAN CORPUSCULAR VOLUME 83 fL (79-100); MONO # 1.5 x10^3/uL (0.0-1.1); MONO % 16 % (0-9); NEUT # 6.4 x10^3/uL (1.8-7.7); NEUT % 69 % (31-73); PLATELET COUNT 266 x10^3/uL (140-400); RED BLOOD COUNT 2.78 x10^6/uL (3.50-5.40); RED CELL DISTRIBUTION WIDTH 18.4 % (11.5-14.5); WHITE BLOOD COUNT 9.2 x10^3/uL (4.0-11.0)
[2020-02-29 05:45] LABS: CALCIUM 9.1 mg/dL (8.5-10.1); CREATININE 0.8 mg/dL (0.6-1.0); GFR 84.8; MAGNESIUM 1.7 mg/dL (1.8-2.4); POTASSIUM 3.4 mmol/L (3.5-5.1)
[2020-02-29 07:00] VITALS: BP 203/101
[2020-02-29] MEDS: LEFLUNOMIDE 10 MG TABLET. PO SCH (08:42)
[2020-02-29] MEDS: HALOPERIDOL 2 MG TABLET. PO SCH ×2 (08:43→14:23)
[2020-02-29] MEDS: METOPROLOL TART IMMED RELEASE 50 MG TABLET. PO SCH (08:43)
[2020-02-29] MEDS: traMADol 50 MG TABLET PO PRN ×2 (08:43→14:23)
[2020-02-29] MEDS: CETIRIZINE HCL 10 MG TABLET. PO SCH (08:44)
[2020-02-29] MEDS: POTASSIUM CHLORIDE 10 MEQ TABLET.ER. PO SCH (08:44)
[2020-02-29] MEDS: ATORVASTATIN CALCIUM 10 MG TABLET. PO SCH (08:44)
[2020-02-29] MEDS: SPIRONOLACTONE 25 MG TABLET PO SCH (08:45)
[2020-02-29] MEDS: LOSARTAN POTASSIUM 50 MG TABLET. PO SCH (08:45)
[2020-02-29] MEDS ORDERED: amLODIPine BESYLATE 5 MG TABLET PO SCH (09:00)
[2020-02-29] MEDS ORDERED: amLODIPine BESYLATE 10 MG TABLET PO SCH (09:00)
[2020-02-29 11:00] VITALS: BP 163/79
--- NOTE | 2020-02-29 11:09 | PDOC ---
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 02/29/20 1109: CARDIO Progress Notes Date and Time Date of Service 02/29/2020 Time of Evaluation 1010 Subjective Subjective: No Chest Pain, No shortness of breath, No Palpitations, Other (wants to go back to [place]) Vitals Vitals Vital Signs Date Time Temp Pulse Resp B/P (MAP) Pulse Ox O2 Delivery O2 Flow Rate FiO2 02/29/20 08:45 83 203/101 02/29/20 07:30 Room Air 02/29/20 07:00 100.2 20 97 2.0 100.2 Weight Weight [ ] Input and Output Intake and Output Intake and Output 02/29/20 07:00 Intake Total 1600 ml Output Total 4050 ml Balance -2450 ml Intake Oral 1600 ml Output Urine Total 4050 ml Laboratory Labs Laboratory Tests Test 02/29/20 04:30 White Blood Count 9.2 x10^3/uL (4.0-11.0) Red Blood Count 2.78 x10^6/uL (3.50-5.40) Hemoglobin 7.8 g/dL (12.0-15.5) Hematocrit 23.1 % (36.0-47.0) Mean Corpuscular Volume 83 fL (79-100) Mean Corpuscular Hemoglobin 28 pg (25-35) Mean Corpuscular Hemoglobin Concent 34 g/dL (31-37) Red Cell Distribution Width 18.4 % (11.5-14.5) Platelet Count 266 x10^3/uL (140-400) Neutrophils (%) (Auto) 69 % (31-73) Lymphocytes (%) (Auto) 13 % (24-48) Monocytes (%) (Auto) 16 % (0-9) Eosinophils (%) (Auto) 1 % (0-3) Basophils (%) (Auto) 0 % (0-3) Neutrophils # (Auto) 6.4 x10^3/uL (1.8-7.7) Lymphocytes # (Auto) 1.2 x10^3/uL (1.0-4.8) Monocytes # (Auto) 1.5 x10^3/uL (0.0-1.1) Eosinophils # (Auto) 0.1 x10^3/uL (0.0-0.7) Basophils # (Auto) 0.0 x10^3/uL (0.0-0.2) Sodium Level 130 mmol/L (136-145) Potassium Level 3.4 mmol/L (3.5-5.1) Chloride Level 94 mmol/L (98-107) Carbon Dioxide Level 29 mmol/L (21-32) Anion Gap 7 (6-14) Blood Urea Nitrogen 17 mg/dL (7-20) Creatinine 0.8 mg/dL (0.6-1.0) Estimated GFR (Cockcroft-Gault) 84.8 Glucose Level 127 mg/dL (70-99) Calcium Level 9.1 mg/dL (8.5-10.1) Magnesium Level 1.7 mg/dL (1.8-2.4) Microbiology Micro Microbiology 02/26/20 Urine Culture - Final, Complete 02/26/20 Blood Culture - Preliminary, Resulted NO GROWTH AFTER 2 DAYS Physical Exam HEENT: Neck Supple W Full Motion, Other (frontal ecchymoses with contusion) Chest: Symmetric LUNGS: Clear to Auscultation Heart: RRR (SR) Abdomen: Soft N/T Extremities: No Calf Tenderness Neurology: alert, oriented, follow commands Assessment Assessment 1. Acute on chronic diastolic CHF: appears compensated. EF and WM nml. No arrhythmias 2. HTN urgency: labile. 3. HLP 4. DM2 5. Hyponatremia: improved 6. Hx of PMR 7. Hx of multiple mechanical falls 8. Anemia: Hgb up to 7.8 per PCP 9. Fever Recommendations Continue current BP regimen increase norvasc. 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 I discussed with radiology and could not completely ascertain any semblance of BIANKA. Will obtain renal duplex if she does not get discharge today and if this is negative then will initiate hyper teresa w/u. Replace Mg. Consider for outpt ischemic workup for further risk stratification given her significant cardiac risk factors. Hydralazine IV PRN Justicifation of Admission Dx: Justifications for Admission: Justification of Admission Dx: Yes ANDREW SANCHEZ MD 02/29/20 1542: CARDIO Progress Notes Assessment Assessment Patient seen and examined. Agree with PERSONNEL MANAGER's assessment and plan. Acute on chr diastolic HF better compensated 2D echo showed normal LVF Agree with increasing Norvasc dose for better blood pressure control. Plan outpatient ischemic evaluation DIOR POLK APRN Feb 29, 2020 11:09 ANDREW SANCHEZ MD Feb 29, 2020 15:42
[2020-02-29] MEDS ORDERED: FURO20TA3 PO (12:18)
[2020-02-29] MEDS ORDERED: TRAM100T2 PO (12:18)
[2020-02-29] MEDS ORDERED: AMLO10TA8 PO (12:18)
--- NOTE | 2020-02-29 12:21 | SNU/HH DC ---
DISCHARGE ORDERS DISCHARGE INFORMATION: DISCHARGE DATE: Feb 29, 2020 FINAL DIAGNOSIS Problems Medical Problems: (1) Multifocal pneumonia Status: Acute (2) Respiratory failure Status: Acute CONDITION ON DISCHARGE: Stable CODE STATUS: Code Status: Full ASSISTED: SNF STAY <30 DAYS: Yes POST DISCHARGE ORDERS: ACTIVITY ORDERS: No restrictions, Resume previous activity, Activity as tolerated WEIGHT BEARING STATUS: No restrictions, Full weight bearing, As tolerated DIET AFTER DISCHARGE: ADA WOUND/INCISION CARE: No wound care needed CHECKS AFTER DISCHARGE: CHECKS AFTER DISCHARGE: Check blood press - daily, Check blood sugar, ac/hs, Check your Temp as needed TREATMENT/EQUIPMENT ORDERS: ADAPTIVE EQUIPMENT NEEDED: None Physical Therapy For: Evalulation/Treatment Occupational Therapy For: Evaluation/Treatment DISCHARGE MEDICATIONS: Home Meds Active Scripts Furosemide (FUROSEMIDE) 20 Mg Tablet, 1 TAB PO DAILY for CHF for 30 Days, #30 TAB 0 Refills Prov:KATHERIN THOMPSON MD 02/29/20 Amlodipine Besylate (AMLODIPINE BESYLATE) 10 Mg Tablet, 10 MG PO DAILY for HTN for 30 Days, #30 TAB Prov:KATHERIN THOMPSON MD 02/29/20 Tramadol Hcl (TRAMADOL HCL) 100 Mg Tbmp.24hr, 100 MG PO PRN Q8HRS PRN for PAIN for 6 Days, #18 TAB 0 Refills Prov:KATHERIN THOMPSON MD 02/29/20 Reported Medications Trazodone Hcl (TRAZODONE HCL) 100 Mg Tablet, 1 TAB PO PRN Q12HR PRN for ANXIETY / AGITATION, #30 TAB 1 Refill 02/24/20 Spironolactone (SPIRONOLACTONE) 25 Mg Tablet, 1 TAB PO DAILY for HTN, CHF, #90 TAB 1 Refill 20 Potassium Chloride (KLOR-CON 10) 10 Meq Tablet.er, 1 TAB PO DAILY for SUPPLEMENT for 30 Days, #30 TAB 0 Refills 02/24/20 Metoprolol Tartrate (METOPROLOL TARTRATE) 100 Mg Tablet, 1 TAB PO BID for HTN, #60 TAB 5 Refills 02/24/20 Losartan Potassium (LOSARTAN POTASSIUM) 50 Mg Tablet, 50 MG PO BID for HYPERTENSION, TAB 20 Haloperidol (HALOPERIDOL) 2 Mg Tablet, 2 TAB PO TID for SCHIZOAFFECTIVE DISORDER, #60 TAB 8/2/20 Atorvastatin Calcium (ATORVASTATIN CALCIUM) 10 Mg Tablet, 1 TAB PO DAILY for HLD , #30 TAB 5 Refills 02/24/20 Leflunomide (LEFLUNOMIDE) 20 Mg Tablet, 20 MG PO DAILY for RA for 30 Days, #30 07/30/19 Loratadine (ALLERGY RELIEF) 10 Mg Tablet, 10 MG PO DAILY for Allergies for 30 Days, #30 05/13/19 Acetaminophen (TYLENOL) 325 Mg Tablet, 2 TAB PO PRN Q4HRS, #30 TAB 06/13/15 Aspirin (ASPIR 81) 81 Mg Tablet.dr, 1 TAB PO HS, #30 TAB 5 Refills 08/09/14 Discontinued Reported Medications Esomeprazole Magnesium (Esomeprazole Magnesium) 40 Mg Capsule.dr, 40 MG PO DAILY for GERD for 90 Days, #90 07/30/19 Potassium Chloride (POTASSIUM CHLORIDE ) 20 Meq Tablet.er, 20 MEQ PO TID for SUPPLEMENT, TAB.SR 07/29/19 Olopatadine HCl (Olopatadine HCl) 2.5 Ml Drops, 2.5 ML OP DAILY for Ocular for 30 Days, #1 05/13/19 Quetiapine Fumarate (QUETIAPINE FUMARATE) 25 Mg Tablet, 25 MG PO QHS for Mood Stabilization for 30 Days, #30 05/13/19 Montelukast Sodium (Montelukast Sodium) 10 Mg Tablet, 10 MG PO QHS for Asthma for 30 Days, #30 05/13/19 Losartan Potassium (LOSARTAN POTASSIUM) 100 Mg Tablet, 100 MG PO DAILY for HTN for 30 Days, #30 05/13/19 Isosorbide Dinitrate (ISOSORBIDE DINITRATE) 20 Mg Tablet, 20 MG PO BID for CHF for 30 Days, #60 05/13/19 Carvedilol (Carvedilol) 12.5 Mg Tablet, 12.5 MG PO BID for CHF for 30 Days, #60 05/13/19 Magnesium Oxide (MAGNESIUM OXIDE) 400 Mg Tablet, 1 TAB PO BID, #60 TAB 5 Refills 05/27/17 Duloxetine Hcl (DULOXETINE HCL) 60 Mg Capsule.dr, 60 MG PO DAILY, CAP 05/27/17 Simvastatin (SIMVASTATIN) 20 Mg Tablet, 1 TAB PO QHS, #30 TAB 5 Refills 12/10/15 Albuterol Sulfate (PROVENTIL HFA INHALER) 6.7 Gm Hfa.aer.ad, 2 PUFF IH PRN Q4HRS PRN for SHORTNESS OF BREATH, #1 INHALER 06/13/15 Diclofenac Sodium (VOLTAREN) 100 Gm Gel..gram., 1 GM TP QID, #100 GM 2 Refills 06/13/15 Calcium Carbonate/Vitamin D3 (CALCIUM + VITAMIN D TABLET) 1 Each Tablet, 1 EACH PO DAILY 06/13/15 Paloma-3 Fatty Acids/Vitamin E (PV FISH OIL 1,000 MG SOFTGEL) 1,000 Mg Capsule, 1000 MG PO HS 08/09/14 Clonidine Hcl (CATAPRES) 0.1 Mg Tablet, 0.2 MG PO BID for HTN, TAB 08/09/14 Amlodipine Besylate (NORVASC) 10 Mg Tablet, 10 TAB PO HS, #30 TAB 5 Refills 08/09/14 Metformin Hcl (METFORMIN HCL) 1,000 Mg Tablet, 1 TAB PO BID, #60 TAB 5 Refills 08/09/14 KATHERIN THOMPSON MD Feb 29, 2020 12:21
--- NOTE | 2020-02-29 12:26 | PDOC ---
[facility] PROGRESS NOTE Date of Service DOS: DATE: 02/29/20 TIME: 12:24 Chief Complaint Chief Complaint A/P: Acute hypoxic respiratory failure - seem to be volume overload. COVID 19 negative Acute on Chronic diastolic CHF - does seem in acute exacerbation. seems to be chronic in nature with probably diastolic dysfunction given that her last ejection fraction was recorded at 55% on May 2017 Acute Anemia - likely from hematomas, also with chronic disease with RA, PMR. Will trend, may need transfusion Scalp hematoma - from multiple fallls Longstanding gait disorder Discitis/osteomyelitis at C7-T1 - resolving Dementia, schizophrenia Multiple falls - Needs SNF Left wrist swelling - order x-ray Difficulty ambulating - to home health Shoulder and hand pain - with negative stress in the past 2 years. Acute back pain - could be 2/2 OA, RA, or recent trauma and falls. Imaging negative for acute fracture, but old left sided rib fractures noted. 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 Consult psychiatry RA - on arava, will hold for likely infection PMR - on prednisone chronically FEN - Cardiac diet PPX - lovenox FULL CODE Dispo - inpatient for above History of Present Illness History of Present Illness Ms Ji is a 73yo F w/ PMHx osterarthritis, Asthma, CHF, Diabetes-Type II, Fibromyalgia, High Cholesterol, Hypertension, Schizophrenia, RA, PMR who is presenting after a fall at SNF and worsening SOB. Patient does have a history of dementia as well as a psychiatric history and is noncooperative with her h istory and physical. History physical and review of systems all limited to altered mental status. Patient was just admitted and discharged on 02/24 for frequent falls and accelerated hypertension. Patient found to have shortness of breath at the [facility] with dropping oxygen levels. Patient arrived via EMS sats are in the mid 90s on 6 L nasal cannula Labs significant for NA 128, K3.6, BUN 18, CR 0.8 glucose 191, BNP 8589, albumin 2.8 CXR with bilateral interstitial opacities. Admitted for further treatment of hypoxia. 02/27: Hypoxia improved, breathing improved. Complaining of left thumb pain today. Hb dropped to 7. Left thumb with erosive arthritis, likely related to her RA, pain is better controlled. Swelling improved. Urine output significant. Echo with no decrease in systolic function. Hemoglobin up to 7.8 today she is off oxygen. Feeling significantly better. Vitals/I&O Vitals/I&O: Vital Signs Date Time Temp Pulse Resp B/P (MAP) Pulse Ox O2 Delivery O2 Flow Rate FiO2 02/29/20 11:00 99.2 65 20 163/79 (107) 97 Nasal Cannula 2.0 99.2 I & O 02/28/20 02/28/20 02/29/20 14:59 22:59 06:59 Intake Total 1600 ml Output Total 2750 ml 1300 ml Balance -2750 ml 300 ml Physical Exam General: Alert, Cooperative, mild distress Heart: Regular rate (SR), Normal S1, Normal S2, No murmurs, Other (S4) Lungs: Clear Abdomen: Normal bowel sounds, Soft, No tenderness, No hepatosplenomegaly, No masses Extremities: No clubbing, No cyanosis, No edema, Normal pulses, Other (RA deformities multiple joints) Skin: No rashes, No breakdown, No significant lesion Labs Labs: Laboratory Tests Test 02/29/20 04:30 White Blood Count 9.2 x10^3/uL (4.0-11.0) Red Blood Count 2.78 x10^6/uL (3.50-5.40) Hemoglobin 7.8 g/dL (12.0-15.5) Hematocrit 23.1 % (36.0-47.0) Mean Corpuscular Volume 83 fL (79-100) Mean Corpuscular Hemoglobin 28 pg (25-35) Mean Corpuscular Hemoglobin Concent 34 g/dL (31-37) Red Cell Distribution Width 18.4 % (11.5-14.5) Platelet Count 266 x10^3/uL (140-400) Neutrophils (%) (Auto) 69 % (31-73) Lymphocytes (%) (Auto) 13 % (24-48) Monocytes (%) (Auto) 16 % (0-9) Eosinophils (%) (Auto) 1 % (0-3) Basophils (%) (Auto) 0 % (0-3) Neutrophils # (Auto) 6.4 x10^3/uL (1.8-7.7) Lymphocytes # (Auto) 1.2 x10^3/uL (1.0-4.8) Monocytes # (Auto) 1.5 x10^3/uL (0.0-1.1) Eosinophils # (Auto) 0.1 x10^3/uL (0.0-0.7) Basophils # (Auto) 0.0 x10^3/uL (0.0-0.2) Sodium Level 130 mmol/L (136-145) Potassium Level 3.4 mmol/L (3.5-5.1) Chloride Level 94 mmol/L (98-107) Carbon Dioxide Level 29 mmol/L (21-32) Anion Gap 7 (6-14) Blood Urea Nitrogen 17 mg/dL (7-20) Creatinine 0.8 mg/dL (0.6-1.0) Estimated GFR (Cockcroft-Gault) 84.8 Glucose Level 127 mg/dL (70-99) Calcium Level 9.1 mg/dL (8.5-10.1) Magnesium Level 1.7 mg/dL (1.8-2.4) Assessment and Plan Assessmemt and Plan Problems Medical Problems: (1) Multifocal pneumonia Status: Acute (2) Respiratory failure Status: Acute Comment Review of Relevant I have reviewed the following items escobar (where applicable) has been applied. Medications: Current Medications Medications (Trade) Dose Ordered Sig/Rocío Route PRN Reason Start Time Stop Time Status Last Admin Dose Admin Furosemide (Lasix) 40 mg 1X ONCE PO 02/28/20 14:45 02/28/20 14:46 DC 02/28/20 14:51 Amlodipine Besylate (Norvasc) 5 mg 1X ONCE PO 02/28/20 14:45 02/28/20 14:46 DC 02/28/20 14:54 Amlodipine Besylate (Norvasc) 10 mg DAILY PO 02/29/20 09:00 02/29/20 08:44 Justicifation of Admission Dx: Justifications for Admission: Justification of Admission Dx: Yes KATHERIN THOMPSON MD Feb 29, 2020 12:26
--- NOTE | 2020-02-29 12:27 | NUR ---
SS following up with discharge planning. SS reviewed pt chart and discussed with pt RN. Discharge orders for return to [facility], ; fax [phone], received. SS phoned and faxed discharge orders to [facility]. Pt will discharge today and return to [facility] between 1430 and 1500. Pt, pt's family, and pt's RN notified.
--- NOTE | 2020-02-29 12:27 | PDOC3 ---
Discharge Summary Visit Information Date of Admission: Feb 26, 2020 Date of Discharge: Feb 29, 2020 Admitting Diagnosis: Acute hypoxic respiratory failure Final Diagnosis Problems Medical Problems: (1) Multifocal pneumonia Status: Acute (2) Respiratory failure Status: Acute Brief Hospital Course Allergies Allergies Coded Allergies Type Severity Reaction Last Updated Verified Sulfa (Sulfonamide Antibiotics) Allergy Intermediate 02/22/20 Yes divalproex sodium Allergy Intermediate neck and back pain 02/22/20 Yes fluticasone Allergy Intermediate COUGH 02/22/20 Yes latex Allergy Intermediate SURGICAL TAPE 02/22/20 Yes lisinopril Allergy Intermediate cough 02/22/20 Yes piroxicam Allergy Intermediate BLISTERS 02/22/20 Yes gabapentin Adverse Reaction Severe 02/22/20 Yes Vital Signs Vital Signs Date Time Temp Pulse Resp B/P (MAP) Pulse Ox O2 Delivery O2 Flow Rate FiO2 02/29/20 11:00 99.2 65 20 163/79 (107) 97 Nasal Cannula 2.0 99.2 Lab Results Laboratory Tests Test 02/27/20 14:35 02/28/20 04:10 02/29/20 04:30 Sodium Level 130 mmol/L (136-145) 131 mmol/L (136-145) 130 mmol/L (136-145) Potassium Level 3.6 mmol/L (3.5-5.1) 3.4 mmol/L (3.5-5.1) 3.4 mmol/L (3.5-5.1) Chloride Level 96 mmol/L (98-107) 96 mmol/L (98-107) 94 mmol/L (98-107) Carbon Dioxide Level 30 mmol/L (21-32) 31 mmol/L (21-32) 29 mmol/L (21-32) Anion Gap 4 (6-14) 4 (6-14) 7 (6-14) Blood Urea Nitrogen 15 mg/dL (7-20) 17 mg/dL (7-20) 17 mg/dL (7-20) Creatinine 0.9 mg/dL (0.6-1.0) 0.9 mg/dL (0.6-1.0) 0.8 mg/dL (0.6-1.0) Estimated GFR (Cockcroft-Gault) 74.1 74.1 84.8 Glucose Level 143 mg/dL (70-99) 100 mg/dL (70-99) 127 mg/dL (70-99) Calcium Level 8.2 mg/dL (8.5-10.1) 8.5 mg/dL (8.5-10.1) 9.1 mg/dL (8.5-10.1) Magnesium Level 1.8 mg/dL (1.8-2.4) 1.7 mg/dL (1.8-2.4) Triglycerides Level 47 mg/dL (0-150) Cholesterol Level 104 mg/dL (0-200) LDL Cholesterol, Calculated 48 mg/dL (0-100) VLDL Cholesterol, Calculated 9 mg/dL (0-40) Non-HDL Cholesterol Calculated 57 mg/dL (0-129) HDL Cholesterol 47 mg/dL (40-60) Cholesterol/HDL Ratio 2.2 Thyroid Stimulating Hormone (TSH) 0.727 uIU/mL (0.358-3.74) White Blood Count 7.8 x10^3/uL (4.0-11.0) 9.2 x10^3/uL (4.0-11.0) Red Blood Count 2.53 x10^6/uL (3.50-5.40) 2.78 x10^6/uL (3.50-5.40) Hemoglobin 7.1 g/dL (12.0-15.5) 7.8 g/dL (12.0-15.5) Hematocrit 20.9 % (36.0-47.0) 23.1 % (36.0-47.0) Mean Corpuscular Volume 82 fL (79-100) 83 fL (79-100) Mean Corpuscular Hemoglobin 28 pg (25-35) 28 pg (25-35) Mean Corpuscular Hemoglobin Concent 34 g/dL (31-37) 34 g/dL (31-37) Red Cell Distribution Width 19.1 % (11.5-14.5) 18.4 % (11.5-14.5) Platelet Count 230 x10^3/uL (140-400) 266 x10^3/uL (140-400) Neutrophils (%) (Auto) 64 % (31-73) 69 % (31-73) Lymphocytes (%) (Auto) 19 % (24-48) 13 % (24-48) Monocytes (%) (Auto) 14 % (0-9) 16 % (0-9) Eosinophils (%) (Auto) 2 % (0-3) 1 % (0-3) Basophils (%) (Auto) 1 % (0-3) 0 % (0-3) Neutrophils # (Auto) 5.0 x10^3/uL (1.8-7.7) 6.4 x10^3/uL (1.8-7.7) Lymphocytes # (Auto) 1.5 x10^3/uL (1.0-4.8) 1.2 x10^3/uL (1.0-4.8) Monocytes # (Auto) 1.1 x10^3/uL (0.0-1.1) 1.5 x10^3/uL (0.0-1.1) Eosinophils # (Auto) 0.2 x10^3/uL (0.0-0.7) 0.1 x10^3/uL (0.0-0.7) Basophils # (Auto) 0.0 x10^3/uL (0.0-0.2) 0.0 x10^3/uL (0.0-0.2) Laboratory Tests Test 02/29/20 04:30 White Blood Count 9.2 x10^3/uL (4.0-11.0) Red Blood Count 2.78 x10^6/uL (3.50-5.40) Hemoglobin 7.8 g/dL (12.0-15.5) Hematocrit 23.1 % (36.0-47.0) Mean Corpuscular Volume 83 fL (79-100) Mean Corpuscular Hemoglobin 28 pg (25-35) Mean Corpuscular Hemoglobin Concent 34 g/dL (31-37) Red Cell Distribution Width 18.4 % (11.5-14.5) Platelet Count 266 x10^3/uL (140-400) Neutrophils (%) (Auto) 69 % (31-73) Lymphocytes (%) (Auto) 13 % (24-48) Monocytes (%) (Auto) 16 % (0-9) Eosinophils (%) (Auto) 1 % (0-3) Basophils (%) (Auto) 0 % (0-3) Neutrophils # (Auto) 6.4 x10^3/uL (1.8-7.7) Lymphocytes # (Auto) 1.2 x10^3/uL (1.0-4.8) Monocytes # (Auto) 1.5 x10^3/uL (0.0-1.1) Eosinophils # (Auto) 0.1 x10^3/uL (0.0-0.7) Basophils # (Auto) 0.0 x10^3/uL (0.0-0.2) Sodium Level 130 mmol/L (136-145) Potassium Level 3.4 mmol/L (3.5-5.1) Chloride Level 94 mmol/L (98-107) Carbon Dioxide Level 29 mmol/L (21-32) Anion Gap 7 (6-14) Blood Urea Nitrogen 17 mg/dL (7-20) Creatinine 0.8 mg/dL (0.6-1.0) Estimated GFR (Cockcroft-Gault) 84.8 Glucose Level 127 mg/dL (70-99) Calcium Level 9.1 mg/dL (8.5-10.1) Magnesium Level 1.7 mg/dL (1.8-2.4) Brief Hospital Course Ms Ji is a 73yo F w/ PMHx osterarthritis, Asthma, CHF, Diabetes-Type II, Fibromyalgia, High Cholesterol, Hypertension, Schizophrenia, RA, PMR who is presenting after a fall at SNF and worsening SOB. Patient does have a history of dementia as well as a psychiatric history and is noncooperative with her history and physical. History physical and review of systems all limited to altered mental status. Patient was just admitted and discharged on 02/24 for frequent falls and accelerated hypertension. Patient found to have shortness of breath at the intermediate with dropping oxygen levels. Patient arrived via EMS sats are in the mid 90s on 6 L nasal cannula Labs significant for NA 128, K3.6, BUN 18, CR 0.8 glucose 191, BNP 8589, albumin 2.8 CXR with bilateral interstitial opacities. Admitted for further treatment of hypoxia. 02/27: Hypoxia improved, breathing improved. Complaining of left thumb pain today. Hb dropped to 7. Left thumb with erosive arthritis, likely related to her RA, pain is better controlled. Swelling improved. Urine output significant. Echo with no decrease in systolic function. Hemoglobin up to 7.8 today she is off oxygen. Feeling significantly better. Consults: Cardiology, psychiatry Problem list: Acute hypoxic respiratory failure - seem to be volume overload. COVID 19 negative Acute on Chronic diastolic CHF - does seem in acute exacerbation. seems to be chronic in nature with probably diastolic dysfunction given that her last ejection fraction was recorded at 55% on May 2017 Acute Anemia - likely from hematomas, also with chronic disease with RA, PMR. Will trend, may need transfusion Scalp hematoma - from multiple fallls Longstanding gait disorder Discitis/osteomyelitis at C7-T1 - resolving Dementia, schizophrenia Multiple falls - Needs SNF Left wrist swelling - order x-ray Difficulty ambulating - to home health Shoulder and hand pain - with negative stress in the past 2 years. Acute back pain - could be 2/2 OA, RA, or recent trauma and falls. Imaging negative for acute fracture, but old left sided rib fractures noted. 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 Consult psychiatry RA - on arava, will hold for likely infection PMR - on arava chronically Greater than 30 minutes spent on d/c Discharge Information Condition at Discharge: Improved Follow Up: Weeks Disposition/Orders: D/C to Another Facility Scheduled Acetaminophen (Tylenol) 325 Mg Tablet, 2 TAB PO PRN Q4HRS, #30 (Reported) Entered as Reported by: HENNA INFANTE on 06/13/15 0458 Last Action: Continued on 02/26/20 1433 by VALENTIN MALLOY Amlodipine Besylate (Amlodipine Besylate) 10 Mg Tablet, 10 MG PO DAILY for HTN for 30 Days, #30 Prescribed by: KATHERIN THOMPSON MD on 02/29/20 1218 Aspirin (Aspir 81) 81 Mg Tablet., 1 TAB PO HS, #30 Ref 5 (Reported) Entered as Reported by: Jessica Coleman on 08/09/14 0157 Last Action: Continued on 02/26/20 1433 by VALENTIN MALLOY Atorvastatin Calcium (Atorvastatin Calcium) 10 Mg Tablet, 1 TAB PO DAILY for HLD , #30 Ref 5 (Reported) Entered as Reported by: CALVIN KELLOGG on 02/24/20823 Last Action: Continued on 02/26/201432 by VALENTIN MALLOY Furosemide (Furosemide) 20 Mg Tablet, 1 TAB PO DAILY for CHF for 30 Days, #30 Ref 0 Prescribed by: KATHERIN THOMPSON MD on 02/29/20 1218 Haloperidol (Haloperidol) 2 Mg Tablet, 2 TAB PO TID for SCHIZOAFFECTIVE DISORDER, #60 (Reported) Entered as Reported by: CALVIN KELLOGG on 02/24/20829 Last Action: Continued on 02/26/201432 by VALENTIN MALLOY Leflunomide (Leflunomide) 20 Mg Tablet, 20 MG PO DAILY for RA for 30 Days, #30 (Reported) Entered as Reported by: KATHERIN THOMPSON MD on 07/30/19 0934 Last Action: Continued on 02/26/201432 by VALENTIN MALLOY Loratadine (Allergy Relief) 10 Mg Tablet, 10 MG PO DAILY for Allergies for 30 Days, #30 (Reported) Entered as Reported by: KATHERIN THOMPSON MD on 05/13/19 1358 Last Action: Converted on 02/26/201432 by VALENTIN MALLOY Losartan Potassium (Losartan Potassium) 50 Mg Tablet, 50 MG PO BID for HYPERTENSION, (Reported) Entered as Reported by: CALVIN KELLOGG on 02/24/20829 Last Action: Continued on 02/26/201432 by VALENTIN MALLOY Metoprolol Tartrate (Metoprolol Tartrate) 100 Mg Tablet, 1 TAB PO BID for HTN, #60 Ref 5 (Reported) Entered as Reported by: CALVIN KELLOGG on 02/24/20829 Last Action: Converted on 02/26/201432 by VALENTIN MALLOY Potassium Chloride (Klor-Con 10) 10 Meq Tablet.er, 1 TAB PO DAILY for SUPPLEMENT for 30 Days, #30 Ref 0 (Reported) Entered as Reported by: CALVIN KELLOGG on 02/24/20829 Last Action: Continued on 02/26/201432 by VALENTIN MALLOY Spironolactone (Spironolactone) 25 Mg Tablet, 1 TAB PO DAILY for HTN, CHF, #90 Ref 1 (Reported) Entered as Reported by: CALVIN KELLOGG on 02/24/20829 Last Action: Continued on 02/26/201432 by VALENTIN MALLOY Scheduled PRN Tramadol Hcl (Tramadol Hcl) 100 Mg Tbmp.24hr, 100 MG PO PRN Q8HRS PRN for PAIN for 6 Days, #18 Ref 0 Prescribed by: KATHERIN THOMPSON MD on 02/29/20 1218 Trazodone Hcl (Trazodone Hcl) 100 Mg Tablet, 1 TAB PO PRN Q12HR PRN for ANXIETY / AGITATION, #30 Ref 1 (Reported) Entered as Reported by: CALVIN KELLOGG on 02/24/20829 Last Action: Continued on 02/26/20 1433 by VALENTIN MALLOY Discontinued Medications Albuterol Sulfate (Proventil Hfa Inhaler) 6.7 Gm Hfa.aer.ad, 2 PUFF IH PRN Q4HRS PRN for SHORTNESS OF BREATH, #1 (Reported) Entered as Reported by: HENNA INFANTE on 06/13/15 0525 Amlodipine Besylate (Norvasc) 10 Mg Tablet, 10 TAB PO HS, #30 Ref 5 (Reported) Entered as Reported by: Jessica Coleman on 08/09/14 0201 Calcium Carbonate/Vitamin D3 (Calcium + Vitamin D Tablet) 1 Each Tablet, 1 EACH PO DAILY, (Reported) Entered as Reported by: HENNA INFANTE on 06/13/15 0504 Carvedilol (Carvedilol) 12.5 Mg Tablet, 12.5 MG PO BID for CHF for 30 Days, #60 (Reported) Entered as Reported by: KATHERIN THOMPSON MD on 05/13/19 1358 Clonidine Hcl (Catapres) 0.1 Mg Tablet, 0.2 MG PO BID for HTN, (Reported) Entered as Reported by: Jessica Coleman on 08/09/14 0203 Diclofenac Sodium (Voltaren) 100 Gm Gel..gram., 1 GM TP QID, #100 Ref 2 (Reported) Entered as Reported by: HENNA INFANTE on 06/13/15 0514 Duloxetine Hcl (Duloxetine Hcl) 60 Mg Capsule.dr, 60 MG PO DAILY, (Reported) Entered as Reported by: TATI WASHINGTON on 05/27/17 1659 Esomeprazole Magnesium (Esomeprazole Magnesium) 40 Mg Capsule.dr, 40 MG PO DAILY for GERD for 90 Days, #90 (Reported) Entered as Reported by: KATHERIN THOMPSON MD on 07/30/19 0934 Isosorbide Dinitrate (Isosorbide Dinitrate) 20 Mg Tablet, 20 MG PO BID for CHF for 30 Days, #60 (Reported) Entered as Reported by: KATHERIN THOMPSON MD on 05/13/19 1358 Losartan Potassium (Losartan Potassium) 100 Mg Tablet, 100 MG PO DAILY for HTN for 30 Days, #30 (Reported) Entered as Reported by: KATHERIN THOMPSON MD on 05/13/19 1358 Magnesium Oxide (Magnesium Oxide) 400 Mg Tablet, 1 TAB PO BID, #60 Ref 5 (Reported) Entered as Reported by: TATI WASHINGTON on 05/27/17 1659 Metformin Hcl (Metformin Hcl) 1,000 Mg Tablet, 1 TAB PO BID, #60 Ref 5 (Reported) Entered as Reported by: Jessica Coleman on 08/09/14 0158 Montelukast Sodium (Montelukast Sodium) 10 Mg Tablet, 10 MG PO QHS for Asthma for 30 Days, #30 (Reported) Entered as Reported by: KATHERIN THOMPSON MD on 05/13/19 1358 Olopatadine HCl (Olopatadine HCl) 2.5 Ml Drops, 2.5 ML OP DAILY for Ocular for 30 Days, #1 (Reported) Entered as Reported by: KATHERIN THOMPSON MD on 05/13/19 1358 Sullivan-3 Fatty Acids/Vitamin E (Pv Fish Oil 1,000 Mg Softgel) 1,000 Mg Capsule, 1,000 MG PO HS, (Reported) Entered as Reported by: Jessica Coleman on 08/09/14 0207 Potassium Chloride (Potassium Chloride ) 20 Meq Tablet.er, 20 MEQ PO TID for SUPPLEMENT, (Reported) Entered as Reported by: OMAR SMITH on 07/29/19 1116 Quetiapine Fumarate (Quetiapine Fumarate) 25 Mg Tablet, 25 MG PO QHS for Mood Stabilization for 30 Days, #30 (Reported) Entered as Reported by: KATHERIN THOMPSON MD on 05/13/19 1358 Simvastatin (Simvastatin) 20 Mg Tablet, 1 TAB PO QHS, #30 Ref 5 (Reported) Entered as Reported by: HENNA ORR on 12/10/152017 Justicifation of Admission Dx: Justifications for Admission: Justification of Admission Dx: Yes KATHERIN THOMPSON MD Feb 29, 2020 12:27
[2020-02-29] MEDS ORDERED: MAGNESIUM SULFATE 2GM 50 ML IV ONE (12:30)
[2020-02-29] MEDS ORDERED: POTASSIUM CHLORIDE 20 MEQ TABLET.ER. PO ONE (12:30)
--- NOTE | 2020-02-29 14:59 | NUR ---
Discharge Note: CRISTOBAL BLOOD Discharge instructions and discharge home medications reviewed with Patient and a copy given. All questions have been answered and understanding verbalized. The following instructions and handouts were given: Congestive heart failure. Discontinued lines and drains: peripheral IV discontinued. Patient discharged to [facility] facility via [facility] by transportation.
== END 2020-02-29 14:47 | DRG 291 ==
LOC: ER 01:24 → 6 SOUTH 02:40 → 2 SOUTH 02-27 02:45
PROVIDERS: ADMIT Family Medicine; ATTEND Family Medicine
DX: I11.0 Hypertensive heart disease with heart failure (principal); J96.01 Acute respiratory failure with hypoxia; J18.9 Pneumonia, unspecified organism; E87.1 Hypo-osmolality and hyponatremia; M46.23 Osteomyelitis of vertebra, cervicothoracic region; I50.33 Acute on chronic diastolic (congestive) heart failure; D63.8 Anemia in other chronic diseases classified elsewhere; E11.69 Type 2 diabetes mellitus with other specified complication; E78.00 Pure hypercholesterolemia, unspecified; E78.5 Hyperlipidemia, unspecified; F03.90 Unspecified dementia, unspecified severity, without behavioral disturbance, psychotic disturbance, mood disturbance, and anxiety; F17.210 Nicotine dependence, cigarettes, uncomplicated; F25.9 Schizoaffective disorder, unspecified; F31.9 Bipolar disorder, unspecified; I16.0 Hypertensive urgency; I25.10 Atherosclerotic heart disease of native coronary artery without angina pectoris; J45.909 Unspecified asthma, uncomplicated; M06.9 Rheumatoid arthritis, unspecified; M15.4 Erosive (osteo)arthritis; M35.3 Polymyalgia rheumatica; M46.40 Discitis, unspecified, site unspecified; M79.7 Fibromyalgia; R29.6 Repeated falls; S00.03XA Contusion of scalp, initial encounter; W19.XXXA Unspecified fall, initial encounter; Z20.828 Contact with and (suspected) exposure to other viral communicable diseases; Z79.52 Long term (current) use of systemic steroids; Z83.3 Family history of diabetes mellitus; Z86.73 Personal history of transient ischemic attack (TIA), and cerebral infarction without residual deficits; Z90.49 Acquired absence of other specified parts of digestive tract; Z90.710 Acquired absence of both cervix and uterus; Z91.5 Personal history of self-harm; Z91.81 History of falling; Z96.653 Presence of artificial knee joint, bilateral; F41.9 Anxiety disorder, unspecified; K21.9 Gastro-esophageal reflux disease without esophagitis; K57.90 Diverticulosis of intestine, part unspecified, without perforation or abscess without bleeding; Z88.2 Allergy status to sulfonamides; Z88.8 Allergy status to other drugs, medicaments and biological substances; Z91.040 Latex allergy status; Z79.899 Other long term (current) drug therapy
CPT/HCPCS: 36415; 71045; 73120; 80048; 80053; 80061; 81001; 83605; 83735; 83880; 84443; 84484; 85025; 85610; 85730; 87040; 87086; 93005; 93306; 96365; 96372; 96375; 99291; J0360; J0692; J1630; J1940; J1956; J2060; J3475; J3490; 97530-GP; 97535-GO; G0378; U0003-CS

== ENCOUNTER 2020-03-19 04:45 | Emergency (ER) | payer MEDICARE, OTHER ==
[~2020-03-19] VITALS: Ht 177.8 cm; Wt 76.4 kg
--- NOTE | 2020-03-19 04:58 | PHYS DOC ---
Past Medical History Past Medical History: Arthritis, Asthma, CHF, Dementia, Depression, Diabetes- Type II, Fibromyalgia, GERD, High Cholesterol, Hypertension, Schizophrenia, Other Additional Past Medical Histor: schizoaffective disorder, polymyalgia rheumatica, RA (PINGEsperanzaMARIA GUADALUPE ) Past Surgical History: Appendectomy, Hysterectomy, Knee Replacement, Other Additional Past Surgical Histo: rectal surgery for fissures, cataract removed, back surgery (ZOHRASAMANEsperanzaMARIA GUADALUPE Moise THOMSON) Smoking Status: Never Smoker Alcohol Use: None Drug Use: None (PINGEsperanzaMARIA GUADALUPE ) General Adult EDM: Chief Complaint: MECHANICAL FALL HPI: HPI: The history was obtained from the patient and EMS. Patient is a 74 old female with PMH schizophrenia who presents with a chief complaint of fall. Patient resides at assisted living facility nearby. EMS states they were called to the patient's room for the patient being found down. Patient states just prior to their arrival she experienced a non-syncopal fall in her room. States she was ambulating to the bathroom. She states she was using a wheelchair as a walker. States that wheelchair somehow got extended from her and she fell over. She is unsure of how she felt precisely. She denies chest pain or shortness of breath prior to falling. She does not think that she struck her head. She denies LOC. She does not take blood thinners. EMS states the patient was able to stand on her own and pivot into their stretcher. Patient is currently complaining of midline cervical, thoracic, and lumbar back pain. She also notes diffuse extremity pain of the upper and lower extremities bilaterally. No other complaints. (ZOHRASAMANEsperanzaMARIA GUADALUPE ) Review of Systems: Review of Systems: Constitutional: Denies fever or chills. [] Eyes: Denies change in visual acuity. [] HENT: Denies nasal congestion or sore throat. [] Respiratory: Denies cough or shortness of breath. [] Cardiovascular: Denies chest pain or edema. [] GI: Denies abdominal pain, nausea, vomiting, bloody stools or diarrhea. [] : Denies dysuria. [] Musculoskeletal: Positive for myalgias and arthralgias. Positive for fall Integument: Denies rash. [] Neurologic: Denies headache, focal weakness or sensory changes. [] Endocrine: Denies polyuria or polydipsia. [] Lymphatic: Denies swollen glands. [] Psychiatric: Denies depression or anxiety. [] (MARIA GUADALUPE ROSSI DO) Heart Score: Risk Factors: Risk Factors: DM, Current or recent (<one month) smoker, HTN, HLP, family history of CAD, obesity. Risk Scores: Score 0 - 3: 2.5% MACE over next 6 weeks - Discharge Home Score 4 - 6: 20.3% MACE over next 6 weeks - Admit for Clinical Observation Score 7 - 10: 72.7% MACE over next 6 weeks - Early Invasive Strategies (MARIA GUADALUPE ROSSI DO) Allergies: Allergies: Allergies Coded Allergies Type Severity Reaction Last Updated Verified Sulfa (Sulfonamide Antibiotics) Allergy Intermediate 02/22/20 Yes divalproex sodium Allergy Intermediate neck and back pain 02/22/20 Yes fluticasone Allergy Intermediate COUGH 02/22/20 Yes latex Allergy Intermediate SURGICAL TAPE 02/22/20 Yes lisinopril Allergy Intermediate cough 02/22/20 Yes piroxicam Allergy Intermediate BLISTERS 02/22/20 Yes gabapentin Adverse Reaction Severe 02/22/20 Yes (MARIA GUADALUPE ROSSI DO) Physical Exam: PE: Physical Exam Trauma: Primary Survey: Airway: Intact. Speaks in normal voice and phonation. Breathing: Breath sounds are clear and equal bilaterally. Circulation: Regular rhythm, 2+ and symmetric radial, DP and PT pulses. Disability: GCS on arrival was 15. Pupils 3 mm, ERRL Exposure: Complete exposure obtained and described in detail below. Secondary Survey: General: Awake, alert, appropriate, and in no acute distress HENT: Atraumatic. TMs clear bilaterally, no hemotympanum. No periorbital tenderness or deformity. No obvious craniofacial trauma. Midface is stable. No apparent dental or tongue/oropharyngeal injury. No septal hematoma. Neck: C-spine: Mild midline tenderness. Without step-off, deformity, abrasion, ecchymosis, or other signs of trauma. Paraspinal musculature with mild tenderness and/or hypertonicity. Eyes: Pupils 3 mm ERRL, EOMI grossly, no evidence of ocular trauma, conjunctivae normal Respiratory: CTAB without wheezing, rhonchi, or rales. No distress. Chest wall with no tenderness to palpation. No crepitus, ecchymosis, or flail segment present. Cardiovascular: Regular rhythm without murmurs noted. 2+ and symmetric radial, DP and PT pulses. GI: Soft, non-tender, non-distended Musculoskeletal: T-spine: Mild midline tenderness. Without step-off, deformity, abrasion, ecchymosis, or other signs of trauma. Paraspinal musculature with mild tende rness and/or hypertonicity. L-spine: Mild midline tenderness. Without step-off, deformity, abrasion, ecchymosis, or other signs of trauma. Paraspinal musculature with mild tenderness and/or hypertonicity. RUE: Active ROM, no obvious deformity, no gross weakness or sensory deficits, warm & well-perfused LUE: Active ROM, no obvious deformity, no gross weakness or sensory deficits, warm & well-perfused RLE: Active ROM, no obvious deformity, no gross weakness or sensory deficits, warm & well-perfused LLE: Active ROM, no obvious deformity, no gross weakness or sensory deficits, warm & well-perfused Integument: Without abrasions, contusions, or lacerations. Neurologic: GCS on arrival as noted above. No obvious focal motor or sensory deficits on examination. Gait not assessed due to acuity of trauma assessment. (MARIA GUADALUPE ROSSI DO) PE: Constitutional: Well developed, well nourished, no acute distress, non-toxic appearance HENT: Normocephalic, atraumatic Eyes: PERRL, EOMI, conjunctiva normal, no discharge Neck: Normal range of motion, right paraspinal cervical tenderness, supple Lungs & Thorax: NO respiratory distress, equal chest rise and fall Abdomen: Soft, no tenderness; pelvis stable and nontender Skin: Warm, dry, no erythema, no rash Back: No midline tenderness, no CVA tenderness Extremities: No tenderness, ROM intact, no edema Neurologic: Alert and oriented X 3, normal motor function, normal sensory function, no focal deficits noted Psychologic: Affect normal, judgment normal (ASHLEY VICKERS DO) Current Patient Data: Vital Signs: Current Medications Medications (Trade) Dose Ordered Sig/Rocío Route PRN Reason Start Time Stop Time Status Last Admin Dose Admin Acetaminophen (Tylenol) 1,000 mg 1X ONCE PO 03/19/20 05:15 03/19/20 05:16 DC 03/19/20 05:49 (MARIA GUADALUPE ROSSI DO) EKG: EKG: [] (MARIA GUADALUPE ROSSI DO) Radiology/Procedures: Radiology/Procedures: [] (MARIA GUADALUPE ROSSI DO) Radiology/Procedures: PROCEDURE: CT HEAD AND CERVICAL SPINE WO STUDY: CT head and cervical spine without contrast INDICATION: Fall. Head and neck injury. COMPARISON: 02/24/2020 TECHNIQUE: Axial CT imaging through the head and cervical spine without the use of intravenous contrast. Sagittal and coronal reformats were obtained. One or more of the following individualized dose reduction techniques were utilized for this examination: 1. Automated exposure control 2. Adjustment of the mA and/or kV according to patient size 3. Use of iterative reconstruction technique. FINDINGS: CT head: The study is degraded by motion with resultant loss of diagnostic utility. No large acute intracranial hemorrhage is seen. The adequately assessed avelar-white matter interface is maintained. Unchanged ventriculomegaly and crowding of the sulci at the vertex. Intracranial atherosclerotic calcifications. White matter findings most likely on account of chronic microvascular ischemic change. The previously seen frontal scalp hematoma has resolved. No newly identified large hematoma. No depressed calvarial fracture. CT cervical spine: Degraded by motion. No acute fracture is identified. Anterolisthesis at several levels has not changed. As before, lytic resorption and malalignment at C7-T1 the extent of which has not significant changed. There is again ankylosis across C6-C7. Advanced multilevel facet degeneration. The extent of associated central canal and neural foraminal stenosis is similar. Several additional chronic findings such as calcific atherosclerosis and a multinodular thyroid are unchanged. No apical pneumothorax. IMPRESSION: CT head: 1. Limited study due to the degree of motion artifact. Taking this into consideration, no acute intracranial abnormality is identified. 2. Unchanged chronic/senescent findings as detailed above. CT cervical spine: 1. Motion degraded but less so than the CT head portion. No acute fracture is seen or change in alignment. 2. Marked osseous resorption and associated deformity across C7-T1 has not significantly progressed in the interim. This is again consistent with the sequela of prior and presumably treated discitis/osteomyelitis fully described on the 11/21/2019 MRI. Advanced multifactorial degenerative changes elsewhere are also unchanged. 3. Redemonstration of a multinodular thyroid and dense calcific atherosclerosis at the left carotid bulb. Electronically signed by: BRAXTON WOLFE MD (03/19/2020 6:14 AM) [id number] PROCEDURE: 1. CT thoracic spine without contrast 2. CT lumbar spine without contrast INDICATION: Fall. Back injury. COMPARISON: CT chest, abdomen and pelvis 05/13/2019; CT chest 02/25/2020. TECHNIQUE: Axial CT imaging of the thoracic and lumbar spine performed without the use of contrast. Coronal and sagittal reformats were obtained. One or more of the following individualized dose reduction techniques were utilized for this examination: 1. Automated exposure control 2. Adjustment of the mA and/or kV according to patient size 3. Use of iterative reconstruction technique. FINDINGS: Thoracic spine: Osseous resorption with surrounding sclerosis in keeping with previously diagnosed discitis/osteomyelitis at C7-T1. Disc space collapse and endplate irregularity at T1-T2 similar to the prior. No newly seen thoracic vertebral body height loss. No posterior element fracture is identified. Scattered facet degeneration. No newly seen severe osseous encroachment on the central canal or neural foramina. Prevertebral soft tissue prominence from C7 down the T1-T2 has not significant changed in the interim. No newly seen abnormality throughout the lungs. Scattered calcific atherosclerosis to include involvement of the coronary arteries. Lumbar spine: Redemonstration of superior endplate height loss at L1 with surrounding sclerosis but the extent of lucency paralleling the superior endplate has worsened since 11/21/2019 and portions of the superior endplate and anterior cortex are less distinct. Development of superior endplate height loss as well as osseous resorption along portions of the superior endplate. There is now fragmentation and discontinuity of the anterior cortex along its more superior aspect. A tracking lucency along the right lateral aspect of L3 with surrounding sclerosis is a new finding as well. Multilevel facet degeneration. Progressive cystic change within the left L4 facet and faintly involving the superior articulating facet on the left at L5. Multilevel neural foraminal stenosis is similar. Redemonstrated disc space collapse and grade 1 anterolisthesis of L4-L5. Central canal narrowing at several levels appearing mostly mild to moderate but not fully assessed. Incomplete evaluation for any spinal canal fluid collection. Prevertebral soft tissue prominence most notable surrounding L3-L4. Less pronounced prominence of the prevertebral soft tissues at T12-L1 and at L4-L5. Vascular calcifications. Polycystic kidneys. The partially imaged urinary bladder is distended. IMPRESSION: Thoracic spine: 1. No newly seen vertebral body height loss to suggest acute fracture. 2. Redemonstrated findings at C7-T1 in keeping with discitis/osteomyelitis fully described on the 11/21/2019 MRI. There is prominence of the prevertebral soft tissues at this level that has not significantly changed from the CT chest on 02/25/2020. Note is made that it is difficult to differentiate between resolved versus smoldering osteomyelitis. Lumbar spine: 1. Progressive superior endplate height loss at L4 and development of endplate fragmentation/resorption with surrounding sclerosis since 11/21/2019. There is again superior endplate height loss at L1 but osseous resorption paralleling the superior endplate has worsened. Newly seen lucent defect within the right lateral aspect of L3 paralleling the inferior endplate. Though the findings at L4 could be in part related to trauma, the observations elsewhere are not typical of acute injury. Discitis/osteomyelitis should be considered versus resorption from subacute or chronic trauma. MRI with and without contrast could be performed to help characterize if there are laboratory findings that suggest active infection. 2. More conspicuous cystic foci within the left L4 more so than L5 facets from the comparison could be degenerative or infectious as well. 3. Multilevel degenerative changes with varying degrees of associated central canal and neural foraminal stenosis. 4. Polycystic kidneys. The partially imaged urinary bladder is distended. Electronically signed by: BRAXTON WOLFE MD (03/19/2020 6:45 AM) [id number] CXR AP and Pelvis XR: (preliminary interpretation by ED physician)- NO acute process (ASHLEY VCIKERS DO) Course & Med Decision Making: Course & Med Decision Making Pertinent Labs and Imaging studies reviewed. (See chart for details) Patient is a 74-year-old female presents with a chief complaint of back pain status post non-syncopal fall. Initial vital signs unremarkable. Exam noted above. Plain film imaging of the chest and pelvis as interpreted by myself reveals no acute traumatic osseous abnormality. Arthritic changes are noted throughout. CT imaging at this time is pending. I have signed out the patient's emergency department care to Dr. Vickers. We discussed the history, physical exam findings, completed and pending laboratory results and imaging studies. We have also discussed the current treatment plan and expected clinical course. Please refer to chart for the patient's remaining emergency department course, final disposition, and clinical impression(s). (MARIA GUADALUPE ROSSI DO) Course & Med Decision Making 0600- Sign out received from Dr. Rossi for patient with history of witness mechanical fall at home pending CT and XR imaging. CXR and pelvis XR without acute process. CT head without acute process. CT cervical/thoracic/lumbar spine with degenerative changes. There is findings that cannot fully exclude "smoldering osteomyelitis". Patient afebrile. Recent laboratory work-up per [facility] review from 02/29/20 with normal WBC. Patient denies fevers. Patient seen and evaluated by myself. C-collar cleared from patient. Pain to right paraspinal region and without midline tenderness on my examination of cervical/thoracic/lumbar spine. Patient neurologically intact. Patient stable for discharge back to [facility] with outpatient follow-up with PCP. Discussed findings and plan with patient, who acknowledges understanding and agreement. (ASHLEY VICKERS DO) Dragon Disclaimer: Dragon Disclaimer: This electronic medical record was generated, in whole or in part, using a voice recognition dictation system. (MARIA GUADALUPE ROSSI DO) Departure Departure Impression: Primary Impression: Fall Qualified Codes: W19.XXXA - Unspecified fall, initial encounter Additional Impressions: Neck pain Thoracic back pain Qualified Codes: M54.6 - Pain in thoracic spine Lumbar back pain Medication refill Disposition: HOME, SELF-CARE Condition: STABLE Referrals: AMOR HELLER DO (PCP) Patient Instructions: Back Pain, Adult, [id number], Cervical Strain and Sprain with Rehab[facility], Fall Prevention and Home Safety, Medication Refill, Emergency Department Additional Instructions: Please follow-up with your primary care physician in the next 2 to 3 days. Scripts Acetaminophen (TYLENOL) 325 Mg Tablet 1-2 TAB PO QID for 7 Days, #20 TAB 2 Refills Prov: MARIA GUADALUPE ROSSI DO 03/19/20 Justicifation of Admission Dx: Justifications for Admission: Justification of Admission Dx: N/A (MARIA GUADALUPE ROSSI DO) Justification of Admission Dx: N/A (ASHLEY VICKERS DO) MARIA GUADALUPE ROSSI DO Mar 19, 2020 04:58 ASHLEY VICKERS DO Mar 19, 2020 07:16
[2020-03-19] MEDS ORDERED: ACETAMINOPHEN 500 MG TABLET PO ONE (05:15)
[2020-03-19] MEDS ORDERED: ACET325T9 PO (05:58)
--- NOTE | 2020-03-19 06:17 | RAD ---
STUDY: CT head and cervical spine without contrast INDICATION: Fall. Head and neck injury. COMPARISON: 02/24/2020 TECHNIQUE: Axial CT imaging through the head and cervical spine without the use of intravenous contrast. Sagittal and coronal reformats were obtained. One or more of the following individualized dose reduction techniques were utilized for this examination: 1. Automated exposure control 2. Adjustment of the mA and/or kV according to patient size 3. Use of iterative reconstruction technique. FINDINGS: CT head: The study is degraded by motion with resultant loss of diagnostic utility. No large acute intracranial hemorrhage is seen. The adequately assessed avelar-white matter interface is maintained. Unchanged ventriculomegaly and crowding of the sulci at the vertex. Intracranial atherosclerotic calcifications. White matter findings most likely on account of chronic microvascular ischemic change. The previously seen frontal scalp hematoma has resolved. No newly identified large hematoma. No depressed calvarial fracture. CT cervical spine: Degraded by motion. No acute fracture is identified. Anterolisthesis at several levels has not changed. As before, lytic resorption and malalignment at C7-T1 the extent of which has not significant changed. There is again ankylosis across C6-C7. Advanced multilevel facet degeneration. The extent of associated central canal and neural foraminal stenosis is similar. Several additional chronic findings such as calcific atherosclerosis and a multinodular thyroid are unchanged. No apical pneumothorax. IMPRESSION: CT head: 1. Limited study due to the degree of motion artifact. Taking this into consideration, no acute intracranial abnormality is identified. 2. Unchanged chronic/senescent findings as detailed above. CT cervical spine: 1. Motion degraded but less so than the CT head portion. No acute fracture is seen or change in alignment. 2. Marked osseous resorption and associated deformity across C7-T1 has not significantly progressed in the interim. This is again consistent with the sequela of prior and presumably treated discitis/osteomyelitis fully described on the 11/21/2019 MRI. Advanced multifactorial degenerative changes elsewhere are also unchanged. 3. Redemonstration of a multinodular thyroid and dense calcific atherosclerosis at the left carotid bulb. Electronically signed by: BRAXTON WOLFE MD (03/19/2020 6:14 AM) [facility]
--- NOTE | 2020-03-19 06:48 | RAD ---
STUDY: 1. CT thoracic spine without contrast 2. CT lumbar spine without contrast INDICATION: Fall. Back injury. COMPARISON: CT chest, abdomen and pelvis 05/13/2019; CT chest 02/25/2020. TECHNIQUE: Axial CT imaging of the thoracic and lumbar spine performed without the use of contrast. Coronal and sagittal reformats were obtained. One or more of the following individualized dose reduction techniques were utilized for this examination: 1. Automated exposure control 2. Adjustment of the mA and/or kV according to patient size 3. Use of iterative reconstruction technique. FINDINGS: Thoracic spine: Osseous resorption with surrounding sclerosis in keeping with previously diagnosed discitis/osteomyelitis at C7-T1. Disc space collapse and endplate irregularity at T1-T2 similar to the prior. No newly seen thoracic vertebral body height loss. No posterior element fracture is identified. Scattered facet degeneration. No newly seen severe osseous encroachment on the central canal or neural foramina. Prevertebral soft tissue prominence from C7 down the T1-T2 has not significant changed in the interim. No newly seen abnormality throughout the lungs. Scattered calcific atherosclerosis to include involvement of the coronary arteries. Lumbar spine: Redemonstration of superior endplate height loss at L1 with surrounding sclerosis but the extent of lucency paralleling the superior endplate has worsened since 11/21/2019 and portions of the superior endplate and anterior cortex are less distinct. Development of superior endplate height loss as well as osseous resorption along portions of the superior endplate. There is now fragmentation and discontinuity of the anterior cortex along its more superior aspect. A tracking lucency along the right lateral aspect of L3 with surrounding sclerosis is a new finding as well. Multilevel facet degeneration. Progressive cystic change within the left L4 facet and faintly involving the superior articulating facet on the left at L5. Multilevel neural foraminal stenosis is similar. Redemonstrated disc space collapse and grade 1 anterolisthesis of L4-L5. Central canal narrowing at several levels appearing mostly mild to moderate but not fully assessed. Incomplete evaluation for any spinal canal fluid collection. Prevertebral soft tissue prominence most notable surrounding L3-L4. Less pronounced prominence of the prevertebral soft tissues at T12-L1 and at L4-L5. Vascular calcifications. Polycystic kidneys. The partially imaged urinary bladder is distended. IMPRESSION: Thoracic spine: 1. No newly seen vertebral body height loss to suggest acute fracture. 2. Redemonstrated findings at C7-T1 in keeping with discitis/osteomyelitis fully described on the 11/21/2019 MRI. There is prominence of the prevertebral soft tissues at this level that has not significantly changed from the CT chest on 02/25/2020. Note is made that it is difficult to differentiate between resolved versus smoldering osteomyelitis. Lumbar spine: 1. Progressive superior endplate height loss at L4 and development of endplate fragmentation/resorption with surrounding sclerosis since 11/21/2019. There is again superior endplate height loss at L1 but osseous resorption paralleling the superior endplate has worsened. Newly seen lucent defect within the right lateral aspect of L3 paralleling the inferior endplate. Though the findings at L4 could be in part related to trauma, the observations elsewhere are not typical of acute injury. Discitis/osteomyelitis should be considered versus resorption from subacute or chronic trauma. MRI with and without contrast could be performed to help characterize if there are laboratory findings that suggest active infection. 2. More conspicuous cystic foci within the left L4 more so than L5 facets from the comparison could be degenerative or infectious as well. 3. Multilevel degenerative changes with varying degrees of associated central canal and neural foraminal stenosis. 4. Polycystic kidneys. The partially imaged urinary bladder is distended. Electronically signed by: BRAXTON WOLFE MD (03/19/2020 6:45 AM) [email or web address]
--- NOTE | 2020-03-19 07:28 | RAD ---
Study: CR PORTABLE CHEST 1V Indication: Fall. Comparison: 02/26/2020 Findings: Increased interstitial markings but slightly improved aeration of the right lung relative to the comparison. The cardia mediastinal silhouette is prominent in size. Mildly prominent but less plethoric central vasculature from the comparison. No layering effusion or pneumothorax. Advanced degenerative changes at both shoulders and a few chronic rib fractures. Impression: Increased interstitial markings but overall the appearance of the chest has significantly improved from 02/26/2020. Electronically signed by: BRAXTON WOLFE MD (03/19/2020 7:25 AM) [id number]
--- NOTE | 2020-03-19 07:30 | RAD ---
Study: CR PELVIS Indication: Fall. Pelvic pain. Comparison: 02/22/2020 Findings: No traumatic malalignment at the hips. No displaced fracture seen. Note is made that the sacrum is poorly evaluated due to osteopenia and overlying bowel gas. Advanced degenerative changes at the lower lumbar spine. Hip joint space height is relatively maintained but there is arthrosis bilaterally. Impression: Taking into consideration osteopenia and bowel gas, no acute fracture is identified. If there is ongoing concern MRI would be the most sensitive modality to assess for subtle osseous injury. Electronically signed by: BRAXTON WOLFE MD (03/19/2020 7:27 AM) [id number]
[2020-03-19 07:45] VITALS: BP 116/58
== END 2020-03-19 08:29 | disposition home or self-care (01) ==
LOC: ER 04:45
DX: M54.2 Cervicalgia (principal); G89.11 Acute pain due to trauma; M54.5 Low back pain; M54.6 Pain in thoracic spine; M79.604 Pain in right leg; J45.909 Unspecified asthma, uncomplicated; E78.00 Pure hypercholesterolemia, unspecified; M79.602 Pain in left arm; K21.9 Gastro-esophageal reflux disease without esophagitis; M79.605 Pain in left leg; F25.9 Schizoaffective disorder, unspecified; M79.601 Pain in right arm; M35.3 Polymyalgia rheumatica; I11.0 Hypertensive heart disease with heart failure; I50.9 Heart failure, unspecified; E11.9 Type 2 diabetes mellitus without complications; Z90.89 Acquired absence of other organs; Z90.710 Acquired absence of both cervix and uterus; Z88.2 Allergy status to sulfonamides; Z91.040 Latex allergy status; Z88.8 Allergy status to other drugs, medicaments and biological substances; W18.39XA Other fall on same level, initial encounter; Y93.89 Activity, other specified; Y92.89 Other specified places as the place of occurrence of the external cause; Y99.8 Other external cause status
CPT/HCPCS: 70450; 71045; 72125; 72128; 72131; 72170; 99285-25

== ENCOUNTER 2020-04-06 06:40 | Emergency (ER) | payer MEDICARE, OTHER ==
[~2020-04-06] VITALS: Ht 162.6 cm; Wt 65.9 kg
--- NOTE | 2020-04-06 07:00 | PHYS DOC ---
Past Medical History Past Medical History: Arthritis, Asthma, CHF, Dementia, Depression, Diabetes- Type II, Fibromyalgia, GERD, High Cholesterol, Hypertension, Schizophrenia, Other Additional Past Medical Histor: schizoaffective disorder, polymyalgia rheumatica, RA Past Surgical History: Appendectomy, Hysterectomy, Knee Replacement, Other Additional Past Surgical Histo: rectal surgery for fissures, cataract removed, back surgery Smoking Status: Never Smoker Alcohol Use: None Drug Use: None General Adult EDM: Chief Complaint: MECHANICAL FALL HPI: HPI: Patient is a 74 year old female with a history of dementia, frequent falls, schizophrenia who presents to the Emergency Room after falling out of bed this morning. Patient is a poor historian. She states she did hit her head. No LOC. She is complaining of pain "everywhere". When asked where it hurts the worst she repeats "everywhere." On individual evaluation she is complaining of bilateral shoulder, bilateral hand, bilateral wrist, bilateral hip, neck, and lower back pain. Review of Systems: Review of Systems: Unable to obtain due to the dementia Heart Score: Risk Factors: Risk Factors: DM, Current or recent (<one month) smoker, HTN, HLP, family history of CAD, obesity. Risk Scores: Score 0 - 3: 2.5% MACE over next 6 weeks - Discharge Home Score 4 - 6: 20.3% MACE over next 6 weeks - Admit for Clinical Observation Score 7 - 10: 72.7% MACE over next 6 weeks - Early Invasive Strategies Current Medications: Current Medications Medications (Trade) Dose Ordered Sig/[facility] Start Time Stop Time Status Last Admin Dose Admin Morphine Sulfate (Morphine Sulfate) 4 mg 1X ONCE 04/06/20 07:00 04/06/20 07:01 UNV Allergies: Allergies: Allergies Coded Allergies Type Severity Reaction Last Updated Verified Sulfa (Sulfonamide Antibiotics) Allergy Intermediate 02/22/20 Yes divalproex sodium Allergy Intermediate neck and back pain 02/22/20 Yes fluticasone Allergy Intermediate COUGH 02/22/20 Yes latex Allergy Intermediate SURGICAL TAPE 02/22/20 Yes lisinopril Allergy Intermediate cough 02/22/20 Yes piroxicam Allergy Intermediate BLISTERS 02/22/20 Yes gabapentin Adverse Reaction Severe 02/22/20 Yes Physical Exam: PE: General: Awake, alert, NAD. Well Nourished, well hydrated. Cooperative HEENT: Atraumatic, EOMI, PERRL, airway patent, moist oral mucosa, no nasal septal hematoma, no facial crepitus or deformity Neck: Supple, trachea midline, diffuse neck tenderness Respiratory: CTA bilaterally, normal effort, no wheezing/crackles, no crepitus CV: RRR, no murmur, cap refill <2, 2+ bilateral radial/DP pulses GI: Soft, nondistended, nontender, no masses MSK: pelvis stable and tender, bilateral shoulder tenderness, bilateral hand tenderness, bilateral wrist tenderness, no obvious deformities Skin: Warm, dry, intact Neuro: A&O x3, speech NL, sensory and motor grossly intact, no focal deficits Psych: Normal affect, normal mood, not suicidal or homicidal EKG: EKG: [] Radiology/Procedures: Radiology/Procedures: [] Course & Med Decision Making: Course & Med Decision Making Pertinent Labs and Imaging studies reviewed. (See chart for details) Patient is 74-year-old female who presents to the emergency room after falling out of bed. Patient has neck pain, hit her head, and is complaining of diffuse pain at this time. History is significantly limited. Per report from senior care she had no acute issues until she fell out of bed today. They state that she is mentally at her baseline though seems to be more distressed than usual. Upon arrival patient is significantly hypertensive which may be due to pain. X- rays were ordered. CT head, CT C-spine, CT lumbar spine, CT pelvis were ordered due to patient hitting her head, having neck tenderness, having lumbar spine tenderness, and having bilateral hip pain. She will be given morphine for pain here in the emergency room and her blood pressure will be reevaluated after pain medication. Xrays and CT are negative for acute changes. Patient is feeling much better and now states a lot of her pain is chronic. Patient's test results and vitals while in the ED were fully reviewed and discussed with the patient. Patient is stable and at this time does not need admission to the hospital. We have discussed strict return precautions and the importance of following up with their Primary Care Physician. Patient stated understanding and was given an opportunity to ask any questions. Patient is in agreement with plan. Moisés Disclaimer: Moisés Disclaimer: This electronic medical record was generated, in whole or in part, using a voice recognition dictation system. Departure Departure Impression: Primary Impression: Fall Disposition: 01 HOME, SELF-CARE Condition: STABLE Referrals: AMOR HELLER DO (PCP) Patient Instructions: Fall Prevention in Hospitals Justicifation of Admission Dx: Justifications for Admission: Justification of Admission Dx: Yes ANDRÉS MENDOZA MD Apr 06, 2020 07:00
[2020-04-06] MEDS ORDERED: MORPHINE SULFATE 4 MG/ML VIAL. IV ONE (07:15)
--- NOTE | 2020-04-06 07:46 | RAD ---
EXAM: Head and cervical spine CT without contrast. HISTORY: Fall. TECHNIQUE: Computed tomographic images of the head and cervical spine were obtained without contrast. *One or more of the following individualized dose reduction techniques were utilized for this examination: 1. Automated exposure control. 2. Adjustment of the mA and/or kV according to patient size. 3. Use of iterative reconstruction technique. COMPARISON: Cervical spine MRI dated 11/21/2019. FINDINGS: Head: There is no intracranial hemorrhage. There is no mass effect or midline shift. There is enlargement of the ventricles due to cerebral atrophy. There is extensive decreased attenuation within the cerebral white matter, most commonly due to chronic small vessel disease. There is evidence of lens surgery. There is ethmoid sinus mucosal thickening. The mastoid air cells are clear. There is no suspicious calvarial lesion. Cervical spine: There is cervical kyphosis. There is multilevel mild cervical listhesis. There is severe endplate irregularity with adjacent vertebral body sclerosis and destructive changes at C7-T1. There is bony bridging across the C6-C7 disc space and severe endplate remodeling with disc space narrowing and bulky osteophytosis at C5-C6. There is multilevel advanced facet arthropathy. There is calcified atherosclerotic plaque involving the carotid bifurcations. There is a heterogeneous enlarged thyroid containing multiple nodules and calcifications. The lung apices are unremarkable. At C2-C3, there is endplate remodeling. There is mild right and moderate to severe left facet arthropathy. There is mild left foraminal stenosis. At C3-C4, there is a disc bulge and endplate remodeling. There is moderate right and severe left facet arthropathy. There is uncovertebral arthropathy. There is severe right and moderate left foraminal stenosis. There is mild central canal stenosis. At C4-C5, there is a posterior central disc protrusion superimposed on a disc bulge and endplate remodeling. There is moderate to severe right and moderate left facet arthropathy. There is uncovertebral arthropathy. There is mild right foraminal stenosis. At C5-C6, there is a disc bulge and endplate osteophytosis. There is mild right facet arthropathy. There is uncovertebral arthropathy. There is severe right and mild left foraminal stenosis. There is mild central canal stenosis. At C6-C7, there is loss of the disc space and diffuse endplate remodeling. There is no stenosis. At C7-T1, there are destructive endplate changes with C7 and T1 vertebral body sclerosis and destructive changes. There is moderate lateral foraminal and mild central canal stenosis. IMPRESSION: 1. No acute intracranial finding or evidence of acute cervical spine trauma. 2. Bilateral cerebral white matter changes due to chronic small vessel disease and cerebral atrophy. This is advanced for patient age. 3. Destructive changes at C7-T1 due to a reported history of discitis/osteomyelitis. This is better characterized on the recent MRI dated 11/21/2019. 4. Multilevel degenerative change involving the cervical spine, resulting in stenosis at the aforementioned levels. 5. Thyroid goiter. Electronically signed by: Adelia Meadows MD (04/06/2020 7:44 AM) [id number]
--- NOTE | 2020-04-06 07:57 | RAD ---
EXAM: Bilateral shoulders, 2 views; bilateral wrists, 2 views; bilateral hands, 2 views; lateral hips and pelvis, 4 views. HISTORY: Trauma. COMPARISON: None. FINDINGS: Bilateral shoulders: 2 views of both shoulders are obtained. There is severe right greater than left glenohumeral joint space narrowing with subchondral sclerosis, subchondral cyst formation and marginal osteophytosis. There is severe right and moderate left acromioclavicular spurring. There are bilateral shoulder joint loose bodies. There is superior migration of the right humeral head due to a chronic rotator cuff tear. No acute fracture is seen. There are degenerative endplate changes with facet arthropathy throughout the visualized cervical spine. Bilateral wrists and hands: 2 views of both wrists and hands are obtained. There is severe left greater than right first carpometacarpal joint space narrowing with subchondral sclerosis, subchondral cyst formation, osteophytosis and bony remodeling. There is also moderate right and severe left triscaphe the joint space narrowing. There is a prominent left scapholunate joint space which may be due to a component of chronic ligamentous injury. There is degenerative subchondral cyst formation involving the right greater than left carpal bones and narrowing of the carpal carpal joint spaces. There is chondrocalcinosis. There is wrist soft tissue swelling. There is moderate left and mild right first interphalangeal joint and mild bilateral second, third and fourth distal interphalangeal joint spurring. No fracture is seen. Pelvis and bilateral hips: A frontal view the pelvis and frog-leg views of both hips are obtained. There is mild marginal femoral head and acetabular spurring. There is no acute fracture, dislocation or subluxation. There is degenerative change involving the lower lumbar spine. IMPRESSION: 1. No acute osseous finding. 2. Severe osteoarthritis involving the right greater than left shoulders with associated joint loose bodies and superimposed right rotator cuff tear. 3. Severe osteoarthritis involving the left greater than right wrist with associated bony remodeling. There may be a chronic left scapholunate ligament injury. There is also osteoarthritis involving the first interphalangeal joints and second through fourth distal interphalangeal joints. 4. Mild osteoarthritis involving both hips. 5. Degenerative change involving the visualized cervical and lumbar spine, not formally assessed on this exam. Electronically signed by: Adelia Meadows MD (04/06/2020 7:53 AM) [id number]
--- NOTE | 2020-04-06 08:06 | RAD ---
EXAM: Lumbar spine CT without contrast; pelvis CT without contrast. HISTORY: Fall. Pain. TECHNIQUE: Computed tomographic images of the lumbar spine were obtained without contrast. Multiplanar reformatting was performed. *One or more of the following individualized dose reduction techniques were utilized for this examination: 1. Automated exposure control. 2. Adjustment of the mA and/or kV according to patient size. 3. Use of iterative reconstruction technique. COMPARISON: 03/19/2020 FINDINGS: Lumbar spine: There has been no change in a moderate compression fracture of L1 with approximately two thirds loss of anterior vertebral body height and no significant retropulsion of the cortex. There has been no change in a mild to moderate L4 compression fracture with approximately one third loss of anterior vertebral body height and no retropulsion of the cortex. No new fracture is seen. There is multilevel endplate remodeling. There is disc space narrowing and vacuum phenomenon at the mid and lower lumbar levels, primarily at L4-L5 and L5-S1. There is multilevel facet arthropathy. There is suspected bone demineralization. There is levoscoliosis. There is grade 1 anterolisthesis of L4 on L5, and to a lesser extent, L3 on L4. There is mild retrolisthesis of L5 on S1. There are polycystic kidneys. This includes the presence of innumerable simple and hemorrhagic cysts. This limits evaluation for solid renal lesions. There is aortobiiliac atherosclerosis. There is colonic diverticulosis. At T12-L1, there is a left paracentral disc protrusion. There is mild left greater than right facet arthropathy. There is no stenosis. At L1-L2, there is a disc bulge and endplate remodeling. There is mild left greater than right facet arthropathy. There is mild bilateral foraminal stenosis. At L2-L3, there is a disc bulge and endplate remodeling. There is mild to moderate bilateral facet arthropathy. There is mild bilateral foraminal stenosis. There is mild central canal stenosis. At L3-L4, there is a disc bulge and endplate remodeling. There is moderate bilateral facet arthropathy. There is a suspected tiny bone island within the spinous process of L3. There is moderate right and mild left foraminal stenosis. There is moderate central canal stenosis. At L4-L5, there is a disc bulge and endplate osteophytosis with bilateral foraminal to extra foraminal disc protrusions and osteophyte complexes. There is severe bilateral facet arthropathy. There is grade 1 anterolisthesis. There is severe bilateral foraminal stenosis. There is severe central canal stenosis. At L5-S1, there is a disc bulge and endplate osteophytosis. There is mild bilateral facet arthropathy. There is retrolisthesis. There is severe bilateral foraminal stenosis. There is mild central canal stenosis. Pelvis: Evaluation of the visualized portions of the abdomen demonstrates plastic kidneys. There are innumerable simple and hemorrhagic cysts which limits evaluation for solid renal lesions. There is colonic diverticulosis. The urinary bladder is unremarkable. The uterus is absent. There is mild body wall edema. There is induration of the hepatic skin and subcutaneous fat likely due to edema or chronic inflammation. There is vacuum phenomenon involving the sacroiliac joints. There is bilateral hip joint space narrowing with degenerative subchondral cyst formation and marginal acetabular and femoral head spurring. There is heterotopic ossification adjacent to the left greater and lesser trochanters. There are few chronic fragmented osteophytes adjacent to the left acetabulum. There are few bone islands. IMPRESSION: 1. Stable compression fractures of L1 and L4. There is lucency superimposed on sclerosis along the anterior aspects of these vertebral bodies which may be due to pathologic fractures with sequela of osteomyelitis given the presence of discitis osteomyelitis involving the cervical spine. This can be better assessed with MRI. No new fracture is seen. 2. Severe multilevel degenerative change involving the lumbar spine, resulting in significant foraminal and central canal stenosis at the aforementioned levels. This is stable in appearance. The central canal stenosis is most significant at L4-L5. 3. Mild to moderate lateral hip osteoarthritis. 4. Polycystic kidneys. The combination of innumerable simple and hemorrhagic cysts was evaluation for solid renal lesions. 5. Colonic diverticulosis. Electronically signed by: Adelia Meadows MD (04/06/2020 8:03 AM) [id number]
[2020-04-06 08:47] VITALS: BP 166/82
== END 2020-04-06 09:00 | disposition home or self-care (01) ==
LOC: ER 06:40
DX: G89.11 Acute pain due to trauma (principal); M54.5 Low back pain; M25.511 Pain in right shoulder; M25.512 Pain in left shoulder; M25.531 Pain in right wrist; M25.532 Pain in left wrist; M25.551 Pain in right hip; M25.552 Pain in left hip; M54.2 Cervicalgia; M19.90 Unspecified osteoarthritis, unspecified site; J45.909 Unspecified asthma, uncomplicated; I50.9 Heart failure, unspecified; F32.9 Major depressive disorder, single episode, unspecified; K21.9 Gastro-esophageal reflux disease without esophagitis; E78.00 Pure hypercholesterolemia, unspecified; F20.9 Schizophrenia, unspecified; I11.0 Hypertensive heart disease with heart failure; E11.9 Type 2 diabetes mellitus without complications; M79.7 Fibromyalgia; Z90.710 Acquired absence of both cervix and uterus; Z90.89 Acquired absence of other organs; Z98.890 Other specified postprocedural states; W06.XXXA Fall from bed, initial encounter; Y93.89 Activity, other specified; Y92.89 Other specified places as the place of occurrence of the external cause; Y99.8 Other external cause status
CPT/HCPCS: 70450; 72125; 72131; 72192; 73030; 73100; 73120; 73521; 96374; 99285; J2270

== ENCOUNTER 2020-08-06 15:08 | Emergency (ER) | payer MEDICARE, OTHER ==
[~2020-08-06] VITALS: Ht 177.8 cm; Wt 126.0 kg
[~2020-08-06 15:08] MED LIST changes: +AMLO-187 PO; -AMLO10TA8 PO; -CLIN300C8 PO; +CLIN300C9 PO; -MONT10TA11 PO; +MONT10TA94 PO
--- NOTE | 2020-08-06 16:57 | RAD ---
Exam performed: X-ray bilateral knees and right hand. HISTORY: Fall. DATE OF SERVICE: 08/06/2020. COMPARISON: X-ray right hand from 04/06/2020. Findings and impression: Bilateral knees. AP, lateral and oblique views of bilateral knees is obtained. There are postoperative changes of tota l bilateral knee arthroplasties. Postoperative changes are seen about articular surface of patella bi laterally. Mild left suprapatellar soft tissue swelling is noted. No evidence of hardware loosening s een. Right hand: AP, lateral and oblique views of the right hand are obtained. There are degenerative changes about th e first carpometacarpal and several distal interphalangeal joints. There is no acute fracture or disl ocation. There is diffuse soft tissue swelling. No foreign body is identified. Electronically signed by: Nancy Herrera MD (08/06/2020 4:55 PM) [id number]
--- NOTE | 2020-08-06 17:56 | PHYS DOC ---
Past Medical History Past Medical History: Arthritis, Asthma, CHF, Dementia, Depression, Diabetes- Type II, Fibromyalgia, GERD, High Cholesterol, Hypertension, Schizophrenia, Other Additional Past Medical Histor: schizoaffective disorder, polymyalgia rheumatica, RA;Covid19 (SCOTTIE BRENNAN APRN) Past Surgical History: Appendectomy, Hysterectomy, Knee Replacement, Other Additional Past Surgical Histo: rectal surgery for fissures, cataract removed, back surgery (SCOTTIE BRENNAN APRN) Smoking Status: Never Smoker Alcohol Use: None Drug Use: None (SCOTTIE BRENNAN APRN) General Adult EDM: Chief Complaint: MECHANICAL FALL HPI: HPI: Patient is a 75 year old female with a history of dementia, depression, schizophrenia, hypertension, high cholesterol among other illnesses who presents to the ED today to be evaluated after falling in her room at [facility]. Patient denies any loss of consciousness. She is complaining of 8 out of 10 mid back pain, low back pain, right hand pain and bilateral knee pain. Patient denies anything specifically exacerbating or relieving her pain. She states today [birth year] her birthday. (SCOTTIE BRENNAN APRN) Review of Systems: Review of Systems: Constitutional: Denies fever or chills. [] Eyes: Denies change in visual acuity. [] HENT: Denies nasal congestion or sore throat. [] Respiratory: Denies cough or shortness of breath. [] Cardiovascular: Denies chest pain or edema. [] GI: Denies abdominal pain, nausea, vomiting, bloody stools or diarrhea. [] : Denies dysuria. [] Musculoskeletal: Reports right hand pain, bilateral knee pain, low back pain, mid back pain. Integument: Denies rash. [] Neurologic: Denies headache, focal weakness or sensory changes. [] Psychiatric: Denies depression or anxiety. [] (SCOTTIE BRENNAN APRN) Heart Score: Risk Factors: Risk Factors: DM, Current or recent (<one month) smoker, HTN, HLP, family history of CAD, obesity. Risk Scores: Score 0 - 3: 2.5% MACE over next 6 weeks - Discharge Home Score 4 - 6: 20.3% MACE over next 6 weeks - Admit for Clinical Observation Score 7 - 10: 72.7% MACE over next 6 weeks - Early Invasive Strategies (SCOTTIE BRENNAN APRN) Allergies: Allergies: Allergies Coded Allergies Type Severity Reaction Last Updated Verified Sulfa (Sulfonamide Antibiotics) Allergy Intermediate 02/22/20 Yes divalproex sodium Allergy Intermediate neck and back pain 02/22/20 Yes fluticasone Allergy Intermediate COUGH 02/22/20 Yes latex Allergy Intermediate SURGICAL TAPE 02/22/20 Yes lisinopril Allergy Intermediate cough 02/22/20 Yes piroxicam Allergy Intermediate BLISTERS 02/22/20 Yes gabapentin Adverse Reaction Severe 02/22/20 Yes (SCOTTIE BRENNAN APRN) Physical Exam: PE: Constitutional: Well developed, well nourished, no acute distress, non-toxic appearance. [] HENT: Normocephalic, atraumatic, bilateral external ears normal, oropharynx moist, no oral exudates, nose normal. [] Eyes: PERRLA, EOMI, conjunctiva normal, no discharge. [] Neck: Normal range of motion, no tenderness, supple, no stridor. [] Cardiovascular:Heart rate regular rhythm, no murmur [] Lungs & Thorax: Bilateral breath sounds clear to auscultation [] Abdomen: Bowel sounds normal, soft, no tenderness, no masses, no pulsatile masses. [] Skin: Warm, dry, no erythema, no rash. [] Back: No tenderness, no CVA tenderness. [] Extremities: No tenderness, no cyanosis, no clubbing, ROM intact, no edema. [] Neurologic: Alert and oriented X 3, normal motor function, normal sensory function, no focal deficits noted. [] Psychologic: Affect normal, judgement normal, mood normal. [] (SCOTTIE BRENNAN APRN) Current Patient Data: Vital Signs: Vital Signs Date Time Temp Pulse Resp B/P (MAP) Pulse Ox O2 Delivery O2 Flow Rate FiO2 08/06/20 15:40 98.2 49 16 146/73 (97) 99 Room Air 98.2 (SCOTTIE BRENNAN APRN) EKG: EKG: [] (SCOTTIE BRENNAN APRN) Radiology/Procedures: Radiology/Procedures: PROCEDURE: CT HEAD AND CERVICAL SPINE WO CT scan of the head without contrast 08/06/2020 Clinical History: Fall with head injury. Technique: Unenhanced, contiguous, 5 mm axial sections were obtained through the head. One or more of the following individualized dose reduction techniques were utilized for this study: 1. Automated exposure control. 2. Adjustment of the mA and/or kV according to patient size. 3. Use of iterative reconstruction technique. Findings: Comparison study is dated 04/06/2020. There is generalized parenchymal atrophy. Areas of decreased attenuation are seen within the periventricular and subcortical white matter of both cerebral hemispheres consistent with areas of small vessel ischemic disease. No acute parenchymal abnormality is seen. No extra-axial fluid collection is noted. No skull fracture is seen. Impression: No acute intracranial abnormality is seen. CT scan of the cervical spine without contrast 08/06/2020 Clinical history: Fall with neck injury. History of discitis/osteomyelitis involving the lower cervical spine. Technique: Unenhanced, contiguous, 0.625 mm axial sections were obtained through the cervical spine. Axial, coronal and sagittal reconstructed images were obtained. One or more of the following individualized dose reduction techniques were utilized for this study: 1. Automated exposure control. 2. Adjustment of the mA and/or kV according to patient size. 3. Use of iterative reconstruction technique. Findings: There is a study is dated 02/24/2020. Sagittal and coronal reconstructed images demonstrate mild lateral curvature of the cervical spine, convex to the left. There is reversal the normal cervical lordosis. Degenerative changes consisting of vertebral endplate sclerosis and mild to moderate anterior and posterior vertebral body osteophyte formation are seen involving mid and lower cervical disc spaces. Marked disc space narrowing is seen at C5-6. Fusion across the C6-7 disc space is seen. Marked disc space narrowing with obstructive changes involving the vertebral endplates are seen at C7-T1 consistent with the patient's history of discitis/osteomyelitis. This is improved since the previous study. No fracture or subluxation cervical vertebrae seen. Degenerative changes are seen involving the uncovertebral and facet joints throughout the cervical disc spaces. The Impression: No fracture or subluxation of the cervical vertebra is identified. Electronically signed by: Elias Falk MD (08/06/2020 6:08 PM) [id number] DICTATED and SIGNED BY: ELIAS FALK MD DATE: 08/06/20 [id number] 0 []PROCEDURE: KNEE BILAT 3V Exam performed: X-ray bilateral knees and right hand. HISTORY: Fall. DATE OF SERVICE: 08/06/2020. COMPARISON: X-ray right hand from 04/06/2020. Findings and impression: Bilateral knees. AP, lateral and oblique views of bilateral knees is obtained. There are postoperative changes of total bilateral knee arthroplasties. Postoperative changes are seen about articular surface of patella bilaterally. Mild left suprapatellar soft tissue swelling is noted. No evidence of hardware loosening seen. Right hand: AP, lateral and oblique views of the right hand are obtained. There are degenerative changes about the first carpometacarpal and several distal interphalangeal joints. There is no acute fracture or dislocation. There is diffuse soft tissue swelling. No foreign body is identified. Electronically signed by: Nancy Herrera MD (08/06/2020 4:55 PM) [id number] DICTATED and SIGNED BY: NANCY HERRERA MD DATE: 08/06/20 [id number] 0 PROCEDURE: CT THORACIC SPINE WO CONTRAST Examination: CT of the abdomen pelvis and thoracic and lumbar spine without contrast HISTORY: History of multiple falls, back pain COMPARISON: Thoracic spine CT from 03/19/2020 TECHNIQUE: Axial CT images of the abdomen pelvis were performed without contrast. Axial CT images of the thoracic and lumbar spine. Coronal and sagittal reformats are performed. Exposure: One or more of the following individualized dose reduction techniques were utilized for this examination: 1. Automated exposure control 2. Adjustment of the mA and/or kV according to patient size 3. Use of iterative reconstruction technique FINDINGS: Faint atelectasis left upper lobe of the lung with Mild bibasilar lung atelectasis. No evidence of free air identified in the abdomen.The evaluation of the solid organs is limited due to lack of IV contrast. The evaluation of bowel is limited due to lack of oral contrast. The visualized noncontrasted liver, spleen, grossly appears unremarkable. The gallbladder is mildly distended.The stomach is mildly distended. The visualized pancreas grossly appears unremarkable. The small bowel is nondilated. Moderate amount of feces and gas identified in the colon. Numerous colonic diverticulosis. The appendix is not well-visualized. Urinary bladder is mildly distended.Numerous hypodense and hyperdense cystic structures identified in the bilateral kidneys likely polycystic kidney disease. Moderate compression changes of L1 vertebral body and mild to moderate compression change of L4 vertebral body similar to prior exam. Multiple multilevel disc changes identified in the thoracic and lumbar spine with degenerative changes identified similar to prior exam. There is sclerosis identified about the C7-T1 vertebral body with disc collapse and endplate irregularity at C7-T1 and T1-T2 similar to prior exam likely known prior osteomyelitis/discitis. IMPRESSION: 1. Stable compression fractures of L1 and L4 with sclerosis in the anterior part of the vertebral bodies could be secondary to osteomyelitis/discitis similar to prior exam. Sclerosis and irregularity identified at C7-T1 vertebral level probably secondary to known discitis/osteomyelitis. These can be better evaluated with MRI. 2. Severe multilevel degenerative changes identified in the lumbar spine similar to prior exam. 3. Polycystic kidney with multiple numerous simple and hemorrhagic or hyperdense cysts in the bilateral kidneys. Evaluation for solid lesion is limited. Electronically signed by: Anup Yarbrough MD (08/06/2020 6:40 PM) [id number] DICTATED and SIGNED BY: ANUP YARBROUGH MD DATE: 08/06/20 [id number] 0 (SCOTTIE BRENNAN APRN) Course & Med Decision Making: Course & Med Decision Making Pertinent Labs and Imaging studies reviewed. (See chart for details) This is a 75-year-old female patient presenting to the ED today complaining of bilateral knee pain, right hand pain and mid and low back pain status post falling. No loss of consciousness. Her pain complaints seem to move from 1 part of the body with no obvious coordination. She is up and walking in the ED. She has history of dementia. X-rays of bilateral knees and right hand are negative for any acute findings. CT of the head and cervical spine are negative for any acute findings, CT of thoracic and lumbar spine noted for stable nonacute L1 and L4 lumbar fracture. Patient is up in the ED no distress, discharged with instructions to follow-up with the PCP. (SCOTTIE BRENNAN APRN) Course & Med Decision Making I oversaw on the above date of service of this patient and discussed the care with the SIGNAL PERSON. I agree with the findings, plan of care, and disposition as documented. (RENETTA NAJERA DO) Moisés Disclaimer: Moisés Disclaimer: This electronic medical record was generated, in whole or in part, using a voice recognition dictation system. (SCOTTIE BRENNAN APRN) Departure Departure Impression: Primary Impression: Fall Qualified Codes: W19.XXXA - Unspecified fall, initial encounter Additional Impressions: Lumbar contusion Qualified Codes: S30.0XXA - Contusion of lower back and pelvis, initial encounter Thoracic sprain Contusion of knee, left Qualified Codes: S80.02XA - Contusion of left knee, initial encounter Contusion of knee, right Qualified Codes: S80.01XA - Contusion of right knee, initial encounter Sprain of right hand Qualified Codes: S63.91XA - Sprain of unspecified part of right wrist and hand, initial encounter Disposition: 01 DC HOME SELF CARE/HOMELESS Condition: STABLE Referrals: GARRICK LUCAS MD (PCP) Follow-up in 1 week Patient Instructions: Contusion, [id number], Fall Prevention and Home Safety Additional Instructions: You were seen in the emergency room, your CAT scan of the head, cervical spine, thoracic and lumbar spine are negative for any acute findings. Your x-rays of bilateral knees and right hand are negative. Follow-up with your doctor in 1 week HAPPY BIRTHDAY. MAY YOU HAVE MANY MORE YEARS SCOTTIE BRENNAN APRN Aug 06, 2020 17:56 RENETTA NAJERA DO Aug 07, 2020 18:58
--- NOTE | 2020-08-06 18:10 | RAD ---
CT scan of the head without contrast 08/06/2020 Clinical History: Fall with head injury. Technique: Unenhanced, contiguous, 5 mm axial sections were obtained through the head. One or more of the following individualized dose reduction techniques were utilized for this study: 1. Automated exposure control. 2. Adjustment of the mA and/or kV according to patient size. 3. Use of iterative reconstruction technique. Findings: Comparison study is dated 04/06/2020. There is generalized parenchymal atrophy. Areas of decreased attenuation are seen within the perivent ricular and subcortical white matter of both cerebral hemispheres consistent with areas of small vess el ischemic disease. No acute parenchymal abnormality is seen. No extra-axial fluid collection is not ed. No skull fracture is seen. Impression: No acute intracranial abnormality is seen. CT scan of the cervical spine without contrast 08/06/2020 Clinical history: Fall with neck injury. History of discitis/osteomyelitis involving the lower cervic al spine. Technique: Unenhanced, contiguous, 0.625 mm axial sections were obtained through the cervical spine. Axial, coronal and sagittal reconstructed images were obtained. One or more of the following individualized dose reduction techniques were utilized for this study: 1. Automated exposure control. 2. Adjustment of the mA and/or kV according to patient size. 3. Use of iterative reconstruction technique. Findings: There is a study is dated 02/24/2020. Sagittal and coronal reconstructed images demonstrate mild lateral curvature of the cervical spine, c onvex to the left. There is reversal the normal cervical lordosis. Degenerative changes consisting of vertebral endplate sclerosis and mild to moderate anterior and posterior vertebral body osteophyte f ormation are seen involving mid and lower cervical disc spaces. Marked disc space narrowing is seen a t C5-6. Fusion across the C6-7 disc space is seen. Marked disc space narrowing with obstructive storey es involving the vertebral endplates are seen at C7-T1 consistent with the patient's history of disci tis/osteomyelitis. This is improved since the previous study. No fracture or subluxation cervical vertebrae seen. Degenerative changes are seen involving the uncov ertebral and facet joints throughout the cervical disc spaces. The Impression: No fracture or subluxation of the cervical vertebra is identified. Electronically signed by: Elias Falk MD (08/06/2020 6:08 PM) [id number]
--- NOTE | 2020-08-06 18:42 | RAD ---
Examination: CT of the abdomen pelvis and thoracic and lumbar spine without contrast HISTORY: History of multiple falls, back pain COMPARISON: Thoracic spine CT from 03/19/2020 TECHNIQUE: Axial CT images of the abdomen pelvis were performed without contrast. Axial CT images of the thoracic and lumbar spine. Coronal and sagittal reformats are performed. Exposure: One or more of the following individualized dose reduction techniques were utilized for thi s examination: 1. Automated exposure control 2. Adjustment of the mA and/or kV according to patient size 3. Use of iterative reconstruction technique FINDINGS: Faint atelectasis left upper lobe of the lung with Mild bibasilar lung atelectasis. No evidence of fr ee air identified in the abdomen.The evaluation of the solid organs is limited due to lack of IV cont rast. The evaluation of bowel is limited due to lack of oral contrast. The visualized noncontrasted l iver, spleen, grossly appears unremarkable. The gallbladder is mildly distended.The stomach is mildly distended. The visualized pancreas grossly appears unremarkable. The small bowel is nondilated. Mode rate amount of feces and gas identified in the colon. Numerous colonic diverticulosis. The appendix is not well-visualized. Urinary bladder is mildly diste nded.Numerous hypodense and hyperdense cystic structures identified in the bilateral kidneys likely p olycystic kidney disease. Moderate compression changes of L1 vertebral body and mild to moderate compression change of L4 verte bral body similar to prior exam. Multiple multilevel disc changes identified in the thoracic and lumb ar spine with degenerative changes identified similar to prior exam. There is sclerosis identified about the C7-T1 vertebral body with disc collapse and endplate irregul arity at C7-T1 and T1-T2 similar to prior exam likely known prior osteomyelitis/discitis. IMPRESSION: 1. Stable compression fractures of L1 and L4 with sclerosis in the anterior part of the vertebral b odies could be secondary to osteomyelitis/discitis similar to prior exam. Sclerosis and irregularity identified at C7-T1 vertebral level probably secondary to known discitis/osteomyelitis. These can be better evaluated with MRI. 2. Severe multilevel degenerative changes identified in the lumbar spine similar to prior exam. 3. Polycystic kidney with multiple numerous simple and hemorrhagic or hyperdense cysts in the bilate ral kidneys. Evaluation for solid lesion is limited. Electronically signed by: Anup Yarbrough MD (08/06/2020 6:40 PM) [id number]
[2020-08-06 19:49] VITALS: BP 154/70
== END 2020-08-06 20:15 | disposition home or self-care (01) ==
LOC: ER 15:08
DX: S80.01XA Contusion of right knee, initial encounter (principal); S80.02XA Contusion of left knee, initial encounter; S30.0XXA Contusion of lower back and pelvis, initial encounter; S63.8X1A Sprain of other part of right wrist and hand, initial encounter; M19.90 Unspecified osteoarthritis, unspecified site; J45.909 Unspecified asthma, uncomplicated; F32.9 Major depressive disorder, single episode, unspecified; E11.9 Type 2 diabetes mellitus without complications; M79.7 Fibromyalgia; K21.9 Gastro-esophageal reflux disease without esophagitis; F20.9 Schizophrenia, unspecified; Z90.89 Acquired absence of other organs; Z90.710 Acquired absence of both cervix and uterus; Z98.890 Other specified postprocedural states; Z88.2 Allergy status to sulfonamides; Z91.040 Latex allergy status; Z88.8 Allergy status to other drugs, medicaments and biological substances; Z88.6 Allergy status to analgesic agent; W18.39XA Other fall on same level, initial encounter; Y93.89 Activity, other specified; Y92.89 Other specified places as the place of occurrence of the external cause; Y99.8 Other external cause status
CPT/HCPCS: 70450; 72125; 72128; 73130; 73562; 74176; 93005; 99285

== ENCOUNTER 2020-10-23 05:05 | Emergency (ER) | payer MEDICARE, OTHER ==
[~2020-10-23] VITALS: Ht 177.8 cm; Wt 104.5 kg
[~2020-10-23 05:05] MED LIST changes: +MONT10TA20 PO; -MONT10TA94 PO
--- NOTE | 2020-10-23 05:12 | PHYS DOC ---
Past Medical History Past Medical History: Arthritis, Asthma, CHF, Dementia, Depression, Diabetes- Type II, Fibromyalgia, GERD, High Cholesterol, Hypertension, Schizophrenia, Other Additional Past Medical Histor: schizoaffective disorder, polymyalgia rheumatica, RA;Covid19 Past Surgical History: Appendectomy, Hysterectomy, Knee Replacement, Other Additional Past Surgical Histo: rectal surgery for fissures, cataract removed, back surgery Smoking Status: Never Smoker Alcohol Use: None Drug Use: None General Adult EDM: Chief Complaint: MECHANICAL FALL HPI: HPI: Patient is a 75 year old female presenting from half-way via EMS for an unwitnessed fall. States she was in bed trying to roll on her left hand side to grab something from the nightstand when she had a ground-level fall less than 3 feet landing on her left hip. She did hit her head. She does not know she is taking any blood thinners, no loss of consciousness reported. care home staff attended patient who is complaining of generalized headache, diffuse neck pain and left hip pain prompting [facility] to send patient to our ER for evaluation Review of Systems: Review of Systems: Fourteen body systems of review of systems have been reviewed. See HPI for pertinent positives and negative responses, other oliva all other systems are negative, non-pertinent or non-contributory Heart Score: C/O Chest Pain: No HEART Score for Chest Pain: HEART Score for Chest Pain Response (Comments) Value History Slighlty/Non-Suspicious 0 Age > 65 2 Risk Factors >3 Risk Factors or Hx CAD 2 Total 4 Risk Factors: Risk Factors: DM, Current or recent (<one month) smoker, HTN, HLP, family history of CAD, obesity. Risk Scores: Score 0 - 3: 2.5% MACE over next 6 weeks - Discharge Home Score 4 - 6: 20.3% MACE over next 6 weeks - Admit for Clinical Observation Score 7 - 10: 72.7% MACE over next 6 weeks - Early Invasive Strategies Allergies: Allergies: Allergies Coded Allergies Type Severity Reaction Last Updated Verified Sulfa (Sulfonamide Antibiotics) Allergy Intermediate 02/22/20 Yes divalproex sodium Allergy Intermediate neck and back pain 02/22/20 Yes fluticasone Allergy Intermediate COUGH 02/22/20 Yes latex Allergy Intermediate SURGICAL TAPE 02/22/20 Yes lisinopril Allergy Intermediate cough 02/22/20 Yes piroxicam Allergy Intermediate BLISTERS 02/22/20 Yes gabapentin Adverse Reaction Severe 02/22/20 Yes Physical Exam: PE: Constitutional: Pt is oriented to person, place, and time. Pt appears well-developed and well- nourished. HEENT: Head: Normocephalic and atraumatic. TMs clear, no hemotympanum Conjunctivae and EOM are normal. Pupils are equal, round, and reactive to light. Oropharynx is clear and moist. No hematomas or lacerations or abrasions to face or scalp OP clear, no blood, no malocclusion, dentition intact Nares clear, no nasal septal hematoma Midface stable Neck: C-spine midline nontender but there is pain on palpation of bilateral paracervical muscles, no step-offs Cardiovascular: Normal rate, regular rhythm and normal heart sounds. Pulmonary/Chest: Effort normal and breath sounds normal. No respiratory distress. No wheezes. CTA bilaterally Abdominal: Soft. Bowel sounds are normal. Pt exhibits no distension. There is no tenderness. Musculoskeletal: No bony tenderness to extremities, no deformities, full ROM extremities Chest wall stable Pelvis stable but there is point tenderness to left lateral hip overlying the greater trochanter No vertebral TTP and spine without stepoffs Neurological: Pt is alert and oriented to person, place, and time. Moving all extremities willfully, able to wiggle all fingers and toes Alert and oriented x 3 Sensation grossly intact Skin: Skin is warm and dry. No abrasions, no lacerations Psychiatric: Behavior is appropriate for situation Current Patient Data: Vital Signs: Vital Signs Date Time Temp Pulse Resp B/P (MAP) Pulse Ox O2 Delivery O2 Flow Rate FiO2 10/23/20 05:05 97.9 55 16 183/86 (118) 98 Room Air 97.9 Vital Signs Date Time Temp Pulse Resp B/P (MAP) Pulse Ox O2 Delivery O2 Flow Rate FiO2 10/23/20 06:21 56 158/74 (102) 96 Room Air 10/23/20 05:05 97.9 16 97.9 EKG: EKG: [] Radiology/Procedures: Radiology/Procedures: CT HEAD AND CERVICAL SPINE WITHOUT CONTRAST History: Reason: unwitnessed fall, hit head, unknown LOC or blood thinners Comparison: CT head and C-spine without contrast August 06, 2020. Procedure: Axial images are obtained of the head from the skull base through the vertex without IV contrast. Noncontrast helical CT of the cervical spine was performed. Axial, sagittal, and coronal reconstructions were obtained. Findings: The ventricles and sulci are prominent, consistent with age-related cerebral atrophy. There is periventricular white matter hypoattenuation. This is a nonspecific finding but is commonly due to chronic small vessel ischemic disease in a patient of this age. No mass-effect, midline shift, hemorrhage or obvious acute infarction is identified. Basilar cisterns are patent. Bone windows demonstrate no significant calvarial abnormality. The visualized paranasal sinuses are clear. Mastoid air cells are well aerated. There is no evidence of acute fracture or acute malalignment of the cervical spine. There is reversal of normal cervical lordosis. Bony destructive changes at C7/T1 are stable. There is sclerosis of the C7 and T1 vertebral bodies. The alignment is unchanged. There is grade 1 anterolisthesis of C3 on C4 and C4 on C5 and C7 on T1. The facet joints are moderately hypertrophic. No perched or jumped facet joints. There is partial fusion of the C6/C7 disc space. There is severe disc space narrowing of C5/C6. Visualized soft tissues of the neck demonstrate no significant abnormalities. Mild groundglass opacities in the right lung apex. There is a small calcified granuloma. IMPRESSION: 1. No acute intracranial abnormality. 2. No acute fracture of the cervical spine. Electronically signed by: Trell Fontana MD (10/23/2020 5:56 AM) [facility] /////////////// XR CHEST 1V Clinical Indication: Reason: unwitnessed fall Comparison: AP chest March 19, 2020. Findings: Patient is rotated. The cardiomediastinal silhouette is stable. There is new right basilar airspace disease. There is no pneumothorax. No pleural effusion is appreciated. There is arthropathy of the shoulders and old rib fractures. IMPRESSION: There is right basilar airspace disease that may be atelectasis or early pneumonia. Electronically signed by: Trell Fontana MD (10/23/2020 5:47 AM) [facility] ///////////// XR BILATERAL HIP (WITH OR WITHOUT PELVIS) LEFT 2 VIEWS Clinical Indication: Reason: unwitnessed fall, left hip pain / Comparison: AP pelvis and bilateral hips April 06, 2020. Findings: Stable appearance of the left lesser trochanter. Mild arthropathy of the left hi p. There is mild arthropathy of the right hip. No acute pelvic fracture is identified. Mild air and stool in the rectum. Limited visualization of the sacroiliac joints due to underpenetration and overlying bowel. IMPRESSION: No acute fracture or dislocation. Electronically signed by: Trell Fontana MD (10/23/2020 5:59 AM) [facility] Course & Med Decision Making: Course & Med Decision Making Discussed most likely diagnosis of mechanical/unintentional fall while rolling over and losing balance in bed. Reviewed findings of negative imaging performed in ER setting with patient with good understanding. Discussed little utility in further diagnostic work-up in ER setting I advised patient to continue supportive care practices on discharge with close PCP follow-up with half-way physician, she has good access to care and states that this can happen Strict return precautions discussed with good understanding by patient, all questions and concerns addressed prior to ER departure Moisés Disclaimer: Moisés Disclaimer: This electronic medical record was generated, in whole or in part, using a voice recognition dictation system. Departure Departure Impression: Primary Impression: Fall Additional Impression: HTN (hypertension) Disposition: 01 DC HOME SELF CARE/HOMELESS Condition: STABLE Referrals: GARRICK LUCAS MD (PCP) Patient Instructions: Back Exercises, Contusion, Hip Exercises, Generic, Sport sMed Additional Instructions: You were evaluated in the Emergency Department today for pain after a fall from rolling out of bed. Your evaluation suggests no acute abnormalities which require further intervention at this time. Your pain is most likely due to to a musculoskeletal cause that should improve with supportive care. - Move around as tolerated but avoiding heavy lifting. ``Bed rest is not recommended nor is it the best treatment for your pain. - Medications will help control your discomfort: - -Ibuprofen (800 mg every 8 hours for pain) with food. - -Tylenol Return to the ED immediately if you develop any of the following problems: - Leaking urine or difficulty urinating; - Inability to control your bowels; - New numbness or weakness in your legs or numbness between your legs; - Inability to walk - Fever RENETTA NAJERA DO Oct 23, 2020 05:12
[2020-10-23] MEDS ORDERED: ACETAMINOPHEN 325 MG TABLET. PO ONE (05:30)
--- NOTE | 2020-10-23 05:50 | RAD ---
XR CHEST 1V Clinical Indication: Reason: unwitnessed fall Comparison: AP chest March 19, 2020. Findings: Patient is rotated. The cardiomediastinal silhouette is stable. There is new right basilar airspace d isease. There is no pneumothorax. No pleural effusion is appreciated. There is arthropathy of the richard ulders and old rib fractures. IMPRESSION: There is right basilar airspace disease that may be atelectasis or early pneumonia. Electronically signed by: Trell Fontana MD (10/23/2020 5:47 AM) [facility]
--- NOTE | 2020-10-23 05:58 | RAD ---
PQRS Compliance Statement: One or more of the following individualized dose reduction techniques were utilized for this examinat ion: 1. Automated exposure control 2. Adjustment of the mA and/or kV according to patient size 3. Use of iterative reconstruction technique CT HEAD AND CERVICAL SPINE WITHOUT CONTRAST History: Reason: unwitnessed fall, hit head, unknown LOC or blood thinners Comparison: CT head and C-spine without contrast August 06, 2020. Procedure: Axial images are obtained of the head from the skull base through the vertex without IV co ntrast. Noncontrast helical CT of the cervical spine was performed. Axial, sagittal, and coronal rec onstructions were obtained. Findings: The ventricles and sulci are prominent, consistent with age-related cerebral atrophy. There is periv entricular white matter hypoattenuation. This is a nonspecific finding but is commonly due to chroni c small vessel ischemic disease in a patient of this age. No mass-effect, midline shift, hemorrhage or obvious acute infarction is identified. Basilar cistern s are patent. Bone windows demonstrate no significant calvarial abnormality. The visualized paranasal sinuses are clear. Mastoid air cells are well aerated. There is no evidence of acute fracture or acute malalignment of the cervical spine. There is reversal of normal cervical lordosis. Bony destructive changes at C7/T1 are stable. There is sclerosis of the C7 and T1 vertebral bodies. The alignment is unchanged. There is grade 1 anterolist hesis of C3 on C4 and C4 on C5 and C7 on T1. The facet joints are moderately hypertrophic. No perched or jumped facet joints. There is partial fusion of the C6/C7 disc space. There is severe disc space narrowing of C5/C6. Visualized soft tissues of the neck demonstrate no significant abnormalities. Mild groundglass opacit ies in the right lung apex. There is a small calcified granuloma. IMPRESSION: 1. No acute intracranial abnormality. 2. No acute fracture of the cervical spine. Electronically signed by: Trell Fontana MD (10/23/2020 5:56 AM) [facility]
--- NOTE | 2020-10-23 06:01 | RAD ---
XR BILATERAL HIP (WITH OR WITHOUT PELVIS) LEFT 2 VIEWS Clinical Indication: Reason: unwitnessed fall, left hip pain / Comparison: AP pelvis and bilateral hips April 06, 2020. Findings: Stable appearance of the left lesser trochanter. Mild arthropathy of the left hip. There is mild arth ropathy of the right hip. No acute pelvic fracture is identified. Mild air and stool in the rectum. L imited visualization of the sacroiliac joints due to underpenetration and overlying bowel. IMPRESSION: No acute fracture or dislocation. Electronically signed by: Trell Fontana MD (10/23/2020 5:59 AM) [facility]
[2020-10-23 06:21] VITALS: BP 158/74
[2020-10-23] MEDS ORDERED: amLODIPine BESYLATE 5 MG TABLET PO ONE (07:00)
== END 2020-10-23 08:50 | disposition home or self-care (01) ==
LOC: ER 05:05
DX: M25.552 Pain in left hip (principal); I11.0 Hypertensive heart disease with heart failure; I50.9 Heart failure, unspecified; G89.11 Acute pain due to trauma; M54.2 Cervicalgia; R51.9 Headache, unspecified; J45.909 Unspecified asthma, uncomplicated; E11.9 Type 2 diabetes mellitus without complications; F03.90 Unspecified dementia, unspecified severity, without behavioral disturbance, psychotic disturbance, mood disturbance, and anxiety; E78.00 Pure hypercholesterolemia, unspecified; K21.9 Gastro-esophageal reflux disease without esophagitis; F25.9 Schizoaffective disorder, unspecified; Z90.89 Acquired absence of other organs; Z90.710 Acquired absence of both cervix and uterus; Z88.2 Allergy status to sulfonamides; Z91.040 Latex allergy status; Z88.8 Allergy status to other drugs, medicaments and biological substances
CPT/HCPCS: 70450; 71045; 72125; 73502; 99284-25

== ENCOUNTER → 2020-11-24 | Outpatient (CLI) | payer MEDICARE, OTHER ==
--- NOTE | 2020-11-24 12:59 | KCIC ---
Bilateral digital screening mammograms: Reason for examination: Routine screening. No previous exams for comparison. New baseline. Interpretation was made with the benefit of CAD. The skin and nipples show no abnormalities. No abnormal axillary lymph nodes are seen. The breast par enchyma is heterogeneously dense. (Breast density: Category C) There are no dominant masses, suspicio us calcifications or architectural distortion. Scattered benign calcifications are present. Impression: No evidence of malignancy. Recommend routine screening. Your patient's mammogram demonstrates that she has dense breast tissue (breast density category C or D), which could hide abnormalities, and if she has other risk factors for breast cancer that have bee n identified, she might benefit from supplemental screening tests that may be suggested by you as her ordering physician. Dense breast tissue, in and of itself, is a relatively common condition. Therefo re, this information is not provided to cause undue concern, but rather to raise your awareness and t o promote discussion with your patient regarding the presence of other risk factors, in addition to d ense breast tissue. Your patient's mammography results will be sent to her. BI-RADS Category 2: Benign. "Our facility is accredited by the [employer] Mammography [employer]." This patient's information has been entered into a reminder system for the patient to be notified wit h the results of her examination and a target date for the next mammogram. Electronically signed by: Letitia Dean MD (11/24/2020 12:57 PM) [email or web address]
== END ==
LOC: KCIC MAMMO 11:16
PROVIDERS: ATTEND Family Medicine
DX: Z12.31 Encounter for screening mammogram for malignant neoplasm of breast (principal)
CPT/HCPCS: 77067

== ENCOUNTER 2021-04-26 04:18 | Emergency (ER) | payer OTHER ==
[~2021-04-26] VITALS: Ht 177.8 cm; Wt 120.0 kg
[~2021-04-26 04:18] MED LIST changes: +CLIN-94 PO; -CLIN300C9 PO; +MAGN400T48 PO; -MAGN400T5 PO; +OLOP2.5D16 OP; -OLOP2.5D6 OP; +POTA-121 PO; -QUET25TA PO; +QUET25TA3 PO
--- NOTE | 2021-04-26 05:06 | PHYS DOC ---
Past Medical History Past Medical History: Arthritis, Asthma, CHF, Dementia, Depression, Diabetes- Type II, Fibromyalgia, GERD, High Cholesterol, Hypertension, Schizophrenia, Other Additional Past Medical Histor: schizoaffective disorder, polymyalgia rheumatica, RA;Covid19 (CHAD HUI DO) Past Surgical History: Appendectomy, Hysterectomy, Knee Replacement, Other Additional Past Surgical Histo: rectal surgery for fissures, cataract removed, back surgery (CHAD HUI DO) Smoking Status: Never Smoker Alcohol Use: None Drug Use: None (CHAD HUI DO) General Adult EDM: Chief Complaint: MECHANICAL FALL HPI: HPI: Patient is a 75 year old female who was [facility] evaluation after she fell out of her bed this morning. Patient says she rolled off her bed, she had her face and her head on the ground, no loss of consciousness. Patient also complained of right elbow pain, right wrist pain. Patient denies any hip pain, no pelvic pain, no back pain. Patient is not on any blood thinner. Patient said her bed is about 1.5 feet above the ground. (CHAD HUI DO) Review of Systems: Review of Systems: Constitutional: Denies fever or chills. [] Eyes: Denies change in visual acuity. [] HENT: Denies nasal congestion or sore throat. Positive for left-sided facial pain Respiratory: Denies cough or shortness of breath. [] . Cardiovascular: Denies chest pain or edema. [] GI: Denies abdominal pain, nausea, vomiting, bloody stools or diarrhea. [] : Denies dysuria. [] Musculoskeletal: Denies back pain, positive for right wrist pain, right elbow pain. Integument: Denies rash. [] Neurologic: Positive headache, no focal weakness or sensory changes. [] Endocrine: Denies polyuria or polydipsia. [] Lymphatic: Denies swollen glands. [] Psychiatric: Denies depression or anxiety. [] (CHAD HUI DO) Heart Score: C/O Chest Pain: N/A Risk Factors: Risk Factors: DM, Current or recent (<one month) smoker, HTN, HLP, family history of CAD, obesity. Risk Scores: Score 0 - 3: 2.5% MACE over next 6 weeks - Discharge Home Score 4 - 6: 20.3% MACE over next 6 weeks - Admit for Clinical Observation Score 7 - 10: 72.7% MACE over next 6 weeks - Early Invasive Strategies (CHAD HUI DO) C/O Chest Pain: No (JAZMYN CHAPPELL MD) Allergies: Allergies: Allergies Coded Allergies Type Severity Reaction Last Updated Verified Sulfa (Sulfonamide Antibiotics) Allergy Intermediate 02/22/20 Yes divalproex sodium Allergy Intermediate neck and back pain 02/22/20 Yes fluticasone Allergy Intermediate COUGH 02/22/20 Yes latex Allergy Intermediate SURGICAL TAPE 02/22/20 Yes lisinopril Allergy Intermediate cough 02/22/20 Yes piroxicam Allergy Intermediate BLISTERS 02/22/20 Yes gabapentin Adverse Reaction Severe 02/22/20 Yes (CHAD HUI DO) Physical Exam: PE: Constitutional: Well developed, well nourished, no acute distress, non-toxic appearance. [] HENT: Normocephalic, atraumatic, bilateral external ears normal, oropharynx moist, no oral exudates, nose normal. LEFT SIDE FACIAL CONTUSION AND SWELLING. Eyes: PERRLA, EOMI, conjunctiva normal, no discharge. NO HYPHEMA. Neck: Normal range of motion, no tenderness, supple, no stridor. [] Cardiovascular:Heart rate regular rhythm, no murmur [] Lungs & Thorax: Bilateral breath sounds clear to auscultation [] Abdomen: Bowel sounds normal, soft, no tenderness, no masses, no pulsatile masses. [] Skin: Warm, dry, no erythema, no rash. [] Back: No tenderness, no CVA tenderness. [] Extremities: BILATERAL ELBOWS WITH FULL RANGE OF MOTIONS. BILATERAL WRISTS WITH FULL RANGE OF MOTION, NOT TENDER TO PALPATION, CHRONIC DEFORMITY FROM ARTHRITIS PER PATIENT. Neurologic: Alert and oriented X 3, normal motor function, normal sensory function, no focal deficits noted. [] Psychologic: Affect normal, judgement normal, mood normal. [] (CHAD HUI DO) Current Patient Data: Vital Signs: Vital Signs Date Time Temp Pulse Resp B/P (MAP) Pulse Ox O2 Delivery O2 Flow Rate FiO2 04/26/21 04:48 98.2 66 18 173/79 (110) 96 Room Air 98.2 (CHAD HUI DO) EKG: EKG: [] (CHAD HUI DO) Radiology/Procedures: Radiology/Procedures: [][id number] [place] [address] IMAGING REPORT Signed PATIENT: CRISTOBAL BLOOD: [id number] : 1945 LOCATION: ER AGE: 75 SEX: F EXAM STATUS: PRE ER ORD. PHYSICIAN: CHAD HUI DO REASON: fell out of bed, right wrist pain PROCEDURE: WRIST 3V RIGHT Three-view right elbow and 3 view right wrist dated 08/27/2020. No comparison available. CLINICAL INDICATION: Pain after fall. FINDINGS: 3 views the right elbow show normal bony alignment. No displaced fracture. Mild degenerative change with small marginal osteophytes. No apparent joint effusion or loose body. 3 views the right wrist show normal bony alignment. No displaced fracture. Mild hypertrophic change of the radiocarpal joint with chondrocalcinosis. There is moderate degenerative change of the first carpometacarpal joint. Mild degenerative change of the scaphotrapezial joint. IMPRESSION: 1. No acute radiographic abnormality. 2. Degenerative changes as above. Electronically signed by: Darrion Rudd MD (04/26/2021 5:31 AM) [facility] [place] SIGNED BY: DARRION RUDD MD DATE: 04/26/21 [id number] [id number] [place] [address] IMAGING REPORT Signed PATIENT: CRISTOBAL BLOOD: [id number] : 1945 LOCATION: ER AGE: 75 SEX: F EXAM STATUS: PRE ER ORD. PHYSICIAN: CHAD HUI DO REASON: fell out of bed, pelvic pain PROCEDURE: PELVIS Single view pelvis dated 04/26/2021. Comparison made to 10/23/2020. CLINICAL INDICATION: Pain after fall. FINDINGS: Single AP view pelvis shows normal bony alignment. No displaced fracture. Pelvic ring is intact. No acute osseous or articular abnormality. No definite femoral neck fracture. Mild hypertrophic change of the bilateral hip joint, pubic symphysis and bilateral SI joint. IMPRESSION: 1. No evidence of displaced pelvic fracture. Persistent clinical concern for occult fracture or insufficiency fracture, MRI would better evaluate. 2. Mild degenerative changes. Electronically signed by: Darrion Rudd MD (04/26/2021 5:29 AM) [facility] [place] SIGNED BY: DARRION RUDD MD DATE: 04/26/21 [id number] (CHAD HUI DO) Radiology/Procedures: [facility] [address] [place] [address] IMAGING REPORT Signed PATIENT: CRISTOBAL BLOODCCOUNT: [id number] : 1945 LOCATION: ER AGE: 75 SEX: F EXAM STATUS: REG ER ORD. PHYSICIAN: CHAD HUI DO REASON: fell out of bed, left side facial injury PROCEDURE: CT MAXILLOFACIAL WO CONTRAST CT HEAD AND C-SPINE WO, CT MAXILLOFACIAL WITHOUT CONTRAST dated 04/26/2021 4:54 AM. Comparison: 10/23/2020 Clinical Indication: Reason: fell out of bed, headache, neck pain / Spl. Instructions: / History: PAIN Technical factors: Contiguous 5 mm axial images of the head were obtained from the skullbase to the vertex. No contrast was administered. In addition, 3 mm axial images of the cervical spine and maxillofacial bones were acquired with thin cut coronal and sagittal reconstructions. One or more of the following individualized dose reduction techniques were utilized for this examination: 1. Automated exposure control 2. Adjustment of the mA and/or kV according to patient size 3. Use of iterative reconstruction technique Findings head: Ventricles and sulci are mildly prominent for age. No midline shift or mass effect. Moderate patchy low density in the deep/subcortical periventricular white matter. No hemorrhage or extra-axial collection. Posterior fossa and brainstem unremarkable. No apparent calvarial abnormality. IMPRESSION HEAD: 1. No evidence of acute intracranial hemorrhage or mass. 2. Moderate chronic small vessel ischemic changes and atrophy. Findings maxillofacial: There is some mild soft tissue swelling over the left cheek and periorbital region. Orbital alvarez and maxillary alvarez are intact. No displaced fracture. Zygomatic arches are intact. Mandible is intact. Nasal bones are intact. Mild mucosal thickening of the ethmoid air cells and bilateral maxillary sinus. Hypertrophy of the bilateral nasal turbinates. Sphenoid and frontal sinuses are clear. Mastoid air cells and middle ears are clear. No additional soft tissue abnormality. IMPRESSION MAXILLOFACIAL: 1. No evidence of displaced facial fracture. 2. Mild soft tissue swelling over the left face and orbit.. 3. Mild sinus disease. Findings cervical spine: Images were acquired from the skull base to T4. There is slight anterolisthesis of C3 on C4 and C4 on C5 with slight retrolisthesis of C5 on C6. There is fusion of C6-C7 with moderate collapse of the T1 vertebral body and severe erosive changes at C7-T1, unchanged from prior study. There is also moderate disc space narrowing at T1-T2. No significant prevertebral soft tissue swelling. Mild hypertrophic change of the facet joints throughout. There is resultant mild central stenosis at C4-C5, C5-C6, C6-C7 and C7-T1. Mild to moderate foraminal narrowing, greatest at C4-C5 and C5-C6 on the right. Visualized soft tissue structures are unremarkable. There is heterogeneous nodularity of the bilateral thyroid, unchanged. No lymphadenopathy. Limited images of the lung apices are clear. IMPRESSION CERVICAL SPINE: 1. No evidence of fracture or malalignment. 2. Moderate multilevel spondylosis, unchanged. 3. Destructive changes at C7-T1 with collapse of the T1 vertebral body, similar to prior study. There is also fusion at C6-C7. Electronically signed by: Darrion Rudd MD (04/26/2021 6:11 AM) [facility] [place] SIGNED BY: DARRION RUDD MD DATE: 04/26/21 [id number] [facility] [address] [place] [address] IMAGING REPORT Signed PATIENT: CRISTOBAL BLOODOUNT: [id number] : 1945 LOCATION: ER AGE: 75 SEX: F EXAM STATUS: PRE ER ORD. PHYSICIAN: CHAD HUI DO REASON: fell out of bed, right wrist pain PROCEDURE: WRIST 3V RIGHT Three-view right elbow and 3 view right wrist dated 08/27/2020. No comparison available. CLINICAL INDICATION: Pain after fall. FINDINGS: 3 views the right elbow show normal bony alignment. No displaced fracture. Mild degenerative change with small marginal osteophytes. No apparent joint effusion or loose body. 3 views the right wrist show normal bony alignment. No displaced fracture. Mild hypertrophic change of the radiocarpal joint with chondrocalcinosis. There is moderate degenerative change of the first carpometacarpal joint. Mild degenerative change of the scaphotrapezial joint. IMPRESSION: 1. No acute radiographic abnormality. 2. Degenerative changes as above. Electronically signed by: Darrion Rudd MD (04/26/2021 5:31 AM) [facility] DICTATED and SIGNED BY: DARRION RUDD MD DATE: 04/26/21 [id number] [address] [address] IMAGING REPORT Signed PATIENT: CRISTOBAL BLOOD: [id number] : 1945 LOCATION: ER AGE: 75 SEX: F EXAM STATUS: PRE ER ORD. PHYSICIAN: CHAD HUI DO REASON: fell out of bed, pelvic pain PROCEDURE: PELVIS Single view pelvis dated 04/26/2021. Comparison made to 10/23/2020. CLINICAL INDICATION: Pain after fall. FINDINGS: Single AP view pelvis shows normal bony alignment. No displaced fracture. Pelvic ring is intact. No acute osseous or articular abnormality. No definite femoral neck fracture. Mild hypertrophic change of the bilateral hip joint, pubic symphysis and bilateral SI joint. IMPRESSION: 1. No evidence of displaced pelvic fracture. Persistent clinical concern for occult fracture or insufficiency fracture, MRI would better evaluate. 2. Mild degenerative changes. Electronically signed by: Darrion Rudd MD (04/26/2021 5:29 AM) [facility] DICTATED and SIGNED BY: DARRION RUDD MD DATE: 04/26/21 [id number] [id number] IMAGING REPORT Signed PATIENT: CRISTOBAL BLOOD: [id number] : 1945 LOCATION: ER AGE: 75 SEX: F EXAM STATUS: PRE ER ORD. PHYSICIAN: CHAD HUI DO REASON: fell out of bed, right elbow pain PROCEDURE: ELBOW RIGHT 3V Three-view right elbow and 3 view right wrist dated 08/27/2020. No comparison available. CLINICAL INDICATION: Pain after fall. FINDINGS: 3 views the right elbow show normal bony alignment. No displaced fracture. Mild degenerative change with small marginal osteophytes. No apparent joint effusion or loose body. 3 views the right wrist show normal bony alignment. No displaced fracture. Mild hypertrophic change of the radiocarpal joint with chondrocalcinosis. There is moderate degenerative change of the first carpometacarpal joint. Mild degenerative change of the scaphotrapezial joint. IMPRESSION: 1. No acute radiographic abnormality. 2. Degenerative changes as above. Electronically signed by: Darrion Rudd MD (04/26/2021 5:31 AM) [facility] [place] SIGNED BY: DARRION RUDD MD DATE: 04/26/21 [id number] (JAZMYN CHAPPELL MD) Course & Med Decision Making: Course & Med Decision Making Pertinent Labs and Imaging studies reviewed. (See chart for details) Patient'S CARE WAS TRANSFERRED TO DR. CHAPPELL AT SHIFT CHANGE. (CHAD HUI DO) Course & Med Decision Making Accepted patient care at shift change pending imaging results. No fractures or pathology found on imaging other than soft tissue swelling of left face (JAZMYN CHAPPELL MD) Dragon Disclaimer: Moisés Disclaimer: This electronic medical record was generated, in whole or in part, using a voice recognition dictation system. (CHAD HUI DO) Departure Departure Impression: Primary Impression: Facial contusion Disposition: HOME / SELF CARE / HOMELESS Condition: STABLE Referrals: GARRICK LUCAS MD (PCP) Patient Instructions: Fall Prevention and Home Safety CHAD HUI DO Apr 26, 2021 05:06 JAZMYN CHAPPELL MD Apr 26, 2021 06:21
--- NOTE | 2021-04-26 05:32 | RAD ---
Single view pelvis dated 04/26/2021. Comparison made to 10/23/2020. CLINICAL INDICATION: Pain after fall. FINDINGS: Single AP view pelvis shows normal bony alignment. No displaced fracture. Pelvic ring is in tact. No acute osseous or articular abnormality. No definite femoral neck fracture. Mild hypertrophic change of the bilateral hip joint, pubic symphysis and bilateral SI joint. IMPRESSION: 1. No evidence of displaced pelvic fracture. Persistent clinical concern for occult fracture or insuf ficiency fracture, MRI would better evaluate. 2. Mild degenerative changes. Electronically signed by: Darrion Rudd MD (04/26/2021 5:29 AM) [facility]
--- NOTE | 2021-04-26 05:33 | RAD ---
Three-view right elbow and 3 view right wrist dated 08/27/2020. No comparison available. CLINICAL INDICATION: Pain after fall. FINDINGS: 3 views the right elbow show normal bony alignment. No displaced fracture. Mild degenerative change w ith small marginal osteophytes. No apparent joint effusion or loose body. 3 views the right wrist show normal bony alignment. No displaced fracture. Mild hypertrophic change o f the radiocarpal joint with chondrocalcinosis. There is moderate degenerative change of the first ca rpometacarpal joint. Mild degenerative change of the scaphotrapezial joint. IMPRESSION: 1. No acute radiographic abnormality. 2. Degenerative changes as above. Electronically signed by: Darrion Rudd MD (04/26/2021 5:31 AM) [facility]
--- NOTE | 2021-04-26 06:13 | RAD ---
CT HEAD AND C-SPINE WO, CT MAXILLOFACIAL WITHOUT CONTRAST dated 04/26/2021 4:54 AM. Comparison: 10/23/2020 Clinical Indication: Reason: fell out of bed, headache, neck pain / Spl. Instructions: / History: PA IN Technical factors: Contiguous 5 mm axial images of the head were obtained from the skullbase to the v ertex. No contrast was administered. In addition, 3 mm axial images of the cervical spine and maxillo facial bones were acquired with thin cut coronal and sagittal reconstructions. One or more of the following individualized dose reduction techniques were utilized for this examinat ion: 1. Automated exposure control 2. Adjustment of the mA and/or kV according to patient size 3. Use of iterative reconstruction technique Findings head: Ventricles and sulci are mildly prominent for age. No midline shift or mass effect. Moderate patchy l ow density in the deep/subcortical periventricular white matter. No hemorrhage or extra-axial collect ion. Posterior fossa and brainstem unremarkable. No apparent calvarial abnormality. IMPRESSION HEAD: 1. No evidence of acute intracranial hemorrhage or mass. 2. Moderate chronic small vessel ischemic changes and atrophy. Findings maxillofacial: There is some mild soft tissue swelling over the left cheek and periorbital region. Orbital alvarez and maxillary alvarez are intact. No displaced fracture. Zygomatic arches are intact. Mandible is intact. Nasal bones are intact. Mild mucosal thickening of the ethmoid air cells and bilateral maxillary sinus. Hypertrophy of the bi lateral nasal turbinates. Sphenoid and frontal sinuses are clear. Mastoid air cells and middle ears a re clear. No additional soft tissue abnormality. IMPRESSION MAXILLOFACIAL: 1. No evidence of displaced facial fracture. 2. Mild soft tissue swelling over the left face and orbit.. 3. Mild sinus disease. Findings cervical spine: Images were acquired from the skull base to T4. There is slight anterolisthesis of C3 on C4 and C4 on C5 with slight retrolisthesis of C5 on C6. There is fusion of C6-C7 with moderate collapse of the T1 vertebral body and severe erosive changes at C7-T1, unchanged from prior study. There is also modera te disc space narrowing at T1-T2. No significant prevertebral soft tissue swelling. Mild hypertrophic change of the facet joints throug hout. There is resultant mild central stenosis at C4-C5, C5-C6, C6-C7 and C7-T1. Mild to moderate for aminal narrowing, greatest at C4-C5 and C5-C6 on the right. Visualized soft tissue structures are unremarkable. There is heterogeneous nodularity of the bilatera l thyroid, unchanged. No lymphadenopathy. Limited images of the lung apices are clear. IMPRESSION CERVICAL SPINE: 1. No evidence of fracture or malalignment. 2. Moderate multilevel spondylosis, unchanged. 3. Destructive changes at C7-T1 with collapse of the T1 vertebral body, similar to prior study. There is also fusion at C6-C7. Electronically signed by: Darrion Rudd MD (04/26/2021 6:11 AM) [facility]
[2021-04-26 09:34] VITALS: BP 146/76
== END 2021-04-26 09:50 | disposition home or self-care (01) ==
LOC: ER 04:18
DX: S00.83XA Contusion of other part of head, initial encounter (principal); M25.521 Pain in right elbow; M25.531 Pain in right wrist; J45.909 Unspecified asthma, uncomplicated; I11.0 Hypertensive heart disease with heart failure; I50.9 Heart failure, unspecified; F03.90 Unspecified dementia, unspecified severity, without behavioral disturbance, psychotic disturbance, mood disturbance, and anxiety; E11.9 Type 2 diabetes mellitus without complications; K21.9 Gastro-esophageal reflux disease without esophagitis; E78.00 Pure hypercholesterolemia, unspecified; F25.9 Schizoaffective disorder, unspecified; Z88.2 Allergy status to sulfonamides; Z91.040 Latex allergy status; Z88.8 Allergy status to other drugs, medicaments and biological substances; W06.XXXA Fall from bed, initial encounter; Y93.89 Activity, other specified; Y92.89 Other specified places as the place of occurrence of the external cause; Y99.8 Other external cause status
CPT/HCPCS: 70450; 70486; 72125; 72170; 73080; 73110; 99285-25

== ENCOUNTER 2021-05-06 00:05 | Inpatient (IN) | payer MEDICARE, OTHER ==
[~2021-05-06] VITALS: Ht 177.8 cm; Wt 120.5 kg
[2021-05-06 00:30] LABS: BASO # 0.1 x10^3/uL (0.0-0.2); BASO % 1 % (0-3); EOS # 0.3 x10^3/uL (0.0-0.7); EOS % 5 % (0-3); HEMATOCRIT 29.8 % (36.0-47.0); HEMOGLOBIN 9.9 g/dL (12.0-15.5); LYMPH # 3.1 x10^3/uL (1.0-4.8); LYMPH % 43 % (24-48); MEAN CORPUSCULAR HEMOGLOBIN 30 pg (25-35); MEAN CORPUSCULAR HGB CONC 33 g/dL (31-37); MEAN CORPUSCULAR VOLUME 91 fL (79-100); MONO # 0.8 x10^3/uL (0.0-1.1); MONO % 12 % (0-9); NEUT # 2.9 x10^3/uL (1.8-7.7); NEUT % 40 % (31-73); PLATELET COUNT 258 x10^3/uL (140-400); RED BLOOD COUNT 3.28 x10^6/uL (3.50-5.40); RED CELL DISTRIBUTION WIDTH 15.8 % (11.5-14.5); WHITE BLOOD COUNT 7.2 x10^3/uL (4.0-11.0)
--- NOTE | 2021-05-06 00:30 | EKG ---
[facility] [address] [place] [address] Test Date: 2021-05-06 Test Time: 00:12:20 Pat Name: CRISTOBAL BLOOD Department: Room: Gender: F Vice President Process: : 1945 Requested By: JAZMYN CHAPPELL Order Number: [id number] Reading MD: Abel Flores MD Measurements Intervals [place] Rate: 77 P: 35 AK: 174 QRS: -3 QRSD: 98 T: 52 QT: 434 QTc: 493 Interpretive Statements SINUS RHYTHM NON-SPECIFIC ST/T CHANGES Electronically Signed On 05-11-2021 11:46:52 CDT by Abel Flores MD
[2021-05-06 00:36] LABS: BILIRUBIN,URINE NEGATIVE (NEG); CLARITY,URINE CLEAR; COLOR,URINE YELLOW; NITRITE,URINE NEGATIVE (NEG); PH,URINE 6.5 (<5.0-8.0); PROTEIN,URINE 30 mg/dL (NEG-TRACE); UROBILINOGEN,URINE 0.2 mg/dL (0.2 mg/dL)
[2021-05-06 00:38] LABS: CALCIUM 9.2 mg/dL (8.5-10.1); CREATININE 2.1 mg/dL (0.6-1.0); GFR 27.8; POTASSIUM 3.3 mmol/L (3.5-5.1)
[2021-05-06 00:39] LABS: BASE EXCESS ABG 6 mmol/L (-3-3); HCO3 ABG 32 mmol/L (21-28); PCO2 ABG 53 mmHg (35-46); PO2 ABG 113 mmHg (65-108); SAT O2 ABG 98 % (92-99)
[2021-05-06 00:43] LABS: FIO2 ABG 40
[2021-05-06 00:43] LABS: BACTERIA,URINE 0 /HPF (0-FEW)
--- NOTE | 2021-05-06 00:43 | RAD ---
XR CHEST 1V History: Reason: resp distress / Spl. Instructions: / History: Comparison: October 23, 2020 Findings: Mild bibasilar ill-defined opacities. No pleural effusion. No pneumothorax. Normal heart size. Bilate ral glenohumeral DJD. Impression: 1. Mild bibasilar ill-defined opacities, may represent atelectasis or developing infiltrates. If per sistent clinical concern, recommend follow-up. Electronically signed by: Lopez Billy DO (05/06/2021 12:41 AM) [facility]
[2021-05-06 00:44] LABS: ALBUMIN 3.2 g/dL (3.4-5.0); ALBUMIN/GLOBULIN RATIO 0.7 (1.0-1.7); MAGNESIUM 1.9 mg/dL (1.8-2.4); PHOSPHORUS 5.1 mg/dL (2.6-4.7); TOTAL BILIRUBIN 0.2 mg/dL (0.2-1.0); TOTAL PROTEIN 7.9 g/dL (6.4-8.2)
--- NOTE | 2021-05-06 00:56 | ED.ADGEN ---
Past Medical History Past Medical History: Arthritis, Asthma, CHF, Dementia, Depression, Diabetes- Type II, Fibromyalgia, GERD, High Cholesterol, Hypertension, Schizophrenia, Other Additional Past Medical Histor: schizoaffective disorder, polymyalgia rheumatica, RA;Covid19 Past Surgical History: Appendectomy, Hysterectomy, Knee Replacement, Other Additional Past Surgical Histo: rectal surgery for fissures, cataract removed, back surgery Smoking Status: Never Smoker Alcohol Use: None Drug Use: None General Adult HPI: HPI: Patient is a 75 year old female brought in from [facility] for respiratory distress. EMS states that when they arrived patient had agonal breathing he was also shallow. Per the report she was 70% and placed on CPAP. Patient has a history of COPD. Patient has since improved to 95% on CPAP on arrival. And is more alert, was only responsive to pain on their arrival Review of Systems: Review of Systems: All other systems within normal limits except for as noted in the HPI Current Medications: Current Medications Medications (Trade) Dose Ordered Sig/Rocío Start Time Stop Time Status Last Admin Dose Admin Albuterol/ Ipratropium (Duoneb) 3 ml 1X ONCE 05/06/21 01:00 05/06/21 01:01 DC 05/06/21 01:00 3 ML Cefepime HCl (Maxipime) 1 gm 1X ONCE 05/06/21 02:30 05/06/21 02:31 Levofloxacin/ Dextrose 150 ml @ 100 mls/hr 1X ONCE 05/06/21 02:15 05/06/21 03:44 UNV Methylprednisolone Sodium Succinate (SOLU-Medrol 125MG VIAL) 125 mg 1X ONCE 05/06/21 02:30 05/06/21 02:31 Sodium Chloride 1,000 ml @ 1,000 mls/hr 1X ONCE 05/06/21 02:30 05/06/21 03:29 Vancomycin HCl 2 gm/Sodium Chloride 500 ml @ 250 mls/hr 1X ONCE 05/06/21 02:15 05/06/21 04:14 UNV Allergies: Allergies: Allergies Coded Allergies Type Severity Reaction Last Updated Verified Sulfa (Sulfonamide Antibiotics) Allergy Intermediate 02/22/20 Yes divalproex sodium Allergy Intermediate neck and back pain 02/22/20 Yes fluticasone Allergy Intermediate COUGH 02/22/20 Yes latex Allergy Intermediate SURGICAL TAPE 02/22/20 Yes lisinopril Allergy Intermediate cough 02/22/20 Yes piroxicam Allergy Intermediate BLISTERS 02/22/20 Yes gabapentin Adverse Reaction Severe 02/22/20 Yes Physical Exam: PE: Constitutional: Well developed, well nourished, CPAP in place, ill-appearing HENT: Normocephalic, atraumatic, bilateral external ears normal, nose normal. [] Eyes: PERRLA, conjunctiva normal, no discharge. [] Neck: No rigidity, supple, no stridor. [] Cardiovascular: Regular rate and rhythm, brisk cap refill [] Lungs & Thorax: CPAP in place, symmetric chest rise, bilateral crackles throughout lung with occasional rhonchi] Abdomen: Soft, nondistended, no tenderness or guarding, on palpation. Skin: Warm, dry, no erythema, no rash. [] Back: Unremarkable Extremities: No deformities, range of motion grossly intact, no lower extremity edema [] Neurologic: Alert and oriented X 3, no focal deficits noted. [] Psychologic: Affect normal, judgement normal, mood normal. [] Current Patient Data: Labs: Laboratory Tests Test 05/06/21 00:17 05/06/21 00:25 05/06/21 00:40 White Blood Count 7.2 x10^3/uL (4.0-11.0) Red Blood Count 3.28 x10^6/uL (3.50-5.40) L Hemoglobin 9.9 g/dL (12.0-15.5) L Hematocrit 29.8 % (36.0-47.0) L Mean Corpuscular Volume 91 fL (79-100) Mean Corpuscular Hemoglobin 30 pg (25-35) Mean Corpuscular Hemoglobin Concent 33 g/dL (31-37) Red Cell Distribution Width 15.8 % (11.5-14.5) H Platelet Count 258 x10^3/uL (140-400) Neutrophils (%) (Auto) 40 % (31-73) Lymphocytes (%) (Auto) 43 % (24-48) Monocytes (%) (Auto) 12 % (0-9) H Eosinophils (%) (Auto) 5 % (0-3) H Basophils (%) (Auto) 1 % (0-3) Neutrophils # (Auto) 2.9 x10^3/uL (1.8-7.7) Lymphocytes # (Auto) 3.1 x10^3/uL (1.0-4.8) Monocytes # (Auto) 0.8 x10^3/uL (0.0-1.1) Eosinophils # (Auto) 0.3 x10^3/uL (0.0-0.7) Basophils # (Auto) 0.1 x10^3/uL (0.0-0.2) Sodium Level 139 mmol/L (136-145) Potassium Level 3.3 mmol/L (3.5-5.1) L Chloride Level 98 mmol/L (98-107) Carbon Dioxide Level 30 mmol/L (21-32) Anion Gap 11 (6-14) Blood Urea Nitrogen 33 mg/dL (7-20) H Creatinine 2.1 mg/dL (0.6-1.0) H Estimated GFR (Cockcroft-Gault) 27.8 BUN/Creatinine Ratio 16 (6-20) Glucose Level 227 mg/dL (70-99) H Lactic Acid Level 2.7 mmol/L (0.4-2.0) H Calcium Level 9.2 mg/dL (8.5-10.1) Phosphorus Level 5.1 mg/dL (2.6-4.7) H Magnesium Level 1.9 mg/dL (1.8-2.4) Total Bilirubin 0.2 mg/dL (0.2-1.0) Aspartate Amino Transferase (AST) 16 U/L (15-37) Alanine Aminotransferase (ALT) 12 U/L (14-59) L Alkaline Phosphatase 94 U/L (46-116) Troponin I Quantitative < 0.017 ng/mL (0.000-0.055) DW-Hqm-M-Type Natriuretic Peptide 1607 pg/mL (0-449) H Total Protein 7.9 g/dL (6.4-8.2) Albumin 3.2 g/dL (3.4-5.0) L Albumin/Globulin Ratio 0.7 (1.0-1.7) L Urine Collection Type Unknown Urine Color Yellow Urine Clarity Clear Urine pH 6.5 (<5.0-8.0) Urine Specific [place] 1.010 (1.000-1.030) Urine Protein 30 mg/dL (NEG-TRACE) Urine Glucose (UA) 100 mg/dL (NEG) Urine Ketones (Stick) Negative mg/dL (NEG) Urine Blood Trace (NEG) Urine Nitrite Negative (NEG) Urine Bilirubin Negative (NEG) Urine Urobilinogen Dipstick 0.2 mg/dL (0.2 mg/dL) Urine Leukocyte Esterase Trace (NEG) Urine RBC 11-20 /HPF (0-2) Urine WBC 1-4 /HPF (0-4) Urine Squamous Epithelial Cells Mod /LPF Urine Bacteria 0 /HPF (0-FEW) Urine Mucus Slight /LPF O2 Saturation 98 % (92-99) Arterial Blood pH 7.40 (7.35-7.45) Arterial Blood pCO2 at Patient Temp 53 mmHg (35-46) H Arterial Blood pO2 at Patient Temp 113 mmHg (65-108) H Arterial Blood HCO3 32 mmol/L (21-28) H Arterial Blood Base Excess 6 mmol/L (-3-3) H FiO2 40 Laboratory Tests 05/06/21 00:17 Laboratory Tests 05/06/21 00:17 Vital Signs: Vital Signs Date Time Temp Pulse Resp B/P (MAP) Pulse Ox O2 Delivery O2 Flow Rate FiO2 05/06/21 01:00 BiPAP/CPAP EKG: EKG: Sinus rhythm, heart rate 70 beats minute, normal axis, no ST elevation, prolonged QTC, no ectopy. [] Heart Score: C/O Chest Pain: Yes HEART Score for Chest Pain: HEART Score for Chest Pain Response (Comments) Value History Slighlty/Non-Suspicious 0 ECG Nonspecific Repolarizatio 1 Age > 65 2 Risk Factors >3 Risk Factors or Hx CAD 2 Troponin < Normal Limit 0 Total 5 Risk Factors: Risk Factors: DM, Current or recent (<one month) smoker, HTN, HLP, family history of CAD, obesity. Risk Scores: Score 0 - 3: 2.5% MACE over next 6 weeks - Discharge Home Score 4 - 6: 20.3% MACE over next 6 weeks - Admit for Clinical Observation Score 7 - 10: 72.7% MACE over next 6 weeks - Early Invasive Strategies Radiology/Procedures: Radiology/Procedures: [facility] [address] [place] [address] IMAGING REPORT Signed PATIENT: CRISTOBAL BLOODCCOUNT: [id number] : 1945 LOCATION: ER AGE: 75 SEX: F EXAM STATUS: PRE ER ORD. PHYSICIAN: JAZMYN CHAPPELL MD REASON: resp distress PROCEDURE: CHEST AP ONLY XR CHEST 1V History: Reason: resp distress / Spl. Instructions: / History: Comparison: October 23, 2020 Findings: Mild bibasilar ill-defined opacities. No pleural effusion. No pneumothorax. Normal heart size. Bilateral glenohumeral DJD. Impression: 1. Mild bibasilar ill-defined opacities, may represent atelectasis or developing infiltrates. If persistent clinical concern, recommend follow-up. Electronically signed by: Lopez Billy DO (05/06/2021 12:41 AM) [facility] DICTATED and SIGNED BY: LOPEZ BILLY DO DATE: 05/06/21 [id number] [] Course & Med Decision Making: Course & Med Decision Making Pertinent Labs and Imaging studies reviewed. (See chart for details) Patient is improving with BiPAP and tolerating it well. She is alert and answering questions in full sentences. Will admit to the hospitalist [] [place]chan[place]on Disclaimer: Moisés Disclaimer: This electronic medical record was generated, in whole or in part, using a voice recognition dictation system. Departure Departure Impression: Primary Impression: COPD with acute exacerbation Additional Impressions: Acute and chronic respiratory failure Pneumonia Disposition: ADMITTED INPATIENT Admitting Physician: MARISEL Condition: GUARDED Referrals: GARRICK LUCAS MD (PCP) Problem Qualifiers JAZMYN CHAPPELL MD May 06, 2021 00:56
[2021-05-06] MEDS ORDERED: IPRATRPIUM/ALBUTEROL 0.5/2.5MG 3 ML NEBU. NEB ONE (01:00)
[2021-05-06] MEDS ORDERED: ACETAMINOPHEN 325 MG TABLET. PO PRN ×2 (02:30→08:45)
[2021-05-06] MEDS ORDERED: IV NORMAL SALINE 1000ML BAG 1,000 ML IV ONE (02:30)
[2021-05-06] MEDS ORDERED: fentaNYL PF VIAL 100 MCG/2 ML VIAL IVP PRN (02:30)
[2021-05-06] MEDS ORDERED: methylPREDNISolone SOD SUCC PF 125 MG/2 ML VIAL. IV ONE (02:30)
[2021-05-06] MEDS ORDERED: CEFEPIME HCL IV Push 1 GM VIAL. IVP ONE (02:30)
[2021-05-06] MEDS ORDERED: ONDANSETRON PF 4 MG/2 ML VIAL. IVP PRN ×2 (02:30→08:45)
[2021-05-06] MEDS ORDERED: ALBUTEROL SULFATE 2.5 MG/3 ML NEBU. NEB PRN (02:45)
[2021-05-06] MEDS ORDERED: VANCOMYCIN PER PHARMACY MC PRN (03:15)
[2021-05-06] MEDS ORDERED: VANCOMYCIN 2 GM in IV NORMAL SALINE 500ML BAG 500 ML IV ONE (04:00)
--- NOTE | 2021-05-06 04:54 | NUR ---
Pharmacy Vancomycin Dosing Note S:Consulted to monitor and dose vancomycin started 05/06/21. O:CRISTOBAL BLOOD is a 75 year old F with Pneumonia . Height: 5 feet, 2 inches Weight: 111.8 kg [place] Body Weight: 50.10 Adjusted Body Weight: 74.78 Dosing Weight: Actual Other Antibiotics: LABS: Last BUN: 33 Last Creatinine: 2.1 Creatinine Clearance: 27 mL/min Last WBC: 7.2 Last Procalcitonin: Tmax (past 24 hours): Microbiology: I/O: Drug Levels: Last level: on at Last dose given 05/06/21 at 0330 Vancomycin Dosing: Loading Dose: 2000 mg x1 Dosing Weight: Actual Target Trough: 15-20 A: Based on: WT AND CRCL P: 1. Begin Vancomycin 1750 mg IV q24h 2. Follow up Trough level on 05/08/21 at 0430 3. Pharmacy will continue to monitor, follow and adjust therapy as needed. CLARITA GUTIÉRREZ RPH, 05/06/21 0454 Signed: 05/06/21 at 0455 by CLARITA GUTIÉRREZ RPH PHA
--- NOTE | 2021-05-06 05:45 | NUR ---
Admit from ER to [facility] room 671 via [facility]. RT at bedside to place patient on BiPap. Patient Alert. Talkative. Pleasant. Transferred from [facility] to bed with 5 person lift. Orientated to room and call light. Reviewed POC. Verbalized understanding. Resting in bed with BiPap on. VSS. O2Sat 100% with Fio2 30%. Call light at hand. bed alarm on.
[2021-05-06 06:00] VITALS: BP 140/64
[2021-05-06 07:00] VITALS: BP 144/68
[2021-05-06] MEDS ORDERED: DONE10TA7 PO (08:09)
--- NOTE | 2021-05-06 08:09 | PDOC1 ---
History and Physical Date of Admission Date of Admission DATE: 05/06/21 TIME: 08:02 Identification/Chief Complaint Chief Complaint Respiratory distress Source Source: Chart review History of Present Illness History of Present Illness Patient 75-year-old female with past medical history COPD, CHF, dementia, DM2, schizophrenia who presents to the ED from [facility] for respiratory distress. Upon EMS arrival she was reportedly having agonal respirations at approximately 8 breaths/min. Initial O2 saturations were 70%, that improved to 95% on CPAP. Apparently more alert and responsive upon arrival in the ED. labs admission showed WBC 7.2, hemoglobin 9.9, hematocrit 29.8, potassium 3.3, BUN 33, creatinine 2.1, CBG 227, albumin 3.2, rapid COVID-19 negative. She received broad-spectrum antibiotics, steroids, and breathing treatments in the ED. We will keep patient for further medical management. Past Medical History Cardiovascular: HTN, Hyperlipidemia Pulmonary: Asthma CENTRAL NERVOUS SYSTEM: CVA GI: GERD Heme/Onc: No pertinent hx Hepatobiliary: No pertinent hx Psych: Schizophrenia Musculoskeletal: low back pain, Osteoarthritis, Other Rheumatologic: Fibromyalgia Infectious disease: No pertinent hx Renal/: No pertinent hx Endocrine: Diabetes Past Surgical History Past Surgical History: Appendectomy, Total knee replacement, Hysterectomy, Other Family History Family History: Heart Disease, Other Social History Smoke: No ALCOHOL: none Drugs: None Current Problem List Problem List Problems Medical Problems: (1) Acute and chronic respiratory failure Status: Acute (2) COPD with acute exacerbation Status: Acute (3) Pneumonia Status: Acute Current Medications Current Medications Current Medications Albuterol/ Ipratropium (Duoneb) 3 ml 1X ONCE NEB Last administered on 05/06/21at 01:00; Start 05/06/21 at 01:00; Stop 05/06/21 at 01:01; Status DC Cefepime HCl (Maxipime) 1 gm 1X ONCE IVP Last administered on 05/06/21at 02:42; Start 05/06/21 at 02:30; Stop 05/06/21 at 02:31; Status DC Levofloxacin/ Dextrose 150 ml @ 100 mls/hr 1X ONCE IV Last administered on 05/06/21at 03:28; Start 05/06/21 at 03:30; Stop 05/06/21 at 04:59; Status DC Vancomycin HCl 2 gm/Sodium Chloride 500 ml @ 250 mls/hr 1X ONCE IV Last administered on 05/06/21at 03:29; Start 05/06/21 at 04:00; Stop 05/06/21 at 05:59; Status DC Methylprednisolone Sodium Succinate (SOLU-Medrol 125MG VIAL) 125 mg 1X ONCE IV Last administered on 05/06/21at 02:45; Start 05/06/21 at 02:30; Stop 05/06/21 at 02:31; Status DC Sodium Chloride 1,000 ml @ 1,000 mls/hr 1X ONCE IV Last administered on 05/06/21at 02:41; Start 05/06/21 at 02:30; Stop 05/06/21 at 03:29; Status DC Ondansetron HCl (Zofran) 4 mg PRN Q8HRS PRN IVP NAUSEA/VOMITING 1ST CHOICE; Start 05/06/21 at 02:30; Stop 05/07/21 at 02:29 Fentanyl Citrate (Fentanyl 2ml Vial) 50 mcg PRN Q1HR PRN IVP SEVERE PAIN 7-10; Start 05/06/21 at 02:30; Stop 05/07/21 at 02:29 Acetaminophen (Tylenol) 650 mg PRN Q4HRS PRN PO FEVER > 100.3'F; Start 1 at 02:30; Stop 05/07/21 at 02:29 Albuterol Sulfate (Ventolin Neb Soln) 2.5 mg PRN Q6HRS PRN NEB WHEEZING; Start 05/06/21 at 02:45 Vancomycin HCl (Vanco Per Pharmacy) 1 each PRN DAILY PRN MC SEE COMMENTS Last administered on 05/06/21at 04:53; Start 05/06/21 at 03:15 Vancomycin HCl 1.75 gm/Sodium Chloride 500 ml @ 250 mls/hr Q24H IV ; Start 05/07/21 at 05:00 Vancomycin HCl (Vancomycin Trough Level) 1 each 1X ONCE MC ; Start 05/08/21 at 04:30; Stop 05/08/21 at 04:31 Active Scripts Active Tylenol (Acetaminophen) 325 Mg Tablet 1-2 Tab PO QID 7 Days Furosemide 20 Mg Tablet 1 Tab PO DAILY 30 Days Amlodipine Besylate 10 Mg Tablet 10 Mg PO DAILY 30 Days Tramadol Hcl 100 Mg Tbmp.24hr 100 Mg PO PRN Q8HRS PRN 6 Days Reported Trazodone Hcl 100 Mg Tablet 1 Tab PO PRN Q12HR PRN Spironolactone 25 Mg Tablet 1 Tab PO DAILY Klor-Con 10 (Potassium Chloride) 10 Meq Tablet.er 1 Tab PO DAILY 30 Days Metoprolol Tartrate 100 Mg Tablet 1 Tab PO BID Losartan Potassium 50 Mg Tablet 50 Mg PO BID Haloperidol 2 Mg Tablet 2 Tab PO TID Atorvastatin Calcium 10 Mg Tablet 1 Tab PO DAILY Leflunomide 20 Mg Tablet 20 Mg PO DAILY 30 Days Allergy Relief (Loratadine) 10 Mg Tablet 10 Mg PO DAILY 30 Days Tylenol (Acetaminophen) 325 Mg Tablet 2 Tab PO PRN Q4HRS Aspir 81 (Aspirin) 81 Mg Tablet. 1 Tab PO HS Allergies Allergies: Coded Allergies: Sulfa (Sulfonamide Antibiotics) (Verified Allergy, Intermediate, 02/22/20) divalproex sodium (Verified Allergy, Intermediate, neck and back pain, 02/22/20) fluticasone (Verified Allergy, Intermediate, COUGH, 02/22/20) latex (Verified Allergy, Intermediate, SURGICAL TAPE, 02/22/20) lisinopril (Verified Allergy, Intermediate, cough, 02/22/20) piroxicam (Verified Allergy, Intermediate, BLISTERS, 02/22/20) gabapentin (Verified Adverse Reaction, Severe, 02/22/20) Hallucinations, worsening of schizophrenia ROS Review of System Reviewed with patient but unable to obtain at this time due to clinical condition Physical Exam Physical Exam General: Alert, Cooperative, mild distress HEENT: PERRLA, EOMI Lungs: Increased work of breathing on BiPAP, decreased breath sounds bilaterally, normal air movement. Heart: RRR, no murmurs Cardiovascular: S1, S2 Abdomen: Normal bowel sounds, Soft, No tenderness Extremities: +1 bilateral lower extremity edema. No clubbing, No cyanosis Skin: No rashes, No significant lesion Neuro: Normal speech, Normal tone, Sensation intact Psych/Mental Status: Mental status NL, Mood NL Vitals Vitals Vital Signs Date Time Temp Pulse Resp B/P (MAP) Pulse Ox O2 Delivery O2 Flow Rate FiO2 05/06/21 06:00 98.4 58 22 140/64 (89) 99 BiPAP/CPAP 98.4 Labs Labs Laboratory Tests Test 05/06/21 00:17 05/06/21 00:25 05/06/21 00:40 05/06/21 02:48 White Blood Count 7.2 x10^3/uL (4.0-11.0) Red Blood Count 3.28 x10^6/uL (3.50-5.40) Hemoglobin 9.9 g/dL (12.0-15.5) Hematocrit 29.8 % (36.0-47.0) Mean Corpuscular Volume 91 fL (79-100) Mean Corpuscular Hemoglobin 30 pg (25-35) Mean Corpuscular Hemoglobin Concent 33 g/dL (31-37) Red Cell Distribution Width 15.8 % (11.5-14.5) Platelet Count 258 x10^3/uL (140-400) Neutrophils (%) (Auto) 40 % (31-73) Lymphocytes (%) (Auto) 43 % (24-48) Monocytes (%) (Auto) 12 % (0-9) Eosinophils (%) (Auto) 5 % (0-3) Basophils (%) (Auto) 1 % (0-3) Neutrophils # (Auto) 2.9 x10^3/uL (1.8-7.7) Lymphocytes # (Auto) 3.1 x10^3/uL (1.0-4.8) Monocytes # (Auto) 0.8 x10^3/uL (0.0-1.1) Eosinophils # (Auto) 0.3 x10^3/uL (0.0-0.7) Basophils # (Auto) 0.1 x10^3/uL (0.0-0.2) Sodium Level 139 mmol/L (136-145) Potassium Level 3.3 mmol/L (3.5-5.1) Chloride Level 98 mmol/L (98-107) Carbon Dioxide Level 30 mmol/L (21-32) Anion Gap 11 (6-14) Blood Urea Nitrogen 33 mg/dL (7-20) Creatinine 2.1 mg/dL (0.6-1.0) Estimated GFR (Cockcroft-Gault) 27.8 BUN/Creatinine Ratio 16 (6-20) Glucose Level 227 mg/dL (70-99) Lactic Acid Level 2.7 mmol/L (0.4-2.0) Calcium Level 9.2 mg/dL (8.5-10.1) Phosphorus Level 5.1 mg/dL (2.6-4.7) Magnesium Level 1.9 mg/dL (1.8-2.4) Total Bilirubin 0.2 mg/dL (0.2-1.0) Aspartate Amino Transf (AST/SGOT) 16 U/L (15-37) Alanine Aminotransferase (ALT/SGPT) 12 U/L (14-59) Alkaline Phosphatase 94 U/L (46-116) Troponin I Quantitative < 0.017 ng/mL (0.000-0.055) IY-Zym-K-Type Natriuretic Peptide 1607 pg/mL (0-449) Total Protein 7.9 g/dL (6.4-8.2) Albumin 3.2 g/dL (3.4-5.0) Albumin/Globulin Ratio 0.7 (1.0-1.7) Urine Collection Type Unknown Urine Color Yellow Urine Clarity Clear Urine pH 6.5 (<5.0-8.0) Urine Specific [place] 1.010 (1.000-1.030) Urine Protein 30 mg/dL (NEG-TRACE) Urine Glucose (UA) 100 mg/dL (NEG) Urine Ketones (Stick) Negative mg/dL (NEG) Urine Blood Trace (NEG) Urine Nitrite Negative (NEG) Urine Bilirubin Negative (NEG) Urine Urobilinogen Dipstick 0.2 mg/dL (0.2 mg/dL) Urine Leukocyte Esterase Trace (NEG) Urine RBC 11-20 /HPF (0-2) Urine WBC 1-4 /HPF (0-4) Urine Squamous Epithelial Cells Mod /LPF Urine Bacteria 0 /HPF (0-FEW) Urine Mucus Slight /LPF O2 Saturation 98 % (92-99) Arterial Blood pH 7.40 (7.35-7.45) Arterial Blood pCO2 at Patient Temp 53 mmHg (35-46) Arterial Blood pO2 at Patient Temp 113 mmHg (65-108) Arterial Blood HCO3 32 mmol/L (21-28) Arterial Blood Base Excess 6 mmol/L (-3-3) FiO2 40 SARS-CoV-2 Antigen (Rapid) Negative (NEGATIVE) Test 05/06/21 03:40 05/06/21 04:10 Troponin I Quantitative < 0.017 ng/mL (0.000-0.055) Lactic Acid Level 1.8 mmol/L (0.4-2.0) Laboratory Tests Test 05/06/21 00:17 05/06/21 00:25 05/06/21 00:40 05/06/21 02:48 White Blood Count 7.2 x10^3/uL (4.0-11.0) Red Blood Count 3.28 x10^6/uL (3.50-5.40) Hemoglobin 9.9 g/dL (12.0-15.5) Hematocrit 29.8 % (36.0-47.0) Mean Corpuscular Volume 91 fL (79-100) Mean Corpuscular Hemoglobin 30 pg (25-35) Mean Corpuscular Hemoglobin Concent 33 g/dL (31-37) Red Cell Distribution Width 15.8 % (11.5-14.5) Platelet Count 258 x10^3/uL (140-400) Neutrophils (%) (Auto) 40 % (31-73) Lymphocytes (%) (Auto) 43 % (24-48) Monocytes (%) (Auto) 12 % (0-9) Eosinophils (%) (Auto) 5 % (0-3) Basophils (%) (Auto) 1 % (0-3) Neutrophils # (Auto) 2.9 x10^3/uL (1.8-7.7) Lymphocytes # (Auto) 3.1 x10^3/uL (1.0-4.8) Monocytes # (Auto) 0.8 x10^3/uL (0.0-1.1) Eosinophils # (Auto) 0.3 x10^3/uL (0.0-0.7) Basophils # (Auto) 0.1 x10^3/uL (0.0-0.2) Sodium Level 139 mmol/L (136-145) Potassium Level 3.3 mmol/L (3.5-5.1) Chloride Level 98 mmol/L (98-107) Carbon Dioxide Level 30 mmol/L (21-32) Anion Gap 11 (6-14) Blood Urea Nitrogen 33 mg/dL (7-20) Creatinine 2.1 mg/dL (0.6-1.0) Estimated GFR (Cockcroft-Gault) 27.8 BUN/Creatinine Ratio 16 (6-20) Glucose Level 227 mg/dL (70-99) Lactic Acid Level 2.7 mmol/L (0.4-2.0) Calcium Level 9.2 mg/dL (8.5-10.1) Phosphorus Level 5.1 mg/dL (2.6-4.7) Magnesium Level 1.9 mg/dL (1.8-2.4) Total Bilirubin 0.2 mg/dL (0.2-1.0) Aspartate Amino Transf (AST/SGOT) 16 U/L (15-37) Alanine Aminotransferase (ALT/SGPT) 12 U/L (14-59) Alkaline Phosphatase 94 U/L (46-116) Troponin I Quantitative < 0.017 ng/mL (0.000-0.055) JF-Vso-O-Type Natriuretic Peptide 1607 pg/mL (0-449) Total Protein 7.9 g/dL (6.4-8.2) Albumin 3.2 g/dL (3.4-5.0) Albumin/Globulin Ratio 0.7 (1.0-1.7) Urine Collection Type Unknown Urine Color Yellow Urine Clarity Clear Urine pH 6.5 (<5.0-8.0) Urine Specific [place] 1.010 (1.000-1.030) Urine Protein 30 mg/dL (NEG-TRACE) Urine Glucose (UA) 100 mg/dL (NEG) Urine Ketones (Stick) Negative mg/dL (NEG) Urine Blood Trace (NEG) Urine Nitrite Negative (NEG) Urine Bilirubin Negative (NEG) Urine Urobilinogen Dipstick 0.2 mg/dL (0.2 mg/dL) Urine Leukocyte Esterase Trace (NEG) Urine RBC 11-20 /HPF (0-2) Urine WBC 1-4 /HPF (0-4) Urine Squamous Epithelial Cells Mod /LPF Urine Bacteria 0 /HPF (0-FEW) Urine Mucus Slight /LPF O2 Saturation 98 % (92-99) Arterial Blood pH 7.40 (7.35-7.45) Arterial Blood pCO2 at Patient Temp 53 mmHg (35-46) Arterial Blood pO2 at Patient Temp 113 mmHg (65-108) Arterial Blood HCO3 32 mmol/L (21-28) Arterial Blood Base Excess 6 mmol/L (-3-3) FiO2 40 SARS-CoV-2 Antigen (Rapid) Negative (NEGATIVE) Test 05/06/21 03:40 05/06/21 04:10 Troponin I Quantitative < 0.017 ng/mL (0.000-0.055) Lactic Acid Level 1.8 mmol/L (0.4-2.0) Images Images IMAGING REPORT Signed PATIENT: CRISTOBAL BLOOD: [id number] : 1945 LOCATION: ER AGE: 75 SEX: F EXAM STATUS: PRE ER ORD. PHYSICIAN: JAZMYN CHAPPELL MD REASON: resp distress PROCEDURE: CHEST AP ONLY XR CHEST 1V History: Reason: resp distress / Spl. Instructions: / History: Comparison: October 23, 2020 Findings: Mild bibasilar ill-defined opacities. No pleural effusion. No pneumothorax. Normal heart size. Bilateral glenohumeral DJD. Impression: 1. Mild bibasilar ill-defined opacities, may represent atelectasis or developing infiltrates. If persistent clinical concern, recommend follow-up. VTE Prophylaxis Ordered VTE Prophylaxis Devices: No VTE Pharmacological Prophylaxi: Yes Assessment/Plan Assessment/Plan Acute respiratory failure with hypoxia Acute COPD exacerbation Acute asthma exacerbation DOMINGUEZ due to vasomotor nephropathy Hypokalemia DM2 with hyperglycemia History dementia History of schizophrenia Mild malnutrition COVID-19 PUI Plan: Consultation placed to pulmonology We will continue treatment of COPD/asthma exacerbation with Solu-Medrol, antibiotics, and breathing treatments. IV fluids; echocardiogram from 02/27/2020 showed elevated pulmonary artery pressure estimated at 34 mmHg, EF 55-60%. Basal/prandial insulin Resume home medications COVID-19 pending FEN - Cardiac diet PPX - Heparin DNR Dispo - inpatient for above Surrogate decision-maker is Lawanda Valera Justifications for Admission Other Justification CHERYL RESENDIZ MD May 06, 2021 08:08
[2021-05-06] MEDS ORDERED: ARIP5TAB13 PO (08:10)
[2021-05-06] MEDS ORDERED: CALC-712 PO (08:11)
[2021-05-06] MEDS ORDERED: CLON0.1T PO (08:12)
[2021-05-06] MEDS ORDERED: DIVA500T17 PO (08:13)
[2021-05-06] MEDS ORDERED: FURO40TA4 PO (08:15)
[2021-05-06] MEDS ORDERED: HYDR-2869 PO (08:16)
[2021-05-06] MEDS ORDERED: LOSA1TAB22 PO (08:17)
[2021-05-06] MEDS ORDERED: PREG-9 PO (08:18)
[2021-05-06] MEDS ORDERED: MELA3TAB43 PO (08:19)
[2021-05-06] MEDS ORDERED: MEMA10TA PO (08:20)
[2021-05-06] MEDS ORDERED: MAGN400O7 PO (08:22)
[2021-05-06] MEDS ORDERED: MULT-245 PO (08:23)
[2021-05-06] MEDS ORDERED: NYST1POW5 MC (08:24)
[2021-05-06] MEDS ORDERED: OXYC1TAB20 PO (08:24)
[2021-05-06] MEDS ORDERED: POTA-163 PO (08:25)
[2021-05-06] MEDS ORDERED: PANT40TA77 PO (08:26)
[2021-05-06] MEDS ORDERED: ALBU2.5V8 INH (08:27)
[2021-05-06] MEDS ORDERED: OLAN20TA3 PO (08:28)
[2021-05-06] MEDS ORDERED: DEXTROSE 50% 25 GM / 50ML DISP.SYRIN. IV PRN (08:30)
[2021-05-06] MEDS ORDERED: PIP/TAZO PER PHARMACY MC PRN (08:30)
[2021-05-06] MEDS ORDERED: MAGNESIUM HYDROXIDE 2,400 MG/30 ML ORAL.SUSP. PO PRN (08:45)
[2021-05-06] MEDS ORDERED: CALCIUM CARBONATE 500 MG TAB.CHEW PO PRN (08:45)
[2021-05-06] MEDS ORDERED: HYDROcodone/APAP 5/325MG 1 TAB TABLET PO PRN (08:45)
[2021-05-06] MEDS ORDERED: MAG HYDROX/ALUMINUM HYD/SIMETH 30 ML ORAL.SUSP PO PRN (08:45)
[2021-05-06] MEDS: INSULIN LISPRO 300 UNITS/3 ML VIAL. SQ SCH ×3 (09:00→17:21)
--- NOTE | 2021-05-06 09:09 | PDOC ---
PULMONARY PROGRESS NOTES DATE: 05/06/21 TIME: 09:09 Vitals Vital Signs Date Time Temp Pulse Resp B/P (MAP) Pulse Ox O2 Delivery O2 Flow Rate FiO2 05/06/21 07:00 98.3 63 16 144/68 (93) 98 BiPAP/CPAP 98.3 General: Alert, No acute distress Lungs: Clear Cardiovascular: S1 Abdomen: Soft Extremities: No Edema Labs Laboratory Tests Test 05/06/21 00:17 05/06/21 00:25 05/06/21 00:40 05/06/21 02:48 White Blood Count 7.2 x10^3/uL (4.0-11.0) Red Blood Count 3.28 x10^6/uL (3.50-5.40) Hemoglobin 9.9 g/dL (12.0-15.5) Hematocrit 29.8 % (36.0-47.0) Mean Corpuscular Volume 91 fL (79-100) Mean Corpuscular Hemoglobin 30 pg (25-35) Mean Corpuscular Hemoglobin Concent 33 g/dL (31-37) Red Cell Distribution Width 15.8 % (11.5-14.5) Platelet Count 258 x10^3/uL (140-400) Neutrophils (%) (Auto) 40 % (31-73) Lymphocytes (%) (Auto) 43 % (24-48) Monocytes (%) (Auto) 12 % (0-9) Eosinophils (%) (Auto) 5 % (0-3) Basophils (%) (Auto) 1 % (0-3) Neutrophils # (Auto) 2.9 x10^3/uL (1.8-7.7) Lymphocytes # (Auto) 3.1 x10^3/uL (1.0-4.8) Monocytes # (Auto) 0.8 x10^3/uL (0.0-1.1) Eosinophils # (Auto) 0.3 x10^3/uL (0.0-0.7) Basophils # (Auto) 0.1 x10^3/uL (0.0-0.2) Sodium Level 139 mmol/L (136-145) Potassium Level 3.3 mmol/L (3.5-5.1) Chloride Level 98 mmol/L (98-107) Carbon Dioxide Level 30 mmol/L (21-32) Anion Gap 11 (6-14) Blood Urea Nitrogen 33 mg/dL (7-20) Creatinine 2.1 mg/dL (0.6-1.0) Estimated GFR (Cockcroft-Gault) 27.8 BUN/Creatinine Ratio 16 (6-20) Glucose Level 227 mg/dL (70-99) Lactic Acid Level 2.7 mmol/L (0.4-2.0) Calcium Level 9.2 mg/dL (8.5-10.1) Phosphorus Level 5.1 mg/dL (2.6-4.7) Magnesium Level 1.9 mg/dL (1.8-2.4) Total Bilirubin 0.2 mg/dL (0.2-1.0) Aspartate Amino Transf (AST/SGOT) 16 U/L (15-37) Alanine Aminotransferase (ALT/SGPT) 12 U/L (14-59) Alkaline Phosphatase 94 U/L (46-116) Troponin I Quantitative < 0.017 ng/mL (0.000-0.055) VX-Php-Q-Type Natriuretic Peptide 1607 pg/mL (0-449) Total Protein 7.9 g/dL (6.4-8.2) Albumin 3.2 g/dL (3.4-5.0) Albumin/Globulin Ratio 0.7 (1.0-1.7) Urine Collection Type Unknown Urine Color Yellow Urine Clarity Clear Urine pH 6.5 (<5.0-8.0) Urine Specific [place] 1.010 (1.000-1.030) Urine Protein 30 mg/dL (NEG-TRACE) Urine Glucose (UA) 100 mg/dL (NEG) Urine Ketones (Stick) Negative mg/dL (NEG) Urine Blood Trace (NEG) Urine Nitrite Negative (NEG) Urine Bilirubin Negative (NEG) Urine Urobilinogen Dipstick 0.2 mg/dL (0.2 mg/dL) Urine Leukocyte Esterase Trace (NEG) Urine RBC 11-20 /HPF (0-2) Urine WBC 1-4 /HPF (0-4) Urine Squamous Epithelial Cells Mod /LPF Urine Bacteria 0 /HPF (0-FEW) Urine Mucus Slight /LPF O2 Saturation 98 % (92-99) Arterial Blood pH 7.40 (7.35-7.45) Arterial Blood pCO2 at Patient Temp 53 mmHg (35-46) Arterial Blood pO2 at Patient Temp 113 mmHg (65-108) Arterial Blood HCO3 32 mmol/L (21-28) Arterial Blood Base Excess 6 mmol/L (-3-3) FiO2 40 SARS-CoV-2 Antigen (Rapid) Negative (NEGATIVE) Test 05/06/21 03:40 05/06/21 04:10 05/06/21 08:22 Troponin I Quantitative < 0.017 ng/mL (0.000-0.055) Lactic Acid Level 1.8 mmol/L (0.4-2.0) Glucose (Fingerstick) 164 mg/dL (70-99) Laboratory Tests Test 05/06/21 00:17 05/06/21 00:25 05/06/21 00:40 05/06/21 02:48 White Blood Count 7.2 x10^3/uL (4.0-11.0) Red Blood Count 3.28 x10^6/uL (3.50-5.40) Hemoglobin 9.9 g/dL (12.0-15.5) Hematocrit 29.8 % (36.0-47.0) Mean Corpuscular Volume 91 fL (79-100) Mean Corpuscular Hemoglobin 30 pg (25-35) Mean Corpuscular Hemoglobin Concent 33 g/dL (31-37) Red Cell Distribution Width 15.8 % (11.5-14.5) Platelet Count 258 x10^3/uL (140-400) Neutrophils (%) (Auto) 40 % (31-73) Lymphocytes (%) (Auto) 43 % (24-48) Monocytes (%) (Auto) 12 % (0-9) Eosinophils (%) (Auto) 5 % (0-3) Basophils (%) (Auto) 1 % (0-3) Neutrophils # (Auto) 2.9 x10^3/uL (1.8-7.7) Lymphocytes # (Auto) 3.1 x10^3/uL (1.0-4.8) Monocytes # (Auto) 0.8 x10^3/uL (0.0-1.1) Eosinophils # (Auto) 0.3 x10^3/uL (0.0-0.7) Basophils # (Auto) 0.1 x10^3/uL (0.0-0.2) Sodium Level 139 mmol/L (136-145) Potassium Level 3.3 mmol/L (3.5-5.1) Chloride Level 98 mmol/L (98-107) Carbon Dioxide Level 30 mmol/L (21-32) Anion Gap 11 (6-14) Blood Urea Nitrogen 33 mg/dL (7-20) Creatinine 2.1 mg/dL (0.6-1.0) Estimated GFR (Cockcroft-Gault) 27.8 BUN/Creatinine Ratio 16 (6-20) Glucose Level 227 mg/dL (70-99) Lactic Acid Level 2.7 mmol/L (0.4-2.0) Calcium Level 9.2 mg/dL (8.5-10.1) Phosphorus Level 5.1 mg/dL (2.6-4.7) Magnesium Level 1.9 mg/dL (1.8-2.4) Total Bilirubin 0.2 mg/dL (0.2-1.0) Aspartate Amino Transf (AST/SGOT) 16 U/L (15-37) Alanine Aminotransferase (ALT/SGPT) 12 U/L (14-59) Alkaline Phosphatase 94 U/L (46-116) Troponin I Quantitative < 0.017 ng/mL (0.000-0.055) IU-Uiw-E-Type Natriuretic Peptide 1607 pg/mL (0-449) Total Protein 7.9 g/dL (6.4-8.2) Albumin 3.2 g/dL (3.4-5.0) Albumin/Globulin Ratio 0.7 (1.0-1.7) Urine Collection Type Unknown Urine Color Yellow Urine Clarity Clear Urine pH 6.5 (<5.0-8.0) Urine Specific [place] 1.010 (1.000-1.030) Urine Protein 30 mg/dL (NEG-TRACE) Urine Glucose (UA) 100 mg/dL (NEG) Urine Ketones (Stick) Negative mg/dL (NEG) Urine Blood Trace (NEG) Urine Nitrite Negative (NEG) Urine Bilirubin Negative (NEG) Urine Urobilinogen Dipstick 0.2 mg/dL (0.2 mg/dL) Urine Leukocyte Esterase Trace (NEG) Urine RBC 11-20 /HPF (0-2) Urine WBC 1-4 /HPF (0-4) Urine Squamous Epithelial Cells Mod /LPF Urine Bacteria 0 /HPF (0-FEW) Urine Mucus Slight /LPF O2 Saturation 98 % (92-99) Arterial Blood pH 7.40 (7.35-7.45) Arterial Blood pCO2 at Patient Temp 53 mmHg (35-46) Arterial Blood pO2 at Patient Temp 113 mmHg (65-108) Arterial Blood HCO3 32 mmol/L (21-28) Arterial Blood Base Excess 6 mmol/L (-3-3) FiO2 40 SARS-CoV-2 Antigen (Rapid) Negative (NEGATIVE) Test 05/06/21 03:40 05/06/21 04:10 05/06/21 08:22 Troponin I Quantitative < 0.017 ng/mL (0.000-0.055) Lactic Acid Level 1.8 mmol/L (0.4-2.0) Glucose (Fingerstick) 164 mg/dL (70-99) Medications Active Scripts Medications Dose Route/Sig Max Daily Dose Days Date Category Zyprexa (Olanzapine) 20 Mg Tablet 1 Tab PO QHS 05/06/21 Reported Proair Hfa Inhaler (Albuterol Sulfate) 8.5 Gm Hfa.aer.ad 1 Puff INH PRN Q6HRS PRN 05/06/21 Reported Protonix (Pantoprazole Sodium) 40 Mg Tablet.dr 40 Mg PO DAILYAC 05/06/21 Reported Potassium Chloride 20 Meq Tablet.er 20 Meq PO DAILY 05/06/21 Reported Oxycodone-Acetaminophen 10-325 (Oxycodone Hcl/Acetaminophen) 1 Each Tablet 1 Each PO Q12HR PRN 05/06/21 Reported Nystatin 1 Each Powder.ea. 1 Each MC BID PRN 05/06/21 Reported Multi Vitamin Daily (Multivitamin) 1 Each Tablet 1 Tab PO DAILY 30 05/06/21 Reported Milk Of Magnesia (Magnesium Hydroxide) 400 Mg/5 Ml Oral.susp 400 Mg PO Q6HRS PRN 05/06/21 Reported Namenda (Memantine Hcl) 10 Mg Tablet 5 Mg PO BID 05/06/21 Reported Melatonin 3 Mg Tab.rapdis 1 Tab PO QHS 30 05/06/21 Reported Lyrica (Pregabalin) 75 Mg Capsule 75 Mg PO BID 05/06/21 Reported Losartan-Hctz 100-25 Mg Tab (Losartan/Hydrochlorothiazide) 1 Each Tablet 1 Each PO DAILY 05/06/21 Reported Hydralazine Hcl 50 Mg Tablet 50 Mg PO QID 05/06/21 Reported Furosemide 40 Mg Tablet 40 Mg PO DAILY 05/06/21 Reported Divalproex Sodium Er (Divalproex Sodium) 500 Mg Tab.er.24h 500 Mg PO HS 05/06/21 Reported Clonidine Hcl 0.1 Mg Tablet 0.1 Mg PO BID 05/06/21 Reported Calcium 500 mg Chewable Tablet (Calcium Carbonate/Vitamin D3) 1 Each Tab.chew 1 Each PO DAILY 05/06/21 Reported Abilify (Aripiprazole) 5 Mg Tablet 5 Mg PO DAILY 05/06/21 Reported Donepezil Hcl 10 Mg Tablet 10 Mg PO HS 05/06/21 Reported Amlodipine Besylate 10 Mg Tablet 10 Mg PO DAILY 30 02/29/20 Rx Tramadol Hcl 100 Mg Tbmp.24hr 100 Mg PO PRN Q8HRS PRN 6 02/29/20 Rx Trazodone Hcl 100 Mg Tablet 1 Tab PO PRN Q12HR PRN 02/24/20 Reported Spironolactone 25 Mg Tablet 1 Tab PO DAILY 02/24/20 Reported Klor-Con 10 (Potassium Chloride) 10 Meq Tablet.er 1 Tab PO DAILY 30 02/24/20 Reported Metoprolol Tartrate 100 Mg Tablet 2 Tab PO BID 02/24/20 Reported Haloperidol 2 Mg Tablet 2 Tab PO TID 02/24/20 Reported Atorvastatin Calcium 10 Mg Tablet 1 Tab PO DAILY 02/24/20 Reported Leflunomide 20 Mg Tablet 20 Mg PO DAILY 30 07/30/19 Reported Allergy Relief (Loratadine) 10 Mg Tablet 10 Mg PO DAILY 30 05/13/19 Reported Tylenol (Acetaminophen) 325 Mg Tablet 2 Tab PO PRN Q4HRS 06/13/15 Reported Aspir 81 (Aspirin) 81 Mg Tablet.dr 1 Tab PO HS 08/09/14 Reported Impression . Full note dictated Concur with current medical management MRSA PCR is pending Acute hypoxemic respiratory failure multifactorial LUIS WHITLOCK MD May 06, 2021 09:09
[2021-05-06] MEDS: IPRATRPIUM/ALBUTEROL 0.5/2.5MG 3 ML NEBU. NEB SCH ×4 (09:41→20:48)
[2021-05-06] MEDS: methylPREDNISolone SOD SUCC PF 125 MG/2 ML VIAL. IV SCH ×3 (09:52→20:40)
[2021-05-06] MEDS: ENOXAPARIN 40 MG/0.4 ML SYRINGE. SQ SCH (09:58)
[2021-05-06 10:48] VITALS: BP 147/71
[2021-05-06] MEDS: PIPERACILLIN/TAZOBACTAM 3.375 GM in IV NORMAL SALINE 50ML 50 ML IV SCH ×3 (11:43→23:33)
--- NOTE | 2021-05-06 12:27 | CONS ---
DATE OF CONSULTATION: 05/06/2021 ATTENDING PHYSICIAN: Antonio Gonzalez MD REASON FOR CONSULTATION: The patient is seen in pulmonary consultation at the request of Dr. Gonzalez for abnormal x-ray. HISTORY OF PRESENT ILLNESS: The patient is a 75-year-old female brought in from [facility] for respiratory distress. EMS states that when they arrived, the patient has some shallow agonal breathing, placed on CPAP. She had a PE, saturation of 70%. She does have a history of COPD. The patient was transferred to the Emergency Department. Upon arrival, her saturations were 95% with CPAP. Upon questioning, the patient really does not know why she is here. She does not think that she is short of breath. She states that she has never smoked. She has no history of COPD or asthma. She has been in a halfway for quite some time. She uses a wheelchair. She has right-sided weakness from previous CVA. She denies cough, no hemoptysis. No emesis. I reviewed her x-ray, which revealed some bibasilar infiltrates, possibly atelectasis. PAST MEDICAL HISTORY: As indicated above is remarkable for previous CVA, right-sided hemiparesis, type 2 diabetes, fibromyalgia, hyperlipidemia, hypertension, schizophrenia. Apparently, she has a history of polymyalgia rheumatica. There is a history of obstructive lung disease, not clear if asthma or COPD. She states that she has never smoked. PAST SURGICAL HISTORY: Appendectomy, hysterectomy, knee replacement, back surgery. SOCIAL HISTORY: She has never smoked. She currently resides at [facility]. ALLERGIES: SHE HAS ALLERGIES TO MULTIPLE MEDICATIONS INCLUDING SULFA, FLUCONAZOLE, GABAPENTIN, LISINOPRIL. CURRENT MEDICATIONS: List was reviewed. She is currently being treated with IV antibiotics. She has received Levaquin x 1. She is also on ____ and Zosyn. PHYSICAL EXAMINATION: VITAL SIGNS: On examination today, vital signs are stable. O2 saturation greater than 92%, currently on 3 liters. HEENT: Eyes, the sclerae were nonicteric. NECK: Jugular venous distention was not elevated. No lymphadenopathy. CHEST: Full expansion. LUNGS: Adequate flow with no wheezes. CARDIOVASCULAR: Regular rate and rhythm with S1, S2, no S3. ABDOMEN: Soft. EXTREMITIES: No clubbing, cyanosis. Minimal edema. NEUROLOGIC: The patient was weak on the right side. A detailed neuro exam was not performed. LABORATORY DATA: Reviewed. White count was normal, hemoglobin and hematocrit were noted. Arterial blood gas; pH of 7.40, PaCO2 of 53, pO2 of 113. Chest x-ray as indicated above. IMPRESSION: 1. Acute hypoxemic respiratory failure, suspect combination of poor inspiratory effort, weakness, possible pneumonia, possible underlying obstructive lung disease. 2. Abnormal x-ray, suspect pneumonia. 3. Acute kidney injury. 4. Type 2 diabetes. 5. History of dementia, schizophrenia. 6. Negative SARS-CoV-2 testing. 7. Multiple other comorbidities as indicated above. PLAN: 1. We will obtain nasal swab for MRSA. If negative, discontinue MRSA coverage. 2. Continue empiric Zosyn. 3. Speech evaluation. 4. Nebulized treatments. 5. Oxygen supplementation. I do appreciate the privilege in sharing the patient's care. ELKE DAILEY: Jose TID: [id number]
--- NOTE | 2021-05-06 14:19 | NUR ---
Wound Care: Patient seen per wound care consult. Patient comes from [place] where our wound care [employer] [place] has been seeing this patient regarding Right medial ankle/heel. This wound was a PU with blood filled blister that has now completely resolved however it leaves the blackened/darkened scab covering intact. The scab is large and unable to remove. recommendations for skin prep and foam for protection, as it will eventually come off. there are no other wounds noted upon complete head to toe assessment. Skin prep applied and foam dressing. Bilateral heels elevated using pillows. bed lowered and call light in reach. Wound care will follow up on 05/13/21 just for reassessment.
[2021-05-06 14:45] VITALS: BP 144/71
--- NOTE | 2021-05-06 15:43 | NUR ---
SS following for discharge planning. SS reviewed pt chart and discussed with pt RN. Pt is LT resident from [place], ; fax [phone]. COVID19 negative. Pt is currently requiring oxygen at three liters nasal canula. Pt on IV Zosyn, IV Zyvox, and IV Solu-Medrol. SS will continue to follow for discharge planning.
[2021-05-06 19:00] VITALS: BP 144/71
[2021-05-06] MEDS: LACTOBACILLUS RHAMNOSUS GG 1 CAPSULE. PO SCH (20:39)
[2021-05-06] MEDS: hydrALAZINE 20 MG/ML VIAL. IVP PRN (20:40)
[2021-05-06] MEDS: DONEPEZIL HCL 10 MG TABLET. PO SCH (22:21)
[2021-05-06] MEDS: MEMANTINE 5 MG TABLET. PO SCH (22:22)
[2021-05-06] MEDS: PREGABALIN 75 MG CAPSULE PO SCH (22:22)
[2021-05-06] MEDS: OLANZapine 5 MG TABLET PO SCH (22:22)
[2021-05-06] MEDS: INSULIN GLARGINE SYRINGE. SQ SCH (22:23)
[2021-05-06 23:00] VITALS: BP 135/74
[2021-05-07 03:00] VITALS: BP 167/77
[2021-05-07 04:54] LABS: BASO % 0 % (0-3); EOS % 0 % (0-3); HEMATOCRIT 27.6 % (36.0-47.0); HEMOGLOBIN 9.1 g/dL (12.0-15.5); LYMPH # 0.7 x10^3/uL (1.0-4.8); LYMPH % 9 % (24-48); MEAN CORPUSCULAR HEMOGLOBIN 30 pg (25-35); MEAN CORPUSCULAR HGB CONC 33 g/dL (31-37); MEAN CORPUSCULAR VOLUME 91 fL (79-100); MONO # 0.3 x10^3/uL (0.0-1.1); MONO % 4 % (0-9); NEUT # 7.6 x10^3/uL (1.8-7.7); NEUT % 88 % (31-73); PLATELET COUNT 222 x10^3/uL (140-400); RED BLOOD COUNT 3.05 x10^6/uL (3.50-5.40); RED CELL DISTRIBUTION WIDTH 15.7 % (11.5-14.5); WHITE BLOOD COUNT 8.6 x10^3/uL (4.0-11.0)
[2021-05-07] MEDS ORDERED: VANCOMYCIN 1.75 GM in IV NORMAL SALINE 500ML BAG 500 ML IV SCH (05:00)
[2021-05-07 05:08] LABS: CALCIUM 8.4 mg/dL (8.5-10.1); CREATININE 1.9 mg/dL (0.6-1.0); GFR 31.2; POTASSIUM 3.2 mmol/L (3.5-5.1)
[2021-05-07] MEDS: methylPREDNISolone SOD SUCC PF 125 MG/2 ML VIAL. IV SCH ×3 (05:52→20:20)
[2021-05-07] MEDS: PIPERACILLIN/TAZOBACTAM 3.375 GM in IV NORMAL SALINE 50ML 50 ML IV SCH ×4 (05:52→23:09)
[2021-05-07 07:00] VITALS: BP 138/74
[2021-05-07] MEDS: IPRATRPIUM/ALBUTEROL 0.5/2.5MG 3 ML NEBU. NEB SCH ×4 (07:45→20:27)
[2021-05-07] MEDS: LACTOBACILLUS RHAMNOSUS GG 1 CAPSULE. PO SCH ×2 (08:54→20:17)
[2021-05-07] MEDS: ENOXAPARIN 40 MG/0.4 ML SYRINGE. SQ SCH (08:55)
[2021-05-07] MEDS: PREGABALIN 75 MG CAPSULE PO SCH ×2 (08:55→20:18)
[2021-05-07] MEDS: MEMANTINE 5 MG TABLET. PO SCH ×2 (08:55→20:17)
[2021-05-07] MEDS: INSULIN LISPRO 300 UNITS/3 ML VIAL. SQ SCH ×3 (09:00→17:16)
--- NOTE | 2021-05-07 09:14 | PDOC ---
PULMONARY PROGRESS NOTES DATE: 05/07/21 TIME: 09:13 Subjective Patient feels better less short of air Vitals Vital Signs Date Time Temp Pulse Resp B/P (MAP) Pulse Ox O2 Delivery O2 Flow Rate FiO2 05/07/21 07:45 94 Nasal Cannula 2.0 05/07/21 07:00 98.3 58 22 138/74 (95) 98.3 ROS: No Nausea, No Chest Pain, No Abdominal Pain, No Increase Cough General: Alert, No acute distress Lungs: Clear Cardiovascular: S1 Abdomen: Soft Neuro Exam: Alert Extremities: No Edema Skin: Warm Labs Laboratory Tests Test 05/06/21 00:17 05/06/21 00:25 05/06/21 00:40 05/06/21 02:48 White Blood Count 7.2 x10^3/uL (4.0-11.0) Red Blood Count 3.28 x10^6/uL (3.50-5.40) Hemoglobin 9.9 g/dL (12.0-15.5) Hematocrit 29.8 % (36.0-47.0) Mean Corpuscular Volume 91 fL (79-100) Mean Corpuscular Hemoglobin 30 pg (25-35) Mean Corpuscular Hemoglobin Concent 33 g/dL (31-37) Red Cell Distribution Width 15.8 % (11.5-14.5) Platelet Count 258 x10^3/uL (140-400) Neutrophils (%) (Auto) 40 % (31-73) Lymphocytes (%) (Auto) 43 % (24-48) Monocytes (%) (Auto) 12 % (0-9) Eosinophils (%) (Auto) 5 % (0-3) Basophils (%) (Auto) 1 % (0-3) Neutrophils # (Auto) 2.9 x10^3/uL (1.8-7.7) Lymphocytes # (Auto) 3.1 x10^3/uL (1.0-4.8) Monocytes # (Auto) 0.8 x10^3/uL (0.0-1.1) Eosinophils # (Auto) 0.3 x10^3/uL (0.0-0.7) Basophils # (Auto) 0.1 x10^3/uL (0.0-0.2) Sodium Level 139 mmol/L (136-145) Potassium Level 3.3 mmol/L (3.5-5.1) Chloride Level 98 mmol/L (98-107) Carbon Dioxide Level 30 mmol/L (21-32) Anion Gap 11 (6-14) Blood Urea Nitrogen 33 mg/dL (7-20) Creatinine 2.1 mg/dL (0.6-1.0) Estimated GFR (Cockcroft-Gault) 27.8 BUN/Creatinine Ratio 16 (6-20) Glucose Level 227 mg/dL (70-99) Lactic Acid Level 2.7 mmol/L (0.4-2.0) Calcium Level 9.2 mg/dL (8.5-10.1) Phosphorus Level 5.1 mg/dL (2.6-4.7) Magnesium Level 1.9 mg/dL (1.8-2.4) Total Bilirubin 0.2 mg/dL (0.2-1.0) Aspartate Amino Transf (AST/SGOT) 16 U/L (15-37) Alanine Aminotransferase (ALT/SGPT) 12 U/L (14-59) Alkaline Phosphatase 94 U/L (46-116) Troponin I Quantitative < 0.017 ng/mL (0.000-0.055) RQ-Wml-P-Type Natriuretic Peptide 1607 pg/mL (0-449) Total Protein 7.9 g/dL (6.4-8.2) Albumin 3.2 g/dL (3.4-5.0) Albumin/Globulin Ratio 0.7 (1.0-1.7) Urine Collection Type Unknown Urine Color Yellow Urine Clarity Clear Urine pH 6.5 (<5.0-8.0) Urine Specific [place] 1.010 (1.000-1.030) Urine Protein 30 mg/dL (NEG-TRACE) Urine Glucose (UA) 100 mg/dL (NEG) Urine Ketones (Stick) Negative mg/dL (NEG) Urine Blood Trace (NEG) Urine Nitrite Negative (NEG) Urine Bilirubin Negative (NEG) Urine Urobilinogen Dipstick 0.2 mg/dL (0.2 mg/dL) Urine Leukocyte Esterase Trace (NEG) Urine RBC 11-20 /HPF (0-2) Urine WBC 1-4 /HPF (0-4) Urine Squamous Epithelial Cells Mod /LPF Urine Bacteria 0 /HPF (0-FEW) Urine Mucus Slight /LPF O2 Saturation 98 % (92-99) Arterial Blood pH 7.40 (7.35-7.45) Arterial Blood pCO2 at Patient Temp 53 mmHg (35-46) Arterial Blood pO2 at Patient Temp 113 mmHg (65-108) Arterial Blood HCO3 32 mmol/L (21-28) Arterial Blood Base Excess 6 mmol/L (-3-3) FiO2 40 SARS-CoV-2 Antigen (Rapid) Negative (NEGATIVE) Test 05/06/21 03:40 05/06/21 04:10 05/06/21 08:22 05/06/21 08:45 Troponin I Quantitative < 0.017 ng/mL (0.000-0.055) < 0.017 ng/mL (0.000-0.055) Lactic Acid Level 1.8 mmol/L (0.4-2.0) Glucose (Fingerstick) 164 mg/dL (70-99) Test 05/06/21 12:00 05/06/21 16:31 05/06/21 21:16 05/07/21 04:10 Glucose (Fingerstick) 177 mg/dL (70-99) 188 mg/dL (70-99) 220 mg/dL (70-99) Sodium Level 134 mmol/L (136-145) Potassium Level 3.2 mmol/L (3.5-5.1) Chloride Level 97 mmol/L (98-107) Carbon Dioxide Level 30 mmol/L (21-32) Anion Gap 7 (6-14) Blood Urea Nitrogen 38 mg/dL (7-20) Creatinine 1.9 mg/dL (0.6-1.0) Estimated GFR (Cockcroft-Gault) 31.2 Glucose Level 211 mg/dL (70-99) Calcium Level 8.4 mg/dL (8.5-10.1) Test 05/07/21 04:15 05/07/21 07:37 White Blood Count 8.6 x10^3/uL (4.0-11.0) Red Blood Count 3.05 x10^6/uL (3.50-5.40) Hemoglobin 9.1 g/dL (12.0-15.5) Hematocrit 27.6 % (36.0-47.0) Mean Corpuscular Volume 91 fL (79-100) Mean Corpuscular Hemoglobin 30 pg (25-35) Mean Corpuscular Hemoglobin Concent 33 g/dL (31-37) Red Cell Distribution Width 15.7 % (11.5-14.5) Platelet Count 222 x10^3/uL (140-400) Neutrophils (%) (Auto) 88 % (31-73) Lymphocytes (%) (Auto) 9 % (24-48) Monocytes (%) (Auto) 4 % (0-9) Eosinophils (%) (Auto) 0 % (0-3) Basophils (%) (Auto) 0 % (0-3) Neutrophils # (Auto) 7.6 x10^3/uL (1.8-7.7) Lymphocytes # (Auto) 0.7 x10^3/uL (1.0-4.8) Monocytes # (Auto) 0.3 x10^3/uL (0.0-1.1) Eosinophils # (Auto) 0.0 x10^3/uL (0.0-0.7) Basophils # (Auto) 0.0 x10^3/uL (0.0-0.2) Glucose (Fingerstick) 234 mg/dL (70-99) Laboratory Tests Test 05/06/21 12:00 05/06/21 16:31 05/06/21 21:16 05/07/21 04:10 Glucose (Fingerstick) 177 mg/dL (70-99) 188 mg/dL (70-99) 220 mg/dL (70-99) Sodium Level 134 mmol/L (136-145) Potassium Level 3.2 mmol/L (3.5-5.1) Chloride Level 97 mmol/L (98-107) Carbon Dioxide Level 30 mmol/L (21-32) Anion Gap 7 (6-14) Blood Urea Nitrogen 38 mg/dL (7-20) Creatinine 1.9 mg/dL (0.6-1.0) Estimated GFR (Cockcroft-Gault) 31.2 Glucose Level 211 mg/dL (70-99) Calcium Level 8.4 mg/dL (8.5-10.1) Test 05/07/21 04:15 05/07/21 07:37 White Blood Count 8.6 x10^3/uL (4.0-11.0) Red Blood Count 3.05 x10^6/uL (3.50-5.40) Hemoglobin 9.1 g/dL (12.0-15.5) Hematocrit 27.6 % (36.0-47.0) Mean Corpuscular Volume 91 fL (79-100) Mean Corpuscular Hemoglobin 30 pg (25-35) Mean Corpuscular Hemoglobin Concent 33 g/dL (31-37) Red Cell Distribution Width 15.7 % (11.5-14.5) Platelet Count 222 x10^3/uL (140-400) Neutrophils (%) (Auto) 88 % (31-73) Lymphocytes (%) (Auto) 9 % (24-48) Monocytes (%) (Auto) 4 % (0-9) Eosinophils (%) (Auto) 0 % (0-3) Basophils (%) (Auto) 0 % (0-3) Neutrophils # (Auto) 7.6 x10^3/uL (1.8-7.7) Lymphocytes # (Auto) 0.7 x10^3/uL (1.0-4.8) Monocytes # (Auto) 0.3 x10^3/uL (0.0-1.1) Eosinophils # (Auto) 0.0 x10^3/uL (0.0-0.7) Basophils # (Auto) 0.0 x10^3/uL (0.0-0.2) Glucose (Fingerstick) 234 mg/dL (70-99) Medications Active Scripts Medications Dose Route/Sig Max Daily Dose Days Date Category Zyprexa (Olanzapine) 20 Mg Tablet 1 Tab PO QHS 05/06/21 Reported Proair Hfa Inhaler (Albuterol Sulfate) 8.5 Gm Hfa.aer.ad 1 Puff INH PRN Q6HRS PRN 05/06/21 Reported Protonix (Pantoprazole Sodium) 40 Mg Tablet.dr 40 Mg PO DAILYAC 05/06/21 Reported Potassium Chloride 20 Meq Tablet.er 20 Meq PO DAILY 05/06/21 Reported Oxycodone-Acetaminophen 10-325 (Oxycodone Hcl/Acetaminophen) 1 Each Tablet 1 Each PO Q12HR PRN 05/06/21 Reported Nystatin 1 Each Powder.ea. 1 Each MC BID PRN 05/06/21 Reported Multi Vitamin Daily (Multivitamin) 1 Each Tablet 1 Tab PO DAILY 30 10/13/21 Reported Milk Of Magnesia (Magnesium Hydroxide) 400 Mg/5 Ml Oral.susp 400 Mg PO Q6HRS PRN 05/06/21 Reported Namenda (Memantine Hcl) 10 Mg Tablet 5 Mg PO BID 05/06/21 Reported Melatonin 3 Mg Tab.rapdis 1 Tab PO QHS 30 05/06/21 Reported Lyrica (Pregabalin) 75 Mg Capsule 75 Mg PO BID 05/06/21 Reported Losartan-Hctz 100-25 Mg Tab (Losartan/Hydrochlorothiazide) 1 Each Tablet 1 Each PO DAILY 05/06/21 Reported Hydralazine Hcl 50 Mg Tablet 50 Mg PO QID 05/06/21 Reported Furosemide 40 Mg Tablet 40 Mg PO DAILY 05/06/21 Reported Divalproex Sodium Er (Divalproex Sodium) 500 Mg Tab.er.24h 500 Mg PO HS 05/06/21 Reported Clonidine Hcl 0.1 Mg Tablet 0.1 Mg PO BID 05/06/21 Reported Calcium 500 mg Chewable Tablet (Calcium Carbonate/Vitamin D3) 1 Each Tab.chew 1 Each PO DAILY 05/06/21 Reported Abilify (Aripiprazole) 5 Mg Tablet 5 Mg PO DAILY 05/06/21 Reported Donepezil Hcl 10 Mg Tablet 10 Mg PO HS 05/06/21 Reported Amlodipine Besylate 10 Mg Tablet 10 Mg PO DAILY 30 02/29/20 Rx Tramadol Hcl 100 Mg Tbmp.24hr 100 Mg PO PRN Q8HRS PRN 6 02/29/20 Rx Trazodone Hcl 100 Mg Tablet 1 Tab PO PRN Q12HR PRN 02/24/20 Reported Spironolactone 25 Mg Tablet 1 Tab PO DAILY 02/24/20 Reported Klor-Con 10 (Potassium Chloride) 10 Meq Tablet.er 1 Tab PO DAILY 30 02/24/20 Reported Metoprolol Tartrate 100 Mg Tablet 2 Tab PO BID 02/24/20 Reported Haloperidol 2 Mg Tablet 2 Tab PO TID 02/24/20 Reported Atorvastatin Calcium 10 Mg Tablet 1 Tab PO DAILY 02/24/20 Reported Leflunomide 20 Mg Tablet 20 Mg PO DAILY 30 07/30/19 Reported Allergy Relief (Loratadine) 10 Mg Tablet 10 Mg PO DAILY 30 05/13/19 Reported Tylenol (Acetaminophen) 325 Mg Tablet 2 Tab PO PRN Q4HRS 06/13/15 Reported Aspir 81 (Aspirin) 81 Mg Tablet. 1 Tab PO HS 08/09/14 Reported Impression . IMPRESSION: 1. Acute hypoxemic respiratory failure, suspect combination of poor inspiratory effort, weakness, possible pneumonia, possible underlying obstructive lung disease. 2. Abnormal x-ray, suspect pneumonia. 3. Acute kidney injury. 4. Type 2 diabetes. 5. History of dementia, schizophrenia. 6. Negative SARS-CoV-2 testing. 7. Multiple other comorbidities as indicated above. Plan . Updated 05/07 continue current support MRSA screening pending Clinically improving DVT GI prophylax Replace potassium 05/06 PLAN: 1. We will obtain nasal swab for MRSA. If negative, discontinue MRSA coverage. 2. Continue empiric Zosyn. 3. Speech evaluation. 4. Nebulized treatments. 5. Oxygen supplementation. I do appreciate the privilege in sharing the patient's care. LUIS WHITLOCK MD May 07, 2021 09:14
--- NOTE | 2021-05-07 10:47 | PDOC ---
[employer] PROGRESS NOTE Date of Service DOS: DATE: 05/07/21 TIME: 10:44 Chief Complaint Chief Complaint Acute respiratory failure with hypoxia Acute COPD exacerbation Acute asthma exacerbation DOMINGUEZ due to vasomotor nephropathy Hypokalemia DM2 with hyperglycemia History dementia History of schizophrenia Mild malnutrition COVID-19 PUI Plan: Consultation placed to pulmonology We will continue treatment of COPD/asthma exacerbation with Solu-Medrol, antibiotics, and breathing treatments. IV fluids; echocardiogram from 02/27/2020 showed elevated pulmonary artery pressure estimated at 34 mmHg, EF 55-60%. Basal/prandial insulin Resume home medications COVID-19 pending FEN - Cardiac diet PPX - Heparin DNR Dispo - inpatient for above Surrogate decision-maker is Lawanda Valera History of Present Illness History of Present Illness Patient 75-year-old female with past medical history COPD, CHF, dementia, DM2, s chizophrenia who presents to the ED from [facility] for respiratory distress. Upon EMS arrival she was reportedly having agonal respirations at approximately 8 breaths/min. Initial O2 saturations were 70%, that improved to 95% on CPAP. Apparently more alert and responsive upon arrival in the ED. labs admission showed WBC 7.2, hemoglobin 9.9, hematocrit 29.8, potassium 3.3, BUN 33, creatinine 2.1, CBG 227, albumin 3.2, rapid COVID-19 negative. She received broad-spectrum antibiotics, steroids, and breathing treatments in the ED. We will keep patient for further medical management. 05/07: Afebrile, breathing on 2 L nasal cannula. She reports no O2 requirement at home. MRSA PCR pending; if negative can discontinue Zyvox. Continue current antibiotic treatment for now, and steroids. Vitals/I&O Vitals/I&O: Vital Signs Date Time Temp Pulse Resp B/P (MAP) Pulse Ox O2 Delivery O2 Flow Rate FiO2 05/07/21 07:45 94 Nasal Cannula 2.0 05/07/21 07:00 98.3 58 22 138/74 (95) 98.3 I & O 05/06/21 05/06/21 05/07/21 15:00 23:00 07:00 Intake Total 240 ml 1020 ml 650 ml Output Total 450 ml 850 ml 1850 ml Balance -210 ml 170 ml -1200 ml Physical Exam General: Alert, Cooperative, No acute distress Heart: Regular rate Lungs: Clear Abdomen: No masses Extremities: No clubbing Skin: No rashes Labs Labs: Laboratory Tests Test 05/06/21 12:00 05/06/21 16:31 05/06/21 21:16 05/07/21 04:10 Glucose (Fingerstick) 177 mg/dL (70-99) 188 mg/dL (70-99) 220 mg/dL (70-99) Sodium Level 134 mmol/L (136-145) Potassium Level 3.2 mmol/L (3.5-5.1) Chloride Level 97 mmol/L (98-107) Carbon Dioxide Level 30 mmol/L (21-32) Anion Gap 7 (6-14) Blood Urea Nitrogen 38 mg/dL (7-20) Creatinine 1.9 mg/dL (0.6-1.0) Estimated GFR (Cockcroft-Gault) 31.2 Glucose Level 211 mg/dL (70-99) Calcium Level 8.4 mg/dL (8.5-10.1) Test 05/07/21 04:15 05/07/21 07:37 White Blood Count 8.6 x10^3/uL (4.0-11.0) Red Blood Count 3.05 x10^6/uL (3.50-5.40) Hemoglobin 9.1 g/dL (12.0-15.5) Hematocrit 27.6 % (36.0-47.0) Mean Corpuscular Volume 91 fL (79-100) Mean Corpuscular Hemoglobin 30 pg (25-35) Mean Corpuscular Hemoglobin Concent 33 g/dL (31-37) Red Cell Distribution Width 15.7 % (11.5-14.5) Platelet Count 222 x10^3/uL (140-400) Neutrophils (%) (Auto) 88 % (31-73) Lymphocytes (%) (Auto) 9 % (24-48) Monocytes (%) (Auto) 4 % (0-9) Eosinophils (%) (Auto) 0 % (0-3) Basophils (%) (Auto) 0 % (0-3) Neutrophils # (Auto) 7.6 x10^3/uL (1.8-7.7) Lymphocytes # (Auto) 0.7 x10^3/uL (1.0-4.8) Monocytes # (Auto) 0.3 x10^3/uL (0.0-1.1) Eosinophils # (Auto) 0.0 x10^3/uL (0.0-0.7) Basophils # (Auto) 0.0 x10^3/uL (0.0-0.2) Glucose (Fingerstick) 234 mg/dL (70-99) Assessment and Plan Assessmemt and Plan Problems Medical Problems: (1) Acute and chronic respiratory failure Status: Acute (2) COPD with acute exacerbation Status: Acute (3) Pneumonia Status: Acute Comment Review of Relevant I have reviewed the following items escobar (where applicable) has been applied. Medications: Current Medications Medications (Trade) Dose Ordered Sig/Rocío Route PRN Reason Start Time Stop Time Status Last Admin Dose Admin Insulin Glargine (Lantus Syringe) 8 unit QHS SQ 05/06/21 21:00 05/06/21 22:23 Lactobacillus Rhamnosus (Culturelle) 1 cap BID PO 05/06/21 21:00 05/07/21 08:54 Donepezil HCl (Aricept) 10 mg HS PO 05/06/21 22:30 05/06/21 22:21 Memantine (Namenda) 5 mg BID PO 05/06/21 22:30 05/07/21 08:55 Pregabalin (Lyrica) 75 mg BID PO 05/06/21 22:30 05/07/21 08:55 Olanzapine (ZyPREXA) 20 mg QHS PO 05/06/21 22:30 05/06/21 22:22 Justifications for Admission General Conditions Other justification for admit: Acute respiratory failure with hypoxia, sleep exacerbation, acute Other Justification CHERYL RESENDIZ MD May 07, 2021 10:47
[2021-05-07 11:00] VITALS: BP 188/84
--- NOTE | 2021-05-07 13:58 | NUR ---
SS following up with discharge planning. SS reviewed pt chart and discussed with pt RN. Pt is LTC resident from [place], ; fax [phone]. COVID19 negative. Pt is currently requiring oxygen at three liters nasal canula. Pt on IV Zyvox, IV Zosyn, and IV Solu-Medrol. PT/OT recommended [facility]. Clinical updates phoned and faxed to [facility]. SS will continue to follow for discharge planning.
[2021-05-07 15:00] VITALS: BP 182/88
[2021-05-07] MEDS ORDERED: POTASSIUM CHLORIDE 20 MEQ TABLET.ER. PO ONE (15:30)
[2021-05-07 19:00] VITALS: BP 193/85
[2021-05-07] MEDS: DONEPEZIL HCL 10 MG TABLET. PO SCH (20:17)
[2021-05-07] MEDS: OLANZapine 5 MG TABLET PO SCH (20:19)
[2021-05-07] MEDS: hydrALAZINE 20 MG/ML VIAL. IVP PRN (20:23)
[2021-05-07] MEDS: INSULIN GLARGINE SYRINGE. SQ SCH (20:25)
[2021-05-07 22:35] LABS: HEMOGLOBIN A1C 7.3 % (4.8-5.6)
[2021-05-07 22:55] VITALS: BP 161/77
[2021-05-08 03:00] VITALS: BP 182/90
[2021-05-08 03:45] VITALS: BP 173/82
[2021-05-08 05:08] LABS: CALCIUM 8.5 mg/dL (8.5-10.1); GFR 29.4; POTASSIUM 3.3 mmol/L (3.5-5.1)
[2021-05-08] MEDS: PIPERACILLIN/TAZOBACTAM 3.375 GM in IV NORMAL SALINE 50ML 50 ML IV SCH ×2 (05:52→11:42)
[2021-05-08] MEDS: methylPREDNISolone SOD SUCC PF 125 MG/2 ML VIAL. IV SCH ×2 (05:52→13:14)
[2021-05-08 07:00] VITALS: BP 186/86
[2021-05-08] MEDS ORDERED: POTASSIUM CHLORIDE 20 MEQ TABLET.ER. PO SCH (08:00)
[2021-05-08] MEDS: MEMANTINE 5 MG TABLET. PO SCH (08:25)
[2021-05-08] MEDS: ENOXAPARIN 40 MG/0.4 ML SYRINGE. SQ SCH (08:26)
[2021-05-08] MEDS: LACTOBACILLUS RHAMNOSUS GG 1 CAPSULE. PO SCH (08:26)
[2021-05-08] MEDS: PREGABALIN 75 MG CAPSULE PO SCH (08:26)
[2021-05-08] MEDS: INSULIN LISPRO 300 UNITS/3 ML VIAL. SQ SCH ×2 (08:28→11:51)
[2021-05-08] MEDS: hydrALAZINE 20 MG/ML VIAL. IVP PRN (08:29)
--- NOTE | 2021-05-08 08:58 | PDOC ---
PULMONARY PROGRESS NOTES DATE: 05/08/21 TIME: 08:58 Subjective Patient feels better less short of air Vitals Vital Signs Date Time Temp Pulse Resp B/P (MAP) Pulse Ox O2 Delivery O2 Flow Rate FiO2 05/08/21 08:29 68 186/86 05/08/21 07:00 98.0 17 93 Nasal Cannula 2.0 98.0 ROS: No Nausea, No Chest Pain, No Abdominal Pain, No Increase Cough General: Alert, No acute distress Lungs: Clear Cardiovascular: S1 Abdomen: Soft Neuro Exam: Alert Extremities: No Edema Skin: Warm Labs Laboratory Tests Test 05/06/21 12:00 05/06/21 16:31 05/06/21 19:15 05/06/21 21:16 Glucose (Fingerstick) 177 mg/dL (70-99) 188 mg/dL (70-99) 220 mg/dL (70-99) Nasal Screen MRSA (PCR) Negative (NEGATIVE) Test 05/07/21 04:10 05/07/21 04:15 05/07/21 07:37 05/07/21 11:52 Sodium Level 134 mmol/L (136-145) Potassium Level 3.2 mmol/L (3.5-5.1) Chloride Level 97 mmol/L (98-107) Carbon Dioxide Level 30 mmol/L (21-32) Anion Gap 7 (6-14) Blood Urea Nitrogen 38 mg/dL (7-20) Creatinine 1.9 mg/dL (0.6-1.0) Estimated GFR (Cockcroft-Gault) 31.2 Glucose Level 211 mg/dL (70-99) Hemoglobin A1c 7.3 % (4.8-5.6) Calcium Level 8.4 mg/dL (8.5-10.1) White Blood Count 8.6 x10^3/uL (4.0-11.0) Red Blood Count 3.05 x10^6/uL (3.50-5.40) Hemoglobin 9.1 g/dL (12.0-15.5) Hematocrit 27.6 % (36.0-47.0) Mean Corpuscular Volume 91 fL (79-100) Mean Corpuscular Hemoglobin 30 pg (25-35) Mean Corpuscular Hemoglobin Concent 33 g/dL (31-37) Red Cell Distribution Width 15.7 % (11.5-14.5) Platelet Count 222 x10^3/uL (140-400) Neutrophils (%) (Auto) 88 % (31-73) Lymphocytes (%) (Auto) 9 % (24-48) Monocytes (%) (Auto) 4 % (0-9) Eosinophils (%) (Auto) 0 % (0-3) Basophils (%) (Auto) 0 % (0-3) Neutrophils # (Auto) 7.6 x10^3/uL (1.8-7.7) Lymphocytes # (Auto) 0.7 x10^3/uL (1.0-4.8) Monocytes # (Auto) 0.3 x10^3/uL (0.0-1.1) Eosinophils # (Auto) 0.0 x10^3/uL (0.0-0.7) Basophils # (Auto) 0.0 x10^3/uL (0.0-0.2) Glucose (Fingerstick) 234 mg/dL (70-99) 229 mg/dL (70-99) Test 05/07/21 16:11 05/07/21 20:11 05/08/21 04:30 05/08/21 07:06 Glucose (Fingerstick) 179 mg/dL (70-99) 247 mg/dL (70-99) 165 mg/dL (70-99) Sodium Level 136 mmol/L (136-145) Potassium Level 3.3 mmol/L (3.5-5.1) Chloride Level 97 mmol/L (98-107) Carbon Dioxide Level 32 mmol/L (21-32) Anion Gap 7 (6-14) Blood Urea Nitrogen 47 mg/dL (7-20) Creatinine 2.0 mg/dL (0.6-1.0) Estimated GFR (Cockcroft-Gault) 29.4 Glucose Level 181 mg/dL (70-99) Calcium Level 8.5 mg/dL (8.5-10.1) Laboratory Tests Test 05/07/21 11:52 05/07/21 16:11 05/07/21 20:11 05/08/21 04:30 Glucose (Fingerstick) 229 mg/dL (70-99) 179 mg/dL (70-99) 247 mg/dL (70-99) Sodium Level 136 mmol/L (136-145) Potassium Level 3.3 mmol/L (3.5-5.1) Chloride Level 97 mmol/L (98-107) Carbon Dioxide Level 32 mmol/L (21-32) Anion Gap 7 (6-14) Blood Urea Nitrogen 47 mg/dL (7-20) Creatinine 2.0 mg/dL (0.6-1.0) Estimated GFR (Cockcroft-Gault) 29.4 Glucose Level 181 mg/dL (70-99) Calcium Level 8.5 mg/dL (8.5-10.1) Test 05/08/21 07:06 Glucose (Fingerstick) 165 mg/dL (70-99) Medications Active Scripts Medications Dose Route/Sig Max Daily Dose Days Date Category Zyprexa (Olanzapine) 20 Mg Tablet 1 Tab PO QHS 05/06/21 Reported Proair Hfa Inhaler (Albuterol Sulfate) 8.5 Gm Hfa.aer.ad 1 Puff INH PRN Q6HRS PRN 05/06/21 Reported Protonix (Pantoprazole Sodium) 40 Mg Tablet.dr 40 Mg PO DAILYAC 05/06/21 Reported Potassium Chloride 20 Meq Tablet.er 20 Meq PO DAILY 05/06/21 Reported Oxycodone-Acetaminophen 10-325 (Oxycodone Hcl/Acetaminophen) 1 Each Tablet 1 Each PO Q12HR PRN 05/06/21 Reported Nystatin 1 Each Powder.ea. 1 Each MC BID PRN 05/06/21 Reported Multi Vitamin Daily (Multivitamin) 1 Each Tablet 1 Tab PO DAILY 30 05/06/21 Reported Milk Of Magnesia (Magnesium Hydroxide) 400 Mg/5 Ml Oral.susp 400 Mg PO Q6HRS PRN 05/06/21 Reported Namenda (Memantine Hcl) 10 Mg Tablet 5 Mg PO BID 05/06/21 Reported Melatonin 3 Mg Tab.rapdis 1 Tab PO QHS 30 05/06/21 Reported Lyrica (Pregabalin) 75 Mg Capsule 75 Mg PO BID 05/06/21 Reported Losartan-Hctz 100-25 Mg Tab (Losartan/Hydrochlorothiazide) 1 Each Tablet 1 Each PO DAILY 05/06/21 Reported Hydralazine Hcl 50 Mg Tablet 50 Mg PO QID 05/06/21 Reported Furosemide 40 Mg Tablet 40 Mg PO DAILY 05/06/21 Reported Divalproex Sodium Er (Divalproex Sodium) 500 Mg Tab.er.24h 500 Mg PO HS 05/06/21 Reported Clonidine Hcl 0.1 Mg Tablet 0.1 Mg PO BID 05/06/21 Reported Calcium 500 mg Chewable Tablet (Calcium Carbonate/Vitamin D3) 1 Each Tab.chew 1 Each PO DAILY 05/06/21 Reported Abilify (Aripiprazole) 5 Mg Tablet 5 Mg PO DAILY 05/06/21 Reported Donepezil Hcl 10 Mg Tablet 10 Mg PO HS 05/06/21 Reported Amlodipine Besylate 10 Mg Tablet 10 Mg PO DAILY 30 02/29/20 Rx Tramadol Hcl 100 Mg Tbmp.24hr 100 Mg PO PRN Q8HRS PRN 6 02/29/20 Rx Trazodone Hcl 100 Mg Tablet 1 Tab PO PRN Q12HR PRN 02/24/20 Reported Spironolactone 25 Mg Tablet 1 Tab PO DAILY 02/24/20 Reported Klor-Con 10 (Potassium Chloride) 10 Meq Tablet.er 1 Tab PO DAILY 30 02/24/20 Reported Metoprolol Tartrate 100 Mg Tablet 2 Tab PO BID 02/24/20 Reported Haloperidol 2 Mg Tablet 2 Tab PO TID 02/24/20 Reported Atorvastatin Calcium 10 Mg Tablet 1 Tab PO DAILY 02/24/20 Reported Leflunomide 20 Mg Tablet 20 Mg PO DAILY 30 07/30/19 Reported Allergy Relief (Loratadine) 10 Mg Tablet 10 Mg PO DAILY 30 05/13/19 Reported Tylenol (Acetaminophen) 325 Mg Tablet 2 Tab PO PRN Q4HRS 06/13/15 Reported Aspir 81 (Aspirin) 81 Mg Tablet. 1 Tab PO HS 08/09/14 Reported Impression . IMPRESSION: 1. Acute hypoxemic respiratory failure, suspect combination of poor inspiratory effort, weakness, possible pneumonia, possible underlying obstructive lung disease. 2. Abnormal x-ray, suspect pneumonia. 3. Acute kidney injury. 4. Type 2 diabetes. 5. History of dementia, schizophrenia. 6. Negative SARS-CoV-2 testing. 7. Multiple other comorbidities as indicated above. Plan . Updated Discussed with Dr. Gonzalez Discharge back to alf Continue empiric antibiotic orally updated 05/07 continue current support MRSA screening pending Clinically improving DVT GI prophylax Replace potassium 05/06 PLAN: 1. We will obtain nasal swab for MRSA. If negative, discontinue MRSA coverage. 2. Continue empiric Zosyn. 3. Speech evaluation. 4. Nebulized treatments. 5. Oxygen supplementation. I do appreciate the privilege in sharing the patient's care. LUIS WHITLOCK MD May 08, 2021 08:58
[2021-05-08] MEDS: IPRATRPIUM/ALBUTEROL 0.5/2.5MG 3 ML NEBU. NEB SCH ×3 (09:02→15:38)
[2021-05-08 11:00] VITALS: BP 188/86
--- NOTE | 2021-05-08 12:12 | PDOC ---
[employer] PROGRESS NOTE Date of Service DOS: DATE: 05/08/21 TIME: 12:10 Chief Complaint Chief Complaint Acute respiratory failure with hypoxia Acute COPD exacerbation Acute asthma exacerbation DOMINGUEZ due to vasomotor nephropathy Hypokalemia DM2 with hyperglycemia History dementia History of schizophrenia Mild malnutrition COVID-19 PUI Plan: Consultation placed to pulmonology We will continue treatment of COPD/asthma exacerbation with Solu-Medrol, antibiotics, and breathing treatments. IV fluids; echocardiogram from 02/27/2020 showed elevated pulmonary artery pressure estimated at 34 mmHg, EF 55-60%. Basal/prandial insulin Resume home medications COVID-19 pending FEN - Cardiac diet PPX - Heparin DNR Dispo - inpatient for above Surrogate decision-maker is Lawanda Valera History of Present Illness History of Present Illness Patient 75-year-old female with past medical history COPD, CHF, dementia, DM2, s chizophrenia who presents to the ED from [facility] for respiratory distress. Upon EMS arrival she was reportedly having agonal respirations at approximately 8 breaths/min. Initial O2 saturations were 70%, that improved to 95% on CPAP. Apparently more alert and responsive upon arrival in the ED. labs admission showed WBC 7.2, hemoglobin 9.9, hematocrit 29.8, potassium 3.3, BUN 33, creatinine 2.1, CBG 227, albumin 3.2, rapid COVID-19 negative. She received broad-spectrum antibiotics, steroids, and breathing treatments in the ED. We will keep patient for further medical management. 05/07: Afebrile, breathing on 2 L nasal cannula. She reports no O2 requirement at home. MRSA PCR pending; if negative can discontinue Zyvox. Continue current antibiotic treatment for now, and steroids. 05/08: Patient stating she is feeling much better, currently breathing on room air. MRSA negative. She will be stable to discharge home on oral Augmentin twice daily for 5 days. Greater than 30 minutes spent managing the discharge of this patient. Vitals/I&O Vitals/I&O: Vital Signs Date Time Temp Pulse Resp B/P (MAP) Pulse Ox O2 Delivery O2 Flow Rate FiO2 05/08/21 11:00 97.9 82 17 188/86 (120) 92 Nasal Cannula 2.0 97.9 I & O 05/07/21 05/07/21 05/08/21 15:00 23:00 07:00 Intake Total 250 ml 750 ml 250 ml Output Total 800 ml 450 ml 1000 ml Balance -550 ml 300 ml -750 ml Physical Exam General: Alert, Cooperative, No acute distress Heart: Regular rate Lungs: Clear Abdomen: No masses Extremities: No clubbing Skin: No rashes Labs Labs: Laboratory Tests Test 05/07/21 16:11 05/07/21 20:11 05/08/21 04:30 05/08/21 07:06 Glucose (Fingerstick) 179 mg/dL (70-99) 247 mg/dL (70-99) 165 mg/dL (70-99) Sodium Level 136 mmol/L (136-145) Potassium Level 3.3 mmol/L (3.5-5.1) Chloride Level 97 mmol/L (98-107) Carbon Dioxide Level 32 mmol/L (21-32) Anion Gap 7 (6-14) Blood Urea Nitrogen 47 mg/dL (7-20) Creatinine 2.0 mg/dL (0.6-1.0) Estimated GFR (Cockcroft-Gault) 29.4 Glucose Level 181 mg/dL (70-99) Calcium Level 8.5 mg/dL (8.5-10.1) Test 05/08/21 10:34 Glucose (Fingerstick) 234 mg/dL (70-99) Assessment and Plan Assessmemt and Plan Problems Medical Problems: (1) Acute and chronic respiratory failure Status: Acute (2) COPD with acute exacerbation Status: Acute (3) Pneumonia Status: Acute Comment Review of Relevant I have reviewed the following items escobar (where applicable) has been applied. Medications: Current Medications Medications (Trade) Dose Ordered Sig/Rocío Route PRN Reason Start Time Stop Time Status Last Admin Dose Admin Potassium Chloride (Klor-Con) 20 meq [id number] PO 05/08/21 08:00 05/08/21 08:25 Potassium Chloride (Klor-Con) 20 meq 1X ONCE PO 05/07/21 15:30 05/07/21 15:31 DC 05/07/21 17:14 Justifications for Admission General Conditions Other justification for admit: Acute respiratory failure with hypoxia, sleep exacerbation, acute Other Justification CHERYL RESENDIZ MD May 08, 2021 12:12
--- NOTE | 2021-05-08 12:13 | PDOC3 ---
Discharge Summary Visit Information Date of Admission: May 06, 2021 Final Diagnosis Problems Medical Problems: (1) Acute and chronic respiratory failure Status: Acute (2) COPD with acute exacerbation Status: Acute (3) Pneumonia Status: Acute Brief Hospital Course Allergies Allergies Coded Allergies Type Severity Reaction Last Updated Verified Sulfa (Sulfonamide Antibiotics) Allergy Intermediate 02/22/20 Yes latex Allergy Intermediate SURGICAL TAPE 02/22/20 Yes piroxicam Allergy Intermediate BLISTERS 02/22/20 Yes gabapentin Adverse Reaction Severe 02/22/20 Yes divalproex sodium Adverse Reaction Intermediate neck and back pain 05/07/21 Yes fluticasone Adverse Reaction Intermediate COUGH 05/08/21 Yes lisinopril Adverse Reaction Intermediate cough 05/07/21 Yes Vital Signs Vital Signs Date Time Temp Pulse Resp B/P (MAP) Pulse Ox O2 Delivery O2 Flow Rate FiO2 05/08/21 11:00 97.9 82 17 188/86 (120) 92 Nasal Cannula 2.0 97.9 Lab Results Laboratory Tests Test 05/06/21 16:31 05/06/21 19:15 05/06/21 21:16 05/07/21 04:10 Glucose (Fingerstick) 188 mg/dL (70-99) 220 mg/dL (70-99) Nasal Screen MRSA (PCR) Negative (NEGATIVE) Sodium Level 134 mmol/L (136-145) Potassium Level 3.2 mmol/L (3.5-5.1) Chloride Level 97 mmol/L (98-107) Carbon Dioxide Level 30 mmol/L (21-32) Anion Gap 7 (6-14) Blood Urea Nitrogen 38 mg/dL (7-20) Creatinine 1.9 mg/dL (0.6-1.0) Estimated GFR (Cockcroft-Gault) 31.2 Glucose Level 211 mg/dL (70-99) Hemoglobin A1c 7.3 % (4.8-5.6) Calcium Level 8.4 mg/dL (8.5-10.1) Test 05/07/21 04:15 05/07/21 07:37 05/07/21 11:52 05/07/21 16:11 White Blood Count 8.6 x10^3/uL (4.0-11.0) Red Blood Count 3.05 x10^6/uL (3.50-5.40) Hemoglobin 9.1 g/dL (12.0-15.5) Hematocrit 27.6 % (36.0-47.0) Mean Corpuscular Volume 91 fL (79-100) Mean Corpuscular Hemoglobin 30 pg (25-35) Mean Corpuscular Hemoglobin Concent 33 g/dL (31-37) Red Cell Distribution Width 15.7 % (11.5-14.5) Platelet Count 222 x10^3/uL (140-400) Neutrophils (%) (Auto) 88 % (31-73) Lymphocytes (%) (Auto) 9 % (24-48) Monocytes (%) (Auto) 4 % (0-9) Eosinophils (%) (Auto) 0 % (0-3) Basophils (%) (Auto) 0 % (0-3) Neutrophils # (Auto) 7.6 x10^3/uL (1.8-7.7) Lymphocytes # (Auto) 0.7 x10^3/uL (1.0-4.8) Monocytes # (Auto) 0.3 x10^3/uL (0.0-1.1) Eosinophils # (Auto) 0.0 x10^3/uL (0.0-0.7) Basophils # (Auto) 0.0 x10^3/uL (0.0-0.2) Glucose (Fingerstick) 234 mg/dL (70-99) 229 mg/dL (70-99) 179 mg/dL (70-99) Test 05/07/21 20:11 05/08/21 04:30 05/08/21 07:06 05/08/21 10:34 Glucose (Fingerstick) 247 mg/dL (70-99) 165 mg/dL (70-99) 234 mg/dL (70-99) Sodium Level 136 mmol/L (136-145) Potassium Level 3.3 mmol/L (3.5-5.1) Chloride Level 97 mmol/L (98-107) Carbon Dioxide Level 32 mmol/L (21-32) Anion Gap 7 (6-14) Blood Urea Nitrogen 47 mg/dL (7-20) Creatinine 2.0 mg/dL (0.6-1.0) Estimated GFR (Cockcroft-Gault) 29.4 Glucose Level 181 mg/dL (70-99) Calcium Level 8.5 mg/dL (8.5-10.1) Laboratory Tests Test 05/07/21 16:11 05/07/21 20:11 05/08/21 04:30 05/08/21 07:06 Glucose (Fingerstick) 179 mg/dL (70-99) 247 mg/dL (70-99) 165 mg/dL (70-99) Sodium Level 136 mmol/L (136-145) Potassium Level 3.3 mmol/L (3.5-5.1) Chloride Level 97 mmol/L (98-107) Carbon Dioxide Level 32 mmol/L (21-32) Anion Gap 7 (6-14) Blood Urea Nitrogen 47 mg/dL (7-20) Creatinine 2.0 mg/dL (0.6-1.0) Estimated GFR (Cockcroft-Gault) 29.4 Glucose Level 181 mg/dL (70-99) Calcium Level 8.5 mg/dL (8.5-10.1) Test 05/08/21 10:34 Glucose (Fingerstick) 234 mg/dL (70-99) Brief Hospital Course Acute respiratory failure with hypoxia Acute COPD exacerbation Acute asthma exacerbation DOMINGUEZ due to vasomotor nephropathy Hypokalemia DM2 with hyperglycemia History dementia History of schizophrenia Mild malnutrition COVID-19 PUI Patient 75-year-old female with past medical history COPD, CHF, dementia, DM2, schizophrenia who presents to the ED from [facility] for respiratory distress. Upon EMS arrival she was reportedly having agonal respirations at approximately 8 breaths/min. Initial O2 saturations were 70%, that improved to 95% on CPAP. Apparently more alert and responsive upon arrival in the ED. labs admission showed WBC 7.2, hemoglobin 9.9, hematocrit 29.8, potassium 3.3, BUN 33, creatinine 2.1, CBG 227, albumin 3.2, rapid COVID-19 negative. She received broad-spectrum antibiotics, steroids, and breathing treatments in the ED. We will keep patient for further medical management. 05/07: Afebrile, breathing on 2 L nasal cannula. She reports no O2 requirement at home. MRSA PCR pending; if negative can discontinue Zyvox. Continue current antibiotic treatment for now, and steroids. 05/08: Patient stating she is feeling much better, currently breathing on room air. MRSA negative. She will be stable to discharge home on oral Augmentin twice daily for 5 days. Greater than 30 minutes spent managing the discharge of this patient. Discharge Information Condition at Discharge: Improved Disposition/Orders: D/C to Another Facility Scheduled Acetaminophen (Tylenol) 325 Mg Tablet, 2 TAB PO PRN Q4HRS, #30 (Reported) Entered as Reported by: HENNA INFANTE on 06/13/15 0458 Last Action: Reviewed on 05/06/21806 by ORION REHMAN Amlodipine Besylate (Amlodipine Besylate) 10 Mg Tablet, 10 MG PO DAILY for HTN for 30 Days, #30 Prescribed by: KATHERIN THOMPSON MD on 02/29/20 1218 Last Action: Reviewed on 05/06/21807 by ORION REHMAN Aripiprazole (Abilify) 5 Mg Tablet, 5 MG PO DAILY for , (Reported) Entered as Reported by: ORION REHMAN on 05/06/21809 Last Action: New Order on 05/06/21809 by ORION REHMAN Aspirin (Aspir 81) 81 Mg Tablet.dr, 1 TAB PO HS, #30 Ref 5 (Reported) Entered as Reported by: Jessica Coleman on 08/09/14 0157 Last Action: Reviewed on 05/06/21809 by ORION REHMAN Calcium Carbonate/Vitamin D3 (Calcium 500 mg Chewable Tablet) 1 Each Tab.chew, 1 EACH PO DAILY for , (Reported) Entered as Reported by: ORION REHMAN on 05/06/21810 Last Action: New Order on 05/06/21810 by ORION REHMAN Clonidine Hcl (Clonidine Hcl) 0.1 Mg Tablet, 0.1 MG PO BID for HTN, (Reported) Entered as Reported by: ORION REHMAN on 05/06/21811 Last Action: New Order on 05/06/21811 by ORION REHMAN Divalproex Sodium (Divalproex Sodium Er) 500 Mg Tab.er.24h, 500 MG PO HS for , (Reported) Entered as Reported by: ORION REHMAN on 05/06/21812 Last Action: New Order on 05/06/21812 by ORION REHMAN Donepezil Hcl (Donepezil Hcl) 10 Mg Tablet, 10 MG PO HS for , (Reported) Entered as Reported by: ORION REHMAN on 05/06/21808 Last Action: Continued on 05/06/212150 by ORION REHMAN Furosemide (Furosemide) 40 Mg Tablet, 40 MG PO DAILY for , (Reported) Entered as Reported by: ORION REHMAN on 05/06/21814 Last Action: New Order on 05/06/21814 by ORION REHMAN Hydralazine Hcl (Hydralazine Hcl) 50 Mg Tablet, 50 MG PO QID for , (Reported) Entered as Reported by: ORION REHMAN on 05/06/21815 Last Action: New Order on 05/06/21815 by ORION REHMAN Losartan/Hydrochlorothiazide (Losartan-Hctz 100-25 Mg Tab) 1 Each Tablet, 1 EACH PO DAILY for , (Reported) Entered as Reported by: ORION REHMAN on 05/06/21816 Last Action: New Order on 05/06/21816 by ORION REHMAN Melatonin (Melatonin) 3 Mg Tab.rapdis, 1 TAB PO QHS for sleep for 30 Days, #30 Ref 0 (Reported) Entered as Reported by: ORION REHMAN on 05/06/21818 Last Action: New Order on 05/06/21818 by ORION REHMAN Memantine Hcl (Namenda) 10 Mg Tablet, 5 MG PO BID for , (Reported) Entered as Reported by: ORION REHMAN on 05/06/21819 Last Action: Continued on 05/06/212150 by ORION REHMAN Metoprolol Tartrate (Metoprolol Tartrate) 100 Mg Tablet, 2 TAB PO BID for HTN, #60 Ref 5 (Reported) Entered as Reported by: CALVIN KELLOGG on 02/24/20829 Last Action: Edited on 05/06/21819 by ORION REHMAN Multivitamin (Multi Vitamin Daily) 1 Each Tablet, 1 TAB PO DAILY for for 30 Days, #30 Ref 0 (Reported) Entered as Reported by: ORION REHMAN on 05/06/21822 Last Action: New Order on 05/06/21822 by ORION REHMAN Olanzapine (Zyprexa) 20 Mg Tablet, 1 TAB PO QHS for , #30 Ref 2 (Reported) Entered as Reported by: ORION REHMAN on 05/06/21827 Last Action: Converted on 05/06/212150 by ORION REHMAN Pantoprazole Sodium (Protonix ) 40 Mg Tablet.dr, 40 MG PO DAILYAC for GERD, (Reported) Entered as Reported by: ORION REHMAN on 05/06/21825 Last Action: New Order on 05/06/21825 by ORION REHMAN Potassium Chloride (Potassium Chloride) 20 Meq Tablet.er, 20 MEQ PO DAILY for , (Reported) Entered as Reported by: ORION REHMAN on 05/06/21824 Last Action: New Order on 05/06/21824 by ORION REHMAN Pregabalin (Lyrica) 75 Mg Capsule, 75 MG PO BID for , (Reported) Entered as Reported by: ORION REHMAN on 05/06/21817 Last Action: Continued on 05/06/212150 by ORION REHMAN Spironolactone (Spironolactone) 25 Mg Tablet, 1 TAB PO DAILY for HTN, CHF, #90 Ref 1 (Reported) Entered as Reported by: CALVIN KELLOGG on 02/24/20829 Last Action: Reviewed on 05/06/21827 by ORION REHMAN Scheduled PRN Albuterol Sulfate (Proair Hfa Inhaler) 8.5 Gm Hfa.aer.ad, 1 PUFF INH PRN Q6HRS PRN for SHORTNESS OF BREATH, Ref 0 (Reported) Entered as Reported by: ORION REHMAN on 05/06/21826 Last Action: New Order on 05/06/21826 by ORION REHMAN Magnesium Hydroxide (Milk Of Magnesia) 400 Mg/5 Ml Oral.susp, 400 MG PO Q6HRS PRN for CONSTIPATION, (Reported) Entered as Reported by: ORION REHMAN on 05/06/21821 Last Action: New Order on 05/06/21821 by ORION REHMAN Nystatin (Nystatin) 1 Each Powder.ea., 1 EACH MC BID PRN for RASH, (Reported) Entered as Reported by: ORION REHMAN on 05/06/21823 Last Action: New Order on 05/06/21823 by ORION REHMAN Oxycodone Hcl/Acetaminophen (Oxycodone-Acetaminophen 10-325) 1 Each Tablet, 1 EACH PO Q12HR PRN for PAIN, Ref 0 (Reported) Entered as Reported by: ORION REHMAN on 05/06/21823 Last Action: New Order on 05/06/21823 by ORION REHMAN Justicifation of Admission Dx: Justifications for Admission: Justification of Admission Dx: Yes CHERYL RESENDIZ MD May 08, 2021 12:13
--- NOTE | 2021-05-08 12:17 | SNU/HH DC ---
DISCHARGE ORDERS DISCHARGE INFORMATION: DISCHARGE DATE: May 08, 2021 FINAL DIAGNOSIS Problems Medical Problems: (1) Acute and chronic respiratory failure Status: Acute (2) COPD with acute exacerbation Status: Acute (3) Pneumonia Status: Acute CONDITION ON DISCHARGE: Stable CODE STATUS: Code Status: DNR/DNI FCI: SNF STAY <30 DAYS: Yes POST DISCHARGE ORDERS: ACTIVITY ORDERS: Activity as tolerated WEIGHT BEARING STATUS: No restrictions, Full weight bearing, As tolerated DIET AFTER DISCHARGE: ADA WOUND/INCISION CARE: No wound care needed CHECKS AFTER DISCHARGE: CHECKS AFTER DISCHARGE: Check blood press - daily, Check your Temp as needed, Weigh Yourself Daily TREATMENT/EQUIPMENT ORDERS: ADAPTIVE EQUIPMENT NEEDED: None Physical Therapy For: Evalulation/Treatment Occupational Therapy For: Evaluation/Treatment DISCHARGE MEDICATIONS: Home Meds Active Scripts Amlodipine Besylate (AMLODIPINE BESYLATE) 10 Mg Tablet, 10 MG PO DAILY for HTN for 30 Days, #30 TAB Prov:KATHERIN THOMPSON MD 02/29/20 Reported Medications Olanzapine (ZYPREXA) 20 Mg Tablet, 1 TAB PO QHS for , #30 TAB 2 Refills 05/06/21 Albuterol Sulfate (PROAIR HFA INHALER) 8.5 Gm Hfa.aer.ad, 1 PUFF INH PRN Q6HRS PRN for SHORTNESS OF BREATH, EACH 0 Refills 05/06/21 Pantoprazole Sodium (PROTONIX ) 40 Mg Tablet.dr, 40 MG PO DAILYAC for GERD, TAB 05/06/21 Potassium Chloride (Potassium Chloride) 20 Meq Tablet.er, 20 MEQ PO DAILY for , TAB.SR 05/06/21 Oxycodone Hcl/Acetaminophen (OXYCODONE-ACETAMINOPHEN 10-325) 1 Each Tablet, 1 EACH PO Q12HR PRN for PAIN, TAB 0 Refills 05/06/21 Nystatin (NYSTATIN) 1 Each Powder.ea., 1 EACH MC BID PRN for RASH, EACH 05/06/21 Multivitamin (MULTI VITAMIN DAILY) 1 Each Tablet, 1 TAB PO DAILY for for 30 Days, #30 TAB 0 Refills 05/06/21 Magnesium Hydroxide (MILK OF MAGNESIA) 400 Mg/5 Ml Oral.susp, 400 MG PO Q6HRS PRN for CONSTIPATION, MISC 05/06/21 Memantine Hcl (NAMENDA) 10 Mg Tablet, 5 MG PO BID for , TAB 05/06/21 Melatonin (MELATONIN) 3 Mg Tab.rapdis, 1 TAB PO QHS for sleep for 30 Days, #30 TAB 0 Refills 05/06/21 Pregabalin (LYRICA) 75 Mg Capsule, 75 MG PO BID for , CAP 05/06/21 Losartan/Hydrochlorothiazide (LOSARTAN-HCTZ 100-25 MG TAB) 1 Each Tablet, 1 EACH PO DAILY for , TAB 05/06/21 Hydralazine Hcl (HYDRALAZINE HCL) 50 Mg Tablet, 50 MG PO QID for , TAB 05/06/21 Furosemide (FUROSEMIDE) 40 Mg Tablet, 40 MG PO DAILY for , TAB 05/06/21 Divalproex Sodium (DIVALPROEX SODIUM ER) 500 Mg Tab.er.24h, 500 MG PO HS for , TAB.SR 05/06/21 Clonidine Hcl (CLONIDINE HCL) 0.1 Mg Tablet, 0.1 MG PO BID for HTN, TAB 05/06/21 Calcium Carbonate/Vitamin D3 (Calcium 500 mg Chewable Tablet) 1 Each Tab.chew, 1 EACH PO DAILY for , TAB.CHEW 05/06/21 Aripiprazole (ABILIFY) 5 Mg Tablet, 5 MG PO DAILY for , TAB 05/06/21 Donepezil Hcl (DONEPEZIL HCL) 10 Mg Tablet, 10 MG PO HS for , TAB 05/06/21 Spironolactone (SPIRONOLACTONE) 25 Mg Tablet, 1 TAB PO DAILY for HTN, CHF, #90 TAB 1 Refill 02/24/20 Metoprolol Tartrate (METOPROLOL TARTRATE) 100 Mg Tablet, 2 TAB PO BID for HTN, #60 TAB 5 Refills 02/24/20 Acetaminophen (TYLENOL) 325 Mg Tablet, 2 TAB PO PRN Q4HRS, #30 TAB 06/13/15 Aspirin (ASPIR 81) 81 Mg Tablet., 1 TAB PO HS, #30 TAB 5 Refills 08/09/14 CHERYL RESENDIZ MD May 08, 2021 12:17
--- NOTE | 2021-05-08 12:35 | NUR ---
SS following up with discharge planning. SS reviewed pt chart and discussed with pt RN. Pt is currently requiring oxygen at two liters nasal canula. COVID19 negative. Pt is [facility] resident from [place], ; fax [phone]. Discharge orders received and phoned and faxed to facility. Pt will discharge today and return to facility. [place] to provide transportation. Pt and pt's RN notified. SS will await transportation time and will proceed accordingly. Addendum: 05/08/21 at 1250 by MARNIE CARBAJAL SS Pt will discharge and go to [place] between 1630 and 1700 via [facility] transport. Pt and pt's RN notified.
[2021-05-08 15:00] VITALS: BP 193/92
[2021-05-08 15:26] VITALS: BP 193/92
== END 2021-05-08 17:30 | DRG 189 ==
LOC: ER 00:05 → ED HOLD 01:48 → 6 SOUTH 06:05
PROVIDERS: ADMIT Internal Medicine; ATTEND Internal Medicine
PROC: 5A09357 Assistance with Respiratory Ventilation, Less than 24 Consecutive Hours, Continuous Positive Airway Pressure (ICD-10-PCS; principal; 2021-05-06)
DX: J96.21 Acute and chronic respiratory failure with hypoxia (principal); N17.0 Acute kidney failure with tubular necrosis; J18.9 Pneumonia, unspecified organism; E44.1 Mild protein-calorie malnutrition; I69.351 Hemiplegia and hemiparesis following cerebral infarction affecting right dominant side; J44.0 Chronic obstructive pulmonary disease with (acute) lower respiratory infection; J44.1 Chronic obstructive pulmonary disease with (acute) exacerbation; J45.901 Unspecified asthma with (acute) exacerbation; E11.65 Type 2 diabetes mellitus with hyperglycemia; E78.00 Pure hypercholesterolemia, unspecified; E78.5 Hyperlipidemia, unspecified; E87.6 Hypokalemia; F03.90 Unspecified dementia, unspecified severity, without behavioral disturbance, psychotic disturbance, mood disturbance, and anxiety; F25.9 Schizoaffective disorder, unspecified; I11.0 Hypertensive heart disease with heart failure; I50.9 Heart failure, unspecified; K21.9 Gastro-esophageal reflux disease without esophagitis; M19.019 Primary osteoarthritis, unspecified shoulder; M35.3 Polymyalgia rheumatica; M79.7 Fibromyalgia; Z20.822 Contact with and (suspected) exposure to COVID-19; Z79.899 Other long term (current) drug therapy; Z90.49 Acquired absence of other specified parts of digestive tract; Z90.710 Acquired absence of both cervix and uterus; Z96.659 Presence of unspecified artificial knee joint; M19.90 Unspecified osteoarthritis, unspecified site; Z88.2 Allergy status to sulfonamides; Z88.8 Allergy status to other drugs, medicaments and biological substances; Z91.040 Latex allergy status
CPT/HCPCS: 36415; 36600; 51702; 71045; 80048; 80053; 81001; 82805; 82962; 83036; 83605; 83735; 83880; 84100; 84484; 85025; 87040; 87086; 87426; 87641; 93005; 94640; 94660; 94760; 96361; 96365; 96368; 96375; J0360; J0692; J1650; J1815; J1956; J2020; J2543; J2930; J3370; J7030; J7040; 97530-GP; 99285-25; G0378

== ENCOUNTER → 2021-05-28 | Outpatient (CLI) | payer MEDICARE, OTHER ==
[2021-05-08 15:26] VITALS: BP 193/92
[~2021-05-28] MED LIST changes: +ALBU2.5V8 INH; +ARIP5TAB13 PO; +CALC-712 PO; +CLON0.1T PO; +DIVA500T17 PO; +DONE10TA7 PO; +HYDR-2869 PO; +LOSA1TAB22 PO; +MAGN400O7 PO; +MELA3TAB43 PO; +MEMA10TA PO; +MONT-38 PO; -MONT10TA20 PO; +NYST1POW5 MC; +OLAN20TA3 PO; +OXYC1TAB20 PO; +PANT40TA77 PO; +POTA-163 PO; +PREG-9 PO
--- NOTE | 2021-05-28 12:53 | CARD ---
MR#: [id number] Date of Study: 05/28/2021 Ordering Physician: ANDREW GARCIA, Referring Physician: ANDREW GARCIA, Tech: Angle Franklineddiestef, [facility] APPROVED REPORT EXAM: Two-dimensional and M-mode echocardiogram with Doppler and color Doppler. Other Information Quality : AverageHR: 51bpm INDICATION Congestive Heart Failure 2D DIMENSIONS Left Atrium(2D)3.9 (1.6-4.0cm)IVSd0.9 (0.7-1.1cm) Aortic Root(2D)3.2 (2.0-3.7cm)LVDd5.5 (3.9-5.9cm) LVOT Diameter2.1 (1.8-2.4cm)PWd1.0 (0.7-1.1cm) LVDs3.3 (2.5-4.0cm)FS (%) 40.0 % SV101.2 mlLVEF(%)70.1 (>50%) Aortic Valve AoV Peak Bryant.118.6cm/sAoV VTI25.2cm AO Peak GR.5.6mmHgLVOT Peak Bryant.113.6cm/s AO Mean GR.3mmHgAVA (VMAX)3.29cm2 Mitral Valve MV E Jubtvtep90.9cm/sMV DECEL [id number] MV A Lhxiarsz13.8cm/sE/A Ratio0.6 Pulmonary Valve PV Peak Zrrpxikd01.2cm/s Tricuspid Valve TR P. Aovkqcyy775sq/sRAP [id number] TR Peak Gr.[id number] Pulmonary Vein S1 Rotmwavm70.9cm/sD2 Ishllnnf90.6cm/s PVa [id number] LEFT VENTRICLE The left ventricle is normal size. There is normal left ventricular wall thickness. The left ventricu lar systolic function is normal. The Ejection Fraction is 50-55%. There is normal LV segmental wall m otion. Transmitral Doppler flow pattern is Grade I-abnormal relaxation pattern. RIGHT VENTRICLE The right ventricle is not well visualized. ATRIA The left atrium is borderline dilated. The right atrium is not well visualized. Interatrial septum no t well visualized. AORTIC VALVE The aortic valve is normal in structure and function. Doppler and Color Flow revealed no significant aortic regurgitation. There is no significant aortic valvular stenosis. Calculated aortic valve area is 3.6 cm2 with maximum pressure gradient of 6 mmHg and mean pressure gradient of 3 mmHg. MITRAL VALVE The mitral valve is normal in structure and function. There is no evidence of mitral valve prolapse. There is no mitral valve stenosis. Doppler and Color-flow revealed trace mitral regurgitation. TRICUSPID VALVE The tricuspid valve is normal in structure and function. Doppler and Color Flow revealed trace tricus pid regurgitation with an estimated PAP of 22 mmHg. There is no tricuspid valve stenosis. PULMONIC VALVE The pulmonic valve is not well visualized. Doppler and Color Flow revealed trace pulmonic valvular re gurgitation. GREAT VESSELS The aortic root is normal in size. The IVC was not visualized. PERICARDIAL EFFUSION There is no evidence of significant pericardial effusion. Critical Notification Critical Value: No <Conclusion> The left ventricular systolic function is normal. The Ejection Fraction is 50-55%. There is normal LV segmental wall motion. Transmitral Doppler flow pattern is Grade I-abnormal relaxation pattern. Trace mitral regurgitation. Trace tricuspid regurgitation with an estimated PAP of 22 mmHg. There is no evidence of significant pericardial effusion. Signed by : Andrew Garcia, Electronically Approved : 05/28/2021 12:52:39
== END ==
LOC: ECHO 10:55
PROVIDERS: ATTEND Internal Medicine Cardiovascular Disease
DX: I50.32 Chronic diastolic (congestive) heart failure (principal)
CPT/HCPCS: 93306

== ENCOUNTER → 2021-11-24 | Outpatient (CLI) | payer MEDICARE, OTHER ==
[2021-08-17 12:32] VITALS: BP 165/87
[~2021-11-24] MED LIST changes: +DEXA4TAB PO; +TRAM100T10 PO; -TRAM100T2 PO
--- NOTE | 2021-11-24 15:50 | KCIC ---
Bilateral digital screening 2-D mammogram: Reason for examination: Routine screening. Comparison is made to previous study dated 11/24/2020. Bilateral mammograms in CC and oblique projections were obtained and reviewed on the workstation. Findings: Breast density: Category C. The breasts are heterogeneously dense, which may obscure small masses. There are no suspicious masses, malignant appearing calcifications or architectural distortion. Posit ioning is limited due to the patient's condition. She has Rochelle's disease. The examination was p erformed wheelchair. Impression: No evidence of malignancy. ASSESSMENT: BI-RADS 1. Negative. Recommendations: Routine screening mammograms. This patient's information has been entered into a reminder system for the patient to be notified wit h the results of her examination and a target date for the next mammogram. Your patient's mammogram demonstrates that she has dense breast tissue (breast density category C or D), which could hide abnormalities, and if she has other risk factors for breast cancer that have bee n identified, she might benefit from supplemental screening tests that may be suggested by you as her ordering physician. Dense breast tissue, in and of itself, is a relatively common condition. Therefo re, this information is not provided to cause undue concern, but rather to raise your awareness and t o promote discussion with your patient regarding the presence of other risk factors, in addition to d ense breast tissue. Electronically signed by: Qi Apodaca MD (11/24/2021 3:48 PM) [id number]
== END ==
LOC: KCIC 13:35
PROVIDERS: ATTEND Family Medicine
DX: Z12.31 Encounter for screening mammogram for malignant neoplasm of breast (principal)
CPT/HCPCS: 77067